=== PATIENT | female | born 1950 | race Caucasian/White ===

== ENCOUNTER 2016-06-29 14:02 | Inpatient (IN) | payer OTHER ==
[~2016-06-29] VITALS: Ht 157.5 cm; Wt 104.6 kg
[~2016-06-29 14:02] MED LIST: AMLO-218 PO; ATOR80TA75 PO; CLON-379 PO; CLOP75TA27 PO; DOCU-144 PO; FEXO60TA8 PO; FOLI-49 PO; GABA100C14 PO; GLUC1KIT3 IM; HEP30MU30 IJ; HYDR-3671 PO; INSU100C3 SC; ISOS60TA PO; LANT3I SC; METO25TA4 PO; ONDA4AMP IV; PANT40TA3 PO; PHEN125O2 PO; SERT25TA PO
[2016-06-29] MEDS ORDERED: SOD CHLORIDE 0.9% 500 ML IV STA (15:17)
[2016-06-29 15:45] LABS: ADD SCAN DIFF NO
[2016-06-29 15:47] LABS: BASOPHILS % 0.3 % (0.0-2.0); EOSINOPHILS # 0.3 10^3/ul (0.0-0.5); EOSINOPHILS % 3.2 % (0.0-7.0); HEMATOCRIT 33.9 % (37.0-47.0); HEMOGLOBIN 10.7 g/dl (12.0-16.0); LYMPHOCYTES # 1.5 10^3/ul (0.8-2.9); LYMPHOCYTES % 16.5 % (15.0-51.0); MEAN CORPUSCULAR HEMOGLOBIN 31.6 pg (29.0-33.0); MEAN CORPUSCULAR HGB CONC 31.6 g/dl (32.0-37.0); MEAN PLATELET VOLUME 10.4 fl (7.4-10.4); MONOCYTE # 0.7 10^3/ul (0.3-0.9); MONOCYTES % 7.7 % (0.0-11.0); NEUTROPHIL # 6.4 10^3/ul (1.6-7.5); NEUTROPHILS % 71.8 % (39.0-77.0); PLATELET COUNT 337 10^3/UL (140-415); RED BLOOD COUNT 3.39 10^6/ul (4.20-5.40); RED CELL DISTRIBUTION WIDTH 15.6 % (11.5-14.5); WHITE BLOOD COUNT 8.9 10^3/ul (4.8-10.8)
[2016-06-29] MEDS ORDERED: LABETALOL HCL 20MG INJ IV ONE (16:00)
[2016-06-29 16:03] LABS: INR 1.02; PARTIAL THROMBOPLASTIN TIME 29.3 Sec (25.0-35.0); PROTIME 13.4 Sec (12.2-14.2)
[2016-06-29 16:08] LABS: ALBUMIN 3.9 g/dl (3.3-4.9); ALBUMIN/GLOBULIN RATIO 1.11; CALCIUM 8.4 mg/dl (8.4-10.2); CREATININE 4.72 mg/dl (0.44-1.00); POTASSIUM 5.5 mmol/L (3.5-5.1); TOTAL PROTEIN 7.4 g/dl (6.1-8.1)
[2016-06-29 16:18] LABS: TROPONIN-I 0.026 ng/ml (0.00-0.12)
[2016-06-29 16:21] LABS: ADD UMIC YES; URINE BILIRUBIN (Dip) NEGATIVE (NEGATIVE); URINE BLOOD (Dip) 1+ (NEGATIVE); URINE COLOR LT. YELLOW (YELLOW); URINE GLUCOSE (Dip) NEGATIVE (NEGATIVE); URINE KETONES (Dip) NEGATIVE (NEGATIVE); URINE LEUKOCYTE ESTERASE (Dip) NEGATIVE (NEGATIVE); URINE NITRITE (Dip) NEGATIVE (NEGATIVE); URINE TOTAL PROTEIN (Dip) 4+ (NEGATIVE); URINE UROBILINOGEN (Dip) 0.2 E.U./dL (0.1-1.0)
[2016-06-29] MEDS ORDERED: HYDR-3672 PO (16:33)
[2016-06-29] MEDS ORDERED: SERT-165 PO (16:33)
[2016-06-29] MEDS ORDERED: METO-407 PO (16:34)
[2016-06-29] MEDS ORDERED: GABA300C16 PO (16:35)
[2016-06-29] MEDS ORDERED: METO100T13 PO (16:35)
[2016-06-29] MEDS ORDERED: FURO80TA3 PO (16:36)
[2016-06-29] MEDS ORDERED: LIRA0.6P2 SQ (16:36)
[2016-06-29] MEDS ORDERED: IRBE300T13 PO (16:38)
[2016-06-29] MEDS ORDERED: REPA1TAB5 PO (16:38)
[2016-06-29 16:39] LABS: SQUAMOUS EPITHELIAL CELL,UR FEW; URINE RBCS 0-2 /HPF (0)
[2016-06-29] MEDS ORDERED: DULO30CA45 PO (16:39)
[2016-06-29] MEDS ORDERED: AMLO5TAB4 PO (16:39)
[2016-06-29] MEDS ORDERED: CLON0.5T4 PO (16:40)
--- NOTE | 2016-06-29 16:40 | RADRPT ---
PROCEDURE: XR Chest. CLINICAL INDICATION: Chest pain TECHNIQUE: A single portable view of the chest was obtained. COMPARISON: None FINDINGS: The aorta is tortuous and atherosclerotic. The cardiomediastinal silhouette is otherwise borderline in size. The lungs and pleural spaces are clear. The soft tissues and osseous structures demonstr ate benign age related senescent changes. Suggestion of a healing left posterior fifth rib fracture is seen. IMPRESSION: 1. Borderline heart size. 2. Suggestion of a healing left posterior fifth rib fracture. RPTAT: HPNM Physician Suzy Date Time Electronically viewed and signed by Physician Suzy on 06/29/2016 16:39 /
[2016-06-29 16:41] LABS: BARBITURATES NEGATIVE (NEGATIVE); BENZODIAZEPINES NEGATIVE (NEGATIVE); CANNABINOIDS NEGATIVE (NEGATIVE); COCAINE NEGATIVE (NEGATIVE); OPIATES NEGATIVE (NEGATIVE)
[2016-06-29] MEDS ORDERED: CHOL20003 PO (16:41)
[2016-06-29] MEDS ORDERED: FERR325C PO (16:42)
[2016-06-29] MEDS ORDERED: ACET-2047 PO (16:43)
[2016-06-29] MEDS ORDERED: ASPI-664 PO (16:44)
[2016-06-29] MEDS ORDERED: ALLO100T PO (16:44)
[2016-06-29] MEDS ORDERED: ALEN70TA30 PO (16:44)
[2016-06-29] MEDS ORDERED: GLUC100015 PO (16:48)
[2016-06-29] MEDS ORDERED: [UNRECOGNIZED DRUG - OTHER] PO (16:52)
--- NOTE | 2016-06-29 16:57 | RADRPT ---
PROCEDURE: CT Head without contrast. CLINICAL INDICATION: Slurred speech TECHNIQUE: The study was performed utilizing a GE 64-slice multidetector CT scanner. Direct spiral axial CT images of the brain were obtained from the vertex to the skull base without contrast. The CTDI vol is 44.77 mGy and the DLP is 720.23 mGy-cm. The images were reviewed on a PACS workstation. COMPARISON: No prior studies are available for comparison. FINDINGS: Mild diffuse cerebral atrophy is seen with a compensatory ventricular enlargement. The curran-white m atter differentiation is maintained. No intra or extra-axial fluid collection or mass effect or julisa ft in the midline structures is seen. The visualized paranasal sinuses, mastoid air cells, orbits, and calvarium are unremarkable. IMPRESSION: 1. No acute intracranial pathology. 2. Mild diffuse cerebral volume loss. RPTAT: HPNM Physician Suzy Date Time Electronically viewed and signed by Physician Suzy on 06/29/2016 16:57 /
[2016-06-29] MEDS ORDERED: ASPIRIN 81 MG TAB PO ONE (17:30)
[2016-06-29] MEDS ORDERED: NA POLYST SULFON 15 GM/60 ML BTL PO ONE (20:00)
[2016-06-29] MEDS ORDERED: ONDANSETRON 4 MG INJ IV PRN (21:00)
[2016-06-29] MEDS ORDERED: ACETAMINOPHEN 325 MG TAB PO PRN (21:00)
[2016-06-29 22:50] VITALS: PULSE 86
--- NOTE | 2016-06-29 22:53 | ERA ---
ER Documentation Chief Complaint Date/Time DATE: 06/29/16 TIME: 22:45 Chief Complaint REFERRED BY PMD FOR POSSIBLE DIALYSIS AND EVAL OF SLURRED SPEECH HPI 65-year-old female presented to the emergency room for observed slurred speech today and primary care's office several hours ago. States that this is happened from time to time. Currently she does not have the slurred speech. She suffered a TIA in the past for which she has had residual right-sided deficits. She is not currently anticoagulated. Primary care doctor also think she may soon need dialysis and she has impaired renal function. She currently has no chest pain or shortness of breath. No headache. ROS All systems reviewed and are negative except as per history of present illness. Medications Home Meds Reported Medications [Vadadustat-Study] No Conflict Check, 300 MG PO DAILY 06/29/16 Glucosamine Sulfate 2KCL (GLUCOSAMINE) 1,000 Mg Tablet, 1000 MG PO DAILY, TAB 06/29/16 Alendronate Sodium* (Fosamax*) 70 Mg Tablet, 70 MG PO Q7D, #4 TAB 06/29/16 Allopurinol* (Allopurinol*) 100 Mg Tablet, 100 MG PO DAILY, TAB 06/29/16 Aspirin* (Aspirin* EC) 81 Mg Tablet.dr, 81 MG PO DAILY, TAB 06/29/16 Acetaminophen* (Acetaminophen*) 650 Mg Tablet, 650 MG PO DAILY Y for PAIN AND OR ELEVATED TEMP, #30 TAB 06/29/16 Ferrous Sulfate (Iron) 325 Mg Capsule.er, 650 MG PO TID, CAP 06/29/16 Cholecalciferol (Vitamin D3) (VITAMIN D-3) 2,000 Unit Capsule, 2000 UNIT PO DAILY, CAP 06/29/16 Clonazepam* (Clonazepam*) 0.5 Mg Tablet, 0.5 MG PO QPM, TAB 06/29/16 Amlodipine Besylate* (Norvasc*) 5 Mg Tablet, 5 MG PO DAILY, TAB 06/29/16 Duloxetine Hcl* (Cymbalta*) 30 Mg Capsule.dr, 30 MG PO DAILY, CAP 06/29/16 Irbesartan* (Avapro*) 300 Mg Tablet, 300 MG PO DAILY, TAB 06/29/16 Repaglinide* (Repaglinide*) 1 Mg Tablet, 1 MG PO AC MEALS, TAB TAKE 1 OR 2MG 15 MIN. BEFORE MEAL 06/29/16 Liraglutide (Victoza 3-Rocco) 0.6 Mg/0.1 Ml Pen.injctr, 0.6 MG SQ QAM, SYR 06/29/16 Furosemide* (Furosemide*) 80 Mg Tablet, 80 MG PO QAM, #30 TAB 06/29/16 Gabapentin* (Gabapentin*) 300 Mg Capsule, 300 MG PO QPM, #60 CAP 06/29/16 Metoprolol Succinate* (Toprol XL*) 100 Mg Tab.sr.24h, 100 MG PO DAILY, #30 TAB 06/29/16 Hydralazine Hcl* (Hydralazine Hcl*) 50 Mg Tab, 50 MG PO TID, #90 TAB 06/29/16 Sertraline Hcl* (Sertraline Hcl*) 100 Mg Tablet, 100 MG PO QPM, #30 TAB 06/29/16 Pantoprazole* (Protonix*) 40 Mg Tablet.dr, 40 MG PO QAM, TAB 08/12/14 Insulin Glargine* (Lantus*) 100 Unit/Ml Soln, 20 UNIT SC QAM, EA 08/12/14 Atorvastatin* (Atorvastatin*) 80 Mg Tablet, 80 MG PO HS, TAB 08/12/14 Discontinued Reported Medications Metoprolol Tartrate* (Lopressor*) 100 Mg Tablet, 100 MG PO DAILY, #60 TAB 06/29/16 Glucagon,Human Recombinant (Glucagon Emergency Kit) 1 Mg/Kit Kit, 1 MG IM PRN, KIT 08/12/14 Phenytoin* (Phenytoin*) 125 Mg/5 Ml Oral.susp, 18 ML PO HS for 30 Days, BOTTLE 08/12/14 Ondansetron Hcl* (Ondansetron Hcl* Inj) 4 Mg/2 Ml Ampul, 4 MG IV Q6 Y for NAUSEA AND/OR VOMITING, AMP 08/12/14 Metoprolol Tartrate* (Lopressor*) 25 Mg Tablet, 75 MG PO BID, TAB 08/12/14 Isosorbide Mononitrate* (Isosorbide Mononitrate*) 60 Mg Tab.er.24h, 60 MG PO QAM , TAB 08/12/14 Insulin Aspart (Novolog) 100 U/Ml Cartridge, 5 UNITS SC AC MEALS, EA HOLD FOR BLOOD SUGAR LESS THAN 120 08/12/14 Insulin Aspart (Novolog) 100 U/Ml Cartridge, 0 SC SLIDING SCALE AC, EA BEFORE MEALS 08/12/14 Hydralazine Hcl* (Hydralazine Hcl*) 25 Mg Tab, 25 MG PO QID, TAB 08/12/14 Heparin Sod (Porcine) (Heparin) 1,000 Unit/Ml Soln, 5000 UNIT IJ Q12 08/12/14 Docusate Sodium* (Colace*) 100 Mg Capsule, 100 MG PO BID Y for CONSTIPATION, CAP 08/12/14 Amlodipine Besylate* (Norvasc*) 10 Mg Tablet, 10 MG PO DAILY, TAB 08/12/14 Folic Acid* (Folic Acid*) 1 Mg Tablet, 1 MG PO DAILY, TAB 08/12/14 Clopidogrel Bisulfate (Clopidogrel) 75 Mg Tablet, 75 MG PO DAILY, TAB 08/12/14 Gabapentin* (Gabapentin*) 100 Mg Capsule, 200 MG PO TID, CAP 08/12/14 Clonidine Hcl* (Clonidine Hcl*) 0.1 Mg Tab, 0.1 MG PO QHS Y for HTN, TAB HOLD FOR SBP LESS THAN 125 08/12/14 Sertraline Hcl* (Zoloft*) 25 Mg Tablet, 75 MG PO HS, TAB 08/12/14 Fexofenadine Hcl* (Fexofenadine Hcl*) 60 Mg Tablet, 60 MG PO BID 10/28/10 Allergies Allergies: Coded Allergies: Penicillins (Verified Allergy, Unknown, ITCHING, 06/29/16) Sulfa (Sulfonamide Antibiotics) (Verified Allergy, Unknown, RASHES, ) latex (Unverified Allergy, Unknown, 06/29/16) morphine (Verified Allergy, Unknown, ITCHING, 06/29/16) Uncoded Allergies: PLASTIC TAPE (Allergy, Unknown, 04/22/14) PMhx/Soc Anesthesia Reaction: No Hx Neurological Disorder: Yes (Stroke, Possible CVA, ) Hx Respiratory Disorders: No Hx Cardiac Disorders: Yes (hypertension, Hyperlipidemia, CHF, ) Hx Psychiatric Problems: Yes (depression) Hx Miscellaneous Medical Probl: No Hx Alcohol Use: No Hx Substance Use: No Hx Tobacco Use: No Smoking Status: Never smoker Physical Exam Vitals Vital Signs Date Time Temp Pulse Resp B/P Pulse Ox O2 Delivery O2 Flow Rate FiO2 06/29/16 22:24 87 18 176/89 98 Nasal Cannula 2.0 06/29/16 20:18 87 18 187/89 98 Nasal Cannula 3.0 06/29/16 18:00 89 18 178/84 99 Nasal Cannula 2.0 06/29/16 16:10 78 18 144/74 99 Room Air 06/29/16 15:40 76 18 194/106 99 Room Air 06/29/16 14:13 97.1 82 19 196/85 99 Physical Exam Const: [] Head: Atraumatic Eyes: Normal Conjunctiva ENT: Normal External Ears, Nose and Mouth. Neck: Full range of motion..~ No meningismus. Resp: Clear to auscultation bilaterally Cardio: Regular rate and rhythm, no murmurs Abd: Soft, non tender, non distended. Normal bowel sounds Skin: No petechiae or rashes Back: No midline or flank tenderness Ext: No cyanosis, or edema Neur: Awake and alert Psych: Normal Mood and Affect Result Diagram: 06/29/16 1535 06/29/16 1535 Results 24 hrs Laboratory Tests Test 06/29/16 15:35 White Blood Count 8.910^3/ul Red Blood Count 3.3910^6/ul Hemoglobin 10.7g/dl Hematocrit 33.9% Mean Corpuscular Volume 100.0fl Mean Corpuscular Hemoglobin 31.6pg Mean Corpuscular Hemoglobin Concent 31.6g/dl Red Cell Distribution Width 15.6% Platelet Count 57084^3/UL Mean Platelet Volume 10.4fl Neutrophils % 71.8% Lymphocytes % 16.5% Monocytes % 7.7% Eosinophils % 3.2% Basophils % 0.3% Nucleated Red Blood Cells % 0.0/100WBC Neutrophils # 6.410^3/ul Lymphocytes # 1.510^3/ul Monocytes # 0.710^3/ul Eosinophils # 0.310^3/ul Basophils # 0.010^3/ul Nucleated Red Blood Cells # 0.010^3/ul Prothrombin Time 13.4Sec Prothrombin Time Ratio 1.0 INR International Normalized Ratio 1.02 Activated Partial Thromboplast Time 29.3Sec Urine Color LT. YELLOW Urine Clarity CLEAR Urine pH 6.0 Urine Specific [place] 1.020 Urine Ketones NEGATIVE Urine Nitrite NEGATIVE Urine Bilirubin NEGATIVE Urine Urobilinogen 0.2 E.U./dL Urine Leukocyte Esterase NEGATIVE Urine Microscopic RBC 0-2/HPF Urine Microscopic WBC 0-2/HPF Urine Squamous Epithelial Cells FEW Urine Hemoglobin 1+ Urine Glucose NEGATIVE% Urine Total Protein 4+ Sodium Level 138mmol/L Potassium Level 5.5mmol/L Chloride Level 105mmol/L Carbon Dioxide Level 23mmol/L Anion Gap 16 Blood Urea Nitrogen 71mg/dl Creatinine 4.72mg/dl Glucose Level 94mg/dl Calcium Level 8.4mg/dl Total Bilirubin 0.0mg/dl Direct Bilirubin 0.00mg/dl Indirect Bilirubin 0.0mg/dl Aspartate Amino Transf (AST/SGOT) 20IU/L Alanine Aminotransferase (ALT/SGPT) 24IU/L Alkaline Phosphatase 134IU/L Troponin I 0.026ng/ml Total Protein 7.4g/dl Albumin 3.9g/dl Globulin 3.50g/dl Albumin/Globulin Ratio 1.11 Urine Opiates Screen NEGATIVE Urine Barbiturates NEGATIVE Urine Amphetamines Screen NEGATIVE Urine Benzodiazepines Screen NEGATIVE Urine Cocaine Screen NEGATIVE Urine Cannabinoids NEGATIVE Current Medications Medications (Trade) Dose Ordered Sig/Carolin Route PRN Reason Start Time Stop Time Status Last Admin Dose Admin Sodium Chloride (NS) 500 ml @ 500 mls/hr Q1H STAT IV 06/29/16 15:17 06/29/16 16:16 DC 06/29/16 16:01 Labetalol HCl (Labetalol) 20 mg ONCE ONCE IV 06/29/16 16:00 06/29/16 16:01 DC 06/29/16 16:00 Aspirin (Aspirin) 324 mg ONCE ONCE PO 06/29/16 17:30 06/29/16 17:31 DC 06/29/16 17:19 Sodium Polystyrene Sulfonate (Kayexalate) 30 gm ONCE ONCE PO 06/29/16 20:00 06/29/16 20:01 DC 06/29/16 20:18 Ondansetron HCl (Zofran Inj) 4 mg ER BRIDGE PRN IV NAUSEA AND/OR VOMITING 06/29/16 21:00 06/29/16 22:37 DC Acetaminophen (Tylenol Tab) 650 mg ER BRIDGE PRN PO MILD PAIN/FEVER 06/29/16 21:00 06/29/16 22:37 DC Aspirin (Halfprin) 81 mg DAILY PO 06/30/16 09:00 Acetaminophen (Tylenol Tab) 500 mg Q4H PRN PO PAIN AND OR ELEVATED TEMP 06/29/16 22:30 Allopurinol (Zyloprim) 100 mg DAILY PO 06/30/16 09:00 Amlodipine Besylate (Norvasc) 5 mg DAILY PO 06/30/16 09:00 Atorvastatin Calcium (Lipitor) 80 mg HS PO 06/30/16 21:00 Cholecalciferol (Vitamin D) 2,000 unit DAILY PO 06/30/16 09:00 06/30/16 09:00 DC Clonazepam (Klonopin) 0.5 mg QPM PO 06/30/16 21:00 Duloxetine HCl (Cymbalta) 30 mg DAILY PO 06/30/16 09:00 Furosemide (Lasix) 80 mg QAM PO 06/30/16 09:00 06/30/16 09:00 DC Gabapentin (Neurontin) 300 mg QPM PO 06/30/16 21:00 Hydralazine HCl (Apresoline) 50 mg TID PO 06/30/16 09:00 Insulin Glargine (Lantus) 20 unit QAM SC 06/30/16 09:00 Metoprolol Succinate (Toprol Xl) 100 mg DAILY PO 06/30/16 09:00 Pantoprazole (Protonix Tab) 40 mg QAM PO 06/30/16 09:00 Repaglinide (Prandin) 1 mg AC MEALS PO 06/30/16 07:00 Sertraline HCl (Zoloft) 100 mg QPM PO 06/30/16 21:00 Miscellaneous Information 1 ea NOTE XX 06/29/16 23:00 Glucose (Glutose) 15 gm Q15M PRN PO DECREASED GLUCOSE 06/29/16 23:00 Glucose (Glutose) 22.5 gm Q15M PRN PO DECREASED GLUCOSE 06/29/16 23:00 Dextrose (D50w Syringe) 25 ml Q15M PRN IV DECREASED GLUCOSE 06/29/16 23:00 Dextrose (D50w Syringe) 50 ml Q15M PRN IV DECREASED GLUCOSE 06/29/16 23:00 Glucagon (Glucagen) 1 mg Q15M PRN IM DECREASED GLUCOSE 06/29/16 23:00 Glucose 15 gm 15 gm Q15M PRN BUCCAL DECREASED GLUCOSE 06/29/16 23:00 Sodium Chloride (1/2 NS) 1,000 ml @ 75 mls/hr [id number] IV 06/29/16 23:00 UNV Insulin Aspart (Novolog Insulin Pen) NOVOLOG *MODERATE* ALGORITHM WITH MEALS BEDTIME SC 06/30/16 08:00 UNV Miscellaneous Information (* Miscellaneous Pharmacy Order) HYPOGLYCEMIA PROTOCOL w... ONCE ONCE XX 06/29/16 23:00 06/29/16 23:01 UNV Miscellaneous Information (* Miscellaneous Pharmacy Order) Discontinue Glyburide, Glipizide,... ONCE ONCE XX 06/29/16 23:00 06/29/16 23:01 UNV Miscellaneous Information (* Miscellaneous Pharmacy Order) Discontinue all previ... ONCE ONCE XX 06/29/16 23:00 06/29/16 23:01 UNV Procedures/MDM Symptoms concerning for TIA in a patient at high risk from prior TIA and residual deficits. She is very hypertensive in the emergency room and required dose of labetalol to lower extremely high blood pressure. Also has evidence of marked renal deficiency she is likely chronic. She has mild hyperkalemia and was given Kayexalate in the emergency room. Her head CT returned without acute hemorrhage she was given 325 mg of aspirin. She has no signs of cardiac ischemia currently but does have evidence of prior cardiac injury with Q waves on EKG. spoke with Dr. Webb would be meeting the patient to telemetry for further monitoring and evaluation. EKG interpretation: Normal sinus rhythm rate of 73, first-degree AV block, normal axis, no signs of acute ischemia but Q waves in inferior leads suggesting possible prior cardiac injury. automatic tire tester interpretation: Normal sinus rhythm without arrhythmia Chest x-ray interpretation: I see no acute process, no pulmonary edema, no new rib fractures, no pneumothorax, no infiltrates. CT head interpretation: I see no acute process I see no hemorrhage no mass- effect no midline shift no skull fracture Critical care time 34 minutes: This includes treatment of malignant hypertension with IV vasoactive medication labetalol in a patient severe renal insufficiency and strokelike symptoms, multiple visits the patient's bedside to reassess status, chart reviewed, discussion with patient and admitting doctor. This does not include any billable procedures Departure Diagnosis: Primary Impression: TIA (transient ischemic attack) Additional Impressions: Hypertensive crisis Hyperkalemia Renal insufficiency Uremia Condition: Serious SCOTT BOWMAN DO June 29, 2016 22:53
[2016-06-29] MEDS ORDERED: GLUCOSE GEL 15 GRAM TUBE BUCCAL PRN (23:00)
[2016-06-29] MEDS ORDERED: DEXTROSE 50% 50 ML SYRINGE IV PRN ×2 (23:00)
[2016-06-29] MEDS ORDERED: GLUCOSE GEL 15 GRAM TUBE PO PRN ×2 (23:00)
[2016-06-29] MEDS ORDERED: GLUCAGON 1 MG INJ IM PRN (23:00)
[2016-06-29 23:10] VITALS: Ht 157.5 cm; Wt 104.6 kg
[2016-06-29] MEDS: SOD CHLORIDE 0.45% 1,000 ML IV SCH (23:42)
[2016-06-30] VITALS (13 sets, daily range): BP systolic 125–195; BP diastolic 66–91; PULSE 79–96; RESP 16–20
[2016-06-30] MEDS: GABAPENTIN 300 MG CAP PO SCH ×2 (01:36→21:31)
[2016-06-30] MEDS ORDERED: REPAGLINIDE 1 MG TAB PO SCH (07:00)
[2016-06-30] MEDS: ALLOPURINOL 100 MG TAB PO SCH (08:26)
[2016-06-30] MEDS: PANTOPRAZOLE (EC) 40 MG TAB PO SCH (08:26)
[2016-06-30] MEDS: AMLODIPINE 5 MG TAB PO SCH (08:26)
[2016-06-30] MEDS: DULOXETINE 30 MG CAP DR PO SCH (08:26)
[2016-06-30] MEDS: METOPROLOL (XL) 100 MG TAB PO SCH (08:27)
[2016-06-30] MEDS ORDERED: ASPIRIN (EC) 81 MG TAB PO SCH (09:00)
[2016-06-30] MEDS ORDERED: FUROSEMIDE 40 MG TAB PO SCH (09:00)
[2016-06-30] MEDS: INSULIN GLARGINE [LANtus] 3 ML PEN SC SCH (09:00)
[2016-06-30] MEDS ORDERED: CHOLECALCIFEROL 2,000 UNIT CAP PO SCH (09:00)
[2016-06-30] MEDS: INSULIN ASPART [NOVOLOG] 3 ML PEN SC SCH ×4 (10:11→21:00)
[2016-06-30 10:26] LABS: POTASSIUM 4.5 mmol/L (3.5-5.1)
[2016-06-30 10:29] LABS: CREATININE 4.9 mg/dl (0.44-1.00)
[2016-06-30 10:30] LABS: CALCIUM 7.5 mg/dl (8.4-10.2)
--- NOTE | 2016-06-30 10:43 | CONS ---
Date/Time of Note Date/Time of Note DATE: 06/30/16 TIME: 10:41 Assessment/Plan Assessment/Plan Additional Assessment/Plan 65 yo Female with 1) TIA R/o CVA 2) DM with Renal complication, Stage V CKD 3) Initiation of Hemodialysis 4) Chronic HTN 5) Hyperkalemia, Resolved 6) Anemia, Chronic Disease 7) MBD CKD Discussed with Patient and who is at bedside Agreeable to HD Will order PC insertion and initiation of HD tomorrow CM consult for Placement to [facility], 2 x week Mon DC Planning after HD center placement Renal ADA diet. Consultation Date/Type/Reason Admit Date/Time June 29, 2016 at 20:59 Date of Consultation: June 30, 2016 Type of Consultation: Nephrology Reason for Consultation CKD stage V, Hyperkalemia Referring Provider: ADARSH OSEI MD Hx of Present Illness 65 yo Female with DM with Renal complication, now with Stage V Ckd, Ref[place] Geovanna Borja [facility] [place] and evaluation and initiation of hemodialysis. Constitutional: No requiring O2 Past Medical History Medical History: congestive heart failure, diabetes, high cholesterol, hypertension, renal disease Family History Significant Family History: no pertinent family hx Social History Alcohol Use: none Smoking Status: Never smoker Drug Use: none Exam/Review of Systems Vital Signs Vitals Vital Signs Date Time Temp Pulse Resp B/P Pulse Ox O2 Delivery O2 Flow Rate FiO2 06/30/16 08:13 96 06/30/16 07:14 97.8 20 176/77 98 06/29/16 23:40 Nasal Cannula 2.0 Intake and Output 06/29/16 06/29/16 06/30/16 15:00 23:00 07:00 Intake Total 950 ml Balance 950 ml Exam Constitutional: alert, oriented, No distress Psych: No anxiety Head: atraumatic, normocephalic Neck: No jvd Respiratory: clear to auscultation Cardiovascular: edema (trace), regular rate and rhythm Gastrointestinal: non-tender, soft, No distended, No rebound or guarding Musculoskeletal: nl extremities to inspection 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, nl mental status, No confused Skin: No diaphoresis Results Result Diagram: 06/29/16 1535 06/30/16 0941 Results 24 hrs Laboratory Tests Test 06/29/16 15:35 06/30/16 08:25 06/30/16 09:41 White Blood Count 8.9 Red Blood Count 3.39 L Hemoglobin 10.7 L Hematocrit 33.9 L Mean Corpuscular Volume 100.0 Mean Corpuscular Hemoglobin 31.6 Mean Corpuscular Hemoglobin Concent 31.6 L Red Cell Distribution Width 15.6 H Platelet Count 337 Mean Platelet Volume 10.4 # Neutrophils % 71.8 Lymphocytes % 16.5 Monocytes % 7.7 Eosinophils % 3.2 Basophils % 0.3 Nucleated Red Blood Cells % 0.0 Neutrophils # 6.4 Lymphocytes # 1.5 Monocytes # 0.7 Eosinophils # 0.3 Basophils # 0.0 Nucleated Red Blood Cells # 0.0 Prothrombin Time 13.4 Prothrombin Time Ratio 1.0 INR International Normalized Ratio 1.02 Activated Partial Thromboplast Time 29.3 Urine Color LT. YELLOW Urine Clarity CLEAR Urine pH 6.0 Urine Specific [place] 1.020 Urine Ketones NEGATIVE Urine Nitrite NEGATIVE Urine Bilirubin NEGATIVE Urine Urobilinogen 0.2 E.U./dL Urine Leukocyte Esterase NEGATIVE Urine Microscopic RBC 0-2 Urine Microscopic WBC 0-2 Urine Squamous Epithelial Cells FEW Urine Hemoglobin 1+ H Urine Glucose NEGATIVE Urine Total Protein 4+ H Sodium Level 138 139 Potassium Level 5.5 H 4.5 Chloride Level 105 103 Carbon Dioxide Level 23 21 Anion Gap 16 20 H Blood Urea Nitrogen 71 H 68 H Creatinine 4.72 H 4.90 H Glucose Level 94 179 Calcium Level 8.4 7.5 L Total Bilirubin 0.0 L Direct Bilirubin 0.00 Indirect Bilirubin 0.0 Aspartate Amino Transf (AST/SGOT) 20 Alanine Aminotransferase (ALT/SGPT) 24 Alkaline Phosphatase 134 H Troponin I 0.026 Total Protein 7.4 Albumin 3.9 Globulin 3.50 H Albumin/Globulin Ratio 1.11 Urine Opiates Screen NEGATIVE Urine Barbiturates NEGATIVE Urine Amphetamines Screen NEGATIVE Urine Benzodiazepines Screen NEGATIVE Urine Cocaine Screen NEGATIVE Urine Cannabinoids NEGATIVE Bedside Glucose 154 Triglycerides Level 108 Cholesterol Level 87 L LDL Cholesterol, Calculated 36 HDL Cholesterol 29 L Cholesterol/HDL Ratio 3.0 Medications Medications Current Medications Aspirin (Halfprin) 81 mg DAILY PO Last administered on 06/30/16t 08:26; Admin Dose 81 MG; Start 06/30/16 at 09:00 Acetaminophen (Tylenol Tab) 500 mg Q4H PRN PO PAIN AND OR ELEVATED TEMP; Start 06/29/16 at 22:30 Allopurinol (Zyloprim) 100 mg DAILY PO Last administered on 06/30/16 08:26; Admin Dose 100 MG; Start 06/30/16 at 09:00 Amlodipine Besylate (Norvasc) 5 mg DAILY PO Last administered on 06/30/16 08: 26; Admin Dose 5 MG; Start 06/30/16 at 09:00 Atorvastatin Calcium (Lipitor) 80 mg HS PO ; Start 06/30/16 at 21:00 Clonazepam (Klonopin) 0.5 mg QPM PO ; Start 06/30/16 at 21:00 Duloxetine HCl (Cymbalta) 30 mg DAILY PO Last administered on 06/30/16 08:26; Admin Dose 30 MG; Start 06/30/16 at 09:00 Gabapentin (Neurontin) 300 mg QPM PO Last administered on 06/30/16 01:36; Admin Dose 300 MG; Start 06/30/16 at 00:10 Hydralazine HCl (Apresoline) 50 mg TID PO Last administered on 06/30/16 08:26 ; Admin Dose 50 MG; Start 06/30/16 at 09:00 Insulin Glargine (Lantus) 20 unit QAM SC ; Start 06/30/16 at 09:00 Metoprolol Succinate (Toprol Xl) 100 mg DAILY PO Last administered on 08:27; Admin Dose 100 MG; Start 06/30/16 at 09:00 Pantoprazole (Protonix Tab) 40 mg QAM PO Last administered on 06/30/16 08:26; Admin Dose 40 MG; Start 06/30/16 at 09:00 Sertraline HCl (Zoloft) 100 mg QPM PO ; Start 06/30/16 at 21:00 Miscellaneous Information 1 ea NOTE XX ; Start 06/29/16 at 23:00 Glucose (Glutose) 15 gm Q15M PRN PO DECREASED GLUCOSE; Start 06/29/16 at 23:00 Glucose (Glutose) 22.5 gm Q15M PRN PO DECREASED GLUCOSE; Start 06/29/16 at 23: 00 Dextrose (D50w Syringe) 25 ml Q15M PRN IV DECREASED GLUCOSE; Start 06/29/16 at 23:00 Dextrose (D50w Syringe) 50 ml Q15M PRN IV DECREASED GLUCOSE; Start 06/29/16 at 23:00 Glucagon (Glucagen) 1 mg Q15M PRN IM DECREASED GLUCOSE; Start 06/29/16 at 23:00 Glucose 15 gm 15 gm Q15M PRN BUCCAL DECREASED GLUCOSE; Start 06/29/16 at 23:00 Sodium Chloride (1/2 NS) 1,000 ml @ 75 mls/hr [id number] IV Last administered on 06/29/16 23:42; Admin Dose 75 MLS/HR; Start 06/29/16 at 23:00 Clonidine (Catapres) 0.1 mg Q6H PRN PO ELEVATED SYSTOLIC BP Last administered on 06/30/16 01:37; Admin Dose 0.1 MG; Start 06/30/16 at 00:30 Procedures Procedures PROCEDURE: XR Chest. CLINICAL INDICATION: Chest pain TECHNIQUE: A single portable view of the chest was obtained. COMPARISON: None FINDINGS: The aorta is tortuous and atherosclerotic. The cardiomediastinal silhouette is otherwise borderline in size. The lungs and pleural spaces are clear. The soft tissues and osseous structures demonstrate benign age related senescent changes. Suggestion of a healing left posterior fifth rib fracture is seen. IMPRESSION: 1. Borderline heart size. 2. Suggestion of a healing left posterior fifth rib fracture. RPTAT: HPNM Physician Suzy Date Time Electronically viewed and signed by Physician Suzy on 06/29/2016 16 :39 PROCEDURE: CT Head without contrast. CLINICAL INDICATION: Slurred speech TECHNIQUE: The study was performed utilizing a GE 64-slice multidetector CT scanner. Direct spiral axial CT images of the brain were obtained from the vertex to the skull base without contrast. The CTDI vol is 44.77 mGy and the DLP is 720.23 mGy-cm. The images were reviewed on a PACS workstation. COMPARISON: No prior studies are available for comparison. FINDINGS: Mild diffuse cerebral atrophy is seen with a compensatory ventricular enlargement. The curran-white matter differentiation is maintained. No intra or extra-axial fluid collection or mass effect or shift in the midline structures is seen. The visualized paranasal sinuses, mastoid air cells, orbits, and calvarium are unremarkable. IMPRESSION: 1. No acute intracranial pathology. 2. Mild diffuse cerebral volume loss. RPTAT: HPNM Physician Suzy Date Time Electronically viewed and signed by Efe Caruso, Physician on 06/29/2016 16 :57 CELINE DOAN MD June 30, 2016 10:43
[2016-06-30] MEDS: SOD CHLORIDE 0.45% 1,000 ML IV SCH (12:20)
[2016-06-30 13:17] LABS: ADD SCAN DIFF NO
--- NOTE | 2016-06-30 13:26 | HP ---
Date/Time of Note Date/Time of Note DATE: 06/30/16 TIME: 13:23 Assessment/Plan VTE Prophylaxis VTE Prophylaxis Intervention: other Lines/Catheters IV Catheter Type (from Nrsg): Peripheral IV Assessment/Plan Assessment/Plan TIA (transient ischemic attack) - neurology consult- dr Rowan notified. - neuro vitals Tachybrady - Cardiology consult - Dr BLUM NOTIFIED Hypertensive crisis - per cardiology Hyperkalemia - per nephrology Renal insufficiency - per nephrology- Dr Vanegas Uremia - per nephrology CHF Diabetes - GLYCEMIC CONTROL - 1800 bety ADA diet - DIETARY consult DW Dr Arias./staff HPI/ROS Admit Date/Time Admit Date/Time June 29, 2016 at 20:59 Hx of Present Illness Chief Complaint REFERRED BY PMD FOR POSSIBLE DIALYSIS AND EVAL OF SLURRED SPEECH HPI 65-year-old female presented to the emergency room for observed slurred speech today and primary care's office several hours ago. States that this is happened from time to time. Currently she does not have the slurred speech. She suffered a TIA in the past for which she has had residual right-sided deficits. She is not currently anticoagulated. Primary care doctor also think she may soon need dialysis and she has impaired renal function. She currently has no chest pain or shortness of breath. No headache. ROS All systems reviewed and are negative except as per history of present illness. Allergies Allergies: Coded Allergies: Penicillins (Verified Allergy, Unknown, ITCHING, 06/29/16) Sulfa (Sulfonamide Antibiotics) (Verified Allergy, Unknown, RASHES, ) latex (Unverified Allergy, Unknown, 06/29/16) morphine (Verified Allergy, Unknown, ITCHING, 06/29/16) Uncoded Allergies: PLASTIC TAPE (Allergy, Unknown, 04/22/14) PMH/Family/Social Past Medical History PMhx/Soc Anesthesia Reaction: No Hx Neurological Disorder: Yes (Stroke, Possible CVA, ) Hx Respiratory Disorders: No Hx Cardiac Disorders: Yes (hypertension, Hyperlipidemia, CHF, ) Hx Psychiatric Problems: Yes (depression) Hx Miscellaneous Medical Probl: No Hx Alcohol Use: No Hx Substance Use: No Hx Tobacco Use: No Smoking Status: Never smoker Medical History: congestive heart failure, diabetes, high cholesterol, hypertension, renal disease Past Surgical History - -Bilatral cataract sx - rt knee sx Past Surgical Hx: other Family History Significant Family History: cancer, hypertension, other Social History Alcohol Use: none Smoking Status: Never smoker Drug Use: none Exam/Review of Systems Vital Signs Vitals Vital Signs Date Time Temp Pulse Resp B/P Pulse Ox O2 Delivery O2 Flow Rate FiO2 06/30/16 12:10 94 06/30/16 11:32 99.1 18 195/91 100 06/29/16 23:40 Nasal Cannula 2.0 Intake and Output 06/29/16 06/29/16 06/30/16 15:00 23:00 07:00 Intake Total 950 ml Balance 950 ml Exam Constitutional: alert, oriented, well developed Psych: nl mood/affect Eyes: nl sclera ENMT: nl external ears & nose Neck: non-tender Respiratory: clear to auscultation Cardiovascular: nl pulses Gastrointestinal: non-tender, soft Musculoskeletal: nl extremities to inspection Extremities: edema Neurological: other (alert/awake, follows simple commands, speech is slow, confused at times. Rt sided weakness noted.) Skin: nl turgor Lymph: nontender Labs Result Diagram: 06/29/16 1535 06/30/16 0941 Medications Medications Current Medications Aspirin (Halfprin) 81 mg DAILY PO Last administered on 06/30/16 08:26; Admin Dose 81 MG; Start 06/30/16 at 09:00 Acetaminophen (Tylenol Tab) 500 mg Q4H PRN PO PAIN AND OR ELEVATED TEMP; Start 06/29/16 at 22:30 Allopurinol (Zyloprim) 100 mg DAILY PO Last administered on 06/30/16 08:26; Admin Dose 100 MG; Start 06/30/16 at 09:00 Amlodipine Besylate (Norvasc) 5 mg DAILY PO Last administered on 06/30/16 08: 26; Admin Dose 5 MG; Start 06/30/16 at 09:00 Atorvastatin Calcium (Lipitor) 80 mg HS PO ; Start 06/30/16 at 21:00 Clonazepam (Klonopin) 0.5 mg QPM PO ; Start 06/30/16 at 21:00 Duloxetine HCl (Cymbalta) 30 mg DAILY PO Last administered on 06/30/16 08:26; Admin Dose 30 MG; Start 06/30/16 at 09:00 Gabapentin (Neurontin) 300 mg QPM PO Last administered on 06/30/16 01:36; Admin Dose 300 MG; Start 06/30/16 at 00:10 Hydralazine HCl (Apresoline) 50 mg TID PO Last administered on 06/30/16 08:26 ; Admin Dose 50 MG; Start 06/30/16 at 09:00 Insulin Glargine (Lantus) 20 unit QAM SC Last administered on 06/30/16 09:00; Admin Dose 20 UNIT; Start 06/30/16 at 09:00 Metoprolol Succinate (Toprol Xl) 100 mg DAILY PO Last administered on 08:27; Admin Dose 100 MG; Start 06/30/16 at 09:00 Pantoprazole (Protonix Tab) 40 mg QAM PO Last administered on 06/30/16 08:26; Admin Dose 40 MG; Start 06/30/16 at 09:00 Sertraline HCl (Zoloft) 100 mg QPM PO ; Start 06/30/16 at 21:00 Miscellaneous Information 1 ea NOTE XX ; Start 06/29/16 at 23:00 Glucose (Glutose) 15 gm Q15M PRN PO DECREASED GLUCOSE; Start 06/29/16 at 23:00 Glucose (Glutose) 22.5 gm Q15M PRN PO DECREASED GLUCOSE; Start 06/29/16 at 23: 00 Dextrose (D50w Syringe) 25 ml Q15M PRN IV DECREASED GLUCOSE; Start 06/29/16 at 23:00 Dextrose (D50w Syringe) 50 ml Q15M PRN IV DECREASED GLUCOSE; Start 06/29/16 at 23:00 Glucagon (Glucagen) 1 mg Q15M PRN IM DECREASED GLUCOSE; Start 06/29/16 at 23:00 Glucose 15 gm 15 gm Q15M PRN BUCCAL DECREASED GLUCOSE; Start 06/29/16 at 23:00 Sodium Chloride (1/2 NS) 1,000 ml @ 75 mls/hr [id number] IV Last administered on 06/29/16 23:42; Admin Dose 75 MLS/HR; Start 06/29/16 at 23:00 Clonidine (Catapres) 0.1 mg Q6H PRN PO ELEVATED SYSTOLIC BP Last administered on 06/30/16 12:04; Admin Dose 0.1 MG; Start 06/30/16 at 00:30 ARLEY ANGEL June 30, 2016 13:26
[2016-06-30 13:28] LABS: BASOPHILS % 0.2 % (0.0-2.0); EOSINOPHILS # 0.1 10^3/ul (0.0-0.5); EOSINOPHILS % 1.6 % (0.0-7.0); HEMATOCRIT 31.3 % (37.0-47.0); HEMOGLOBIN 9.4 g/dl (12.0-16.0); LYMPHOCYTES # 1.1 10^3/ul (0.8-2.9); LYMPHOCYTES % 12.4 % (15.0-51.0); MEAN CORPUSCULAR HEMOGLOBIN 31.2 pg (29.0-33.0); MEAN PLATELET VOLUME 10.6 fl (7.4-10.4); MONOCYTE # 0.6 10^3/ul (0.3-0.9); MONOCYTES % 6.6 % (0.0-11.0); NEUTROPHIL # 6.9 10^3/ul (1.6-7.5); NEUTROPHILS % 78.4 % (39.0-77.0); PLATELET COUNT 276 10^3/UL (140-415); RED BLOOD COUNT 3.01 10^6/ul (4.20-5.40); RED CELL DISTRIBUTION WIDTH 15.5 % (11.5-14.5); WHITE BLOOD COUNT 8.7 10^3/ul (4.8-10.8)
--- NOTE | 2016-06-30 15:30 | RADRPT ---
PROCEDURE: MRI Brain without contrast. CLINICAL INDICATION: Headache. Neurological deficit. TIA. TECHNIQUE: An MRI of the brain was performed utilizing the following sequences: Sagittal and axial T1 weighted, axial T2 weighted, axial diffusion weighted with ADC mapping, coronal GRE, and axial F LAIR. COMPARISON: Brain CT 06/29/2016. FINDINGS: No diffusion weighted abnormalities are seen to suggest the presence of acute ischemia or recent inf arct. No hypointense signal abnormalities are seen on the GRE images to suggest the presence of blo od degradation products. There is no evidence of intracranial hemorrhage, mass effect, or midline s hift. No extra-axial fluid collections are seen. The ventricles and sulci are mildly enlarged indica tive of volume loss. There are mild scattered foci of T2 FLAIR hyperintensity in the white matter, which are nonspecific in etiology but likely reflect chronic small vessel ischemic changes. Small lacunar infarcts are n oted in bilateral sosa radiata. No abnormal intracranial vascular flow void is noted. The visualized paranasal sinuses demonstrate m ild scattered mucosal thickening more pronounced in ethmoid air cells and maxillary sinuses. There i s thinning of bilateral lens indicative of prior lens replacement. IMPRESSION: 1. No acute intracranial hemorrhage, infarction or mass. 2. Mild chronic small vessel ischemic changes. 3. Small lacunar infarcts in bilateral sosa radiata. 4. Mild generalized cerebral volume loss. 5. Mild scattered paranasal sinus disease. RPTAT: HH .Meño Ramirez MD, MD Date Time Electronically viewed and signed by .Meño Ramirez MD, MD on 06/30/2016 15:29 .N/
--- NOTE | 2016-06-30 16:43 | RADRPT ---
PROCEDURE: US Carotids. CLINICAL INDICATION: bruit , TIA TECHNIQUE: Multiple sonographic of the carotid bifurcation region and vertebral arteries were obta ined utilizing curran scale, duplex and color-flow imaging. The images were reviewed on a PACS worksta tion. COMPARISON: No prior studies are available for comparison. FINDINGS: Evaluation of the right carotid bifurcation region reveals mild calcific atherosclerotic disease. Evaluation of the left carotid bifurcation region reveals no significant calcific atherosclerotic di sease. There is antegrade flow within the vertebral arteries bilaterally. RIGHT CAROTID MEASUREMENTS: Common Carotid Saobjc81.7 (cm/sec) Internal Carotid Artery - xmzkdanw27.9 (cm/sec) Internal Carotid Artery - mid68 (cm/sec) Internal Carotid Artery - phjobz519.2 (cm/sec) Internal Carotid/Common Carotid1.25 LEFT CAROTID MEASUREMENTS: Common Carotid Avzgyl52.6 (cm/sec) Internal Carotid Artery - cheyjyom26.9 (cm/sec) Internal Carotid Artery - mid59.2 (cm/sec) Internal Carotid Artery - .9 (cm/sec) Internal Carotid/Common Carotid1.15 RPTAT: AA IMPRESSION: No evidence for hemodynamically significant stenosis in the bilateral internal carotid arteries - va lidated velocity measurements with angiographic measurements, velocity criteria are extrapolated fro m diameter data as defined by the Society of Radiologists in Ultrasound Consensus Conference Radiolo gy 2003; 229;340-346. This study does indirectly reference the measurement of the distal ICA diamet er as the denominator for stenosis measurement. Normal antegrade flow in the vertebral arteries bilaterally. .Daniel Pena MD, MD Date Time Electronically viewed and signed by .Daniel Pena MD, on 06/30/2016 16:43 .S/
--- NOTE | 2016-06-30 16:44 | RADRPT ---
PROCEDURE: US Lower extremity Venous. CLINICAL INDICATION: Bilateral lower extremity edema TECHNIQUE: Multiple sonographic images of the bilateral lower extremity deep venous system was obt ained utilizing grayscale, color-flow, compressive sonography and doppler imaging with augmentation. The images were reviewed on a PACS workstation. COMPARISON: None. FINDINGS: There is normal compressibility and flow within the bilateral common femoral, femoral , posterior ti bial and popliteal veins. RPTAT: AA IMPRESSION: No sonographic evidence for deep venous thrombosis. .Daniel Pena MD, MD Date Time Electronically viewed and signed by .Daniel Pena MD, on 06/30/2016 16:43 .S/
--- NOTE | 2016-06-30 17:52 | RADRPT ---
PROCEDURE: US upper extremity Venous. CLINICAL INDICATION: Bilateral upper extremity swelling TECHNIQUE: Multiple sonographic images of the bilateral upper extremity veins was obtained utilizi ng grayscale, color-flow, compressive sonography and doppler imaging with augmentation. The images were reviewed on a PACS workstation. COMPARISON: None. FINDINGS: There is normal compressibility and flow within the left internal jugular vein, subclavian vein, axi llary vein, brachial, basilic, cephalic , radial and ulnar veins. There is normal compressibility and flow within the left internal jugular vein, subclavian vein, axi llary vein, brachial, upper basilic, lower cephalic , radial and ulnar veins. The cephalic vein is not visualized in the upper arm in the basilic vein is not visualized in the fo rearm. RPTAT: AA IMPRESSION: No sonographic evidence for venous thrombosis in bilateral upper extremities, as above. Physician Kingsley Date Time Electronically viewed and signed by Physician Kingsley on 06/30/2016 17:52 /
--- NOTE | 2016-06-30 18:58 | CONS ---
DATE OF ADMISSION: 06/29/2016 DATE OF CONSULTATION: 06/30/2016 TYPE OF CONSULTATION: Cardiology REASON FOR CONSULTATION: Possible tachybrady. REQUESTING PHYSICIAN: Adarsh Webb MD HISTORY OF PRESENT ILLNESS: Ms. 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 Upon arrival in the emergency department, temperature 97.1, blood pressure markedly elevat ed at 196/85, pulse 82, respiratory rate 19, saturating 99%. The patient's labs showed a white coun t of 8.9, hemoglobin 10.7, platelet count 337. Sodium 138, potassium 5.5, creatinine 4.7, BUN 71, A ST 20, ALT 24. Troponin negative. INR 1.0. Toxicology screen negative. UA negative. The patient underwent a chest x-ray revealing borderline heart size, clear lungs. A head CT revealing no acute intracranial pathology, mild diffuse cerebral volume loss. A venous ultrasound revealing no sonogr aphic evidence of venous thrombosis in bilateral upper extremities, as well as no sonographic eviden ce for DVT in the lower extremities. The patient had a carotid Doppler with no evidence for hemodyn amically significant stenoses, and a followup MRI revealed no acute intracranial hemorrhage, infecti on or mass. Mild chronic small vessel ischemic changes, small lacunar infarcts in the bilateral cor bakari radiata. ECG as above in HPI, revealing sinus rhythm, rate of 73, first-degree AV block, lateral T-wave inver sions, borderline anterior progression. The patient was subsequently admitted to the floor and [facility] e admit to the floor, denies chest pain, shortness of breath. The patient has been monitored on tel emetry with episodes of heart rates as low as 47 and as high as 115 to 120. The patient denies palp itations additionally. PAST MEDICAL HISTORY: As above in HPI. MEDICATIONS CURRENTLY IN HOSPITAL: 1. Lipitor 80 mg at bedtime. 2. Klonopin 0.5 mg at bedtime. 3. Zoloft 100 mg daily. 4. Aspirin 81 mg daily. 5. Allopurinol 100 mg daily. 6. Norvasc 5 mg daily. 7. Cymbalta 30 mg daily. 8. Hydralazine 50 mg p.o. t.i.d. 9. Toprol-XL 100 mg daily. 10. Lantus 20 units subcutaneously q.a.m. 11. Protonix 40 mg daily. 12. Colace p.r.n. 13. Neurontin p.r.n. 14. Tylenol p.r.n. ALLERGIES: 1. PENICILLIN. 2. SULFA. 3. MORPHINE. SOCIAL HISTORY: No tobacco, ETOH or illicit drug use. FAMILY HISTORY: No history of sudden cardiac or early CAD. REVIEW OF SYSTEMS: As above in HPI. CONSTITUTIONAL: No fevers or chills. PULMONARY: No current shortness of breath. CARDIOVASCULAR: No current chest pain. GASTROINTESTINAL: No vomiting. GENITOURINARY: No hematuria. MUSCULOSKELETAL: Degenerative joint disease. PSYCHIATRIC: No documented psych history. NEUROLOGIC: No documented history of CVA. ENDOCRINE: No documented history of thyroid disease. Positive diabetes mellitus. PHYSICAL EXAMINATION: VITAL SIGNS: Temperature 97.9, blood pressure 149/67, pulse 89, respirations 16, saturation 97%. GENERAL: The patient is alert, awake, in no acute distress. NECK: JVP approximately 9 cm of water. CHEST: Fair movement throughout with decreased breath sounds at bases bilaterally, right greater th an left. HEART: Regular rate and rhythm. Normal S1, S2, I/ systolic murmur, nondisplaced PMI. ABDOMEN: Positive bowel sounds, soft. EXTREMITIES: No pitting edema, 1+ pulses bilaterally at the posterior tibial. LABORATORY DATA: Most recently from today, sodium 139, potassium 4.5, creatinine 4.9, BUN 68. LDL 36, HDL 29. White blood cell count of 8.3, hemoglobin 9.4, platelet count 276. IMAGING STUDIES: As above in HPI. No further imaging studies for my review at this time. ECG: As above in HPI. No further electrocardiograms for my review at this time. IMPRESSION: 1. Cardiac arrhythmia concerning for possible tachybrady syndrome with episodes of heart rates to t he 40s and as high as 120s short period of time. 2. Hypertension. 3. Dyslipidemia. 4. Congestive heart failure/volume overload, question systolic versus diastolic, acute on chronic. 5. Diabetes mellitus. 6. Chronic kidney disease to be initiated on hemodialysis. 7. Coronary artery disease, on medications. 8. Anemia. RECOMMENDATIONS: 1. At this time, would maintain the patient on telemetry monitoring to follow rhythm and rate contr ol closely, and rule out any possible rhythm cause of the patient's symptoms as well. 2. TSH to be sure that subclinical hypo or hyperthyroidism is not contributing to the patient's car diac arrhythmias. 3. Check a 2D echo to further assess patient's ejection fraction, wall motion and any major valve a bnormalities. 4. Continue the patient's current antihypertensives with hydralazine and metoprolol as well as Norv asc, following blood pressure closely with possible need for further up-titration. 5. Continue the patient's aspirin at this time for prophylaxis against cardiovascular events. 6. Continue the patient's current statin therapy and adjust it according to a fasting lipid panel t o be checked. 7. The patient to receive dialysis access and likely to be initiated on hemodialysis for improvemen t in volume status. 8. Additionally, we will complete a rule out for myocardial infarction to ensure this patient's EKG abnormalities are chronic in nature and not due to any recent acute coronary syndrome such as an ac elim ira myocardial infarction. Dictated By: BRETT PALMER/ALFREDO Conf#: [id number] DID#: [id number] CC: ADARSH WEBB MD;*End*
--- NOTE | 2016-06-30 21:27 | RADRPT ---
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 Physician: ADARSH OSEI Quality: Adequate Procedures: Transthoracic echocardiogram with complete 2D, M-Mode, and doppler examination. Indications: Transient Ischemic Attack. 2D/M Mode Doppler Measurement Value Normal Ranges Measurement Value Normal Ranges LVIDd 2D 4.2 3.5 - 5.6 cm AV Peak Chele 1.5 m/sec LVIDs 2D 2.3 2.1 - 4.1 cm AV Peak PG 9.3 mmHg LVPWd 2D 1.3 0.6 - 1.1 cm LVOT Peak Chele 1.2 m/sec IVSd 2D 1.2 0.6 - 1.1 cm LVOT Peak PG 5.5 mmHg AoR Diam 2D 3.0 2.0 - 3.7 cm EDV 2D 78.9 cm3 ESV 2D 11.5 cm3 LA Dimen 2D 3.8 2.3 - 4.0 cm Findings Left Ventricle: Normal left ventricular systolic function. Hyperdynamic left ventricular systolic function. Normal left ventricular cavity size. Normal left ventricular wall thickness. Ejection fraction is visually estimated at >65 %. Tissue Doppler/Mitral Doppler indices are consistent with impaired relaxation (Stage I diastolic dysfunction). Right Ventricle: Normal right ventricular size. Normal right ventricular systolic function. Left Atrium: The left atrium is normal in size. Right Atrium: The right atrium is normal in size. Mitral Valve: Mild mitral leaflet calcification. Moderate mitral annular calcification. Trace mitral regurgitation. Aortic Valve: No significant aortic stenosis or insufficiency. Aortic cusps appear mildly calcified. Tricuspid Valve: Normal appearance and function of the tricuspid valve with trace physiologic regurgitation. Normal right ventricular systolic pressure. Pulmonic Valve: Normal pulmonic valve appearance. Pericardium: Normal pericardium with no significant pericardial effusion. Aorta: Normal aortic root. IVC: Normal size and normal respiratory collapse consistent with normal right atrial pressure. Conclusions 1.Normal left ventricular systolic function. Hyperdynamic left ventricular systolic function. Normal left ventricular cavity size. Normal left ventricular wall thickness. Ejection fraction is visually estimated at >65 %. Tissue Doppler/Mitral Doppler indices are consistent with impaired relaxation (Stage I diastolic dysfunction). 2.Mild mitral leaflet calcification. Moderate mitral annular calcification. Trace mitral regurgitation. 3.Normal appearance and function of the tricuspid valve with trace physiologic regurgitation. Normal right ventricular systolic pressure. Electronically Signed By: Ricardo Lantigua 30-Jun-2016 21:26:39 -0700 Patient Name: ADRYAN KRAUSE Study Date: 30-Jun-2016 [id number]
[2016-06-30] MEDS: clonAZEPAM 0.5 MG TAB PO SCH (21:31)
[2016-06-30] MEDS: SERTRALINE 100 MG TAB PO SCH (21:31)
[2016-06-30] MEDS: ATORVASTATIN 80 MG TAB PO SCH (21:31)
[2016-07-01] VITALS (29 sets, daily range): BP systolic 138–217; BP diastolic 71–94; PULSE 33–93; RESP 14–20
[2016-07-01] MEDS: SOD CHLORIDE 0.45% 1,000 ML IV SCH (01:40)
[2016-07-01 02:10] LABS: CK-MB 1.41 ng/ml (0.0-2.4); TROPONIN-I 0.038 ng/ml (0.00-0.12)
[2016-07-01 06:11] LABS: ADD SCAN DIFF NO
[2016-07-01 06:31] LABS: BASOPHILS % 0.3 % (0.0-2.0); EOSINOPHILS # 0.3 10^3/ul (0.0-0.5); EOSINOPHILS % 3.2 % (0.0-7.0); HEMATOCRIT 28.4 % (37.0-47.0); HEMOGLOBIN 8.8 g/dl (12.0-16.0); LYMPHOCYTES # 1.4 10^3/ul (0.8-2.9); LYMPHOCYTES % 17.5 % (15.0-51.0); MEAN CORPUSCULAR HEMOGLOBIN 31.7 pg (29.0-33.0); MEAN CORPUSCULAR VOLUME 102.2 fl (82.0-101.0); MEAN PLATELET VOLUME 10.4 fl (7.4-10.4); MONOCYTE # 0.7 10^3/ul (0.3-0.9); MONOCYTES % 9.2 % (0.0-11.0); NEUTROPHIL # 5.4 10^3/ul (1.6-7.5); NEUTROPHILS % 69.3 % (39.0-77.0); PLATELET COUNT 252 10^3/UL (140-415); RED BLOOD COUNT 2.78 10^6/ul (4.20-5.40); RED CELL DISTRIBUTION WIDTH 15.1 % (11.5-14.5); WHITE BLOOD COUNT 7.7 10^3/ul (4.8-10.8)
[2016-07-01 06:40] LABS: CK-MB 1.86 ng/ml (0.0-2.4)
[2016-07-01 06:43] LABS: TROPONIN-I 0.033 ng/ml (0.00-0.12)
[2016-07-01 06:55] LABS: ALBUMIN/GLOBULIN RATIO 1.15; CALCIUM 7.7 mg/dl (8.4-10.2); CREATININE 4.56 mg/dl (0.44-1.00); POTASSIUM 4.1 mmol/L (3.5-5.1); TOTAL PROTEIN 5.6 g/dl (6.1-8.1)
[2016-07-01] MEDS: INSULIN ASPART [NOVOLOG] 3 ML PEN SC SCH ×4 (07:50→20:39)
[2016-07-01] MEDS: DULOXETINE 30 MG CAP DR PO SCH (08:57)
[2016-07-01] MEDS: ALLOPURINOL 100 MG TAB PO SCH (08:57)
[2016-07-01] MEDS: AMLODIPINE 5 MG TAB PO SCH (08:57)
[2016-07-01] MEDS: PANTOPRAZOLE (EC) 40 MG TAB PO SCH (08:57)
[2016-07-01] MEDS: METOPROLOL (XL) 100 MG TAB PO SCH (08:58)
[2016-07-01] MEDS: INSULIN GLARGINE [LANtus] 3 ML PEN SC SCH (09:10)
[2016-07-01 09:22] LABS: HAAIG REFLEX REFLEX FILED
[2016-07-01 10:19] LABS: HEPATITIS B CORE ANTIBODY NEGATIVE (NEGATIVE)
--- NOTE | 2016-07-01 11:44 | CONS ---
Date/Time of Note Date/Time of Note DATE: 07/01/16 TIME: 11:32 Assessment/Plan Assessment/Plan Chief Complaint/Hosp Course Slurring of speech Problems: Additional Assessment/Plan 65-year-old female with slurred speech today and primary care's office several hours ago. She has had these symptoms before and has had stroke about 2 years ago. Her symptoms resolved in about 5 minutes and did not reoccur. CT brain is unremarkable. MRI of brain showed old lacunar infarcts in bilateral sosa radiata, atrophy, chronic small vessel disease, nothing acute. She has no symptoms now. She likely has TIA. PLAN: 1. Change Aspirin to Plavix 2. OK to DC home from Neurological standpoint 3 Follow up as outpatient Consultation Date/Type/Reason Admit Date/Time June 29, 2016 at 20:59 Reason for Consultation Slurring of speech Referring Provider: ADARSH OSEI MD Hx of Present Illness 65-year-old female with slurred speech today and primary care's office several hours ago. She has had these symptoms before and has had stroke about 2 years ago. Her symptoms resolved in about 5 minutes and did not reoccur. CT brain is unremarkable. MRI of brain showed old lacunar infarcts in bilateral sosa radiata, atrophy, chronic small vessel disease, nothing acute. She has no symptoms now. Constitutional: improved, no complaints, No requiring O2 Eyes: no complaints ENT: no complaints Respiratory: no complaints Cardiovascular: no complaints Gastrointestinal: no complaints Genitourinary: no complaints Musculoskeletal: no complaints Skin: no complaints Neurologic: no complaints Endocrine: no complaints Lymphatic: no complaints Psychological: nl mood/affect, no complaints, No anxiety Immunologic: no complaints Past Medical History Medical History: congestive heart failure, diabetes, high cholesterol, hypertension, renal disease Past Surgical History Past Surgical Hx: other Social History Alcohol Use: none Smoking Status: Never smoker Drug Use: none Exam/Review of Systems Vital Signs Vitals Vital Signs Date Time Temp Pulse Resp B/P Pulse Ox O2 Delivery O2 Flow Rate FiO2 07/01/16 10:56 98.0 79 18 188/86 96 06/29/16 23:40 Nasal Cannula 2.0 Intake and Output 06/30/16 06/30/16 07/01/16 14:59 22:59 06:59 Intake Total 1755 ml Balance 1755 ml Exam Constitutional: alert, obese, oriented Psych: nl mood/affect, no complaints Head: atraumatic, normocephalic Eyes: EOMI, nl conjunctiva, nl lids, nl sclera ENMT: mucosa pink and moist, nl external ears & nose, nl lips & teeth, nl nasal mucosa & septum Neck: non-tender, supple Respiratory: clear to auscultation, normal air movement Cardiovascular: nl pulses, regular rate and rhythm Gastrointestinal: nl liver, spleen, non-tender, soft Musculoskeletal: nl extremities to inspection, nl gait and stance Extremities: normal pulses Neurological: RIFFLER TENDER II-XII intact, nl mental status, nl speech, nl strength Skin: nl turgor, rash or lesions Lymph: nl lymph nodes Results Result Diagram: 07/01/16 0500 07/01/16 0525 Results 24 hrs Laboratory Tests Test 06/30/16 12:03 06/30/16 17:16 06/30/16 21:32 07/01/16 00:47 Bedside Glucose 206 141 124 Creatine Kinase 45 Creatine Kinase Index 3.1 Creatinine Kinase MB (Mass) 1.41 Troponin I 0.038 Hepatitis B Surface Antigen NEGATIVE Hepatitis B Core Total Antibody NEGATIVE Hepatitis C Antibody NEGATIVE Test 07/01/16 05:00 07/01/16 05:25 07/01/16 08:56 White Blood Count 7.7 Red Blood Count 2.78 L Hemoglobin 8.8 L Hematocrit 28.4 L Mean Corpuscular Volume 102.2 H Mean Corpuscular Hemoglobin 31.7 Mean Corpuscular Hemoglobin Concent 31.0 L Red Cell Distribution Width 15.1 H Platelet Count 252 Mean Platelet Volume 10.4 Neutrophils % 69.3 Lymphocytes % 17.5 Monocytes % 9.2 Eosinophils % 3.2 Basophils % 0.3 Nucleated Red Blood Cells % 0.0 Neutrophils # 5.4 Lymphocytes # 1.4 Monocytes # 0.7 Eosinophils # 0.3 Basophils # 0.0 Nucleated Red Blood Cells # 0.0 Sodium Level 135 Potassium Level 4.1 Chloride Level 105 Carbon Dioxide Level 22 Anion Gap 12 # Blood Urea Nitrogen 66 H Creatinine 4.56 H Glucose Level 168 Calcium Level 7.7 L Total Bilirubin 0.0 L Direct Bilirubin 0.00 Indirect Bilirubin 0.0 Aspartate Amino Transf (AST/SGOT) 14 L Alanine Aminotransferase (ALT/SGPT) 24 Alkaline Phosphatase 110 Creatine Kinase 44 Creatine Kinase Index 4.2 Creatinine Kinase MB (Mass) 1.86 Troponin I 0.033 Total Protein 5.6 #L Albumin 3.0 L Globulin 2.60 Albumin/Globulin Ratio 1.15 Bedside Glucose 148 Medications Medications Current Medications Aspirin (Halfprin) 81 mg DAILY PO Last administered on 06/30/16 08:26; Admin Dose 81 MG; Start 06/30/16 at 09:00; Status Future Hold Acetaminophen (Tylenol Tab) 500 mg Q4H PRN PO PAIN AND OR ELEVATED TEMP; Start 06/29/16 at 22:30 Allopurinol (Zyloprim) 100 mg DAILY PO Last administered on 07/01/16 08:57; Admin Dose 100 MG; Start 06/30/16 at 09:00 Amlodipine Besylate (Norvasc) 5 mg DAILY PO Last administered on 07/01/16 08: 57; Admin Dose 5 MG; Start 06/30/16 at 09:00 Atorvastatin Calcium (Lipitor) 80 mg HS PO Last administered on 06/30/16 21:31 ; Admin Dose 80 MG; Start 06/30/16 at 21:00 Clonazepam (Klonopin) 0.5 mg QPM PO Last administered on 06/30/16 21:31; Admin Dose 0.5 MG; Start 06/30/16 at 21:00 Duloxetine HCl (Cymbalta) 30 mg DAILY PO Last administered on 07/01/16 08:57; Admin Dose 30 MG; Start 06/30/16 at 09:00 Gabapentin (Neurontin) 300 mg QPM PO Last administered on 06/30/16 21:31; Admin Dose 300 MG; Start 06/30/16 at 00:10 Hydralazine HCl (Apresoline) 50 mg TID PO Last administered on 07/01/16 08:57 ; Admin Dose 50 MG; Start 06/30/16 at 09:00 Insulin Glargine (Lantus) 20 unit QAM SC Last administered on 07/01/16 09:10; Admin Dose 20 UNIT; Start 06/30/16 at 09:00 Metoprolol Succinate (Toprol Xl) 100 mg DAILY PO Last administered on 08:58; Admin Dose 100 MG; Start 06/30/16 at 09:00 Pantoprazole (Protonix Tab) 40 mg QAM PO Last administered on 07/01/16 08:57; Admin Dose 40 MG; Start 06/30/16 at 09:00 Sertraline HCl (Zoloft) 100 mg QPM PO Last administered on 06/30/16 21:31; Admin Dose 100 MG; Start 06/30/16 at 21:00 Miscellaneous Information 1 ea NOTE XX ; Start 06/29/16 at 23:00 Glucose (Glutose) 15 gm Q15M PRN PO DECREASED GLUCOSE; Start 06/29/16 at 23:00 Glucose (Glutose) 22.5 gm Q15M PRN PO DECREASED GLUCOSE; Start 06/29/16 at 23: 00 Dextrose (D50w Syringe) 25 ml Q15M PRN IV DECREASED GLUCOSE; Start 06/29/16 at 23:00 Dextrose (D50w Syringe) 50 ml Q15M PRN IV DECREASED GLUCOSE; Start 06/29/16 at 23:00 Glucagon (Glucagen) 1 mg Q15M PRN IM DECREASED GLUCOSE; Start 06/29/16 at 23:00 Glucose 15 gm 15 gm Q15M PRN BUCCAL DECREASED GLUCOSE; Start 06/29/16 at 23:00 Sodium Chloride (1/2 NS) 1,000 ml @ 75 mls/hr [id number] IV Last administered on 07/01/16 01:40; Admin Dose 75 MLS/HR; Start 06/29/16 at 23:00 Clonidine (Catapres) 0.1 mg Q6H PRN PO ELEVATED SYSTOLIC BP Last administered on 06/30/16 12:04; Admin Dose 0.1 MG; Start 06/30/16 at 00:30 Procedures Procedures 06/29/16 CT brain IMPRESSION: 1. No acute intracranial pathology. 2. Mild diffuse cerebral volume loss. RPTAT: HPNM Physician Suzy Date Time Electronically viewed and signed by Efe Caruso Physician on 06/29/2016 16 :57 06/30/16 MRI of brain IMPRESSION: 1. No acute intracranial hemorrhage, infarction or mass. 2. Mild chronic small vessel ischemic changes. 3. Small lacunar infarcts in bilateral sosa radiata. 4. Mild generalized cerebral volume loss. 5. Mild scattered paranasal sinus disease. RPTAT: HH .Meño Ramirez MD, MD Date Time Electronically viewed and signed by .Meño Ramirez MD, MD on 06/30/2016 15: 29 06/30/16 Echocardiogram IMPRESSION: No evidence for hemodynamically significant stenosis in the bilateral internal carotid arteries - validated velocity measurements with angiographic measurements, velocity criteria are extrapolated from diameter data as defined by the Society of Radiologists in Ultrasound Consensus Conference Radiology 2003 ; 229;340-346. This study does indirectly reference the measurement of the distal ICA diameter as the denominator for stenosis measurement. Normal antegrade flow in the vertebral arteries bilaterally. .Daniel Pena MD, MD Date Time Electronically viewed and signed by .Daniel Pena MD, MD on 06/30/2016 16: 43 06/30/16 Echocardiogram Conclusions 1. Normal left ventricular systolic function. Hyperdynamic left ventricular systolic function. Normal left ventricular cavity size. Normal left ventricular wall thickness. Ejection fraction is visually estimated at >65 %. Tissue Doppler/Mitral Doppler indices are consistent with impaired relaxation (Stage I diastolic dysfunction). 2. Mild mitral leaflet calcification. Moderate mitral annular calcification. Trace mitral regurgitation. 3. Normal appearance and function of the tricuspid valve with trace physiologic regurgitation. Normal right ventricular systolic pressure. Electronically Signed By: Ricardo Lantigua 30-Jun-2016 21:26:39 -0700 Patient Name: ADRYAN KRAUSE Study Date: 30-Jun-2016 CINDY CRUZ MD July 01, 2016 11:42
[2016-07-01 12:55] LABS: CK-MB 1.82 ng/ml (0.0-2.4); TROPONIN-I 0.026 ng/ml (0.00-0.12)
[2016-07-01] MEDS ORDERED: HEPARIN 1000 UNITS/ML 10 ML INJ ONE (14:35)
[2016-07-01] MEDS ORDERED: LIDOCAINE 1% (MDV) 20 ML INJ ONE (14:35)
[2016-07-01] MEDS ORDERED: SOD CHLORIDE 0.9% 500 ML ONE (14:35)
--- NOTE | 2016-07-01 14:42 | CONS ---
Date/Time of Note Date/Time of Note DATE: 07/01/16 TIME: 14:23 Assessment/Plan Assessment/Plan Chief Complaint/Hosp Course IMPRESSION: 1. Cardiac arrhythmia concerning for possible tachybrady syndrome with episodes of heart rates to the 40s and as high as 120s short period of time.- some pauses today up to 3.6 seconds/NL TSH 2. Hypertension. 3. Dyslipidemia. 4. Congestive heart failure/volume overload, question systolic versus diastolic , acute on chronic. 5. Diabetes mellitus. 6. Chronic kidney disease to be initiated on hemodialysis. 7. Coronary artery disease, on medications. 8. Anemia. Recc: -Tele -serial ECG's -Continue norvasc/hydralazine with slight increase to improve BP control -Continue statin -Hold BB -asa held for permacath -permacath placement today and HD -Hold IVF and follow volume status clsoely Problems: Consultation Date/Type/Reason Admit Date/Time June 29, 2016 at 20:59 Initial Consult Date 06/30/16 Type of Consultation: Cardiology Reason for Consultation cardiac arrythmia Referring Provider: ADARSH OSEI MD Exam/Review of Systems Vital Signs Vitals Vital Signs Date Time Temp Pulse Resp B/P Pulse Ox O2 Delivery O2 Flow Rate FiO2 07/01/16 12:30 170/94 07/01/16 12:00 67 07/01/16 10:56 98.0 18 96 06/29/16 23:40 Nasal Cannula 2.0 Intake and Output 06/30/16 06/30/16 07/01/16 15:00 23:00 07:00 Intake Total 1755 ml Balance 1755 ml Exam Review of Systems: CONSTITUTIONAL: No fevers, chills. PULMONARY: No sob CARDIOVASCULAR: No chest pain/palpitations GASTROINTESTINAL: No nausea/vomiting. GENITOURINARY: No hematuria/dysuria. MUSCULOSKELETAL: No myagias/arthalgias. PSYCHIATRIC: The patient denies depression. NEUROLOGIC: No weakness Constitutional: alert Psych: no complaints Head: normocephalic ENMT: mucosa pink and moist Neck: jvd, supple Respiratory: diminished breath sounds Cardiovascular: regular rate and rhythm Gastrointestinal: soft Musculoskeletal: muscle tone Extremities: edema (none) Neurological: other (NO focal ) Results Result Diagram: 07/01/16 0500 07/01/16 0561 Results 24 hrs Laboratory Tests Test 06/30/16 17:16 06/30/16 21:32 07/01/16 00:47 07/01/16 05:00 Bedside Glucose 141 124 Creatine Kinase 45 Creatine Kinase Index 3.1 Creatinine Kinase MB (Mass) 1.41 Troponin I 0.038 Hepatitis B Surface Antigen NEGATIVE Hepatitis B Core Total Antibody NEGATIVE Hepatitis C Antibody NEGATIVE White Blood Count 7.7 Red Blood Count 2.78 L Hemoglobin 8.8 L Hematocrit 28.4 L Mean Corpuscular Volume 102.2 H Mean Corpuscular Hemoglobin 31.7 Mean Corpuscular Hemoglobin Concent 31.0 L Red Cell Distribution Width 15.1 H Platelet Count 252 Mean Platelet Volume 10.4 Neutrophils % 69.3 Lymphocytes % 17.5 Monocytes % 9.2 Eosinophils % 3.2 Basophils % 0.3 Nucleated Red Blood Cells % 0.0 Neutrophils # 5.4 Lymphocytes # 1.4 Monocytes # 0.7 Eosinophils # 0.3 Basophils # 0.0 Nucleated Red Blood Cells # 0.0 Test 07/01/16 05:25 07/01/16 08:56 07/01/16 11:54 07/01/16 12:00 Sodium Level 135 Potassium Level 4.1 Chloride Level 105 Carbon Dioxide Level 22 Anion Gap 12 # Blood Urea Nitrogen 66 H Creatinine 4.56 H Glucose Level 168 Calcium Level 7.7 L Total Bilirubin 0.0 L Direct Bilirubin 0.00 Indirect Bilirubin 0.0 Aspartate Amino Transf (AST/SGOT) 14 L Alanine Aminotransferase (ALT/SGPT) 24 Alkaline Phosphatase 110 Creatine Kinase 44 74 Creatine Kinase Index 4.2 2.5 Creatinine Kinase MB (Mass) 1.86 1.82 Troponin I 0.033 0.026 Total Protein 5.6 #L Albumin 3.0 L Globulin 2.60 Albumin/Globulin Ratio 1.15 Bedside Glucose 148 120 Medications Medications Current Medications Aspirin (Halfprin) 81 mg DAILY PO Last administered on 06/30/16 08:26; Admin Dose 81 MG; Start 06/30/16 at 09:00; Status Future Hold Acetaminophen (Tylenol Tab) 500 mg Q4H PRN PO PAIN AND OR ELEVATED TEMP; Start 06/29/16 at 22:30 Allopurinol (Zyloprim) 100 mg DAILY PO Last administered on 07/01/16 08:57; Admin Dose 100 MG; Start 06/30/16 at 09:00 Amlodipine Besylate (Norvasc) 5 mg DAILY PO Last administered on 07/01/16 08: 57; Admin Dose 5 MG; Start 06/30/16 at 09:00 Atorvastatin Calcium (Lipitor) 80 mg HS PO Last administered on 06/30/16 21:31 ; Admin Dose 80 MG; Start 06/30/16 at 21:00 Clonazepam (Klonopin) 0.5 mg QPM PO Last administered on 06/30/16 21:31; Admin Dose 0.5 MG; Start 06/30/16 at 21:00 Duloxetine HCl (Cymbalta) 30 mg DAILY PO Last administered on 07/01/16 08:57; Admin Dose 30 MG; Start 06/30/16 at 09:00 Gabapentin (Neurontin) 300 mg QPM PO Last administered on 06/30/16 21:31; Admin Dose 300 MG; Start 06/30/16 at 00:10 Hydralazine HCl (Apresoline) 50 mg TID PO Last administered on 07/01/16 12:40 ; Admin Dose 50 MG; Start 06/30/16 at 09:00 Insulin Glargine (Lantus) 20 unit QAM SC Last administered on 07/01/16 09:10; Admin Dose 20 UNIT; Start 06/30/16 at 09:00 Metoprolol Succinate (Toprol Xl) 100 mg DAILY PO Last administered on 08:58; Admin Dose 100 MG; Start 06/30/16 at 09:00; Status Future Hold Pantoprazole (Protonix Tab) 40 mg QAM PO Last administered on 07/01/16 08:57; Admin Dose 40 MG; Start 06/30/16 at 09:00 Sertraline HCl (Zoloft) 100 mg QPM PO Last administered on 06/30/16 21:31; Admin Dose 100 MG; Start 06/30/16 at 21:00 Miscellaneous Information 1 ea NOTE XX ; Start 06/29/16 at 23:00 Glucose (Glutose) 15 gm Q15M PRN PO DECREASED GLUCOSE; Start 06/29/16 at 23:00 Glucose (Glutose) 22.5 gm Q15M PRN PO DECREASED GLUCOSE; Start 06/29/16 at 23: 00 Dextrose (D50w Syringe) 25 ml Q15M PRN IV DECREASED GLUCOSE; Start 06/29/16 at 23:00 Dextrose (D50w Syringe) 50 ml Q15M PRN IV DECREASED GLUCOSE; Start 06/29/16 at 23:00 Glucagon (Glucagen) 1 mg Q15M PRN IM DECREASED GLUCOSE; Start 06/29/16 at 23:00 Glucose (Glutose) 15 gm Q15M PRN BUCCAL DECREASED GLUCOSE; Start 06/29/16 at 23 :00 Clonidine (Catapres) 0.1 mg Q6H PRN PO ELEVATED SYSTOLIC BP Last administered on 07/01/16t 11:51; Admin Dose 0.1 MG; Start 06/30/16 at 00:30 BRETT BLUM July 01, 2016 14:34
[2016-07-01] MEDS ORDERED: CEFAZOLIN 1 GM/50 ML (PMX) 0 ML IVPB ONE (15:13)
[2016-07-01] MEDS ORDERED: MIDAZOLAM 1 MG/ML 2 ML INJ ONE (15:14)
[2016-07-01] MEDS ORDERED: FENTAnyl 50 MCG/ML VIAL ONE (15:14)
[2016-07-01] MEDS ORDERED: CLINDAMYCIN 600 MG/D5W (PMX) 50 ML IVPB ONE (15:30)
--- NOTE | 2016-07-01 16:41 | RADRPT ---
PROCEDURE: PLACEMENT OF RIGHT INTERNAL JUGULAR VENOUS TUNNELED DIALYSIS CATHETER. CLINICAL INDICATION: Renal failure. TECHNIQUE: Prior to the procedure, informed consent was obtained. Risks including bleeding, infection, and pneu mothorax were explained to the patient and/or the patient's family. The patient and/or the patient's family understood and was willing to proceed. A procedural pause was performed. The patient's name, date of , and procedure to be performed were verified. The central line was inserted with all elements of maximal sterile barrier technique. All of the following were used: head covering, facial mask, sterile gown, sterile gloves, a large sterile sheet, hand hygiene, and 2% chlorhexidine for cutaneous antisepsis. The right neck and anterior/superior chest wall was prepped and draped in usu al sterile fashion. Limited sonography of the right neck was then performed. Noted is a patent right internal jugular ve in. Ultrasound images were recorded and stored in the patient's medical record. Following the local injection of Xylocaine, the right internal jugular vein was punctured under sono graphic guidance with a 20-gauge needle through which a 0.018 inch floppy tip guidewire was advanced into the superior vena cava. The tract was dilated to 5 Maltese and the wire was then replaced with a 0.035 in Amplatz guidewire. A tunnel was then created from the anterior lateral aspect of the sup erior right chest wall to the puncture site in the neck and the catheter was pulled through the trac t. Serial dilatation was then performed and a 16 Maltese peel away sheath was introduced. The 14.5 Maltese 23cm tip to cuff Angiodynamics BioFlo DuraMax dialysis catheter was advanced through the 16 F rench peel-away sheath. The tip of the catheter was confirmed in position within the right atrium. T he peel-away sheath was removed. The 2 ports were each flushed with 2.3 ml of 1:1000 heparin. The c atheter was secured to the skin with 2-0 silk. The wound in the neck was closed with 4-0 Vicryl suture using subcuticular running technique. The site was dressed. The patient tolerated the proce dure well. COMPARISON: None. FINDINGS: Final radiographic images demonstrate the tip of the catheter in the upper right atrium. A total of 0.2 minutes of fluoroscopy time was used. 7 images of the chest were obtained during the procedure . The ultrasound images demonstrate the needle entering the jugular vein. Ultrasound images were r ecorded and stored in the patient's medical record. IMPRESSION: 1. Percutaneous insertion of right internal jugular dialysis tunneled dialysis catheter under fluoro scopic and sonographic guidance. RPTAT: QQ .Willie Keith MD, MD Date Time Electronically viewed and signed by .Willie Keith MD, MD on 07/01/2016 16:40 .R/
--- NOTE | 2016-07-01 16:42 | RADRPT ---
PROCEDURE: Ultrasound guidance for placement of needle in right internal jugular vein. CLINICAL INDICATION: Venous access. TECHNIQUE: Prior to the procedure, informed consent was obtained. Risks including bleeding, infection, and pneu mothorax were explained to the patient. The patient understood and was willing to proceed. A procedu ral pause was performed. The patient's name, date of , and procedure to be performed were verif ied. The central line was inserted with all elements of maximal sterile barrier technique. All of th e following were used: head covering, facial mask, sterile gown, sterile gloves, a large sterile she et, hand hygiene, and 2% chlorhexidine for cutaneous antisepsis. The right neck and anterior/super ior chest wall was prepped and draped in usual sterile fashion. Limited sonography of the right neck was then performed. Noted is a patent right internal jugular ve in. Ultrasound images were recorded and stored in the patient's medical record. Following the local injection of Xylocaine, the right internal jugular vein was punctured under sono graphic guidance with a 20-gauge needle through which a 0.018 inch floppy tip guidewire was advanced into the superior vena cava. The patient tolerated the procedure well. The remainder of the proce dure was performed and dictated under separate cover. COMPARISON: None. FINDINGS: The ultrasound images demonstrate a patent right internal jugular vein. The subsequent images demon strate the needle entering the right internal jugular vein. IMPRESSION: 1. Ultrasound guidance for a needle placement in right internal jugular vein. RPTAT: QQ .Willie Keith MD, Date Time Electronically viewed and signed by .Willie Keith MD, on 07/01/2016 16:42 .R/
[2016-07-01] MEDS: ACETAMINOPHEN 500 MG TAB PO PRN (17:54)
--- NOTE | 2016-07-01 18:12 | PN ---
Date/Time of Note Date/Time of Note DATE: 07/01/16 TIME: 18:06 Assessment/Plan VTE Prophylaxis VTE Prophylaxis Intervention: SCD's Lines/Catheters IV Catheter Type (from [facility]): Peripheral IV Urinary Cath still in place: No Assessment/Plan Assessment/Plan -TIA, continue Plavix. Dr. Pinon neurology consult is appreciated. 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 Dr. Lantigua is following and cardiology consultation. - Possible syncope secondary to take a bright bradycardia syndrome and pauses. - Chronic kidney disease stage V, Dr. Bain is following patient in nephrology consultation. Patient will be started on hemodialysis upon hemodialysis catheter insertion. - Diabetes mellitus. - Hypertension. - Dyslipidemia. - Congestive heart failure/volume overload, question systolic versus diastolic, acute on chronic. - Coronary artery disease, on medications. - Anemia. - Obesity with BMI of 42. Further recommendations based on clinical course. Plan of care discussed with Dr. Webb. Subjective 24 Hr Interval Summary Free Text/Dictation Patient is lethargic but easily arousable, alert and oriented times to name and situation. Patient falls asleep while talking, continue bedrest. Patient also had pauses on telemetry continue close monitoring on telemetry. Exam/Review of Systems Vital Signs Vitals Vital Signs Date Time Temp Pulse Resp B/P Pulse Ox O2 Delivery O2 Flow Rate FiO2 07/01/16 16:56 63 07/01/16 16:53 98.6 18 138/72 94 07/01/16 16:05 Room Air 07/01/16 15:55 3.0 Intake and Output 06/30/16 06/30/16 07/01/16 15:00 23:00 07:00 Intake Total 1755 ml Balance 1755 ml Exam Constitutional: alert, obese, well developed Psych: no complaints Head: normocephalic Eyes: nl conjunctiva ENMT: nl external ears & nose Neck: non-tender, supple Respiratory: clear to auscultation, normal air movement Cardiovascular: nl pulses Gastrointestinal: non-tender, soft Musculoskeletal: nl extremities to inspection Extremities: normal pulses Neurological: CLIENT ACCOUNT MANAGER II-XII 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 Results Result Diagram: 07/01/16 0500 07/01/16 0525 Results 24 hrs Laboratory Tests Test 06/30/16 21:32 07/01/16 00:47 07/01/16 05:00 07/01/16 05:25 Bedside Glucose 124 Creatine Kinase 45 44 Creatine Kinase Index 3.1 4.2 Creatinine Kinase MB (Mass) 1.41 1.86 Troponin I 0.038 0.033 Hepatitis B Surface Antigen NEGATIVE Hepatitis B Core Total Antibody NEGATIVE Hepatitis C Antibody NEGATIVE White Blood Count 7.7 Red Blood Count 2.78 L Hemoglobin 8.8 L Hematocrit 28.4 L Mean Corpuscular Volume 102.2 H Mean Corpuscular Hemoglobin 31.7 Mean Corpuscular Hemoglobin Concent 31.0 L Red Cell Distribution Width 15.1 H Platelet Count 252 Mean Platelet Volume 10.4 Neutrophils % 69.3 Lymphocytes % 17.5 Monocytes % 9.2 Eosinophils % 3.2 Basophils % 0.3 Nucleated Red Blood Cells % 0.0 Neutrophils # 5.4 Lymphocytes # 1.4 Monocytes # 0.7 Eosinophils # 0.3 Basophils # 0.0 Nucleated Red Blood Cells # 0.0 Sodium Level 135 Potassium Level 4.1 Chloride Level 105 Carbon Dioxide Level 22 Anion Gap 12 # Blood Urea Nitrogen 66 H Creatinine 4.56 H Glucose Level 168 Calcium Level 7.7 L Total Bilirubin 0.0 L Direct Bilirubin 0.00 Indirect Bilirubin 0.0 Aspartate Amino Transf (AST/SGOT) 14 L Alanine Aminotransferase (ALT/SGPT) 24 Alkaline Phosphatase 110 Total Protein 5.6 #L Albumin 3.0 L Globulin 2.60 Albumin/Globulin Ratio 1.15 Test 07/01/16 08:56 07/01/16 11:54 07/01/16 12:00 07/01/16 17:53 Bedside Glucose 148 120 82 Creatine Kinase 74 Creatine Kinase Index 2.5 Creatinine Kinase MB (Mass) 1.82 Troponin I 0.026 Medications Medications Current Medications Aspirin (Halfprin) 81 mg DAILY PO Last administered on 06/30/16 08:26; Admin Dose 81 MG; Start 06/30/16 at 09:00; Status Future Hold Acetaminophen (Tylenol Tab) 500 mg Q4H PRN PO PAIN AND OR ELEVATED TEMP Last administered on 07/01/16 17:54; Admin Dose 500 MG; Start 06/29/16 at 22:30 Allopurinol (Zyloprim) 100 mg DAILY PO Last administered on 07/01/16 08:57; Admin Dose 100 MG; Start 06/30/16 at 09:00 Amlodipine Besylate (Norvasc) 5 mg DAILY PO Last administered on 07/01/16 08: 57; Admin Dose 5 MG; Start 06/30/16 at 09:00 Atorvastatin Calcium (Lipitor) 80 mg HS PO Last administered on 06/30/16 21:31 ; Admin Dose 80 MG; Start 06/30/16 at 21:00 Clonazepam (Klonopin) 0.5 mg QPM PO Last administered on 06/30/16 21:31; Admin Dose 0.5 MG; Start 06/30/16 at 21:00 Duloxetine HCl (Cymbalta) 30 mg DAILY PO Last administered on 07/01/16 08:57; Admin Dose 30 MG; Start 06/30/16 at 09:00 Gabapentin (Neurontin) 300 mg QPM PO Last administered on 06/30/16 21:31; Admin Dose 300 MG; Start 06/30/16 at 00:10 Insulin Glargine (Lantus) 20 unit QAM SC Last administered on 07/01/16 09:10; Admin Dose 20 UNIT; Start 06/30/16 at 09:00 Metoprolol Succinate (Toprol Xl) 100 mg DAILY PO Last administered on 08:58; Admin Dose 100 MG; Start 06/30/16 at 09:00; Status Future Hold Pantoprazole (Protonix Tab) 40 mg QAM PO Last administered on 07/01/16 08:57; Admin Dose 40 MG; Start 06/30/16 at 09:00 Sertraline HCl (Zoloft) 100 mg QPM PO Last administered on 06/30/16 21:31; Admin Dose 100 MG; Start 06/30/16 at 21:00 Miscellaneous Information 1 ea NOTE XX ; Start 06/29/16 at 23:00 Glucose (Glutose) 15 gm Q15M PRN PO DECREASED GLUCOSE; Start 06/29/16 at 23:00 Glucose (Glutose) 22.5 gm Q15M PRN PO DECREASED GLUCOSE; Start 06/29/16 at 23: 00 Dextrose (D50w Syringe) 25 ml Q15M PRN IV DECREASED GLUCOSE; Start 06/29/16 at 23:00 Dextrose (D50w Syringe) 50 ml Q15M PRN IV DECREASED GLUCOSE; Start 06/29/16 at 23:00 Glucagon (Glucagen) 1 mg Q15M PRN IM DECREASED GLUCOSE; Start 06/29/16 at 23:00 Glucose (Glutose) 15 gm Q15M PRN BUCCAL DECREASED GLUCOSE; Start 06/29/16 at 23 :00 Clonidine (Catapres) 0.1 mg Q6H PRN PO ELEVATED SYSTOLIC BP Last administered on 07/01/16t 11:51; Admin Dose 0.1 MG; Start 06/30/16 at 00:30 Hydralazine HCl (Apresoline) 75 mg TID PO ; Start 07/01/16 at 15:00 UMESH QUIJANO July 01, 2016 18:12
--- NOTE | 2016-07-01 18:42 | CONS ---
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 CM consult for Placement to NDC, 2 x week Mon Wed DC Planning after HD center placement Renal ADA diet. Consultation Date/Type/Reason Admit Date/Time June 29, 2016 at 20:59 Initial Consult Date 06/30/16 Type of Consultation: Renal Referring Provider: ADARSH OSEI MD 24 HR Interval Summary Free Text/Dictation On HD S/p PC Constitutional: No requiring O2 Exam/Review of Systems Vital Signs Vitals Vital Signs Date Time Temp Pulse Resp B/P Pulse Ox O2 Delivery O2 Flow Rate FiO2 07/01/16 16:56 63 07/01/16 16:53 98.6 18 138/72 94 07/01/16 16:05 Room Air 07/01/16 15:55 3.0 Intake and Output 06/30/16 06/30/16 07/01/16 15:00 23:00 07:00 Intake Total 1755 ml Balance 1755 ml Exam Constitutional: alert, oriented, No distress ENMT: mucosa pink and moist Neck: No jvd Respiratory: No diminished breath sounds, No labored breathing Cardiovascular: edema, regular rate and rhythm Gastrointestinal: non-tender, soft Extremities: edema Neurological: [employer] II-XII intact, nl mental status, nl strength, No lethargic Results Result Diagram: 07/01/16 0500 07/01/16 0525 Results 24 hrs Laboratory Tests Test 06/30/16 21:32 07/01/16 00:47 07/01/16 05:00 07/01/16 05:25 Bedside Glucose 124 Creatine Kinase 45 44 Creatine Kinase Index 3.1 4.2 Creatinine Kinase MB (Mass) 1.41 1.86 Troponin I 0.038 0.033 Hepatitis B Surface Antigen NEGATIVE Hepatitis B Core Total Antibody NEGATIVE Hepatitis C Antibody NEGATIVE White Blood Count 7.7 Red Blood Count 2.78 L Hemoglobin 8.8 L Hematocrit 28.4 L Mean Corpuscular Volume 102.2 H Mean Corpuscular Hemoglobin 31.7 Mean Corpuscular Hemoglobin Concent 31.0 L Red Cell Distribution Width 15.1 H Platelet Count 252 Mean Platelet Volume 10.4 Neutrophils % 69.3 Lymphocytes % 17.5 Monocytes % 9.2 Eosinophils % 3.2 Basophils % 0.3 Nucleated Red Blood Cells % 0.0 Neutrophils # 5.4 Lymphocytes # 1.4 Monocytes # 0.7 Eosinophils # 0.3 Basophils # 0.0 Nucleated Red Blood Cells # 0.0 Sodium Level 135 Potassium Level 4.1 Chloride Level 105 Carbon Dioxide Level 22 Anion Gap 12 # Blood Urea Nitrogen 66 H Creatinine 4.56 H Glucose Level 168 Calcium Level 7.7 L Total Bilirubin 0.0 L Direct Bilirubin 0.00 Indirect Bilirubin 0.0 Aspartate Amino Transf (AST/SGOT) 14 L Alanine Aminotransferase (ALT/SGPT) 24 Alkaline Phosphatase 110 Total Protein 5.6 #L Albumin 3.0 L Globulin 2.60 Albumin/Globulin Ratio 1.15 Test 07/01/16 08:56 07/01/16 11:54 07/01/16 12:00 07/01/16 17:53 Bedside Glucose 148 120 82 Creatine Kinase 74 Creatine Kinase Index 2.5 Creatinine Kinase MB (Mass) 1.82 Troponin I 0.026 Medications Medications Current Medications Aspirin (Halfprin) 81 mg DAILY PO Last administered on 06/30/16 08:26; Admin Dose 81 MG; Start 06/30/16 at 09:00; Status Future Hold Acetaminophen (Tylenol Tab) 500 mg Q4H PRN PO PAIN AND OR ELEVATED TEMP Last administered on 07/01/16 17:54; Admin Dose 500 MG; Start 06/29/16 at 22:30 Allopurinol (Zyloprim) 100 mg DAILY PO Last administered on 07/01/16 08:57; Admin Dose 100 MG; Start 06/30/16 at 09:00 Amlodipine Besylate (Norvasc) 5 mg DAILY PO Last administered on 07/01/16 08: 57; Admin Dose 5 MG; Start 06/30/16 at 09:00 Atorvastatin Calcium (Lipitor) 80 mg HS PO Last administered on 06/30/16 21:31 ; Admin Dose 80 MG; Start 06/30/16 at 21:00 Clonazepam (Klonopin) 0.5 mg QPM PO Last administered on 06/30/16 21:31; Admin Dose 0.5 MG; Start 06/30/16 at 21:00 Duloxetine HCl (Cymbalta) 30 mg DAILY PO Last administered on 07/01/16 08:57; Admin Dose 30 MG; Start 06/30/16 at 09:00 Gabapentin (Neurontin) 300 mg QPM PO Last administered on 06/30/16 21:31; Admin Dose 300 MG; Start 06/30/16 at 00:10 Insulin Glargine (Lantus) 20 unit QAM SC Last administered on 07/01/16 09:10; Admin Dose 20 UNIT; Start 06/30/16 at 09:00 Metoprolol Succinate (Toprol Xl) 100 mg DAILY PO Last administered on 08:58; Admin Dose 100 MG; Start 06/30/16 at 09:00; Status Future Hold Pantoprazole (Protonix Tab) 40 mg QAM PO Last administered on 07/01/16 08:57; Admin Dose 40 MG; Start 06/30/16 at 09:00 Sertraline HCl (Zoloft) 100 mg QPM PO Last administered on 06/30/16 21:31; Admin Dose 100 MG; Start 06/30/16 at 21:00 Miscellaneous Information 1 ea NOTE XX ; Start 06/29/16 at 23:00 Glucose (Glutose) 15 gm Q15M PRN PO DECREASED GLUCOSE; Start 06/29/16 at 23:00 Glucose (Glutose) 22.5 gm Q15M PRN PO DECREASED GLUCOSE; Start 06/29/16 at 23: 00 Dextrose (D50w Syringe) 25 ml Q15M PRN IV DECREASED GLUCOSE; Start 06/29/16 at 23:00 Dextrose (D50w Syringe) 50 ml Q15M PRN IV DECREASED GLUCOSE; Start 06/29/16 at 23:00 Glucagon (Glucagen) 1 mg Q15M PRN IM DECREASED GLUCOSE; Start 06/29/16 at 23:00 Glucose (Glutose) 15 gm Q15M PRN BUCCAL DECREASED GLUCOSE; Start 06/29/16 at 23 :00 Clonidine (Catapres) 0.1 mg Q6H PRN PO ELEVATED SYSTOLIC BP Last administered on 07/01/16 11:51; Admin Dose 0.1 MG; Start 06/30/16 at 00:30 Hydralazine HCl (Apresoline) 75 mg TID PO ; Start 07/01/16 at 15:00 CELINE DOAN MD July 01, 2016 18:42
[2016-07-01] MEDS: EPOETIN 4000 UNITS/1 ML INJ (ESRD) IV SCH (19:20)
--- NOTE | 2016-07-01 19:31 | RADRPT ---
Vent Rate: 55 bpm RR Interval: 0 msec [place] Interval: 226 msec QRS Duration: 94 msec QT Interval: 422 msec QTC Interval: 403 msec P-R-T [place]: 48 - 51 - 37 degrees Sinus bradycardia with sinus arrhythmia with 1st degree AV block Anterior infarct , age undetermined Abnormal ECG Electronically Signed By: Ricardo Lantigua [id number]
[2016-07-01] MEDS: SERTRALINE 100 MG TAB PO SCH (20:38)
[2016-07-01] MEDS: ATORVASTATIN 80 MG TAB PO SCH (20:38)
[2016-07-01] MEDS: GABAPENTIN 300 MG CAP PO SCH (20:38)
[2016-07-01] MEDS: clonAZEPAM 0.5 MG TAB PO SCH (20:39)
[2016-07-02] VITALS (15 sets, daily range): BP systolic 140–209; BP diastolic 63–95; PULSE 60–106; RESP 18–20
[2016-07-02] MEDS: ACETAMINOPHEN 500 MG TAB PO PRN (05:31)
[2016-07-02 06:51] LABS: ADD SCAN DIFF NO
[2016-07-02 06:52] LABS: BASOPHILS % 0.3 % (0.0-2.0); EOSINOPHILS # 0.2 10^3/ul (0.0-0.5); EOSINOPHILS % 2.9 % (0.0-7.0); HEMATOCRIT 29.5 % (37.0-47.0); HEMOGLOBIN 8.9 g/dl (12.0-16.0); LYMPHOCYTES # 1.1 10^3/ul (0.8-2.9); LYMPHOCYTES % 15.2 % (15.0-51.0); MEAN CORPUSCULAR HEMOGLOBIN 30.9 pg (29.0-33.0); MEAN CORPUSCULAR HGB CONC 30.2 g/dl (32.0-37.0); MEAN CORPUSCULAR VOLUME 102.4 fl (82.0-101.0); MEAN PLATELET VOLUME 10.6 fl (7.4-10.4); MONOCYTE # 0.6 10^3/ul (0.3-0.9); MONOCYTES % 8.1 % (0.0-11.0); NEUTROPHIL # 5.2 10^3/ul (1.6-7.5); NEUTROPHILS % 73.2 % (39.0-77.0); PLATELET COUNT 251 10^3/UL (140-415); RED BLOOD COUNT 2.88 10^6/ul (4.20-5.40); RED CELL DISTRIBUTION WIDTH 15.4 % (11.5-14.5); WHITE BLOOD COUNT 7.2 10^3/ul (4.8-10.8)
[2016-07-02 07:07] LABS: CREATININE 3.3 mg/dl (0.44-1.00)
[2016-07-02 07:11] LABS: CALCIUM 8.3 mg/dl (8.4-10.2); POTASSIUM 3.7 mmol/L (3.5-5.1)
[2016-07-02] MEDS: INSULIN ASPART [NOVOLOG] 3 ML PEN SC SCH ×4 (07:55→21:00)
[2016-07-02] MEDS: DULOXETINE 30 MG CAP DR PO SCH (08:14)
[2016-07-02] MEDS: PANTOPRAZOLE (EC) 40 MG TAB PO SCH (08:15)
[2016-07-02] MEDS: AMLODIPINE 5 MG TAB PO SCH (08:15)
[2016-07-02] MEDS: ALLOPURINOL 100 MG TAB PO SCH (08:15)
[2016-07-02] MEDS: INSULIN GLARGINE [LANtus] 3 ML PEN SC SCH (08:20)
[2016-07-02] MEDS: hydrALAzine 20 MG INJ IV PRN ×2 (11:54→23:40)
--- NOTE | 2016-07-02 12:31 | CONS ---
Date/Time of Note Date/Time of Note DATE: 07/02/16 TIME: 12:29 Assessment/Plan Assessment/Plan Chief Complaint/Hosp Course Slurring of speech Problems: Additional Assessment/Plan 65-year-old female with slurred speech today and primary care's office several hours ago. She has had these symptoms before and has had stroke about 2 years ago. Her symptoms resolved in about 5 minutes and did not reoccur. CT brain is unremarkable. MRI of brain showed old lacunar infarcts in bilateral sosa radiata, atrophy, chronic small vessel disease, nothing acute. She has no symptoms now. She likely has TIA. PLAN: 1. Change Aspirin to Plavix 2. OK to DC home from Neurological standpoint 3 Follow up as outpatient Consultation Date/Type/Reason Admit Date/Time June 29, 2016 at 20:59 Initial Consult Date 06/30/16 Type of Consultation: Renal Referring Provider: ADARSH OSEI MD 24 HR Interval Summary Free Text/Dictation She has been doing well and there are no recurrence of her symptoms Constitutional: no complaints Exam/Review of Systems Vital Signs Vitals Vital Signs Date Time Temp Pulse Resp B/P Pulse Ox O2 Delivery O2 Flow Rate FiO2 07/02/16 12:14 61 07/02/16 11:31 98.0 18 193/83 94 07/01/16 19:15 Nasal Cannula 2.0 Intake and Output 07/01/16 07/01/16 07/02/16 15:00 23:00 07:00 Intake Total 800 ml 1100 ml 450 ml Output Total 2000 ml Balance 800 ml -900 ml 450 ml Exam Constitutional: alert, oriented, well developed Psych: nl mood/affect, no complaints Head: atraumatic, normocephalic Eyes: EOMI, nl conjunctiva, nl lids, nl sclera ENMT: mucosa pink and moist, nl external ears & nose, nl lips & teeth, nl nasal mucosa & septum Neck: non-tender, supple Respiratory: clear to auscultation, normal air movement Cardiovascular: nl pulses, regular rate and rhythm Gastrointestinal: nl liver, spleen, non-tender, soft Musculoskeletal: nl extremities to inspection Extremities: normal pulses 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, nl mental status, nl speech, nl strength Skin: nl turgor, rash or lesions Lymph: nl lymph nodes Results Result Diagram: 07/02/16 0547 07/02/16 0607 Results 24 hrs Laboratory Tests Test 07/01/16 17:53 07/01/16 20:37 07/02/16 05:47 07/02/16 06:07 Bedside Glucose 82 162 White Blood Count 7.2 Red Blood Count 2.88 L Hemoglobin 8.9 L Hematocrit 29.5 L Mean Corpuscular Volume 102.4 H Mean Corpuscular Hemoglobin 30.9 Mean Corpuscular Hemoglobin Concent 30.2 L Red Cell Distribution Width 15.4 H Platelet Count 251 Mean Platelet Volume 10.6 H Neutrophils % 73.2 Lymphocytes % 15.2 Monocytes % 8.1 Eosinophils % 2.9 Basophils % 0.3 Nucleated Red Blood Cells % 0.0 Neutrophils # 5.2 Lymphocytes # 1.1 Monocytes # 0.6 Eosinophils # 0.2 Basophils # 0.0 Nucleated Red Blood Cells # 0.0 Sodium Level 140 Potassium Level 3.7 Chloride Level 105 Carbon Dioxide Level 27 Anion Gap 12 Blood Urea Nitrogen 37 #H Creatinine 3.30 #H Glucose Level 120 # Calcium Level 8.3 L Test 07/02/16 07:56 07/02/16 11:58 Bedside Glucose 112 110 Medications Medications Current Medications Aspirin (Halfprin) 81 mg DAILY PO Last administered on 06/30/16 08:26; Admin Dose 81 MG; Start 06/30/16 at 09:00; Status Future Hold Acetaminophen (Tylenol Tab) 500 mg Q4H PRN PO PAIN AND OR ELEVATED TEMP Last administered on 07/02/16 05:31; Admin Dose 500 MG; Start 06/29/16 at 22:30 Allopurinol (Zyloprim) 100 mg DAILY PO Last administered on 07/02/16 08:15; Admin Dose 100 MG; Start 06/30/16 at 09:00 Amlodipine Besylate (Norvasc) 5 mg DAILY PO Last administered on 07/02/16 08: 15; Admin Dose 5 MG; Start 06/30/16 at 09:00 Atorvastatin Calcium (Lipitor) 80 mg HS PO Last administered on 07/01/16 20:38 ; Admin Dose 80 MG; Start 06/30/16 at 21:00 Clonazepam (Klonopin) 0.5 mg QPM PO Last administered on 07/01/16 20:39; Admin Dose 0.5 MG; Start 06/30/16 at 21:00 Duloxetine HCl (Cymbalta) 30 mg DAILY PO Last administered on 07/02/16 08:14; Admin Dose 30 MG; Start 06/30/16 at 09:00 Gabapentin (Neurontin) 300 mg QPM PO Last administered on 07/01/16 20:38; Admin Dose 300 MG; Start 06/30/16 at 00:10 Insulin Glargine (Lantus) 20 unit QAM SC Last administered on 07/02/16 08:20; Admin Dose 20 UNIT; Start 06/30/16 at 09:00 Metoprolol Succinate (Toprol Xl) 100 mg DAILY PO Last administered on 08:58; Admin Dose 100 MG; Start 06/30/16 at 09:00; Status Future Hold Pantoprazole (Protonix Tab) 40 mg QAM PO Last administered on 07/02/16 08:15; Admin Dose 40 MG; Start 06/30/16 at 09:00 Sertraline HCl (Zoloft) 100 mg QPM PO Last administered on 07/01/16 20:38; Admin Dose 100 MG; Start 06/30/16 at 21:00 Miscellaneous Information 1 ea NOTE XX ; Start 06/29/16 at 23:00 Glucose (Glutose) 15 gm Q15M PRN PO DECREASED GLUCOSE; Start 06/29/16 at 23:00 Glucose (Glutose) 22.5 gm Q15M PRN PO DECREASED GLUCOSE; Start 06/29/16 at 23: 00 Dextrose (D50w Syringe) 25 ml Q15M PRN IV DECREASED GLUCOSE; Start 06/29/16 at 23:00 Dextrose (D50w Syringe) 50 ml Q15M PRN IV DECREASED GLUCOSE; Start 06/29/16 at 23:00 Glucagon (Glucagen) 1 mg Q15M PRN IM DECREASED GLUCOSE; Start 06/29/16 at 23:00 Glucose (Glutose) 15 gm Q15M PRN BUCCAL DECREASED GLUCOSE; Start 06/29/16 at 23 :00 Hydralazine HCl (Apresoline) 75 mg TID PO Last administered on 07/02/16 08:15 ; Admin Dose 75 MG; Start 07/01/16 at 15:00 Epoetin Bautista (Epogen (Esrd)) 4,000 units MoWeFr@17 IV Last administered on 07/01 19:20; Admin Dose 4,000 UNITS; Start 07/01/16 at 18:58 Hydralazine HCl (Apresoline) 10 mg Q4H PRN IV SBP GREATER THAN 160 Last administered on 07/02/16 11:54; Admin Dose 10 MG; Start 07/02/16 at 12:00 CINDY CRUZ MD July 02, 2016 12:31
[2016-07-02] MEDS ORDERED: CLOPIDOGREL 75 MG TAB PO ONE (13:00)
--- NOTE | 2016-07-02 13:46 | PN ---
Date/Time of Note Date/Time of Note DATE: 07/02/16 TIME: 13:41 Assessment/Plan VTE Prophylaxis VTE Prophylaxis Intervention: other Lines/Catheters IV [facility]ter Type (from [facility] [place] Urinary Cath still in place: No Assessment/Plan Assessment/Plan -TIA, continue Plavix. - per Dr. 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 Dr. Lantigua is following and cardiology consultation. - Possible syncope secondary to take a bright bradycardia syndrome and pauses. - Chronic kidney disease stage V, Dr. Bain is following patient in nephrology consultation. Patient will be started on hemodialysis upon hemodialysis catheter insertion. - Diabetes mellitus. - Hypertension. - per cardiology - BP elevated -193/83 - will monitor on tele unit - Dyslipidemia. - Congestive heart failure/volume overload, question systolic versus diastolic, acute on chronic. - Coronary artery disease, on medications. - Anemia. - Obesity with BMI of 42. - per dietary Further recommendations based on clinical course. Plan of care discussed with Dr. Webb. Subjective 24 Hr Interval Summary Free Text/Dictation sleeping, easily awakens, bp elevated- 193/83- will keep her on Tele, denies any chest pain, shortness of breath, afebrile, dw staff Exam/Review of Systems Vital Signs Vitals Vital Signs Date Time Temp Pulse Resp B/P Pulse Ox O2 Delivery O2 Flow Rate FiO2 07/02/16 12:14 61 07/02/16 11:31 98.0 18 193/83 94 07/01/16 19:15 Nasal Cannula 2.0 Intake and Output 07/01/16 07/01/16 07/02/16 15:00 23:00 07:00 Intake Total 800 ml 1100 ml 450 ml Output Total 2000 ml Balance 800 ml -900 ml 450 ml Exam Constitutional: alert, obese ENMT: nl external ears & nose Respiratory: diminished breath sounds Gastrointestinal: soft Musculoskeletal: nl extremities to inspection Extremities: normal pulses Neurological: other Results Result Diagram: 07/02/16 0547 07/02/16 0607 Results 24 hrs Laboratory Tests Test 07/01/16 17:53 07/01/16 20:37 07/02/16 05:47 07/02/16 06:07 Bedside Glucose 82 162 White Blood Count 7.2 Red Blood Count 2.88 L Hemoglobin 8.9 L Hematocrit 29.5 L Mean Corpuscular Volume 102.4 H Mean Corpuscular Hemoglobin 30.9 Mean Corpuscular Hemoglobin Concent 30.2 L Red Cell Distribution Width 15.4 H Platelet Count 251 Mean Platelet Volume 10.6 H Neutrophils % 73.2 Lymphocytes % 15.2 Monocytes % 8.1 Eosinophils % 2.9 Basophils % 0.3 Nucleated Red Blood Cells % 0.0 Neutrophils # 5.2 Lymphocytes # 1.1 Monocytes # 0.6 Eosinophils # 0.2 Basophils # 0.0 Nucleated Red Blood Cells # 0.0 Sodium Level 140 Potassium Level 3.7 Chloride Level 105 Carbon Dioxide Level 27 Anion Gap 12 Blood Urea Nitrogen 37 #H Creatinine 3.30 #H Glucose Level 120 # Calcium Level 8.3 L Test 07/02/16 07:56 07/02/16 11:58 Bedside Glucose 112 110 Medications Medications Current Medications Aspirin (Halfprin) 81 mg DAILY PO Last administered on 06/30/16 08:26; Admin Dose 81 MG; Start 06/30/16 at 09:00; Status Future Hold Acetaminophen (Tylenol Tab) 500 mg Q4H PRN PO PAIN AND OR ELEVATED TEMP Last administered on 07/02/16 05:31; Admin Dose 500 MG; Start 06/29/16 at 22:30 Allopurinol (Zyloprim) 100 mg DAILY PO Last administered on 07/02/16 08:15; Admin Dose 100 MG; Start 06/30/16 at 09:00 Amlodipine Besylate (Norvasc) 5 mg DAILY PO Last administered on 07/02/16 08: 15; Admin Dose 5 MG; Start 06/30/16 at 09:00 Atorvastatin Calcium (Lipitor) 80 mg HS PO Last administered on 07/01/16 20:38 ; Admin Dose 80 MG; Start 06/30/16 at 21:00 Clonazepam (Klonopin) 0.5 mg QPM PO Last administered on 07/01/16 20:39; Admin Dose 0.5 MG; Start 06/30/16 at 21:00 Duloxetine HCl (Cymbalta) 30 mg DAILY PO Last administered on 07/02/16 08:14; Admin Dose 30 MG; Start 06/30/16 at 09:00 Gabapentin (Neurontin) 300 mg QPM PO Last administered on 07/01/16 20:38; Admin Dose 300 MG; Start 06/30/16 at 00:10 Insulin Glargine (Lantus) 20 unit QAM SC Last administered on 07/02/16 08:20; Admin Dose 20 UNIT; Start 06/30/16 at 09:00 Metoprolol Succinate (Toprol Xl) 100 mg DAILY PO Last administered on 08:58; Admin Dose 100 MG; Start 06/30/16 at 09:00; Status Future Hold Pantoprazole (Protonix Tab) 40 mg QAM PO Last administered on 07/02/16 08:15; Admin Dose 40 MG; Start 06/30/16 at 09:00 Sertraline HCl (Zoloft) 100 mg QPM PO Last administered on 07/01/16 20:38; Admin Dose 100 MG; Start 06/30/16 at 21:00 Miscellaneous Information 1 ea NOTE XX ; Start 06/29/16 at 23:00 Glucose (Glutose) 15 gm Q15M PRN PO DECREASED GLUCOSE; Start 06/29/16 at 23:00 Glucose (Glutose) 22.5 gm Q15M PRN PO DECREASED GLUCOSE; Start 06/29/16 at 23: 00 Dextrose (D50w Syringe) 25 ml Q15M PRN IV DECREASED GLUCOSE; Start 06/29/16 at 23:00 Dextrose (D50w Syringe) 50 ml Q15M PRN IV DECREASED GLUCOSE; Start 06/29/16 at 23:00 Glucagon (Glucagen) 1 mg Q15M PRN IM DECREASED GLUCOSE; Start 06/29/16 at 23:00 Glucose (Glutose) 15 gm Q15M PRN BUCCAL DECREASED GLUCOSE; Start 06/29/16 at 23 :00 Hydralazine HCl (Apresoline) 75 mg TID PO Last administered on 07/02/16 08:15 ; Admin Dose 75 MG; Start 07/01/16 at 15:00 Epoetin Bautista (Epogen (Esrd)) 4,000 units MoWeFr@17 IV Last administered on 07/01 19:20; Admin Dose 4,000 UNITS; Start 07/01/16 at 18:58 Hydralazine HCl (Apresoline) 10 mg Q4H PRN IV SBP GREATER THAN 160 Last administered on 5/20/17at 11:54; Admin Dose 10 MG; Start 07/02/16 at 12:00 Clopidogrel Bisulfate (plaVIX) 75 mg DAILY PO ; Start 07/03/16 at 09:00 ARLEY ANGEL July 02, 2016 13:46
--- NOTE | 2016-07-02 14:19 | CONS ---
Date/Time of Note Date/Time of Note DATE: 07/02/16 TIME: 14:19 Assessment/Plan Assessment/Plan Additional Assessment/Plan 65 yo Female with 1) TIA R/o CVA 2) DM with Renal complication, Stage V CKD 3) Initiation of Hemodialysis 4) Chronic HTN 5) Hyperkalemia, Resolved 6) Anemia, Chronic Disease 7) MBD CKD HD center placement Next HD monday Consultation Date/Type/Reason Admit Date/Time June 29, 2016 at 20:59 Initial Consult Date 06/30/16 Type of Consultation: Renal Referring Provider: ADARSH OSEI MD 24 HR Interval Summary Free Text/Dictation No new complaints Exam/Review of Systems Vital Signs Vitals Vital Signs Date Time Temp Pulse Resp B/P Pulse Ox O2 Delivery O2 Flow Rate FiO2 07/02/16 12:14 61 07/02/16 11:31 98.0 18 193/83 94 07/01/16 19:15 Nasal Cannula 2.0 Intake and Output 07/01/16 07/01/16 07/02/16 15:00 23:00 07:00 Intake Total 800 ml 1100 ml 450 ml Output Total 2000 ml Balance 800 ml -900 ml 450 ml Exam Constitutional: alert, No distress Head: atraumatic, normocephalic Eyes: EOMI Neck: No jvd Respiratory: clear to auscultation, No labored breathing Cardiovascular: edema, regular rate and rhythm Gastrointestinal: non-tender, soft Neurological: [employer] II-XII intact, nl mental status, No lethargic Skin: No diaphoresis Results Result Diagram: 07/02/16 0547 07/02/16 0607 Results 24 hrs Laboratory Tests Test 07/01/16 17:53 07/01/16 20:37 07/02/16 05:47 07/02/16 06:07 Bedside Glucose 82 162 White Blood Count 7.2 Red Blood Count 2.88 L Hemoglobin 8.9 L Hematocrit 29.5 L Mean Corpuscular Volume 102.4 H Mean Corpuscular Hemoglobin 30.9 Mean Corpuscular Hemoglobin Concent 30.2 L Red Cell Distribution Width 15.4 H Platelet Count 251 Mean Platelet Volume 10.6 H Neutrophils % 73.2 Lymphocytes % 15.2 Monocytes % 8.1 Eosinophils % 2.9 Basophils % 0.3 Nucleated Red Blood Cells % 0.0 Neutrophils # 5.2 Lymphocytes # 1.1 Monocytes # 0.6 Eosinophils # 0.2 Basophils # 0.0 Nucleated Red Blood Cells # 0.0 Sodium Level 140 Potassium Level 3.7 Chloride Level 105 Carbon Dioxide Level 27 Anion Gap 12 Blood Urea Nitrogen 37 #H Creatinine 3.30 #H Glucose Level 120 # Calcium Level 8.3 L Test 07/02/16 07:56 07/02/16 11:58 Bedside Glucose 112 110 Medications Medications Current Medications Aspirin (Halfprin) 81 mg DAILY PO Last administered on 06/30/16 08:26; Admin Dose 81 MG; Start 06/30/16 at 09:00; Status Future Hold Acetaminophen (Tylenol Tab) 500 mg Q4H PRN PO PAIN AND OR ELEVATED TEMP Last administered on 07/02/16 05:31; Admin Dose 500 MG; Start 06/29/16 at 22:30 Allopurinol (Zyloprim) 100 mg DAILY PO Last administered on 07/02/16 08:15; Admin Dose 100 MG; Start 06/30/16 at 09:00 Amlodipine Besylate (Norvasc) 5 mg DAILY PO Last administered on 07/02/16 08: 15; Admin Dose 5 MG; Start 06/30/16 at 09:00 Atorvastatin Calcium (Lipitor) 80 mg HS PO Last administered on 07/01/16 20:38 ; Admin Dose 80 MG; Start 06/30/16 at 21:00 Clonazepam (Klonopin) 0.5 mg QPM PO Last administered on 07/01/16 20:39; Admin Dose 0.5 MG; Start 06/30/16 at 21:00 Duloxetine HCl (Cymbalta) 30 mg DAILY PO Last administered on 07/02/16 08:14; Admin Dose 30 MG; Start 06/30/16 at 09:00 Gabapentin (Neurontin) 300 mg QPM PO Last administered on 07/01/16 20:38; Admin Dose 300 MG; Start 06/30/16 at 00:10 Insulin Glargine (Lantus) 20 unit QAM SC Last administered on 07/02/16 08:20; Admin Dose 20 UNIT; Start 06/30/16 at 09:00 Metoprolol Succinate (Toprol Xl) 100 mg DAILY PO Last administered on 08:58; Admin Dose 100 MG; Start 06/30/16 at 09:00; Status Future Hold Pantoprazole (Protonix Tab) 40 mg QAM PO Last administered on 07/02/16 08:15; Admin Dose 40 MG; Start 06/30/16 at 09:00 Sertraline HCl (Zoloft) 100 mg QPM PO Last administered on 07/01/16 20:38; Admin Dose 100 MG; Start 06/30/16 at 21:00 Miscellaneous Information 1 ea NOTE XX ; Start 06/29/16 at 23:00 Glucose (Glutose) 15 gm Q15M PRN PO DECREASED GLUCOSE; Start 06/29/16 at 23:00 Glucose (Glutose) 22.5 gm Q15M PRN PO DECREASED GLUCOSE; Start 06/29/16 at 23: 00 Dextrose (D50w Syringe) 25 ml Q15M PRN IV DECREASED GLUCOSE; Start 06/29/16 at 23:00 Dextrose (D50w Syringe) 50 ml Q15M PRN IV DECREASED GLUCOSE; Start 06/29/16 at 23:00 Glucagon (Glucagen) 1 mg Q15M PRN IM DECREASED GLUCOSE; Start 06/29/16 at 23:00 Glucose (Glutose) 15 gm Q15M PRN BUCCAL DECREASED GLUCOSE; Start 06/29/16 at 23 :00 Hydralazine HCl (Apresoline) 75 mg TID PO Last administered on 07/02/16 08:15 ; Admin Dose 75 MG; Start 07/01/16 at 15:00 Epoetin Bautista (Epogen (Esrd)) 4,000 units MoWeFr@17 IV Last administered on 07/01 19:20; Admin Dose 4,000 UNITS; Start 07/01/16 at 18:58 Hydralazine HCl (Apresoline) 10 mg Q4H PRN IV SBP GREATER THAN 160 Last administered on 07/02/16 11:54; Admin Dose 10 MG; Start 07/02/16 at 12:00 Clopidogrel Bisulfate (plaVIX) 75 mg DAILY PO ; Start 07/03/16 at 09:00 CELINE DOAN MD July 02, 2016 14:19
[2016-07-02] MEDS: FUROSEMIDE 40 MG INJ IV SCH (15:14)
--- NOTE | 2016-07-02 16:43 | CONS ---
Date/Time of Note Date/Time of Note DATE: 07/02/16 TIME: 16:38 Assessment/Plan Assessment/Plan Additional Assessment/Plan Sinus Pauses Coronary artery disease Hypertension Dyslipidemia Diabetes CHF Chronic kidney disease Anemia. Marked Sinus Pauses Hypertensive Stopped Clonidine Avoid AV Glenny Medications Continue Lasix Continue Norvasc Continue Plavix Started on Hydralazine Continue Lipitor Continue Insulin Monitor on Telemetry Consultation Date/Type/Reason Admit Date/Time June 29, 2016 at 20:59 Constitutional: no complaints Eyes: no complaints ENT: no complaints Respiratory: no complaints Cardiovascular: no complaints Gastrointestinal: no complaints Genitourinary: no complaints Musculoskeletal: no complaints Skin: no complaints Neurologic: no complaints Endocrine: no complaints Lymphatic: no complaints Psychological: nl mood/affect, no complaints Immunologic: no complaints Past Medical History Medical History: congestive heart failure, diabetes, high cholesterol, hypertension, renal disease Past Surgical History Past Surgical Hx: other Social History Alcohol Use: none Smoking Status: Never smoker Drug Use: none Exam/Review of Systems Vital Signs Vitals Vital Signs Date Time Temp Pulse Resp B/P Pulse Ox O2 Delivery O2 Flow Rate FiO2 07/02/16 16:15 92 07/02/16 15:22 98.3 20 177/83 94 07/01/16 19:15 Nasal Cannula 2.0 Intake and Output 07/01/16 07/01/16 07/02/16 15:00 23:00 07:00 Intake Total 800 ml 1100 ml 450 ml Output Total 2000 ml Balance 800 ml -900 ml 450 ml Exam Psych: no complaints Head: atraumatic, normocephalic Neck: non-tender, supple Respiratory: clear to auscultation Cardiovascular: regular rate and rhythm Gastrointestinal: nl liver, spleen, non-tender, soft Extremities: normal pulses Results Result Diagram: 07/02/16 0547 07/02/16 0607 Results 24 hrs Laboratory Tests Test 07/01/16 17:53 07/01/16 20:37 07/02/16 05:47 07/02/16 06:07 Bedside Glucose 82 162 White Blood Count 7.2 Red Blood Count 2.88 L Hemoglobin 8.9 L Hematocrit 29.5 L Mean Corpuscular Volume 102.4 H Mean Corpuscular Hemoglobin 30.9 Mean Corpuscular Hemoglobin Concent 30.2 L Red Cell Distribution Width 15.4 H Platelet Count 251 Mean Platelet Volume 10.6 H Neutrophils % 73.2 Lymphocytes % 15.2 Monocytes % 8.1 Eosinophils % 2.9 Basophils % 0.3 Nucleated Red Blood Cells % 0.0 Neutrophils # 5.2 Lymphocytes # 1.1 Monocytes # 0.6 Eosinophils # 0.2 Basophils # 0.0 Nucleated Red Blood Cells # 0.0 Sodium Level 140 Potassium Level 3.7 Chloride Level 105 Carbon Dioxide Level 27 Anion Gap 12 Blood Urea Nitrogen 37 #H Creatinine 3.30 #H Glucose Level 120 # Calcium Level 8.3 L Test 07/02/16 07:56 07/02/16 11:58 Bedside Glucose 112 110 Medications Medications Current Medications Aspirin (Halfprin) 81 mg DAILY PO Last administered on 06/30/16 08:26; Admin Dose 81 MG; Start 06/30/16 at 09:00; Status Future Hold Acetaminophen (Tylenol Tab) 500 mg Q4H PRN PO PAIN AND OR ELEVATED TEMP Last administered on 07/02/16 05:31; Admin Dose 500 MG; Start 06/29/16 at 22:30 Allopurinol (Zyloprim) 100 mg DAILY PO Last administered on 07/02/16 08:15; Admin Dose 100 MG; Start 06/30/16 at 09:00 Amlodipine Besylate (Norvasc) 5 mg DAILY PO Last administered on 07/02/16 08: 15; Admin Dose 5 MG; Start 06/30/16 at 09:00 Atorvastatin Calcium (Lipitor) 80 mg HS PO Last administered on 07/01/16 20:38 ; Admin Dose 80 MG; Start 06/30/16 at 21:00 Clonazepam (Klonopin) 0.5 mg QPM PO Last administered on 07/01/16 20:39; Admin Dose 0.5 MG; Start 06/30/16 at 21:00 Duloxetine HCl (Cymbalta) 30 mg DAILY PO Last administered on 07/02/16 08:14; Admin Dose 30 MG; Start 06/30/16 at 09:00 Gabapentin (Neurontin) 300 mg QPM PO Last administered on 07/01/16 20:38; Admin Dose 300 MG; Start 06/30/16 at 00:10 Insulin Glargine (Lantus) 20 unit QAM SC Last administered on 07/02/16 08:20; Admin Dose 20 UNIT; Start 06/30/16 at 09:00 Metoprolol Succinate (Toprol Xl) 100 mg DAILY PO Last administered on 08:58; Admin Dose 100 MG; Start 06/30/16 at 09:00; Status Future Hold Pantoprazole (Protonix Tab) 40 mg QAM PO Last administered on 07/02/16 08:15; Admin Dose 40 MG; Start 06/30/16 at 09:00 Sertraline HCl (Zoloft) 100 mg QPM PO Last administered on 07/01/16 20:38; Admin Dose 100 MG; Start 06/30/16 at 21:00 Miscellaneous Information 1 ea NOTE XX ; Start 06/29/16 at 23:00 Glucose (Glutose) 15 gm Q15M PRN PO DECREASED GLUCOSE; Start 06/29/16 at 23:00 Glucose (Glutose) 22.5 gm Q15M PRN PO DECREASED GLUCOSE; Start 06/29/16 at 23: 00 Dextrose (D50w Syringe) 25 ml Q15M PRN IV DECREASED GLUCOSE; Start 06/29/16 at 23:00 Dextrose (D50w Syringe) 50 ml Q15M PRN IV DECREASED GLUCOSE; Start 06/29/16 at 23:00 Glucagon (Glucagen) 1 mg Q15M PRN IM DECREASED GLUCOSE; Start 06/29/16 at 23:00 Glucose (Glutose) 15 gm Q15M PRN BUCCAL DECREASED GLUCOSE; Start 06/29/16 at 23 :00 Hydralazine HCl (Apresoline) 75 mg TID PO Last administered on 07/02/16 14:29 ; Admin Dose 75 MG; Start 07/01/16 at 15:00 Epoetin Bautista (Epogen (Esrd)) 4,000 units MoWeFr@17 IV Last administered on 07/01 19:20; Admin Dose 4,000 UNITS; Start 07/01/16 at 18:58 Hydralazine HCl (Apresoline) 10 mg Q4H PRN IV SBP GREATER THAN 160 Last administered on 07/02/16 11:54; Admin Dose 10 MG; Start 07/02/16 at 12:00 Clopidogrel Bisulfate (plaVIX) 75 mg DAILY PO ; Start 07/03/16 at 09:00 Furosemide (Lasix) 60 mg DAILY@06 IV Last administered on 5/20/17at 15:14; Admin Dose 60 MG; Start 07/02/16 at 15:00 DELANEY WILSON M.D. July 02, 2016 16:43
[2016-07-02] MEDS: GABAPENTIN 300 MG CAP PO SCH (21:08)
[2016-07-02] MEDS: ATORVASTATIN 80 MG TAB PO SCH (21:09)
[2016-07-02] MEDS: SERTRALINE 100 MG TAB PO SCH (21:09)
[2016-07-02] MEDS: clonAZEPAM 0.5 MG TAB PO SCH (21:10)
[2016-07-02] MEDS: NIFEdipine (XL) 30 MG TAB PO SCH (21:42)
[2016-07-03] VITALS (13 sets, daily range): BP systolic 141–184; BP diastolic 65–80; PULSE 70–110; RESP 16–20
[2016-07-03] MEDS: hydrALAzine 20 MG INJ IV PRN (04:17)
[2016-07-03] MEDS: FUROSEMIDE 40 MG INJ IV SCH (05:00)
[2016-07-03] MEDS: ACETAMINOPHEN 500 MG TAB PO PRN ×2 (05:46→19:58)
[2016-07-03 06:14] LABS: ADD SCAN DIFF NO
[2016-07-03 06:20] LABS: BASOPHILS % 0.3 % (0.0-2.0); EOSINOPHILS # 0.2 10^3/ul (0.0-0.5); EOSINOPHILS % 2.6 % (0.0-7.0); HEMATOCRIT 31.1 % (37.0-47.0); HEMOGLOBIN 9.2 g/dl (12.0-16.0); LYMPHOCYTES # 1.3 10^3/ul (0.8-2.9); LYMPHOCYTES % 16.7 % (15.0-51.0); MEAN CORPUSCULAR HEMOGLOBIN 30.5 pg (29.0-33.0); MEAN CORPUSCULAR HGB CONC 29.6 g/dl (32.0-37.0); MEAN PLATELET VOLUME 10.7 fl (7.4-10.4); MONOCYTE # 0.8 10^3/ul (0.3-0.9); MONOCYTES % 10.1 % (0.0-11.0); NEUTROPHIL # 5.3 10^3/ul (1.6-7.5); NEUTROPHILS % 69.8 % (39.0-77.0); PLATELET COUNT 258 10^3/UL (140-415); RED BLOOD COUNT 3.02 10^6/ul (4.20-5.40); RED CELL DISTRIBUTION WIDTH 15.4 % (11.5-14.5); WHITE BLOOD COUNT 7.6 10^3/ul (4.8-10.8)
[2016-07-03 06:40] LABS: CALCIUM 8.7 mg/dl (8.4-10.2); CREATININE 3.85 mg/dl (0.44-1.00); POTASSIUM 3.9 mmol/L (3.5-5.1)
[2016-07-03] MEDS: INSULIN ASPART [NOVOLOG] 3 ML PEN SC SCH ×4 (07:51→20:26)
[2016-07-03] MEDS: NIFEdipine (XL) 30 MG TAB PO SCH ×2 (08:34→19:59)
[2016-07-03] MEDS: ALLOPURINOL 100 MG TAB PO SCH (08:35)
[2016-07-03] MEDS: CLOPIDOGREL 75 MG TAB PO SCH (08:35)
[2016-07-03] MEDS: DULOXETINE 30 MG CAP DR PO SCH (08:35)
[2016-07-03] MEDS: PANTOPRAZOLE (EC) 40 MG TAB PO SCH (08:35)
[2016-07-03] MEDS: INSULIN GLARGINE [LANtus] 3 ML PEN SC SCH (08:42)
--- NOTE | 2016-07-03 12:08 | CONS ---
Date/Time of Note Date/Time of Note DATE: 07/03/16 TIME: 12:02 Assessment/Plan Assessment/Plan Additional Assessment/Plan Chest x-ray was reviewed from admission which is essentially clear. Assessment recommendations; 1. Patient admitted for worsening renal function or requiring hemodialysis. Was uremic on admission. 2. TIA likely from underlying uremia versus actual TIA itself. 3. History of hypertension, 4. Likely underlying sleep apnea. Continue current treatment. Obtain a blood gas. Once ABGs done I will review it. Patient likely would need to have a sleep study done on an outpatient basis. Consultation Date/Type/Reason Admit Date/Time June 29, 2016 at 20:59 Date of Consultation: July 03, 2016 Type of Consultation: Pulmonary Reason for Consultation Pulmonary consultations requested for evaluation of shortness of breath. History of admitting any; patient is a pleasant 65-year-old white lady who came into the hospital on the of this month sent over from her physician because of patient not feeling well, the patient was diagnosed with a TIA event and was subsequently admitted for possible loss diagnosed to have renal failure now requiring hemodialysis. According the patient she has been well aware of worsening renal function and over the last couple of days prior to admission the patient did not have any urine output. By the time I saw the patient patient is feeling much better now and denies any shortness of breath. But does complain of episodes of severe sleepiness getting back several years. Patient denies any chest pain, abdominal pain, nausea vomiting. Does complain of dyspnea on exertion. Next Past medical history; 1. History of renal failure. 2. No prior history of hemodialysis. 3. CHF. 4. Hypertension. 5. Prior history of TIA. 6. History of . 7. History of right knee surgery. 8. History of bilateral cataract surgery. Medications reviewed. Allergies; penicillin and sulfa drugs. As well as latex. Social history; patient never smoked most of alcohol or drug abuse. Family history; patient is . Various family members of diabetes hypertension. 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 Review of systems; denies any headache, visual changes. Any hearing loss. Any seizures. Denies any sinus symptoms postnasal drip dysphagia or odynophagia. Any chest pain or angina. Does complain of shortness of breath upon exertion. Denies any abdominal pain, nausea vomiting. Complains of no urine output. Denies any orthopnea. Has gained some weight. Complains of excessive daytime sleepiness and loud snoring. Denies any bleeding disorder. General exam; elderly woman, awake alert currently in no distress. The patient did have episodes of being somnolent during the interview. Constitutional: no complaints Eyes: no complaints ENT: no complaints Respiratory: no complaints Cardiovascular: no complaints Gastrointestinal: no complaints Genitourinary: no complaints Musculoskeletal: no complaints Skin: no complaints Neurologic: no complaints Endocrine: no complaints Lymphatic: no complaints Psychological: no complaints Immunologic: no complaints Past Medical History Medical History: congestive heart failure, diabetes, high cholesterol, hypertension, renal disease Past Surgical History Past Surgical Hx: other Social History Alcohol Use: none Smoking Status: Never smoker Drug Use: none Exam/Review of Systems Vital Signs Vitals Vital Signs Date Time Temp Pulse Resp B/P Pulse Ox O2 Delivery O2 Flow Rate FiO2 07/03/16 11:19 97.8 86 18 178/79 97 07/03/16 07:54 Nasal Cannula 2.0 Intake and Output 07/02/16 07/02/16 07/03/16 15:00 23:00 07:00 Intake Total 950 ml 550 ml Output Total 800 ml Balance 950 ml -250 ml Exam HEENT exam; supple neck, JVD difficult to see because of short neck. Dentition is fair. Patient bilateral intraocular lens implants. No thyromegaly. No neck bruits. Chest examined; clear to auscultation. S1-S2 audible, no murmurs. Regular rhythm. Abdomen examination; soft, no organomegaly. Bowel sounds audible. Protuberant. Extremity examination; no peripheral edema. Pulses 1+ bilaterally. No clubbing. 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 Results Result Diagram: 07/03/16 0530 07/03/16 0530 Results 24 hrs Laboratory Tests Test 07/02/16 17:19 07/02/16 21:12 07/03/16 05:30 07/03/16 07:48 Bedside Glucose 106 168 191 White Blood Count 7.6 Red Blood Count 3.02 L Hemoglobin 9.2 L Hematocrit 31.1 L Mean Corpuscular Volume 103.0 H Mean Corpuscular Hemoglobin 30.5 Mean Corpuscular Hemoglobin Concent 29.6 L Red Cell Distribution Width 15.4 H Platelet Count 258 Mean Platelet Volume 10.7 H Neutrophils % 69.8 Lymphocytes % 16.7 Monocytes % 10.1 Eosinophils % 2.6 Basophils % 0.3 Nucleated Red Blood Cells % 0.0 Neutrophils # 5.3 Lymphocytes # 1.3 Monocytes # 0.8 Eosinophils # 0.2 Basophils # 0.0 Nucleated Red Blood Cells # 0.0 Sodium Level 139 Potassium Level 3.9 Chloride Level 105 Carbon Dioxide Level 25 Anion Gap 13 Blood Urea Nitrogen 44 H Creatinine 3.85 H Glucose Level 172 Calcium Level 8.7 Test 07/03/16 11:52 Bedside Glucose 186 Medications Medications Current Medications Aspirin (Halfprin) 81 mg DAILY PO Last administered on 06/30/16 08:26; Admin Dose 81 MG; Start 06/30/16 at 09:00; Status Future Hold Acetaminophen (Tylenol Tab) 500 mg Q4H PRN PO PAIN AND OR ELEVATED TEMP Last administered on 07/03/16 05:46; Admin Dose 500 MG; Start 06/29/16 at 22:30 Allopurinol (Zyloprim) 100 mg DAILY PO Last administered on 07/03/16 08:35; Admin Dose 100 MG; Start 06/30/16 at 09:00 Atorvastatin Calcium (Lipitor) 80 mg HS PO Last administered on 07/02/16 21:09 ; Admin Dose 80 MG; Start 06/30/16 at 21:00 Clonazepam (Klonopin) 0.5 mg QPM PO Last administered on 07/02/16 21:10; Admin Dose 0.5 MG; Start 06/30/16 at 21:00 Duloxetine HCl (Cymbalta) 30 mg DAILY PO Last administered on 07/03/16 08:35; Admin Dose 30 MG; Start 06/30/16 at 09:00 Gabapentin (Neurontin) 300 mg QPM PO Last administered on 07/02/16 21:08; Admin Dose 300 MG; Start 06/30/16 at 00:10 Insulin Glargine (Lantus) 20 unit QAM SC Last administered on 07/03/16 08:42; Admin Dose 20 UNIT; Start 06/30/16 at 09:00 Metoprolol Succinate (Toprol Xl) 100 mg DAILY PO Last administered on 08:58; Admin Dose 100 MG; Start 06/30/16 at 09:00; Status Future Hold Pantoprazole (Protonix Tab) 40 mg QAM PO Last administered on 07/03/16 08:35; Admin Dose 40 MG; Start 06/30/16 at 09:00 Sertraline HCl (Zoloft) 100 mg QPM PO Last administered on 07/02/16 21:09; Admin Dose 100 MG; Start 06/30/16 at 21:00 Miscellaneous Information 1 ea NOTE XX ; Start 06/29/16 at 23:00 Glucose (Glutose) 15 gm Q15M PRN PO DECREASED GLUCOSE; Start 06/29/16 at 23:00 Glucose (Glutose) 22.5 gm Q15M PRN PO DECREASED GLUCOSE; Start 06/29/16 at 23: 00 Dextrose (D50w Syringe) 25 ml Q15M PRN IV DECREASED GLUCOSE; Start 06/29/16 at 23:00 Dextrose (D50w Syringe) 50 ml Q15M PRN IV DECREASED GLUCOSE; Start 06/29/16 at 23:00 Glucagon (Glucagen) 1 mg Q15M PRN IM DECREASED GLUCOSE; Start 06/29/16 at 23:00 Glucose (Glutose) 15 gm Q15M PRN BUCCAL DECREASED GLUCOSE; Start 06/29/16 at 23 :00 Hydralazine HCl (Apresoline) 75 mg TID PO Last administered on 07/03/16 12:01 ; Admin Dose 75 MG; Start 07/01/16 at 15:00 Epoetin Bautista (Epogen (Esrd)) 4,000 units MoWeFr@17 IV Last administered on 07/01 19:20; Admin Dose 4,000 UNITS; Start 07/01/16 at 18:58 Hydralazine HCl (Apresoline) 10 mg Q4H PRN IV SBP GREATER THAN 160 Last administered on 07/03/16 04:17; Admin Dose 10 MG; Start 07/02/16 at 12:00 Clopidogrel Bisulfate (plaVIX) 75 mg DAILY PO Last administered on 07/03/16 08 :35; Admin Dose 75 MG; Start 07/03/16 at 09:00 Furosemide (Lasix) 60 mg DAILY@06 IV Last administered on 07/03/16 05:00; Admin Dose 60 MG; Start 07/02/16 at 15:00 Nifedipine (Procardia Xl) 30 mg BID PO Last administered on 5/21/17at 08:34; Admin Dose 30 MG; Start 07/02/16 at 21:30 MAREK JOSEPH July 03, 2016 12:08
--- NOTE | 2016-07-03 12:12 | CONS ---
Date/Time of Note Date/Time of Note DATE: 07/03/16 TIME: 12:08 Assessment/Plan Assessment/Plan Additional Assessment/Plan Sinus Pauses Coronary artery disease Hypertension Dyslipidemia Diabetes CHF Chronic kidney disease Anemia. Marked Sinus Pauses resoled with stopping clonidine Hypertensive Avoid AV Glenny Medications Continue Lasix Continue Norvasc Continue Plavix Increased Hydralazine Continue Lipitor Continue Insulin Monitor on Telemetry Consultation Date/Type/Reason Admit Date/Time June 29, 2016 at 20:59 Initial Consult Date 06/30/16 Type of Consultation: Renal Referring Provider: ADARSH OSEI MD Exam/Review of Systems Vital Signs Vitals Vital Signs Date Time Temp Pulse Resp B/P Pulse Ox O2 Delivery O2 Flow Rate FiO2 07/03/16 11:19 97.8 86 18 178/79 97 07/03/16 07:54 Nasal Cannula 2.0 Intake and Output 07/02/16 07/02/16 07/03/16 15:00 23:00 07:00 Intake Total 950 ml 550 ml Output Total 800 ml Balance 950 ml -250 ml Exam Psych: no complaints Head: atraumatic, normocephalic Neck: non-tender, supple Respiratory: clear to auscultation Cardiovascular: regular rate and rhythm Gastrointestinal: nl liver, spleen, non-tender, soft Extremities: normal pulses Constitutional: alert Head: atraumatic, normocephalic Neck: non-tender, supple Respiratory: clear to auscultation Cardiovascular: regular rate and rhythm Gastrointestinal: nl liver, spleen, soft Extremities: normal pulses Results Result Diagram: 07/03/16 0530 07/03/16 0530 Results 24 hrs Laboratory Tests Test 07/02/16 17:19 07/02/16 21:12 07/03/16 05:30 07/03/16 07:48 Bedside Glucose 106 168 191 White Blood Count 7.6 Red Blood Count 3.02 L Hemoglobin 9.2 L Hematocrit 31.1 L Mean Corpuscular Volume 103.0 H Mean Corpuscular Hemoglobin 30.5 Mean Corpuscular Hemoglobin Concent 29.6 L Red Cell Distribution Width 15.4 H Platelet Count 258 Mean Platelet Volume 10.7 H Neutrophils % 69.8 Lymphocytes % 16.7 Monocytes % 10.1 Eosinophils % 2.6 Basophils % 0.3 Nucleated Red Blood Cells % 0.0 Neutrophils # 5.3 Lymphocytes # 1.3 Monocytes # 0.8 Eosinophils # 0.2 Basophils # 0.0 Nucleated Red Blood Cells # 0.0 Sodium Level 139 Potassium Level 3.9 Chloride Level 105 Carbon Dioxide Level 25 Anion Gap 13 Blood Urea Nitrogen 44 H Creatinine 3.85 H Glucose Level 172 Calcium Level 8.7 Test 07/03/16 11:52 Bedside Glucose 186 Medications Medications Current Medications Aspirin (Halfprin) 81 mg DAILY PO Last administered on 06/30/16 08:26; Admin Dose 81 MG; Start 06/30/16 at 09:00; Status Future Hold Acetaminophen (Tylenol Tab) 500 mg Q4H PRN PO PAIN AND OR ELEVATED TEMP Last administered on 07/03/16 05:46; Admin Dose 500 MG; Start 06/29/16 at 22:30 Allopurinol (Zyloprim) 100 mg DAILY PO Last administered on 07/03/16 08:35; Admin Dose 100 MG; Start 06/30/16 at 09:00 Atorvastatin Calcium (Lipitor) 80 mg HS PO Last administered on 07/02/16 21:09 ; Admin Dose 80 MG; Start 06/30/16 at 21:00 Clonazepam (Klonopin) 0.5 mg QPM PO Last administered on 07/02/16 21:10; Admin Dose 0.5 MG; Start 06/30/16 at 21:00 Duloxetine HCl (Cymbalta) 30 mg DAILY PO Last administered on 07/03/16 08:35; Admin Dose 30 MG; Start 06/30/16 at 09:00 Gabapentin (Neurontin) 300 mg QPM PO Last administered on 07/02/16 21:08; Admin Dose 300 MG; Start 06/30/16 at 00:10 Insulin Glargine (Lantus) 20 unit QAM SC Last administered on 07/03/16 08:42; Admin Dose 20 UNIT; Start 06/30/16 at 09:00 Metoprolol Succinate (Toprol Xl) 100 mg DAILY PO Last administered on 08:58; Admin Dose 100 MG; Start 06/30/16 at 09:00; Status Future Hold Pantoprazole (Protonix Tab) 40 mg QAM PO Last administered on 07/03/16 08:35; Admin Dose 40 MG; Start 06/30/16 at 09:00 Sertraline HCl (Zoloft) 100 mg QPM PO Last administered on 07/02/16 21:09; Admin Dose 100 MG; Start 06/30/16 at 21:00 Miscellaneous Information 1 ea NOTE XX ; Start 06/29/16 at 23:00 Glucose (Glutose) 15 gm Q15M PRN PO DECREASED GLUCOSE; Start 06/29/16 at 23:00 Glucose (Glutose) 22.5 gm Q15M PRN PO DECREASED GLUCOSE; Start 06/29/16 at 23: 00 Dextrose (D50w Syringe) 25 ml Q15M PRN IV DECREASED GLUCOSE; Start 06/29/16 at 23:00 Dextrose (D50w Syringe) 50 ml Q15M PRN IV DECREASED GLUCOSE; Start 06/29/16 at 23:00 Glucagon (Glucagen) 1 mg Q15M PRN IM DECREASED GLUCOSE; Start 06/29/16 at 23:00 Glucose (Glutose) 15 gm Q15M PRN BUCCAL DECREASED GLUCOSE; Start 06/29/16 at 23 :00 Hydralazine HCl (Apresoline) 75 mg TID PO Last administered on 07/03/16 12:01 ; Admin Dose 75 MG; Start 07/01/16 at 15:00 Epoetin Bautista (Epogen (Esrd)) 4,000 units MoWeFr@17 IV Last administered on 07/01 19:20; Admin Dose 4,000 UNITS; Start 07/01/16 at 18:58 Hydralazine HCl (Apresoline) 10 mg Q4H PRN IV SBP GREATER THAN 160 Last administered on 07/03/16 04:17; Admin Dose 10 MG; Start 07/02/16 at 12:00 Clopidogrel Bisulfate (plaVIX) 75 mg DAILY PO Last administered on 07/03/16 08 :35; Admin Dose 75 MG; Start 07/03/16 at 09:00 Furosemide (Lasix) 60 mg DAILY@06 IV Last administered on 07/03/16 05:00; Admin Dose 60 MG; Start 07/02/16 at 15:00 Nifedipine (Procardia Xl) 30 mg BID PO Last administered on 07/03/16 08:34; Admin Dose 30 MG; Start 07/02/16 at 21:30 DELANEY WILSON M.D. July 03, 2016 12:12
--- NOTE | 2016-07-03 13:19 | CONS ---
Date/Time of Note Date/Time of Note DATE: 07/03/16 TIME: 13:17 Assessment/Plan Assessment/Plan Chief Complaint/Hosp Course Slurring of speech Problems: Additional Assessment/Plan 65-year-old female with slurred speech today and primary care's office several hours ago. She has had these symptoms before and has had stroke about 2 years ago. Her symptoms resolved in about 5 minutes and did not reoccur. CT brain is unremarkable. MRI of brain showed old lacunar infarcts in bilateral sosa radiata, atrophy, chronic small vessel disease, nothing acute. She has no symptoms now. She likely has TIA. PLAN: 1. Continue Plavix 2. OK to DC home from Neurological standpoint 3 sign off now Consultation Date/Type/Reason Admit Date/Time June 29, 2016 at 20:59 Initial Consult Date 06/30/16 Type of Consultation: Pulmonary Referring Provider: ADARSH OSEI MD 24 HR Interval Summary Free Text/Dictation Doing well no new complaints. Was seen to have sinus pauses and had a cardiology evaluation. Exam/Review of Systems Vital Signs Vitals Vital Signs Date Time Temp Pulse Resp B/P Pulse Ox O2 Delivery O2 Flow Rate FiO2 07/03/16 12:41 94 07/03/16 11:19 97.8 18 178/79 97 07/03/16 07:54 Nasal Cannula 2.0 Intake and Output 07/02/16 07/02/16 07/03/16 15:00 23:00 07:00 Intake Total 950 ml 550 ml Output Total 800 ml Balance 950 ml -250 ml Exam Constitutional: alert, obese, oriented, well developed Psych: nl mood/affect, no complaints Head: atraumatic, normocephalic Eyes: EOMI, nl conjunctiva, nl lids, nl sclera ENMT: mucosa pink and moist, nl external ears & nose, nl lips & teeth Neck: non-tender, supple Respiratory: clear to auscultation, normal air movement Cardiovascular: nl pulses, regular rate and rhythm Gastrointestinal: nl liver, spleen, non-tender, soft Extremities: normal pulses Neurological: MEDICAL RECORD CONSULTANT II-XII intact, nl mental status, nl speech, nl strength Skin: nl turgor, rash or lesions Lymph: nl lymph nodes Results Result Diagram: 07/03/16 0530 07/03/16 0530 Results 24 hrs Laboratory Tests Test 07/02/16 17:19 07/02/16 21:12 07/03/16 05:30 07/03/16 07:48 Bedside Glucose 106 168 191 White Blood Count 7.6 Red Blood Count 3.02 L Hemoglobin 9.2 L Hematocrit 31.1 L Mean Corpuscular Volume 103.0 H Mean Corpuscular Hemoglobin 30.5 Mean Corpuscular Hemoglobin Concent 29.6 L Red Cell Distribution Width 15.4 H Platelet Count 258 Mean Platelet Volume 10.7 H Neutrophils % 69.8 Lymphocytes % 16.7 Monocytes % 10.1 Eosinophils % 2.6 Basophils % 0.3 Nucleated Red Blood Cells % 0.0 Neutrophils # 5.3 Lymphocytes # 1.3 Monocytes # 0.8 Eosinophils # 0.2 Basophils # 0.0 Nucleated Red Blood Cells # 0.0 Sodium Level 139 Potassium Level 3.9 Chloride Level 105 Carbon Dioxide Level 25 Anion Gap 13 Blood Urea Nitrogen 44 H Creatinine 3.85 H Glucose Level 172 Calcium Level 8.7 Test 07/03/16 11:52 Bedside Glucose 186 Medications Medications Current Medications Aspirin (Halfprin) 81 mg DAILY PO Last administered on 06/30/16 08:26; Admin Dose 81 MG; Start 06/30/16 at 09:00; Status Future Hold Acetaminophen (Tylenol Tab) 500 mg Q4H PRN PO PAIN AND OR ELEVATED TEMP Last administered on 07/03/16 05:46; Admin Dose 500 MG; Start 06/29/16 at 22:30 Allopurinol (Zyloprim) 100 mg DAILY PO Last administered on 07/03/16 08:35; Admin Dose 100 MG; Start 06/30/16 at 09:00 Atorvastatin Calcium (Lipitor) 80 mg HS PO Last administered on 07/02/16 21:09 ; Admin Dose 80 MG; Start 06/30/16 at 21:00 Clonazepam (Klonopin) 0.5 mg QPM PO Last administered on 07/02/16 21:10; Admin Dose 0.5 MG; Start 06/30/16 at 21:00 Duloxetine HCl (Cymbalta) 30 mg DAILY PO Last administered on 07/03/16 08:35; Admin Dose 30 MG; Start 06/30/16 at 09:00 Gabapentin (Neurontin) 300 mg QPM PO Last administered on 07/02/16 21:08; Admin Dose 300 MG; Start 06/30/16 at 00:10 Insulin Glargine (Lantus) 20 unit QAM SC Last administered on 07/03/16 08:42; Admin Dose 20 UNIT; Start 06/30/16 at 09:00 Metoprolol Succinate (Toprol Xl) 100 mg DAILY PO Last administered on 08:58; Admin Dose 100 MG; Start 06/30/16 at 09:00; Status Future Hold Pantoprazole (Protonix Tab) 40 mg QAM PO Last administered on 07/03/16 08:35; Admin Dose 40 MG; Start 06/30/16 at 09:00 Sertraline HCl (Zoloft) 100 mg QPM PO Last administered on 07/02/16 21:09; Admin Dose 100 MG; Start 06/30/16 at 21:00 Miscellaneous Information 1 ea NOTE XX ; Start 06/29/16 at 23:00 Glucose (Glutose) 15 gm Q15M PRN PO DECREASED GLUCOSE; Start 06/29/16 at 23:00 Glucose (Glutose) 22.5 gm Q15M PRN PO DECREASED GLUCOSE; Start 06/29/16 at 23: 00 Dextrose (D50w Syringe) 25 ml Q15M PRN IV DECREASED GLUCOSE; Start 06/29/16 at 23:00 Dextrose (D50w Syringe) 50 ml Q15M PRN IV DECREASED GLUCOSE; Start 06/29/16 at 23:00 Glucagon (Glucagen) 1 mg Q15M PRN IM DECREASED GLUCOSE; Start 06/29/16 at 23:00 Glucose (Glutose) 15 gm Q15M PRN BUCCAL DECREASED GLUCOSE; Start 06/29/16 at 23 :00 Epoetin Bautista (Epogen (Esrd)) 4,000 units MoWeFr@17 IV Last administered on 07/01 19:20; Admin Dose 4,000 UNITS; Start 07/01/16 at 18:58 Hydralazine HCl (Apresoline) 10 mg Q4H PRN IV SBP GREATER THAN 160 Last administered on 07/03/16 04:17; Admin Dose 10 MG; Start 07/02/16 at 12:00 Clopidogrel Bisulfate (plaVIX) 75 mg DAILY PO Last administered on 07/03/16 08 :35; Admin Dose 75 MG; Start 07/03/16 at 09:00 Furosemide (Lasix) 60 mg DAILY@06 IV Last administered on 07/03/16 05:00; Admin Dose 60 MG; Start 07/02/16 at 15:00 Nifedipine (Procardia Xl) 30 mg BID PO Last administered on 07/03/16 08:34; Admin Dose 30 MG; Start 07/02/16 at 21:30 Hydralazine HCl (Apresoline) 100 mg Q8 PO ; Start 07/03/16 at 22:00 CINDY CRUZ MD July 03, 2016 13:19
[2016-07-03 14:58] LABS: AADO2 Arterial 32.5 mmHg (7.0-24.0); Allen Test ACCEPTAB; Arterial Base Excess -2.3 mmol/L (-3.0-3); Arterial COHb 0.5 % (0.0-3.0); Arterial Fraction of Oxyhgb 92.1 % (93.0-99.0); Arterial HCO3 23.6 mmol/L (22.0-26.0); Arterial MetHb 0.1 % (0.0-1.5); Arterial Total Hemglobin 11.2 g/dl (12.0-18.0); MODE ROOM AIR
--- NOTE | 2016-07-03 15:57 | PN ---
Date/Time of Note Date/Time of Note DATE: 07/03/16 TIME: 15:56 Assessment/Plan Lines/Catheters IV Catheter Type (from [facility]): [facility] Urinary Cath still in place: No Assessment/Plan Assessment/Plan -TIA, continue Plavix. - per Dr. 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 Dr. Lantigua is following and cardiology consultation. - Possible syncope secondary to take a bright bradycardia syndrome and pauses. - Chronic kidney disease stage V, Dr. Bain is following patient in nephrology consultation. Patient will be started on hemodialysis upon hemodialysis catheter insertion. - Diabetes mellitus. - Hypertension. - per cardiology - BP elevated -193/83 - will monitor on tele unit - Dyslipidemia. - Congestive heart failure/volume overload, question systolic versus diastolic, acute on chronic. - Coronary artery disease, on medications. - Anemia. - Obesity with BMI of 42. - per dietary Further recommendations based on clinical course. Plan of care discussed with Dr. Webb. Subjective 24 Hr Interval Summary Free Text/Dictation Up in chair, denies any chest pain, shortness of breath, afebrile, dw staff Respiratory: no complaints Cardiovascular: no complaints Gastrointestinal: no complaints Genitourinary: no complaints Exam/Review of Systems Vital Signs Vitals Vital Signs Date Time Temp Pulse Resp B/P Pulse Ox O2 Delivery O2 Flow Rate FiO2 07/03/16 14:58 98.4 97 18 141/65 94 07/03/16 07:54 Nasal Cannula 2.0 Intake and Output 07/02/16 07/02/16 07/03/16 15:00 23:00 07:00 Intake Total 950 ml 550 ml Output Total 800 ml Balance 950 ml -250 ml Exam Respiratory: clear to auscultation Cardiovascular: nl pulses Gastrointestinal: non-tender, soft Results Result Diagram: 07/03/16 0530 07/03/16 0530 Results 24 hrs Laboratory Tests Test 07/02/16 17:19 07/02/16 21:12 07/03/16 05:30 07/03/16 07:48 Bedside Glucose 106 168 191 White Blood Count 7.6 Red Blood Count 3.02 L Hemoglobin 9.2 L Hematocrit 31.1 L Mean Corpuscular Volume 103.0 H Mean Corpuscular Hemoglobin 30.5 Mean Corpuscular Hemoglobin Concent 29.6 L Red Cell Distribution Width 15.4 H Platelet Count 258 Mean Platelet Volume 10.7 H Neutrophils % 69.8 Lymphocytes % 16.7 Monocytes % 10.1 Eosinophils % 2.6 Basophils % 0.3 Nucleated Red Blood Cells % 0.0 Neutrophils # 5.3 Lymphocytes # 1.3 Monocytes # 0.8 Eosinophils # 0.2 Basophils # 0.0 Nucleated Red Blood Cells # 0.0 Sodium Level 139 Potassium Level 3.9 Chloride Level 105 Carbon Dioxide Level 25 Anion Gap 13 Blood Urea Nitrogen 44 H Creatinine 3.85 H Glucose Level 172 Calcium Level 8.7 Test 07/03/16 11:52 07/03/16 12:09 Bedside Glucose 186 Blood Gas Specimen Source Blood arterial Arterial Blood Date Drawn 07/03/2016 2:46:20 PM Arterial Blood pH (Temp corrected) 7.337 L Arterial Blood pCO2 (Temp correct) 45.0 Arterial Blood pO2 (Temp corrected) 63.3 L Arterial Blood HCO3 23.6 Arterial Blood Base Excess -2.3 Arterial Blood Oxygen Saturation 92.7 L Shaun Test ACCEPTAB Arterial Blood Gas Puncture Site Right Radial Arterial Blood Carboxyhemoglobin 0.5 Arterial Blood Methemoglobin 0.1 Blood Gas A-a O2 Differential 32.5 H Oxyhemoglobin Percent 92.1 L Total Hemoglobin 11.2 L Blood Gas Temperature 37.0 Blood Gas Actual Respiration Rate 21 Blood Gas Modality ROOM AIR FiO2 21.0 Blood Gas Notified Whom KB Blood Gas Notified Time 07/03/2016 2:57:38 PM Medications Medications Current Medications Aspirin (Halfprin) 81 mg DAILY PO Last administered on 06/30/16 08:26; Admin Dose 81 MG; Start 06/30/16 at 09:00; Status Future Hold Acetaminophen (Tylenol Tab) 500 mg Q4H PRN PO PAIN AND OR ELEVATED TEMP Last administered on 07/03/16 05:46; Admin Dose 500 MG; Start 06/29/16 at 22:30 Allopurinol (Zyloprim) 100 mg DAILY PO Last administered on 07/03/16 08:35; Admin Dose 100 MG; Start 06/30/16 at 09:00 Atorvastatin Calcium (Lipitor) 80 mg HS PO Last administered on 07/02/16 21:09 ; Admin Dose 80 MG; Start 06/30/16 at 21:00 Clonazepam (Klonopin) 0.5 mg QPM PO Last administered on 07/02/16 21:10; Admin Dose 0.5 MG; Start 06/30/16 at 21:00 Duloxetine HCl (Cymbalta) 30 mg DAILY PO Last administered on 07/03/16 08:35; Admin Dose 30 MG; Start 06/30/16 at 09:00 Gabapentin (Neurontin) 300 mg QPM PO Last administered on 07/02/16 21:08; Admin Dose 300 MG; Start 06/30/16 at 00:10 Insulin Glargine (Lantus) 20 unit QAM SC Last administered on 07/03/16 08:42; Admin Dose 20 UNIT; Start 06/30/16 at 09:00 Metoprolol Succinate (Toprol Xl) 100 mg DAILY PO Last administered on 08:58; Admin Dose 100 MG; Start 06/30/16 at 09:00; Status Future Hold Pantoprazole (Protonix Tab) 40 mg QAM PO Last administered on 07/03/16 08:35; Admin Dose 40 MG; Start 06/30/16 at 09:00 Sertraline HCl (Zoloft) 100 mg QPM PO Last administered on 07/02/16 21:09; Admin Dose 100 MG; Start 06/30/16 at 21:00 Miscellaneous Information 1 ea NOTE XX ; Start 06/29/16 at 23:00 Glucose (Glutose) 15 gm Q15M PRN PO DECREASED GLUCOSE; Start 06/29/16 at 23:00 Glucose (Glutose) 22.5 gm Q15M PRN PO DECREASED GLUCOSE; Start 06/29/16 at 23: 00 Dextrose (D50w Syringe) 25 ml Q15M PRN IV DECREASED GLUCOSE; Start 06/29/16 at 23:00 Dextrose (D50w Syringe) 50 ml Q15M PRN IV DECREASED GLUCOSE; Start 06/29/16 at 23:00 Glucagon (Glucagen) 1 mg Q15M PRN IM DECREASED GLUCOSE; Start 06/29/16 at 23:00 Glucose (Glutose) 15 gm Q15M PRN BUCCAL DECREASED GLUCOSE; Start 06/29/16 at 23 :00 Epoetin Bautista (Epogen (Esrd)) 4,000 units MoWeFr@17 IV Last administered on 07/01 19:20; Admin Dose 4,000 UNITS; Start 07/01/16 at 18:58 Hydralazine HCl (Apresoline) 10 mg Q4H PRN IV SBP GREATER THAN 160 Last administered on 07/03/16 04:17; Admin Dose 10 MG; Start 07/02/16 at 12:00 Clopidogrel Bisulfate (plaVIX) 75 mg DAILY PO Last administered on 07/03/16 08 :35; Admin Dose 75 MG; Start 07/03/16 at 09:00 Furosemide (Lasix) 60 mg DAILY@06 IV Last administered on 07/03/16 05:00; Admin Dose 60 MG; Start 07/02/16 at 15:00 Nifedipine (Procardia Xl) 30 mg BID PO Last administered on 07/03/16 08:34; Admin Dose 30 MG; Start 07/02/16 at 21:30 Hydralazine HCl (Apresoline) 100 mg Q8 PO ; Start 07/03/16 at 22:00 ARLEY ANGEL July 03, 2016 15:57
[2016-07-03] MEDS ORDERED: clonAZEPAM 0.5 MG TAB PO PRN (16:00)
--- NOTE | 2016-07-03 19:55 | CONS ---
Date/Time of Note Date/Time of Note DATE: 07/03/16 TIME: 19:54 Assessment/Plan Assessment/Plan Additional Assessment/Plan 65 yo Female with 1) TIA R/o CVA 2) DM with Renal complication, Stage V CKD 3) Initiation of Hemodialysis 4) Chronic HTN 5) Hyperkalemia, Resolved 6) Anemia, Chronic Disease 7) MBD CKD HD ordered for am Mon schedule DC Planning home Need HD center placement Consultation Date/Type/Reason Admit Date/Time June 29, 2016 at 20:59 Initial Consult Date 06/30/16 Type of Consultation: Renal Referring Provider: ADARSH OSEI MD Exam/Review of Systems Vital Signs Vitals Vital Signs Date Time Temp Pulse Resp B/P Pulse Ox O2 Delivery O2 Flow Rate FiO2 07/03/16 16:23 101 07/03/16 14:58 98.4 18 141/65 94 07/03/16 07:54 Nasal Cannula 2.0 Intake and Output 07/02/16 07/02/16 07/03/16 15:00 23:00 07:00 Intake Total 950 ml 550 ml Output Total 800 ml Balance 950 ml -250 ml Exam Constitutional: No distress ENMT: mucosa pink and moist Neck: No jvd Respiratory: clear to auscultation Cardiovascular: edema, regular rate and rhythm Gastrointestinal: non-tender, soft 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3 Nucleated Red Blood Cells % 0.0 Neutrophils # 5.3 Lymphocytes # 1.3 Monocytes # 0.8 Eosinophils # 0.2 Basophils # 0.0 Nucleated Red Blood Cells # 0.0 Sodium Level 139 Potassium Level 3.9 Chloride Level 105 Carbon Dioxide Level 25 Anion Gap 13 Blood Urea Nitrogen 44 H Creatinine 3.85 H Glucose Level 172 Calcium Level 8.7 Test 07/03/16 12:09 07/03/16 17:10 Blood Gas Specimen Source Blood arterial Arterial Blood Date Drawn 07/03/2016 2:46:20 PM Arterial Blood pH (Temp corrected) 7.337 L Arterial Blood pCO2 (Temp correct) 45.0 Arterial Blood pO2 (Temp corrected) 63.3 L Arterial Blood HCO3 23.6 Arterial Blood Base Excess -2.3 Arterial Blood Oxygen Saturation 92.7 L Shaun Test ACCEPTAB Arterial Blood Gas Puncture Site Right Radial Arterial Blood Carboxyhemoglobin 0.5 Arterial Blood Methemoglobin 0.1 Blood Gas A-a O2 Differential 32.5 H Oxyhemoglobin Percent 92.1 L Total Hemoglobin 11.2 L Blood Gas Temperature 37.0 Blood Gas Actual Respiration Rate 21 Blood Gas Modality ROOM AIR FiO2 21.0 Blood Gas Notified Whom KB Blood Gas Notified Time 07/03/2016 2:57:38 PM Bedside Glucose 202 Medications Medications Current Medications Aspirin (Halfprin) 81 mg DAILY PO Last administered on 06/30/16 08:26; Admin Dose 81 MG; Start 06/30/16 at 09:00; Status Future Hold Acetaminophen (Tylenol Tab) 500 mg Q4H PRN PO PAIN AND OR ELEVATED TEMP Last administered on 07/03/16 05:46; Admin Dose 500 MG; Start 06/29/16 at 22:30 Allopurinol (Zyloprim) 100 mg DAILY PO Last administered on 07/03/16 08:35; Admin Dose 100 MG; Start 06/30/16 at 09:00 Atorvastatin Calcium (Lipitor) 80 mg HS PO Last administered on 07/02/16 21:09 ; Admin Dose 80 MG; Start 06/30/16 at 21:00 Duloxetine HCl (Cymbalta) 30 mg DAILY PO Last administered on 07/03/16 08:35; Admin Dose 30 MG; Start 06/30/16 at 09:00 Gabapentin (Neurontin) 300 mg QPM PO Last administered on 07/02/16 21:08; Admin Dose 300 MG; Start 06/30/16 at 00:10 Insulin Glargine (Lantus) 20 unit QAM SC Last administered on 07/03/16 08:42; Admin Dose 20 UNIT; Start 06/30/16 at 09:00 Metoprolol Succinate (Toprol Xl) 100 mg DAILY PO Last administered on 08:58; Admin Dose 100 MG; Start 06/30/16 at 09:00; Status Future Hold Pantoprazole (Protonix Tab) 40 mg QAM PO Last administered on 07/03/16 08:35; Admin Dose 40 MG; Start 06/30/16 at 09:00 Sertraline HCl (Zoloft) 100 mg QPM PO Last administered on 07/02/16 21:09; Admin Dose 100 MG; Start 06/30/16 at 21:00 Miscellaneous Information 1 ea NOTE XX ; Start 06/29/16 at 23:00 Glucose (Glutose) 15 gm Q15M PRN PO DECREASED GLUCOSE; Start 06/29/16 at 23:00 Glucose (Glutose) 22.5 gm Q15M PRN PO DECREASED GLUCOSE; Start 06/29/16 at 23: 00 Dextrose (D50w Syringe) 25 ml Q15M PRN IV DECREASED GLUCOSE; Start 06/29/16 at 23:00 Dextrose (D50w Syringe) 50 ml Q15M PRN IV DECREASED GLUCOSE; Start 06/29/16 at 23:00 Glucagon (Glucagen) 1 mg Q15M PRN IM DECREASED GLUCOSE; Start 06/29/16 at 23:00 Glucose (Glutose) 15 gm Q15M PRN BUCCAL DECREASED GLUCOSE; Start 06/29/16 at 23 :00 Epoetin Bautista (Epogen (Esrd)) 4,000 units MoWeFr@17 IV Last administered on 07/01 19:20; Admin Dose 4,000 UNITS; Start 07/01/16 at 18:58 Hydralazine HCl (Apresoline) 10 mg Q4H PRN IV SBP GREATER THAN 160 Last administered on 07/03/16 04:17; Admin Dose 10 MG; Start 07/02/16 at 12:00 Clopidogrel Bisulfate (plaVIX) 75 mg DAILY PO Last administered on 07/03/16 08 :35; Admin Dose 75 MG; Start 07/03/16 at 09:00 Furosemide (Lasix) 60 mg DAILY@06 IV Last administered on 07/03/16 05:00; Admin Dose 60 MG; Start 07/02/16 at 15:00 Nifedipine (Procardia Xl) 30 mg BID PO Last administered on 07/03/16t 08:34; Admin Dose 30 MG; Start 07/02/16 at 21:30 Hydralazine HCl (Apresoline) 100 mg Q8 PO ; Start 07/03/16 at 22:00 Clonazepam (Klonopin) 0.5 mg QPM PRN PO INSOMNIA; Start 07/03/16 at 16:00 CELINE DOAN MD July 03, 2016 19:55
[2016-07-03] MEDS: SERTRALINE 100 MG TAB PO SCH (19:58)
[2016-07-03] MEDS: GABAPENTIN 300 MG CAP PO SCH (19:58)
[2016-07-03] MEDS: ATORVASTATIN 80 MG TAB PO SCH (19:59)
[2016-07-03] MEDS ORDERED: FUROSEMIDE 20 MG TAB PO ONE (20:30)
[2016-07-03] MEDS ORDERED: NEOMYC/POLYMYX/BACIT 30 GM OINT TOP ONE (20:30)
[2016-07-04] VITALS (23 sets, daily range): BP systolic 134–202; BP diastolic 55–92; PULSE 78–111; RESP 16–20
[2016-07-04] MEDS: hydrALAzine 20 MG INJ IV PRN ×2 (04:04→12:22)
[2016-07-04] MEDS: FUROSEMIDE 40 MG INJ IV SCH (05:29)
[2016-07-04 06:15] LABS: ADD SCAN DIFF NO
[2016-07-04 06:22] LABS: BASOPHILS % 0.2 % (0.0-2.0); EOSINOPHILS # 0.2 10^3/ul (0.0-0.5); EOSINOPHILS % 2.7 % (0.0-7.0); HEMATOCRIT 30.6 % (37.0-47.0); HEMOGLOBIN 9.3 g/dl (12.0-16.0); LYMPHOCYTES # 1.5 10^3/ul (0.8-2.9); LYMPHOCYTES % 17.9 % (15.0-51.0); MEAN CORPUSCULAR HEMOGLOBIN 31.1 pg (29.0-33.0); MEAN CORPUSCULAR HGB CONC 30.4 g/dl (32.0-37.0); MEAN CORPUSCULAR VOLUME 102.3 fl (82.0-101.0); MEAN PLATELET VOLUME 10.3 fl (7.4-10.4); MONOCYTE # 0.9 10^3/ul (0.3-0.9); MONOCYTES % 10.3 % (0.0-11.0); NEUTROPHIL # 5.6 10^3/ul (1.6-7.5); NEUTROPHILS % 68.3 % (39.0-77.0); PLATELET COUNT 265 10^3/UL (140-415); RED BLOOD COUNT 2.99 10^6/ul (4.20-5.40); RED CELL DISTRIBUTION WIDTH 15.1 % (11.5-14.5); WHITE BLOOD COUNT 8.3 10^3/ul (4.8-10.8)
[2016-07-04 07:18] LABS: POTASSIUM 3.7 mmol/L (3.5-5.1)
[2016-07-04 07:21] LABS: CREATININE 4.1 mg/dl (0.44-1.00)
[2016-07-04 07:22] LABS: CALCIUM 8.1 mg/dl (8.4-10.2)
[2016-07-04] MEDS: INSULIN ASPART [NOVOLOG] 3 ML PEN SC SCH ×4 (08:03→20:46)
[2016-07-04] MEDS: ALLOPURINOL 100 MG TAB PO SCH (08:25)
[2016-07-04] MEDS: DULOXETINE 30 MG CAP DR PO SCH (08:25)
[2016-07-04] MEDS: PANTOPRAZOLE (EC) 40 MG TAB PO SCH (08:25)
[2016-07-04] MEDS: CLOPIDOGREL 75 MG TAB PO SCH (08:25)
[2016-07-04] MEDS: NIFEdipine (XL) 30 MG TAB PO SCH (08:26)
[2016-07-04] MEDS: INSULIN GLARGINE [LANtus] 3 ML PEN SC SCH (08:42)
[2016-07-04] MEDS ORDERED: HEPARIN 1000 UNITS/ML 10 ML INJ CATHETER SCH (11:00)
--- NOTE | 2016-07-04 11:10 | CONS ---
Date/Time of Note Date/Time of Note DATE: 07/04/16 TIME: 11:04 Consult Date/Type/Reason Admit Date/Time June 29, 2016 at 20:59 Initial Consult Date 07/03/16 Type of Consultation: Pulmonary Ordering Provider: ADARSH OSEI MD Subjective Patient awake alert and oriented this morning comfortable at rest no acute distress Objective Vital Signs Date Time Temp Pulse Resp B/P Pulse Ox O2 Delivery O2 Flow Rate FiO2 07/04/16 08:16 111 07/04/16 07:30 Nasal Cannula 2.0 07/04/16 07:11 97.8 18 158/81 96 Intake and Output 07/03/16 07/03/16 07/04/16 15:00 23:00 07:00 Intake Total 720 ml 480 ml Output Total 800 ml Balance 720 ml -320 ml Exam GENERAL: Well-nourished well-developed lady comfortable at rest no acute distress VITAL SIGNS: per chart NECK: Supple. No JVD or lymphadenopathy. CARDIAC EXAM: S1, S2. No added sounds or murmurs. CHEST: clear bilaterally, No added sounds, rales or wheezes ABDOMEN: Soft, nontender. No guarding or rebound. EXTREMITIES: No cyanosis, clubbing or edema. NEUROLOGIC: Generalized weakness. No focal deficits. Results/Medications Result Diagram: 07/04/16 0550 07/04/16 0550 Results 24 hrs Laboratory Tests Test 07/03/16 11:52 07/03/16 12:09 07/03/16 17:10 07/03/16 20:06 Bedside Glucose 186 202 161 Blood Gas Specimen Source Blood arterial Arterial Blood Date Drawn 07/03/2016 2:46:20 PM Arterial Blood pH (Temp corrected) 7.337 L Arterial Blood pCO2 (Temp correct) 45.0 Arterial Blood pO2 (Temp corrected) 63.3 L Arterial Blood HCO3 23.6 Arterial Blood Base Excess -2.3 Arterial Blood Oxygen Saturation 92.7 L Shaun Test ACCEPTAB Arterial Blood Gas Puncture Site Right Radial Arterial Blood Carboxyhemoglobin 0.5 Arterial Blood Methemoglobin 0.1 Blood Gas A-a O2 Differential 32.5 H Oxyhemoglobin Percent 92.1 L Total Hemoglobin 11.2 L Blood Gas Temperature 37.0 Blood Gas Actual Respiration Rate 21 Blood Gas Modality ROOM AIR FiO2 21.0 Blood Gas Notified Whom KB Blood Gas Notified Time 07/03/2016 2:57:38 PM Test 07/04/16 05:50 07/04/16 07:58 White Blood Count 8.3 Red Blood Count 2.99 L Hemoglobin 9.3 L Hematocrit 30.6 L Mean Corpuscular Volume 102.3 H Mean Corpuscular Hemoglobin 31.1 Mean Corpuscular Hemoglobin Concent 30.4 L Red Cell Distribution Width 15.1 H Platelet Count 265 Mean Platelet Volume 10.3 Neutrophils % 68.3 Lymphocytes % 17.9 Monocytes % 10.3 Eosinophils % 2.7 Basophils % 0.2 Nucleated Red Blood Cells % 0.0 Neutrophils # 5.6 Lymphocytes # 1.5 Monocytes # 0.9 Eosinophils # 0.2 Basophils # 0.0 Nucleated Red Blood Cells # 0.0 Sodium Level 137 Potassium Level 3.7 Chloride Level 99 Carbon Dioxide Level 25 Anion Gap 17 H Blood Urea Nitrogen 52 H Creatinine 4.10 H Glucose Level 168 Calcium Level 8.1 L Bedside Glucose 181 Medications Current Medications Aspirin (Halfprin) 81 mg DAILY PO Last administered on 06/30/16 08:26; Admin Dose 81 MG; Start 06/30/16 at 09:00; Status Future Hold Acetaminophen (Tylenol Tab) 500 mg Q4H PRN PO PAIN AND OR ELEVATED TEMP Last administered on 07/03/16 19:58; Admin Dose 500 MG; Start 06/29/16 at 22:30 Allopurinol (Zyloprim) 100 mg DAILY PO Last administered on 07/04/16 08:25; Admin Dose 100 MG; Start 06/30/16 at 09:00 Atorvastatin Calcium (Lipitor) 80 mg HS PO Last administered on 07/03/16 19:59 ; Admin Dose 80 MG; Start 06/30/16 at 21:00 Duloxetine HCl (Cymbalta) 30 mg DAILY PO Last administered on 07/04/16 08:25; Admin Dose 30 MG; Start 06/30/16 at 09:00 Gabapentin (Neurontin) 300 mg QPM PO Last administered on 07/03/16 19:58; Admin Dose 300 MG; Start 06/30/16 at 00:10 Insulin Glargine (Lantus) 20 unit QAM SC Last administered on 07/04/16 08:42; Admin Dose 20 UNIT; Start 06/30/16 at 09:00 Metoprolol Succinate (Toprol Xl) 100 mg DAILY PO Last administered on 08:58; Admin Dose 100 MG; Start 06/30/16 at 09:00; Status Future Hold Pantoprazole (Protonix Tab) 40 mg QAM PO Last administered on 07/04/16 08:25; Admin Dose 40 MG; Start 06/30/16 at 09:00 Sertraline HCl (Zoloft) 100 mg QPM PO Last administered on 07/03/16 19:58; Admin Dose 100 MG; Start 06/30/16 at 21:00 Miscellaneous Information 1 ea NOTE XX ; Start 06/29/16 at 23:00 Glucose (Glutose) 15 gm Q15M PRN PO DECREASED GLUCOSE; Start 06/29/16 at 23:00 Glucose (Glutose) 22.5 gm Q15M PRN PO DECREASED GLUCOSE; Start 06/29/16 at 23: 00 Dextrose (D50w Syringe) 25 ml Q15M PRN IV DECREASED GLUCOSE; Start 06/29/16 at 23:00 Dextrose (D50w Syringe) 50 ml Q15M PRN IV DECREASED GLUCOSE; Start 06/29/16 at 23:00 Glucagon (Glucagen) 1 mg Q15M PRN IM DECREASED GLUCOSE; Start 06/29/16 at 23:00 Glucose (Glutose) 15 gm Q15M PRN BUCCAL DECREASED GLUCOSE; Start 06/29/16 at 23 :00 Epoetin Bautista (Epogen (Esrd)) 4,000 units MoWeFr@17 IV Last administered on 07/01 19:20; Admin Dose 4,000 UNITS; Start 07/01/16 at 18:58 Hydralazine HCl (Apresoline) 10 mg Q4H PRN IV SBP GREATER THAN 160 Last administered on 07/04/16 04:04; Admin Dose 10 MG; Start 07/02/16 at 12:00 Clopidogrel Bisulfate (plaVIX) 75 mg DAILY PO Last administered on 07/04/16 08 :25; Admin Dose 75 MG; Start 07/03/16 at 09:00 Furosemide (Lasix) 60 mg DAILY@06 IV Last administered on 07/04/16 05:29; Admin Dose 60 MG; Start 07/02/16 at 15:00 Nifedipine (Procardia Xl) 30 mg BID PO Last administered on 07/04/16 08:26; Admin Dose 30 MG; Start 07/02/16 at 21:30 Hydralazine HCl (Apresoline) 100 mg Q8 PO Last administered on 07/04/16 05:29 ; Admin Dose 100 MG; Start 07/03/16 at 22:00 Clonazepam (Klonopin) 0.5 mg QPM PRN PO INSOMNIA; Start 07/03/16 at 16:00 Assessment/Plan Chief Complaint/Hosp Course Assessment 1. Probable underlying obstructive sleep apnea 2. End-stage renal failure on hemodialysis, resolved uremia 3. History of essential hypertension 4. Morbid obesity 5. Anemia likely secondary to chronic renal disease Plan 1. Continue hemodialysis per nephrology 2. Encourage ambulation out of bed 3. Continue antihypertensives 4. Recommend check iron panel 5. Outpatient sleep study Disposition Discharge planning okay from pulmonary standpoint 1. Patient admitted for worsening renal function or requiring hemodialysis. Was uremic on admission. 2. TIA likely from underlying uremia versus actual TIA itself. 3. History of hypertension, 4. Likely underlying sleep apnea. Problems: COL[facility] MCDONALD [facility] July 04, 2016 11:10
--- NOTE | 2016-07-04 14:12 | CONS ---
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 Awaiting placement to outpt hd center Constitutional: requiring O2 Exam/Review of Systems Vital Signs Vitals Vital Signs Date Time Temp Pulse Resp B/P Pulse Ox O2 Delivery O2 Flow Rate FiO2 07/04/16 12:15 103 07/04/16 12:00 20 07/04/16 11:05 97.5 180/90 97 07/04/16 07:30 Nasal Cannula 2.0 Intake and Output 07/03/16 07/03/16 07/04/16 15:00 23:00 07:00 Intake Total 720 ml 480 ml Output Total 800 ml Balance 720 ml -320 ml Exam Constitutional: alert, No distress Head: atraumatic Eyes: EOMI Neck: No jvd Respiratory: crackles/rales, No diminished breath sounds, No labored breathing Cardiovascular: edema, regular rate and rhythm Gastrointestinal: non-tender, soft Neurological: [employer] II-XII intact, nl mental status, nl speech, No confused, No lethargic Skin: No diaphoresis Results Result Diagram: 07/04/16 0550 07/04/16 0550 Results 24 hrs Laboratory Tests Test 07/03/16 17:10 07/03/16 20:06 07/04/16 05:50 07/04/16 07:58 Bedside Glucose 202 161 181 White Blood Count 8.3 Red Blood Count 2.99 L Hemoglobin 9.3 L Hematocrit 30.6 L Mean Corpuscular Volume 102.3 H Mean Corpuscular Hemoglobin 31.1 Mean Corpuscular Hemoglobin Concent 30.4 L Red Cell Distribution Width 15.1 H Platelet Count 265 Mean Platelet Volume 10.3 Neutrophils % 68.3 Lymphocytes % 17.9 Monocytes % 10.3 Eosinophils % 2.7 Basophils % 0.2 Nucleated Red Blood Cells % 0.0 Neutrophils # 5.6 Lymphocytes # 1.5 Monocytes # 0.9 Eosinophils # 0.2 Basophils # 0.0 Nucleated Red Blood Cells # 0.0 Sodium Level 137 Potassium Level 3.7 Chloride Level 99 Carbon Dioxide Level 25 Anion Gap 17 H Blood Urea Nitrogen 52 H Creatinine 4.10 H Glucose Level 168 Calcium Level 8.1 L Test 07/04/16 11:40 Bedside Glucose 160 Medications Medications Current Medications Aspirin (Halfprin) 81 mg DAILY PO Last administered on 06/30/16 08:26; Admin Dose 81 MG; Start 06/30/16 at 09:00; Status Future Hold Acetaminophen (Tylenol Tab) 500 mg Q4H PRN PO PAIN AND OR ELEVATED TEMP Last administered on 07/03/16 19:58; Admin Dose 500 MG; Start 06/29/16 at 22:30 Allopurinol (Zyloprim) 100 mg DAILY PO Last administered on 07/04/16 08:25; Admin Dose 100 MG; Start 06/30/16 at 09:00 Atorvastatin Calcium (Lipitor) 80 mg HS PO Last administered on 07/03/16 19:59 ; Admin Dose 80 MG; Start 06/30/16 at 21:00 Duloxetine HCl (Cymbalta) 30 mg DAILY PO Last administered on 07/04/16 08:25; Admin Dose 30 MG; Start 06/30/16 at 09:00 Gabapentin (Neurontin) 300 mg QPM PO Last administered on 07/03/16 19:58; Admin Dose 300 MG; Start 06/30/16 at 00:10 Insulin Glargine (Lantus) 20 unit QAM SC Last administered on 07/04/16 08:42; Admin Dose 20 UNIT; Start 06/30/16 at 09:00 Metoprolol Succinate (Toprol Xl) 100 mg DAILY PO Last administered on 08:58; Admin Dose 100 MG; Start 06/30/16 at 09:00; Status Future Hold Pantoprazole (Protonix Tab) 40 mg QAM PO Last administered on 07/04/16 08:25; Admin Dose 40 MG; Start 06/30/16 at 09:00 Sertraline HCl (Zoloft) 100 mg QPM PO Last administered on 07/03/16 19:58; Admin Dose 100 MG; Start 06/30/16 at 21:00 Miscellaneous Information 1 ea NOTE XX ; Start 06/29/16 at 23:00 Glucose (Glutose) 15 gm Q15M PRN PO DECREASED GLUCOSE; Start 06/29/16 at 23:00 Glucose (Glutose) 22.5 gm Q15M PRN PO DECREASED GLUCOSE; Start 06/29/16 at 23: 00 Dextrose (D50w Syringe) 25 ml Q15M PRN IV DECREASED GLUCOSE; Start 06/29/16 at 23:00 Dextrose (D50w Syringe) 50 ml Q15M PRN IV DECREASED GLUCOSE; Start 06/29/16 at 23:00 Glucagon (Glucagen) 1 mg Q15M PRN IM DECREASED GLUCOSE; Start 06/29/16 at 23:00 Glucose (Glutose) 15 gm Q15M PRN BUCCAL DECREASED GLUCOSE; Start 06/29/16 at 23 :00 Epoetin Bautista (Epogen (Esrd)) 4,000 units MoWeFr@17 IV Last administered on 07/01 19:20; Admin Dose 4,000 UNITS; Start 07/01/16 at 18:58 Hydralazine HCl (Apresoline) 10 mg Q4H PRN IV SBP GREATER THAN 160 Last administered on 07/04/16 12:22; Admin Dose 10 MG; Start 07/02/16 at 12:00 Clopidogrel Bisulfate (plaVIX) 75 mg DAILY PO Last administered on 07/04/16 08 :25; Admin Dose 75 MG; Start 07/03/16 at 09:00 Furosemide (Lasix) 60 mg DAILY@06 IV Last administered on 07/04/16 05:29; Admin Dose 60 MG; Start 07/02/16 at 15:00 Nifedipine (Procardia Xl) 30 mg BID PO Last administered on 07/04/16 08:26; Admin Dose 30 MG; Start 07/02/16 at 21:30 Hydralazine HCl (Apresoline) 100 mg Q8 PO Last administered on 07/04/16 13:35 ; Admin Dose 100 MG; Start 07/03/16 at 22:00 Clonazepam (Klonopin) 0.5 mg QPM PRN PO INSOMNIA; Start 07/03/16 at 16:00 CELINE DOAN MD July 04, 2016 14:12
[2016-07-04] MEDS ORDERED: EPOETIN 4000 UNITS/1 ML INJ (ESRD) IV SCH (17:00)
[2016-07-04] MEDS: EPOETIN 4000 UNITS/1 ML INJ (ESRD) IV SCH (17:17)
--- NOTE | 2016-07-04 18:20 | CONS ---
Date/Time of Note Date/Time of Note DATE: 07/04/16 TIME: 18:14 Assessment/Plan Assessment/Plan Chief Complaint/Hosp Course IMPRESSION: 1. Cardiac arrhythmia concerning for possible tachybrady syndrome with episodes of heart rates to the 40s and as high as 120s short period of time.- some pauses today up to 3.6 seconds/NL TSH. Over weekend reported pauses to 5.8 seconds 07/02. Improved after stopping BB and ? clonidine 2. Hypertension-uncontrolled 3. Dyslipidemia. 4. Congestive heart failure/volume overload, question systolic versus diastolic , acute on chronic. 5. Diabetes mellitus. 6. Chronic kidney disease to be initiated on hemodialysis. 7. Coronary artery disease, on medications. 8. Anemia. Recc: -Tele -serial ECG's -Continue hydralazine/procardia with slight increase to uptitration to improve BP control -Continue statin -Hold BB and follow for any recurrent pauses -HD via right chest permacath -Eval for possible need for PPM Problems: Consultation Date/Type/Reason Admit Date/Time June 29, 2016 at 20:59 Initial Consult Date 06/30/16 Type of Consultation: Cardiology Reason for Consultation arrythmia Referring Provider: ADARSH OSEI MD Exam/Review of Systems Vital Signs Vitals Vital Signs Date Time Temp Pulse Resp B/P Pulse Ox O2 Delivery O2 Flow Rate FiO2 07/04/16 16:34 99 142/74 07/04/16 15:05 98.2 18 98 07/04/16 07:30 Nasal Cannula 2.0 Intake and Output 07/03/16 07/03/16 07/04/16 15:00 23:00 07:00 Intake Total 720 ml 480 ml Output Total 800 ml Balance 720 ml -320 ml Exam Review of Systems: CONSTITUTIONAL: No fevers, chills. PULMONARY: No sob CARDIOVASCULAR: No chest pain/palpitations GASTROINTESTINAL: No nausea/vomiting. GENITOURINARY: No hematuria/dysuria. MUSCULOSKELETAL: No myagias/arthalgias. PSYCHIATRIC: The patient denies depression. NEUROLOGIC: No weakness Constitutional: alert, oriented Psych: no complaints ENMT: mucosa pink and moist Neck: jvd (9 cm water), supple Respiratory: diminished breath sounds (at bases/B) Cardiovascular: regular rate and rhythm Gastrointestinal: non-tender, soft Musculoskeletal: muscle tone (normal) Extremities: edema (trace/B) Neurological: other (No focal deficits) Results Result Diagram: 07/04/16 0550 07/04/16 0550 Results 24 hrs Laboratory Tests Test 07/03/16 20:06 07/04/16 05:50 07/04/16 07:58 07/04/16 11:40 Bedside Glucose 161 181 160 White Blood Count 8.3 Red Blood Count 2.99 L Hemoglobin 9.3 L Hematocrit 30.6 L Mean Corpuscular Volume 102.3 H Mean Corpuscular Hemoglobin 31.1 Mean Corpuscular Hemoglobin Concent 30.4 L Red Cell Distribution Width 15.1 H Platelet Count 265 Mean Platelet Volume 10.3 Neutrophils % 68.3 Lymphocytes % 17.9 Monocytes % 10.3 Eosinophils % 2.7 Basophils % 0.2 Nucleated Red Blood Cells % 0.0 Neutrophils # 5.6 Lymphocytes # 1.5 Monocytes # 0.9 Eosinophils # 0.2 Basophils # 0.0 Nucleated Red Blood Cells # 0.0 Sodium Level 137 Potassium Level 3.7 Chloride Level 99 Carbon Dioxide Level 25 Anion Gap 17 H Blood Urea Nitrogen 52 H Creatinine 4.10 H Glucose Level 168 Calcium Level 8.1 L Test 07/04/16 17:19 Bedside Glucose 166 Medications Medications Current Medications Aspirin (Halfprin) 81 mg DAILY PO Last administered on 06/30/16 08:26; Admin Dose 81 MG; Start 06/30/16 at 09:00; Status Future Hold Acetaminophen (Tylenol Tab) 500 mg Q4H PRN PO PAIN AND OR ELEVATED TEMP Last administered on 07/03/16 19:58; Admin Dose 500 MG; Start 06/29/16 at 22:30 Allopurinol (Zyloprim) 100 mg DAILY PO Last administered on 07/04/16 08:25; Admin Dose 100 MG; Start 06/30/16 at 09:00 Atorvastatin Calcium (Lipitor) 80 mg HS PO Last administered on 07/03/16 19:59 ; Admin Dose 80 MG; Start 06/30/16 at 21:00 Duloxetine HCl (Cymbalta) 30 mg DAILY PO Last administered on 07/04/16 08:25; Admin Dose 30 MG; Start 06/30/16 at 09:00 Gabapentin (Neurontin) 300 mg QPM PO Last administered on 07/03/16 19:58; Admin Dose 300 MG; Start 06/30/16 at 00:10 Insulin Glargine (Lantus) 20 unit QAM SC Last administered on 07/04/16 08:42; Admin Dose 20 UNIT; Start 06/30/16 at 09:00 Metoprolol Succinate (Toprol Xl) 100 mg DAILY PO Last administered on 08:58; Admin Dose 100 MG; Start 06/30/16 at 09:00; Status Future Hold Pantoprazole (Protonix Tab) 40 mg QAM PO Last administered on 07/04/16 08:25; Admin Dose 40 MG; Start 06/30/16 at 09:00 Sertraline HCl (Zoloft) 100 mg QPM PO Last administered on 07/03/16 19:58; Admin Dose 100 MG; Start 06/30/16 at 21:00 Miscellaneous Information 1 ea NOTE XX ; Start 06/29/16 at 23:00 Glucose (Glutose) 15 gm Q15M PRN PO DECREASED GLUCOSE; Start 06/29/16 at 23:00 Glucose (Glutose) 22.5 gm Q15M PRN PO DECREASED GLUCOSE; Start 06/29/16 at 23: 00 Dextrose (D50w Syringe) 25 ml Q15M PRN IV DECREASED GLUCOSE; Start 06/29/16 at 23:00 Dextrose (D50w Syringe) 50 ml Q15M PRN IV DECREASED GLUCOSE; Start 06/29/16 at 23:00 Glucagon (Glucagen) 1 mg Q15M PRN IM DECREASED GLUCOSE; Start 06/29/16 at 23:00 Glucose (Glutose) 15 gm Q15M PRN BUCCAL DECREASED GLUCOSE; Start 06/29/16 at 23 :00 Epoetin Bautista (Epogen (Esrd)) 4,000 units MoWeFr@17 IV Last administered on 07/04 17:17; Admin Dose 4,000 UNITS; Start 07/01/16 at 18:58 Hydralazine HCl (Apresoline) 10 mg Q4H PRN IV SBP GREATER THAN 160 Last administered on 07/04/16 12:22; Admin Dose 10 MG; Start 07/02/16 at 12:00 Clopidogrel Bisulfate (plaVIX) 75 mg DAILY PO Last administered on 07/04/16 08 :25; Admin Dose 75 MG; Start 07/03/16 at 09:00 Furosemide (Lasix) 60 mg DAILY@06 IV Last administered on 07/04/16 05:29; Admin Dose 60 MG; Start 07/02/16 at 15:00 Nifedipine (Procardia Xl) 30 mg BID PO Last administered on 07/04/16 08:26; Admin Dose 30 MG; Start 07/02/16 at 21:30 Hydralazine HCl (Apresoline) 100 mg Q8 PO Last administered on 07/04/16 13:35 ; Admin Dose 100 MG; Start 07/03/16 at 22:00 Clonazepam (Klonopin) 0.5 mg QPM PRN PO INSOMNIA; Start 07/03/16 at 16:00 BRETT BLUM July 04, 2016 18:19
--- NOTE | 2016-07-04 18:53 | PN ---
Date/Time of Note Date/Time of Note DATE: 07/04/16 TIME: 18:50 Assessment/Plan VTE Prophylaxis VTE Prophylaxis Intervention: SCD's Lines/Catheters IV [facility]from [facility] Urinary Cath still in place: No Assessment/Plan Chief Complaint/Hosp Course Patient is more awake alert, no pauses and no noted per telemetry, however patient had an elevated blood pressure. Continue blood pressure medication optimization by cardiology. Discussed with Dr. Lantigua. PT evaluation is ordered. Assessment/Plan -TIA, continue Plavix. Dr. Pinon neurology consult is appreciated. 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 Dr. Lantigua is following and cardiology consultation. - Possible syncope secondary to bradycardia syndrome with pauses. - Chronic kidney disease stage V, Dr. Vanegas is following patient in nephrology consultation. Patient will be started on hemodialysis upon hemodialysis catheter insertion. - Diabetes mellitus. - Hypertension. - Dyslipidemia. - Congestive heart failure/volume overload, question systolic versus diastolic, acute on chronic. - Coronary artery disease, on medications. - Anemia. - Obesity with BMI of 42. Further recommendations based on clinical course. Plan of care discussed with Dr. Webb. Problems: Subjective 24 Hr Interval Summary Free Text/Dictation Patient status post hemodialysis today, has not been out of bed. Exam/Review of Systems Vital Signs Vitals Vital Signs Date Time Temp Pulse Resp B/P Pulse Ox O2 Delivery O2 Flow Rate FiO2 07/04/16 16:34 99 142/74 07/04/16 15:05 98.2 18 98 07/04/16 07:30 Nasal Cannula 2.0 Intake and Output 07/03/16 07/03/16 07/04/16 14:59 22:59 06:59 Intake Total 720 ml 480 ml Output Total 800 ml Balance 720 ml -320 ml Exam Constitutional: alert, obese, well developed Psych: no complaints Head: normocephalic Eyes: nl conjunctiva ENMT: nl external ears & nose Neck: non-tender, supple Respiratory: clear to auscultation, normal air movement Cardiovascular: nl pulses Gastrointestinal: non-tender, soft Musculoskeletal: nl extremities to inspection Extremities: normal pulses Neurological: [employer] II-XII intact Results Result Diagram: 07/04/16 0550 07/04/16 0550 Results 24 hrs Laboratory Tests Test 07/03/16 20:06 07/04/16 05:50 07/04/16 07:58 07/04/16 11:40 Bedside Glucose 161 181 160 White Blood Count 8.3 Red Blood Count 2.99 L Hemoglobin 9.3 L Hematocrit 30.6 L Mean Corpuscular Volume 102.3 H Mean Corpuscular Hemoglobin 31.1 Mean Corpuscular Hemoglobin Concent 30.4 L Red Cell Distribution Width 15.1 H Platelet Count 265 Mean Platelet Volume 10.3 Neutrophils % 68.3 Lymphocytes % 17.9 Monocytes % 10.3 Eosinophils % 2.7 Basophils % 0.2 Nucleated Red Blood Cells % 0.0 Neutrophils # 5.6 Lymphocytes # 1.5 Monocytes # 0.9 Eosinophils # 0.2 Basophils # 0.0 Nucleated Red Blood Cells # 0.0 Sodium Level 137 Potassium Level 3.7 Chloride Level 99 Carbon Dioxide Level 25 Anion Gap 17 H Blood Urea Nitrogen 52 H Creatinine 4.10 H Glucose Level 168 Calcium Level 8.1 L Test 07/04/16 17:19 Bedside Glucose 166 Medications Medications Current Medications Aspirin (Halfprin) 81 mg DAILY PO Last administered on 06/30/16 08:26; Admin Dose 81 MG; Start 06/30/16 at 09:00; Status Future Hold Acetaminophen (Tylenol Tab) 500 mg Q4H PRN PO PAIN AND OR ELEVATED TEMP Last administered on 07/03/16 19:58; Admin Dose 500 MG; Start 06/29/16 at 22:30 Allopurinol (Zyloprim) 100 mg DAILY PO Last administered on 07/04/16 08:25; Admin Dose 100 MG; Start 06/30/16 at 09:00 Atorvastatin Calcium (Lipitor) 80 mg HS PO Last administered on 07/03/16 19:59 ; Admin Dose 80 MG; Start 06/30/16 at 21:00 Duloxetine HCl (Cymbalta) 30 mg DAILY PO Last administered on 07/04/16 08:25; Admin Dose 30 MG; Start 06/30/16 at 09:00 Gabapentin (Neurontin) 300 mg QPM PO Last administered on 07/03/16 19:58; Admin Dose 300 MG; Start 06/30/16 at 00:10 Insulin Glargine (Lantus) 20 unit QAM SC Last administered on 07/04/16 08:42; Admin Dose 20 UNIT; Start 06/30/16 at 09:00 Metoprolol Succinate (Toprol Xl) 100 mg DAILY PO Last administered on 08:58; Admin Dose 100 MG; Start 06/30/16 at 09:00; Status Future Hold Pantoprazole (Protonix Tab) 40 mg QAM PO Last administered on 07/04/16 08:25; Admin Dose 40 MG; Start 06/30/16 at 09:00 Sertraline HCl (Zoloft) 100 mg QPM PO Last administered on 07/03/16 19:58; Admin Dose 100 MG; Start 06/30/16 at 21:00 Miscellaneous Information 1 ea NOTE XX ; Start 06/29/16 at 23:00 Glucose (Glutose) 15 gm Q15M PRN PO DECREASED GLUCOSE; Start 06/29/16 at 23:00 Glucose (Glutose) 22.5 gm Q15M PRN PO DECREASED GLUCOSE; Start 06/29/16 at 23: 00 Dextrose (D50w Syringe) 25 ml Q15M PRN IV DECREASED GLUCOSE; Start 06/29/16 at 23:00 Dextrose (D50w Syringe) 50 ml Q15M PRN IV DECREASED GLUCOSE; Start 06/29/16 at 23:00 Glucagon (Glucagen) 1 mg Q15M PRN IM DECREASED GLUCOSE; Start 06/29/16 at 23:00 Glucose (Glutose) 15 gm Q15M PRN BUCCAL DECREASED GLUCOSE; Start 06/29/16 at 23 :00 Epoetin Bautista (Epogen (Esrd)) 4,000 units MoWeFr@17 IV Last administered on 07/04 17:17; Admin Dose 4,000 UNITS; Start 07/01/16 at 18:58 Hydralazine HCl (Apresoline) 10 mg Q4H PRN IV SBP GREATER THAN 160 Last administered on 07/04/16 12:22; Admin Dose 10 MG; Start 07/02/16 at 12:00 Clopidogrel Bisulfate (plaVIX) 75 mg DAILY PO Last administered on 07/04/16 08 :25; Admin Dose 75 MG; Start 07/03/16 at 09:00 Furosemide (Lasix) 60 mg DAILY@06 IV Last administered on 07/04/16 05:29; Admin Dose 60 MG; Start 07/02/16 at 15:00 Hydralazine HCl (Apresoline) 100 mg Q8 PO Last administered on 07/04/16t 13:35 ; Admin Dose 100 MG; Start 07/03/16 at 22:00 Clonazepam (Klonopin) 0.5 mg QPM PRN PO INSOMNIA; Start 07/03/16 at 16:00 Nifedipine (Procardia Xl) 60 mg BID PO ; Start 07/04/16 at 21:00 UMESH QUIJANO July 04, 2016 18:53
[2016-07-04] MEDS: NIFEdipine (XL) 60 MG TAB PO SCH (20:49)
[2016-07-04] MEDS: ATORVASTATIN 80 MG TAB PO SCH (20:49)
[2016-07-04] MEDS: GABAPENTIN 300 MG CAP PO SCH (20:49)
[2016-07-04] MEDS: SERTRALINE 100 MG TAB PO SCH (20:49)
[2016-07-05] VITALS (11 sets, daily range): BP systolic 132–165; BP diastolic 65–91; PULSE 95–104; RESP 16–21
[2016-07-05] MEDS: FUROSEMIDE 40 MG INJ IV SCH (06:20)
[2016-07-05 06:47] LABS: ADD SCAN DIFF NO
[2016-07-05 06:53] LABS: BASOPHILS % 0.2 % (0.0-2.0); EOSINOPHILS # 0.2 10^3/ul (0.0-0.5); EOSINOPHILS % 2.7 % (0.0-7.0); HEMATOCRIT 32.7 % (37.0-47.0); HEMOGLOBIN 9.9 g/dl (12.0-16.0); LYMPHOCYTES # 1.6 10^3/ul (0.8-2.9); MEAN CORPUSCULAR HGB CONC 30.3 g/dl (32.0-37.0); MEAN CORPUSCULAR VOLUME 102.5 fl (82.0-101.0); MEAN PLATELET VOLUME 10.4 fl (7.4-10.4); MONOCYTE # 0.7 10^3/ul (0.3-0.9); NEUTROPHIL # 5.5 10^3/ul (1.6-7.5); NEUTROPHILS % 67.6 % (39.0-77.0); PLATELET COUNT 308 10^3/UL (140-415); RED BLOOD COUNT 3.19 10^6/ul (4.20-5.40); RED CELL DISTRIBUTION WIDTH 14.9 % (11.5-14.5); WHITE BLOOD COUNT 8.1 10^3/ul (4.8-10.8)
[2016-07-05 07:14] LABS: POTASSIUM 4.1 mmol/L (3.5-5.1)
[2016-07-05 07:17] LABS: CREATININE 3.5 mg/dl (0.44-1.00)
[2016-07-05 07:18] LABS: CALCIUM 8.5 mg/dl (8.4-10.2)
[2016-07-05] MEDS: INSULIN ASPART [NOVOLOG] 3 ML PEN SC SCH ×4 (07:46→21:17)
[2016-07-05] MEDS: INSULIN GLARGINE [LANtus] 3 ML PEN SC SCH (08:01)
[2016-07-05] MEDS: ALLOPURINOL 100 MG TAB PO SCH (08:30)
[2016-07-05] MEDS: NIFEdipine (XL) 60 MG TAB PO SCH ×2 (08:30→21:07)
[2016-07-05] MEDS: PANTOPRAZOLE (EC) 40 MG TAB PO SCH (08:30)
[2016-07-05] MEDS: CLOPIDOGREL 75 MG TAB PO SCH (08:30)
[2016-07-05] MEDS: DULOXETINE 30 MG CAP DR PO SCH (08:30)
--- NOTE | 2016-07-05 10:55 | CONS ---
Date/Time of Note Date/Time of Note DATE: 07/05/16 TIME: 10:53 Assessment/Plan Assessment/Plan Additional Assessment/Plan Assessment recommendations; next 1. Patient admitted for worsening renal function now requiring hemodialysis. 2. History of hypertension diabetes and obesity. 3. Likely underlying sleep apnea. 4. Mild hypoxemia on room air without any evidence of CO2 retention. Continue current treatment. Patient will need to have a sleep study done on an outpatient basis. Consultation Date/Type/Reason Admit Date/Time June 29, 2016 at 20:59 Initial Consult Date 07/03/16 Type of Consultation: Pulmonary Referring Provider: ADARSH OSEI MD 24 HR Interval Summary Free Text/Dictation Patient condition is stable. Denies any shortness of breath, chest pain. Patient does complain of episodes of loud snoring as well as excessive daytime sleepiness. General exam; elderly lady, awake alert currently in no distress. Exam/Review of Systems Vital Signs Vitals Vital Signs Date Time Temp Pulse Resp B/P Pulse Ox O2 Delivery O2 Flow Rate FiO2 07/05/16 08:26 103 07/05/16 07:30 Nasal Cannula 2.0 07/05/16 07:23 98.0 21 165/91 97 Intake and Output 07/04/16 07/04/16 07/05/16 15:00 23:00 07:00 Intake Total 300 ml 1070 ml 120 ml Output Total 2300 ml 650 ml Balance -2000 ml 420 ml 120 ml Exam HEENT examination; supple neck, no lymphadenopathy. No thyromegaly. Pharynx is clear. No neck masses. Pupils are small bilaterally. Chest examination; diminished but clear vessel. S1-S2 audible, no murmurs. Regular rhythm. Abdomen examination; soft, protuberant. No organomegaly. Bowel sounds audible. Extremity exam; no peripheral edema. Pulses 1+ bilaterally. 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 Results Result Diagram: 07/05/16 0620 07/05/16 0620 Results 24 hrs Laboratory Tests Test 07/04/16 11:40 07/04/16 17:19 07/04/16 20:26 07/05/16 06:20 Bedside Glucose 160 166 153 White Blood Count 8.1 Red Blood Count 3.19 L Hemoglobin 9.9 L Hematocrit 32.7 L Mean Corpuscular Volume 102.5 H Mean Corpuscular Hemoglobin 31.0 Mean Corpuscular Hemoglobin Concent 30.3 L Red Cell Distribution Width 14.9 H Platelet Count 308 Mean Platelet Volume 10.4 Neutrophils % 67.6 Lymphocytes % 20.0 Monocytes % 9.0 Eosinophils % 2.7 Basophils % 0.2 Nucleated Red Blood Cells % 0.0 Neutrophils # 5.5 Lymphocytes # 1.6 Monocytes # 0.7 Eosinophils # 0.2 Basophils # 0.0 Nucleated Red Blood Cells # 0.0 Sodium Level 134 L Potassium Level 4.1 Chloride Level 96 L Carbon Dioxide Level 26 Anion Gap 16 Blood Urea Nitrogen 38 #H Creatinine 3.50 H Glucose Level 173 Calcium Level 8.5 Test 07/05/16 07:38 Bedside Glucose 179 Medications Medications Current Medications Aspirin (Halfprin) 81 mg DAILY PO Last administered on 06/30/16 08:26; Admin Dose 81 MG; Start 06/30/16 at 09:00; Status Future Hold Acetaminophen (Tylenol Tab) 500 mg Q4H PRN PO PAIN AND OR ELEVATED TEMP Last administered on 07/03/16 19:58; Admin Dose 500 MG; Start 06/29/16 at 22:30 Allopurinol (Zyloprim) 100 mg DAILY PO Last administered on 07/05/16 08:30; Admin Dose 100 MG; Start 06/30/16 at 09:00 Atorvastatin Calcium (Lipitor) 80 mg HS PO Last administered on 07/04/16 20:49 ; Admin Dose 80 MG; Start 06/30/16 at 21:00 Duloxetine HCl (Cymbalta) 30 mg DAILY PO Last administered on 07/05/16 08:30; Admin Dose 30 MG; Start 06/30/16 at 09:00 Gabapentin (Neurontin) 300 mg QPM PO Last administered on 07/04/16 20:49; Admin Dose 300 MG; Start 06/30/16 at 00:10 Insulin Glargine (Lantus) 20 unit QAM SC Last administered on 07/05/16 08:01; Admin Dose 20 UNIT; Start 06/30/16 at 09:00 Metoprolol Succinate (Toprol Xl) 100 mg DAILY PO Last administered on 08:58; Admin Dose 100 MG; Start 06/30/16 at 09:00; Status Future Hold Pantoprazole (Protonix Tab) 40 mg QAM PO Last administered on 07/05/16 08:30; Admin Dose 40 MG; Start 06/30/16 at 09:00 Sertraline HCl (Zoloft) 100 mg QPM PO Last administered on 07/04/16 20:49; Admin Dose 100 MG; Start 06/30/16 at 21:00 Miscellaneous Information 1 ea NOTE XX ; Start 06/29/16 at 23:00 Glucose (Glutose) 15 gm Q15M PRN PO DECREASED GLUCOSE; Start 06/29/16 at 23:00 Glucose (Glutose) 22.5 gm Q15M PRN PO DECREASED GLUCOSE; Start 06/29/16 at 23: 00 Dextrose (D50w Syringe) 25 ml Q15M PRN IV DECREASED GLUCOSE; Start 06/29/16 at 23:00 Dextrose (D50w Syringe) 50 ml Q15M PRN IV DECREASED GLUCOSE; Start 06/29/16 at 23:00 Glucagon (Glucagen) 1 mg Q15M PRN IM DECREASED GLUCOSE; Start 06/29/16 at 23:00 Glucose (Glutose) 15 gm Q15M PRN BUCCAL DECREASED GLUCOSE; Start 06/29/16 at 23 :00 Epoetin Bautista (Epogen (Esrd)) 4,000 units MoWeFr@17 IV Last administered on 07/04 17:17; Admin Dose 4,000 UNITS; Start 07/01/16 at 18:58 Hydralazine HCl (Apresoline) 10 mg Q4H PRN IV SBP GREATER THAN 160 Last administered on 07/04/16 12:22; Admin Dose 10 MG; Start 07/02/16 at 12:00 Clopidogrel Bisulfate (plaVIX) 75 mg DAILY PO Last administered on 07/05/16 08 :30; Admin Dose 75 MG; Start 07/03/16 at 09:00 Furosemide (Lasix) 60 mg DAILY@06 IV Last administered on 07/05/16 06:20; Admin Dose 60 MG; Start 07/02/16 at 15:00 Hydralazine HCl (Apresoline) 100 mg Q8 PO Last administered on 07/05/16 06:19 ; Admin Dose 100 MG; Start 07/03/16 at 22:00 Clonazepam (Klonopin) 0.5 mg QPM PRN PO INSOMNIA; Start 5/21/17 at 16:00 Nifedipine (Procardia Xl) 60 mg BID PO Last administered on 07/05/16t 08:30; Admin Dose 60 MG; Start 07/04/16 at 21:00 MAREK JOSEPH July 05, 2016 10:55
--- NOTE | 2016-07-05 11:53 | CONS ---
Date/Time of Note Date/Time of Note DATE: 07/05/16 TIME: 11:49 Assessment/Plan Assessment/Plan Additional Assessment/Plan 1. Cardiac arrhythmia concerning for possible tachybrady syndrome with episodes of heart rates to the 40s and as high as 120s short period of time.- some pauses today up to 3.6 seconds/NL TSH. Over weekend reported pauses to 5.8 seconds 07/02. Improved after stopping BB and ? clonidine - NO NEW EPISODES X 2 DAYS - PAUSES WITH ARF WELL BB/CLONIDINE -PT DOES NOT HAVE CLASS I INDICATION FOR HD - WILL MONITOR FOR NOW. 2. Hypertension-uncontrolled 3. Dyslipidemia. 4. Congestive heart failure/volume overload, question systolic versus diastolic , acute on chronic. BETTER NOW. 5. Diabetes mellitus. 6. Chronic kidney disease to be initiated on hemodialysis- = URINE OUTPUT, RENAL TEAM FOLLOWS 7. Coronary artery disease, on medications. 8. Anemia. Consultation Date/Type/Reason Admit Date/Time June 29, 2016 at 20:59 Initial Consult Date 07/03/16 Type of Consultation: Pulmonary Referring Provider: ADARSH OSEI MD 24 HR Interval Summary Free Text/Dictation NO NEW EPISODES X 2 DAYS - PAUSES WITH ARF WELL BB/CLONIDINE -PT DOES NOT HAVE CLASS I INDICATION FOR HD - WILL MONITOR FOR NOW ROS: No fever, no chills, no nausea, no vomiting, no diarrhea/constipation No recent weight changes No chest pain, no PND, no orthopnea No dizziness, blurred vision No thirst, no heat or cold intolerance Exam/Review of Systems Vital Signs Vitals Vital Signs Date Time Temp Pulse Resp B/P Pulse Ox O2 Delivery O2 Flow Rate FiO2 07/05/16 11:15 97.9 88 16 145/67 99 07/05/16 07:30 Nasal Cannula 2.0 Intake and Output 07/04/16 07/04/16 07/05/16 14:59 22:59 06:59 Intake Total 300 ml 1070 ml 120 ml Output Total 2300 ml 650 ml Balance -2000 ml 420 ml 120 ml Exam General: WN/WD/NAD, AOx 3 HEENT: Unicetric/atraumatic/EOMI (follow commands) NECK: JVD elevated, no thyromegaly Lymph: no lymphadenopathy HEART: regular with no S3, II/ systolic murmur at apex LUNGS: Coarse sounds ABD: soft, NT, ND, +BS : Intact Neuro: non focal SKIN: chronic changes EXT: trace edema Results Result Diagram: 07/05/16 0620 07/05/16 0620 Results 24 hrs Laboratory Tests Test 07/04/16 17:19 07/04/16 20:26 07/05/16 06:20 07/05/16 07:38 Bedside Glucose 166 153 179 White Blood Count 8.1 Red Blood Count 3.19 L Hemoglobin 9.9 L Hematocrit 32.7 L Mean Corpuscular Volume 102.5 H Mean Corpuscular Hemoglobin 31.0 Mean Corpuscular Hemoglobin Concent 30.3 L Red Cell Distribution Width 14.9 H Platelet Count 308 Mean Platelet Volume 10.4 Neutrophils % 67.6 Lymphocytes % 20.0 Monocytes % 9.0 Eosinophils % 2.7 Basophils % 0.2 Nucleated Red Blood Cells % 0.0 Neutrophils # 5.5 Lymphocytes # 1.6 Monocytes # 0.7 Eosinophils # 0.2 Basophils # 0.0 Nucleated Red Blood Cells # 0.0 Sodium Level 134 L Potassium Level 4.1 Chloride Level 96 L Carbon Dioxide Level 26 Anion Gap 16 Blood Urea Nitrogen 38 #H Creatinine 3.50 H Glucose Level 173 Calcium Level 8.5 Test 07/05/16 11:32 Bedside Glucose 151 Medications Medications Current Medications Aspirin (Halfprin) 81 mg DAILY PO Last administered on 06/30/16 08:26; Admin Dose 81 MG; Start 06/30/16 at 09:00; Status Future Hold Acetaminophen (Tylenol Tab) 500 mg Q4H PRN PO PAIN AND OR ELEVATED TEMP Last administered on 07/03/16 19:58; Admin Dose 500 MG; Start 06/29/16 at 22:30 Allopurinol (Zyloprim) 100 mg DAILY PO Last administered on 07/05/16 08:30; Admin Dose 100 MG; Start 06/30/16 at 09:00 Atorvastatin Calcium (Lipitor) 80 mg HS PO Last administered on 07/04/16 20:49 ; Admin Dose 80 MG; Start 06/30/16 at 21:00 Duloxetine HCl (Cymbalta) 30 mg DAILY PO Last administered on 07/05/16 08:30; Admin Dose 30 MG; Start 06/30/16 at 09:00 Gabapentin (Neurontin) 300 mg QPM PO Last administered on 07/04/16 20:49; Admin Dose 300 MG; Start 06/30/16 at 00:10 Insulin Glargine (Lantus) 20 unit QAM SC Last administered on 07/05/16 08:01; Admin Dose 20 UNIT; Start 06/30/16 at 09:00 Metoprolol Succinate (Toprol Xl) 100 mg DAILY PO Last administered on 08:58; Admin Dose 100 MG; Start 06/30/16 at 09:00; Status Future Hold Pantoprazole (Protonix Tab) 40 mg QAM PO Last administered on 07/05/16 08:30; Admin Dose 40 MG; Start 06/30/16 at 09:00 Sertraline HCl (Zoloft) 100 mg QPM PO Last administered on 07/04/16 20:49; Admin Dose 100 MG; Start 06/30/16 at 21:00 Miscellaneous Information 1 ea NOTE XX ; Start 06/29/16 at 23:00 Glucose (Glutose) 15 gm Q15M PRN PO DECREASED GLUCOSE; Start 06/29/16 at 23:00 Glucose (Glutose) 22.5 gm Q15M PRN PO DECREASED GLUCOSE; Start 06/29/16 at 23: 00 Dextrose (D50w Syringe) 25 ml Q15M PRN IV DECREASED GLUCOSE; Start 06/29/16 at 23:00 Dextrose (D50w Syringe) 50 ml Q15M PRN IV DECREASED GLUCOSE; Start 06/29/16 at 23:00 Glucagon (Glucagen) 1 mg Q15M PRN IM DECREASED GLUCOSE; Start 06/29/16 at 23:00 Glucose (Glutose) 15 gm Q15M PRN BUCCAL DECREASED GLUCOSE; Start 06/29/16 at 23 :00 Epoetin Bautista (Epogen (Esrd)) 4,000 units MoWeFr@17 IV Last administered on 07/04 17:17; Admin Dose 4,000 UNITS; Start 07/01/16 at 18:58 Hydralazine HCl (Apresoline) 10 mg Q4H PRN IV SBP GREATER THAN 160 Last administered on 07/04/16 12:22; Admin Dose 10 MG; Start 07/02/16 at 12:00 Clopidogrel Bisulfate (plaVIX) 75 mg DAILY PO Last administered on 07/05/16 08 :30; Admin Dose 75 MG; Start 07/03/16 at 09:00 Furosemide (Lasix) 60 mg DAILY@06 IV Last administered on 07/05/16 06:20; Admin Dose 60 MG; Start 07/02/16 at 15:00 Hydralazine HCl (Apresoline) 100 mg Q8 PO Last administered on 07/05/16 06:19 ; Admin Dose 100 MG; Start 07/03/16 at 22:00 Clonazepam (Klonopin) 0.5 mg QPM PRN PO INSOMNIA; Start 07/03/16 at 16:00 Nifedipine (Procardia Xl) 60 mg BID PO Last administered on 07/05/16 08:30; Admin Dose 60 MG; Start 07/04/16 at 21:00 MÓNICA COLEMAN MD July 05, 2016 11:53
--- NOTE | 2016-07-05 14:06 | PN ---
Date/Time of Note Date/Time of Note DATE: 07/05/16 TIME: 14:03 Assessment/Plan VTE Prophylaxis VTE Prophylaxis Intervention: SCD's Lines/Catheters IV [facility] Urinary Cath still in place: No Assessment/Plan Chief Complaint/Hosp Course No pauses noted per telemetry monitoring, episodes of hypertension, pt was very lethargic on admission, did not get put of bed until today, awaits PT eval and recs, d/c planning. Assessment/Plan -TIA, continue Plavix. Dr. Pinon neurology consult is appreciated. 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 Dr. Lantigua is following and cardiology consultation. - Possible syncope secondary to bradycardia syndrome with pauses. - Chronic kidney disease stage V, Dr. Vanegas is following patient in nephrology consultation. Patient will be started on hemodialysis upon hemodialysis catheter insertion. - Diabetes mellitus. - Hypertension. - Dyslipidemia. - Congestive heart failure/volume overload, question systolic versus diastolic, acute on chronic. - Coronary artery disease, on medications. - Anemia. - Obesity with BMI of 42. Further recommendations based on clinical course. Plan of care discussed with Dr. Webb. Problems: Exam/Review of Systems Vital Signs Vitals Vital Signs Date Time Temp Pulse Resp B/P Pulse Ox O2 Delivery O2 Flow Rate FiO2 07/05/16 12:30 95 07/05/16 11:15 97.9 16 145/67 99 07/05/16 07:30 Nasal Cannula 2.0 Intake and Output 07/04/16 07/04/16 07/05/16 15:00 23:00 07:00 Intake Total 300 ml 1070 ml 120 ml Output Total 2300 ml 650 ml Balance -2000 ml 420 ml 120 ml Exam Constitutional: alert, obese, well developed Psych: no complaints Head: normocephalic Eyes: nl conjunctiva ENMT: nl external ears & nose Neck: non-tender, supple Respiratory: clear to auscultation, normal air movement Cardiovascular: nl pulses Gastrointestinal: non-tender, soft Musculoskeletal: nl extremities to inspection Extremities: normal pulses Neurological: CLOCK SMITH II-XII intact Results Result Diagram: 07/05/16 0620 07/05/16 0620 Results 24 hrs Laboratory Tests Test 07/04/16 17:19 07/04/16 20:26 07/05/16 06:20 07/05/16 07:38 Bedside Glucose 166 153 179 White Blood Count 8.1 Red Blood Count 3.19 L Hemoglobin 9.9 L Hematocrit 32.7 L Mean Corpuscular Volume 102.5 H Mean Corpuscular Hemoglobin 31.0 Mean Corpuscular Hemoglobin Concent 30.3 L Red Cell Distribution Width 14.9 H Platelet Count 308 Mean Platelet Volume 10.4 Neutrophils % 67.6 Lymphocytes % 20.0 Monocytes % 9.0 Eosinophils % 2.7 Basophils % 0.2 Nucleated Red Blood Cells % 0.0 Neutrophils # 5.5 Lymphocytes # 1.6 Monocytes # 0.7 Eosinophils # 0.2 Basophils # 0.0 Nucleated Red Blood Cells # 0.0 Sodium Level 134 L Potassium Level 4.1 Chloride Level 96 L Carbon Dioxide Level 26 Anion Gap 16 Blood Urea Nitrogen 38 #H Creatinine 3.50 H Glucose Level 173 Calcium Level 8.5 Test 07/05/16 11:32 Bedside Glucose 151 Medications Medications Current Medications Aspirin (Halfprin) 81 mg DAILY PO Last administered on 06/30/16 08:26; Admin Dose 81 MG; Start 06/30/16 at 09:00; Status Future Hold Acetaminophen (Tylenol Tab) 500 mg Q4H PRN PO PAIN AND OR ELEVATED TEMP Last administered on 07/03/16 19:58; Admin Dose 500 MG; Start 06/29/16 at 22:30 Allopurinol (Zyloprim) 100 mg DAILY PO Last administered on 07/05/16 08:30; Admin Dose 100 MG; Start 06/30/16 at 09:00 Atorvastatin Calcium (Lipitor) 80 mg HS PO Last administered on 07/04/16 20:49 ; Admin Dose 80 MG; Start 06/30/16 at 21:00 Duloxetine HCl (Cymbalta) 30 mg DAILY PO Last administered on 07/05/16 08:30; Admin Dose 30 MG; Start 06/30/16 at 09:00 Gabapentin (Neurontin) 300 mg QPM PO Last administered on 07/04/16 20:49; Admin Dose 300 MG; Start 06/30/16 at 00:10 Insulin Glargine (Lantus) 20 unit QAM SC Last administered on 07/05/16 08:01; Admin Dose 20 UNIT; Start 06/30/16 at 09:00 Metoprolol Succinate (Toprol Xl) 100 mg DAILY PO Last administered on 08:58; Admin Dose 100 MG; Start 06/30/16 at 09:00; Status Future Hold Pantoprazole (Protonix Tab) 40 mg QAM PO Last administered on 07/05/16 08:30; Admin Dose 40 MG; Start 06/30/16 at 09:00 Sertraline HCl (Zoloft) 100 mg QPM PO Last administered on 07/04/16 20:49; Admin Dose 100 MG; Start 06/30/16 at 21:00 Miscellaneous Information 1 ea NOTE XX ; Start 06/29/16 at 23:00 Glucose (Glutose) 15 gm Q15M PRN PO DECREASED GLUCOSE; Start 06/29/16 at 23:00 Glucose (Glutose) 22.5 gm Q15M PRN PO DECREASED GLUCOSE; Start 06/29/16 at 23: 00 Dextrose (D50w Syringe) 25 ml Q15M PRN IV DECREASED GLUCOSE; Start 06/29/16 at 23:00 Dextrose (D50w Syringe) 50 ml Q15M PRN IV DECREASED GLUCOSE; Start 06/29/16 at 23:00 Glucagon (Glucagen) 1 mg Q15M PRN IM DECREASED GLUCOSE; Start 06/29/16 at 23:00 Glucose (Glutose) 15 gm Q15M PRN BUCCAL DECREASED GLUCOSE; Start 06/29/16 at 23 :00 Epoetin Bautista (Epogen (Esrd)) 4,000 units MoWeFr@17 IV Last administered on 07/04 17:17; Admin Dose 4,000 UNITS; Start 07/01/16 at 18:58 Hydralazine HCl (Apresoline) 10 mg Q4H PRN IV SBP GREATER THAN 160 Last administered on 07/04/16 12:22; Admin Dose 10 MG; Start 07/02/16 at 12:00 Clopidogrel Bisulfate (plaVIX) 75 mg DAILY PO Last administered on 07/05/16 08 :30; Admin Dose 75 MG; Start 07/03/16 at 09:00 Furosemide (Lasix) 60 mg DAILY@06 IV Last administered on 07/05/16 06:20; Admin Dose 60 MG; Start 07/02/16 at 15:00 Hydralazine HCl (Apresoline) 100 mg Q8 PO Last administered on 07/05/16 06:19 ; Admin Dose 100 MG; Start 07/03/16 at 22:00 Clonazepam (Klonopin) 0.5 mg QPM PRN PO INSOMNIA; Start 07/03/16 at 16:00 Nifedipine (Procardia Xl) 60 mg BID PO Last administered on 07/05/16 08:30; Admin Dose 60 MG; Start 07/04/16 at 21:00 UMESH QUIJANO July 05, 2016 14:06
[2016-07-05] MEDS: SERTRALINE 100 MG TAB PO SCH (21:07)
[2016-07-05] MEDS: ATORVASTATIN 80 MG TAB PO SCH (21:07)
[2016-07-05] MEDS: GABAPENTIN 300 MG CAP PO SCH (21:08)
[2016-07-06] VITALS (13 sets, daily range): BP systolic 117–164; BP diastolic 61–78; PULSE 90–122; RESP 18–22
[2016-07-06] MEDS: FUROSEMIDE 40 MG INJ IV SCH (06:00)
[2016-07-06] MEDS: DULOXETINE 30 MG CAP DR PO SCH (08:00)
[2016-07-06] MEDS: ALLOPURINOL 100 MG TAB PO SCH (08:00)
[2016-07-06] MEDS: NIFEdipine (XL) 60 MG TAB PO SCH (08:00)
[2016-07-06] MEDS: ACETAMINOPHEN 500 MG TAB PO PRN (08:00)
[2016-07-06] MEDS: CLOPIDOGREL 75 MG TAB PO SCH (08:00)
[2016-07-06] MEDS: PANTOPRAZOLE (EC) 40 MG TAB PO SCH (08:00)
[2016-07-06] MEDS: INSULIN ASPART [NOVOLOG] 3 ML PEN SC SCH ×2 (08:03→12:26)
[2016-07-06] MEDS: INSULIN GLARGINE [LANtus] 3 ML PEN SC SCH (08:04)
[2016-07-06 09:01] LABS: ADD SCAN DIFF NO
[2016-07-06 09:04] LABS: BASOPHILS % 0.2 % (0.0-2.0); EOSINOPHILS # 0.2 10^3/ul (0.0-0.5); EOSINOPHILS % 2.5 % (0.0-7.0); HEMATOCRIT 30.6 % (37.0-47.0); HEMOGLOBIN 9.4 g/dl (12.0-16.0); LYMPHOCYTES # 1.1 10^3/ul (0.8-2.9); LYMPHOCYTES % 12.6 % (15.0-51.0); MEAN CORPUSCULAR HGB CONC 30.7 g/dl (32.0-37.0); MEAN PLATELET VOLUME 10.8 fl (7.4-10.4); MONOCYTE # 0.8 10^3/ul (0.3-0.9); MONOCYTES % 8.7 % (0.0-11.0); NEUTROPHIL # 6.8 10^3/ul (1.6-7.5); NEUTROPHILS % 75.6 % (39.0-77.0); PLATELET COUNT 265 10^3/UL (140-415); RED BLOOD COUNT 3.03 10^6/ul (4.20-5.40); RED CELL DISTRIBUTION WIDTH 14.7 % (11.5-14.5); WHITE BLOOD COUNT 9.1 10^3/ul (4.8-10.8)
[2016-07-06 09:27] LABS: POTASSIUM 4.1 mmol/L (3.5-5.1)
[2016-07-06 09:29] LABS: CREATININE 3.99 mg/dl (0.44-1.00)
[2016-07-06 09:30] LABS: CALCIUM 8.4 mg/dl (8.4-10.2)
[2016-07-06] MEDS ORDERED: DIPHENHYDRAMINE 50 MG INJ IV ONE (12:00)
[2016-07-06] MEDS ORDERED: CLOP75TA28 PO (12:29)
[2016-07-06] MEDS ORDERED: HYDR-3672 PO (12:29)
[2016-07-06] MEDS ORDERED: NIFE60TA7 PO (12:29)
--- NOTE | 2016-07-06 14:40 | CONS ---
Date/Time of Note Date/Time of Note DATE: 07/06/16 TIME: 14:37 Assessment/Plan Assessment/Plan Chief Complaint/Hosp Course IMPRESSION: 1. Cardiac arrhythmia concerning for possible tachybrady syndrome with episodes of heart rates to the 40s and as high as 120s short period of time.- some pauses today up to 3.6 seconds/NL TSH. Over weekend reported pauses to 5.8 seconds 07/02. Improved after stopping BB and ? clonidine with no recurrence since and actual tachycardia 2. Hypertension-uncontrolled 3. Dyslipidemia. 4. Congestive heart failure/volume overload, question systolic versus diastolic , acute on chronic. 5. Diabetes mellitus. 6. Chronic kidney disease to be initiated on hemodialysis. 7. Coronary artery disease, on medications. 8. Anemia. Recc: -Tele -serial ECG's -Continue hydralazine/procardia with now improved BP control -HD via right chest permacath -Will consider resumption of low dose BB given tachycardia now and follow for any recurrent pauses. Problems: Consultation Date/Type/Reason Admit Date/Time June 29, 2016 at 20:59 Initial Consult Date 06/30/16 Type of Consultation: Cardiology Reason for Consultation arrythmia Referring Provider: ADARSH OSEI MD Exam/Review of Systems Vital Signs Vitals Vital Signs Date Time Temp Pulse Resp B/P Pulse Ox O2 Delivery O2 Flow Rate FiO2 07/06/16 12:17 112 07/06/16 10:56 98.1 18 117/62 93 07/05/16 20:34 Nasal Cannula 2.0 Intake and Output 07/05/16 07/05/16 07/06/16 15:00 23:00 07:00 Intake Total 870 ml 400 ml Output Total 900 ml Balance -30 ml 400 ml Exam Review of Systems: CONSTITUTIONAL: No fevers, chills. PULMONARY: No sob CARDIOVASCULAR: No chest pain/palpitations GASTROINTESTINAL: No nausea/vomiting. GENITOURINARY: No hematuria/dysuria. MUSCULOSKELETAL: No myagias/arthalgias. PSYCHIATRIC: The patient denies depression. NEUROLOGIC: lethargic Constitutional: alert Psych: no complaints Head: normocephalic ENMT: mucosa pink and moist Neck: jvd (8-9 cm water), supple Respiratory: diminished breath sounds (at bases/B) Cardiovascular: other (tachycardic, regular rhythm) Gastrointestinal: non-tender, soft Musculoskeletal: muscle tone (normal) Extremities: edema (trace/B) Neurological: other (No focal deficits) Results Result Diagram: 07/06/16 0735 07/06/16 0730 Results 24 hrs Laboratory Tests Test 07/05/16 17:29 07/05/16 20:34 07/06/16 07:30 07/06/16 07:35 Bedside Glucose 135 185 Sodium Level 135 Potassium Level 4.1 Chloride Level 97 Carbon Dioxide Level 26 Anion Gap 16 Blood Urea Nitrogen 54 H Creatinine 3.99 H Glucose Level 179 Calcium Level 8.4 White Blood Count 9.1 Red Blood Count 3.03 L Hemoglobin 9.4 L Hematocrit 30.6 L Mean Corpuscular Volume 101.0 Mean Corpuscular Hemoglobin 31.0 Mean Corpuscular Hemoglobin Concent 30.7 L Red Cell Distribution Width 14.7 H Platelet Count 265 Mean Platelet Volume 10.8 H Neutrophils % 75.6 Lymphocytes % 12.6 L Monocytes % 8.7 Eosinophils % 2.5 Basophils % 0.2 Nucleated Red Blood Cells % 0.0 Neutrophils # 6.8 Lymphocytes # 1.1 Monocytes # 0.8 Eosinophils # 0.2 Basophils # 0.0 Nucleated Red Blood Cells # 0.0 Test 07/06/16 07:58 07/06/16 11:39 Bedside Glucose 170 274 H Medications Medications Current Medications Aspirin (Halfprin) 81 mg DAILY PO Last administered on 06/30/16 08:26; Admin Dose 81 MG; Start 06/30/16 at 09:00; Status Future Hold Acetaminophen (Tylenol Tab) 500 mg Q4H PRN PO PAIN AND OR ELEVATED TEMP Last administered on 07/06/16 08:00; Admin Dose 500 MG; Start 06/29/16 at 22:30 Allopurinol (Zyloprim) 100 mg DAILY PO Last administered on 07/06/16 08:00; Admin Dose 100 MG; Start 06/30/16 at 09:00 Atorvastatin Calcium (Lipitor) 80 mg HS PO Last administered on 07/05/16 21:07 ; Admin Dose 80 MG; Start 06/30/16 at 21:00 Duloxetine HCl (Cymbalta) 30 mg DAILY PO Last administered on 07/06/16 08:00; Admin Dose 30 MG; Start 06/30/16 at 09:00 Gabapentin (Neurontin) 300 mg QPM PO Last administered on 07/05/16 21:08; Admin Dose 300 MG; Start 06/30/16 at 00:10 Insulin Glargine (Lantus) 20 unit QAM SC Last administered on 07/06/16 08:04; Admin Dose 20 UNIT; Start 06/30/16 at 09:00 Metoprolol Succinate (Toprol Xl) 100 mg DAILY PO Last administered on 08:58; Admin Dose 100 MG; Start 06/30/16 at 09:00; Status Future Hold Pantoprazole (Protonix Tab) 40 mg QAM PO Last administered on 07/06/16 08:00; Admin Dose 40 MG; Start 06/30/16 at 09:00 Sertraline HCl (Zoloft) 100 mg QPM PO Last administered on 07/05/16 21:07; Admin Dose 100 MG; Start 06/30/16 at 21:00 Miscellaneous Information 1 ea NOTE XX ; Start 06/29/16 at 23:00 Glucose (Glutose) 15 gm Q15M PRN PO DECREASED GLUCOSE; Start 06/29/16 at 23:00 Glucose (Glutose) 22.5 gm Q15M PRN PO DECREASED GLUCOSE; Start 06/29/16 at 23: 00 Dextrose (D50w Syringe) 25 ml Q15M PRN IV DECREASED GLUCOSE; Start 06/29/16 at 23:00 Dextrose (D50w Syringe) 50 ml Q15M PRN IV DECREASED GLUCOSE; Start 06/29/16 at 23:00 Glucagon (Glucagen) 1 mg Q15M PRN IM DECREASED GLUCOSE; Start 06/29/16 at 23:00 Glucose (Glutose) 15 gm Q15M PRN BUCCAL DECREASED GLUCOSE; Start 06/29/16 at 23 :00 Epoetin Bautista (Epogen (Esrd)) 4,000 units MoWeFr@17 IV Last administered on 07/04 17:17; Admin Dose 4,000 UNITS; Start 07/01/16 at 18:58 Hydralazine HCl (Apresoline) 10 mg Q4H PRN IV SBP GREATER THAN 160 Last administered on 07/04/16 12:22; Admin Dose 10 MG; Start 07/02/16 at 12:00 Clopidogrel Bisulfate (plaVIX) 75 mg DAILY PO Last administered on 07/06/16 08 :00; Admin Dose 75 MG; Start 07/03/16 at 09:00 Furosemide (Lasix) 60 mg DAILY@06 IV Last administered on 07/06/16 06:00; Admin Dose 60 MG; Start 07/02/16 at 15:00 Hydralazine HCl (Apresoline) 100 mg Q8 PO Last administered on 07/06/16 14:01 ; Admin Dose 100 MG; Start 07/03/16 at 22:00 Clonazepam (Klonopin) 0.5 mg QPM PRN PO INSOMNIA; Start 07/03/16 at 16:00 Nifedipine (Procardia Xl) 60 mg BID PO Last administered on 07/06/16 08:00; Admin Dose 60 MG; Start 07/04/16 at 21:00 BRETT BLUM July 06, 2016 14:40
--- NOTE | 2016-07-06 15:02 | CONS ---
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 Mon schedule DC Planning home Need HD center placement Consultation Date/Type/Reason Admit Date/Time June 29, 2016 at 20:59 Initial Consult Date 06/30/16 Type of Consultation: Renal Referring Provider: ADARSH OSEI MD Exam/Review of Systems Vital Signs Vitals Vital Signs Date Time Temp Pulse Resp B/P Pulse Ox O2 Delivery O2 Flow Rate FiO2 07/06/16 12:17 112 07/06/16 10:56 98.1 18 117/62 93 07/05/16 20:34 Nasal Cannula 2.0 Intake and Output 07/05/16 07/05/16 07/06/16 15:00 23:00 07:00 Intake Total 870 ml 400 ml Output Total 900 ml Balance -30 ml 400 ml Exam ENMT: mucosa pink and moist Respiratory: crackles/rales Cardiovascular: edema Gastrointestinal: non-tender Extremities: edema Neurological: CLOTH MERCERIZER OPERATOR II-XII intact, nl mental status Results Result Diagram: 07/06/16 0735 07/06/16 0730 Results 24 hrs Laboratory Tests Test 07/05/16 17:29 07/05/16 20:34 07/06/16 07:30 07/06/16 07:35 Bedside Glucose 135 185 Sodium Level 135 Potassium Level 4.1 Chloride Level 97 Carbon Dioxide Level 26 Anion Gap 16 Blood Urea Nitrogen 54 H Creatinine 3.99 H Glucose Level 179 Calcium Level 8.4 White Blood Count 9.1 Red Blood Count 3.03 L Hemoglobin 9.4 L Hematocrit 30.6 L Mean Corpuscular Volume 101.0 Mean Corpuscular Hemoglobin 31.0 Mean Corpuscular Hemoglobin Concent 30.7 L Red Cell Distribution Width 14.7 H Platelet Count 265 Mean Platelet Volume 10.8 H Neutrophils % 75.6 Lymphocytes % 12.6 L Monocytes % 8.7 Eosinophils % 2.5 Basophils % 0.2 Nucleated Red Blood Cells % 0.0 Neutrophils # 6.8 Lymphocytes # 1.1 Monocytes # 0.8 Eosinophils # 0.2 Basophils # 0.0 Nucleated Red Blood Cells # 0.0 Test 07/06/16 07:58 07/06/16 11:39 Bedside Glucose 170 274 H Medications Medications Current Medications Aspirin (Halfprin) 81 mg DAILY PO Last administered on 06/30/16 08:26; Admin Dose 81 MG; Start 06/30/16 at 09:00; Status Future Hold Acetaminophen (Tylenol Tab) 500 mg Q4H PRN PO PAIN AND OR ELEVATED TEMP Last administered on 07/06/16 08:00; Admin Dose 500 MG; Start 06/29/16 at 22:30 Allopurinol (Zyloprim) 100 mg DAILY PO Last administered on 07/06/16 08:00; Admin Dose 100 MG; Start 06/30/16 at 09:00 Atorvastatin Calcium (Lipitor) 80 mg HS PO Last administered on 07/05/16 21:07 ; Admin Dose 80 MG; Start 06/30/16 at 21:00 Duloxetine HCl (Cymbalta) 30 mg DAILY PO Last administered on 07/06/16 08:00; Admin Dose 30 MG; Start 06/30/16 at 09:00 Gabapentin (Neurontin) 300 mg QPM PO Last administered on 07/05/16 21:08; Admin Dose 300 MG; Start 06/30/16 at 00:10 Insulin Glargine (Lantus) 20 unit QAM SC Last administered on 07/06/16 08:04; Admin Dose 20 UNIT; Start 06/30/16 at 09:00 Metoprolol Succinate (Toprol Xl) 100 mg DAILY PO Last administered on 08:58; Admin Dose 100 MG; Start 06/30/16 at 09:00; Status Future Hold Pantoprazole (Protonix Tab) 40 mg QAM PO Last administered on 07/06/16 08:00; Admin Dose 40 MG; Start 06/30/16 at 09:00 Sertraline HCl (Zoloft) 100 mg QPM PO Last administered on 07/05/16 21:07; Admin Dose 100 MG; Start 06/30/16 at 21:00 Miscellaneous Information 1 ea NOTE XX ; Start 06/29/16 at 23:00 Glucose (Glutose) 15 gm Q15M PRN PO DECREASED GLUCOSE; Start 06/29/16 at 23:00 Glucose (Glutose) 22.5 gm Q15M PRN PO DECREASED GLUCOSE; Start 06/29/16 at 23: 00 Dextrose (D50w Syringe) 25 ml Q15M PRN IV DECREASED GLUCOSE; Start 06/29/16 at 23:00 Dextrose (D50w Syringe) 50 ml Q15M PRN IV DECREASED GLUCOSE; Start 06/29/16 at 23:00 Glucagon (Glucagen) 1 mg Q15M PRN IM DECREASED GLUCOSE; Start 06/29/16 at 23:00 Glucose (Glutose) 15 gm Q15M PRN BUCCAL DECREASED GLUCOSE; Start 06/29/16 at 23 :00 Epoetin Bautista (Epogen (Esrd)) 4,000 units MoWeFr@17 IV Last administered on 07/04 17:17; Admin Dose 4,000 UNITS; Start 07/01/16 at 18:58 Hydralazine HCl (Apresoline) 10 mg Q4H PRN IV SBP GREATER THAN 160 Last administered on 07/04/16 12:22; Admin Dose 10 MG; Start 07/02/16 at 12:00 Clopidogrel Bisulfate (plaVIX) 75 mg DAILY PO Last administered on 07/06/16 08 :00; Admin Dose 75 MG; Start 07/03/16 at 09:00 Furosemide (Lasix) 60 mg DAILY@06 IV Last administered on 07/06/16 06:00; Admin Dose 60 MG; Start 07/02/16 at 15:00 Hydralazine HCl (Apresoline) 100 mg Q8 PO Last administered on 07/06/16 14:01 ; Admin Dose 100 MG; Start 07/03/16 at 22:00 Clonazepam (Klonopin) 0.5 mg QPM PRN PO INSOMNIA; Start 07/03/16 at 16:00 Nifedipine (Procardia Xl) 60 mg BID PO Last administered on 07/06/16 08:00; Admin Dose 60 MG; Start 07/04/16 at 21:00 Metoprolol Tartrate (Lopressor) 25 mg BID PO ; Start 07/06/16 at 21:00 CELINE DOAN MD July 06, 2016 15:02
[2016-07-06] MEDS ORDERED: METOPROLOL 25 MG TAB PO SCH (21:00)
--- NOTE | 2016-07-11 18:11 | DS ---
DATE OF ADMISSION: 06/29/2016 DATE OF DISCHARGE: 07/06/2016 FINAL DIAGNOSES: 1. Transient ischemic attack. 2. 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 3. Possible syncope was secondary to bradycardia with pauses. 4. Chronic kidney disease stage V. 5. Diabetes mellitus. 6. Hypertension. 7. Dyslipidemia. 8. Congestive heart failure, systolic versus diastolic, acute on chronic. 9. Coronary artery disease. 10. Anemia. 11. Obesity with BMI of 42. BRIEF HISTORY: The patient is a 65-year-old female who presented to the emergency room with slurred speech and was sent from primary care physician's office. The patient stated that happened to her from time to time. During that presentation to the emergency room, patient did not have slurred spe ech and the patient suffered TIA in the past for which patient also had impaired renal function and patient was admitted for further evaluation and management. HOSPITAL COURSE: The patient was monitored closely on telemetry floor, noted to have pauses and pat ient was evaluated by Dr. Lantigua in cardiology consultation. The patient's beta blockers were held and blood pressure medication was optimized. Eventually bradycardia resolved. The patient was als o evaluated by Dr. Vanegas in nephrology consultation and patient was started on hemodialysis. [place] ent was also evaluated by Dr. Pinon in neurology consultation. The patient underwent CT of the bra in which is unremarkable. MRI of the brain shoulder showed old lacunar infarct in the bilateral cor bakari radiata, atrophy, chronic small vessel disease and no acute changes. The patient most likely stacy s TIA and was continued on Plavix. The patient was also followed by Dr. Chiu in pulmonology consu ltation, was diagnosed with underlying sleep apnea. The patient had lethargy, which eventually reso lved. The patient also had hypoxemia with CO2 retention with recommendation to undergo a sleep stud y as an outpatient. The patient was getting supplemental oxygen and breathing treatment. Patient a lso underwent insertion of a tunneled hemodialysis catheter. The patient's condition gradually reso lved. She was able to get out of bed and exercise and walk in the hallway with physical therapy and the patient was discharged home. Patient was offered to be transferred to senior care facility for further physical therapy and speech therapy; however, patient refused this wanting to go home, and the patient was discharged home with home health services, physical therapy and speech therapy. The patient's blood sugar was closely monitored and well controlled. DISCHARGE MEDICATIONS: Patient is given prescription for Plavix, Hydralazine and nifedipine. The pa tree is to continue on her medication of Tylenol p.r.n., Fosamax, allopurinol, Atorvastatin, vitami n D, Clonazepam p.r.n. Cymbalta, ferrous sulfate, gabapentin, Lasix, Lantus, Victoza, Protonix, ____, Sertraline. DISCHARGE INSTRUCTIONS: The patient is instructed to follow up in [facility] with next hem odialysis and follow up with primary care physician. Interdisciplinary plan of care was established for this patient. Plan of care was discussed with Dr. Osei. Dictated By: UMESH QUIJANO [employer] for ADARSH OSEI MD SR/NTS Conf#: [id number] DID#: [id number]
== END 2016-07-06 15:00 | disposition home or self-care (01) | DRG 308 ==
LOC: E/R 14:02 → TEL 20:59
PROVIDERS: ADMIT Internal Medicine; ATTEND Internal Medicine
PROC: 05HM33Z Insertion of Infusion Device into Right Internal Jugular Vein, Percutaneous Approach (ICD-10-PCS; principal; 2016-07-01)
PROC: B5131ZA Fluoroscopy of Right Jugular Veins using Low Osmolar Contrast, Guidance (ICD-10-PCS; 2016-07-01)
PROC: 5A1D60Z (ICD-10-PCS; 2016-07-01)
DX: I49.5 Sick sinus syndrome (principal); I50.43 Acute on chronic combined systolic (congestive) and diastolic (congestive) heart failure; N18.5 Chronic kidney disease, stage 5; E11.22 Type 2 diabetes mellitus with diabetic chronic kidney disease; G45.9 Transient cerebral ischemic attack, unspecified; Z68.41 Body mass index [BMI] 40.0-44.9, adult; I13.2 Hypertensive heart and chronic kidney disease with heart failure and with stage 5 chronic kidney disease, or end stage renal disease; I16.9 Hypertensive crisis, unspecified; I25.10 Atherosclerotic heart disease of native coronary artery without angina pectoris; E66.9 Obesity, unspecified; E87.5 Hyperkalemia; E78.5 Hyperlipidemia, unspecified; D63.1 Anemia in chronic kidney disease; G47.33 Obstructive sleep apnea (adult) (pediatric); R09.02 Hypoxemia; Z79.02 Long term (current) use of antithrombotics/antiplatelets
CPT/HCPCS: 36415; 36558; 36600; 70450; 70551; 71010; 76942; 80048; 80053; 80061; 80307; 81001; 81003; 82550; 82553; 82803; 82962; 83036; 84443; 84484; 85025; 85610; 85730; 86704; 86709; 86803; 87340; 90935; 93005; 93306; 93880; 93970; 96374; 97116; 97162; 97530; J0360; J0690; J1200; J1644; J1815; J1940; J2250; J3010; J7040; Q4081

== ENCOUNTER 2016-07-20 19:31 | Inpatient (IN) | payer OTHER ==
[~2016-07-20] VITALS: Ht 157.5 cm; Wt 98.2 kg
[~2016-07-20 19:31] MED LIST changes: +ACET-2047 PO; +ALEN70TA30 PO; +ALLO100T PO; -AMLO-218 PO; +CHOL20003 PO; -CLON-379 PO; +CLON0.5T4 PO; -CLOP75TA27 PO; +CLOP75TA28 PO; -DOCU-144 PO; +DULO30CA45 PO; +FERR325C PO; -FEXO60TA8 PO; -FOLI-49 PO; +FURO80TA3 PO; -GABA100C14 PO; +GABA300C16 PO; +GLUC100015 PO; -GLUC1KIT3 IM; -HEP30MU30 IJ; -HYDR-3671 PO; +HYDR-3672 PO; -INSU100C3 SC; -ISOS60TA PO; +LIRA0.6P2 SQ; -METO25TA4 PO; +NIFE60TA7 PO; -ONDA4AMP IV; -PHEN125O2 PO; +REPA1TAB5 PO; +SERT-165 PO; -SERT25TA PO; +[UNRECOGNIZED DRUG - OTHER] PO
[2016-07-20] MEDS ORDERED: DEXTROSE 50% 50 ML SYRINGE ONE (19:52)
[2016-07-20] MEDS ORDERED: DEXTROSE 50% 50 ML SYRINGE IV STA (19:55)
--- NOTE | 2016-07-20 19:56 | ERA ---
ER Documentation Chief Complaint Date/Time DATE: 07/20/16 TIME: 19:56 Chief Complaint slurred speech w/ weakness on left arm 1 hour ago, dialysis pt HPI 65-year-old female history of diabetes, hypertension, dyslipidemia, congestive heart failure, coronary artery disease, end-stage renal disease on dialysis, anemia, possible tachybradycardia syndrome and TIA brought to the ED by her for evaluation of possible stroke. Patient went to nap at 17:30 and awoke at 18:30 with slurred speech. On arrival patient is alert but with slurred speech. Denies any other focal weakness or numbness. No headache or visual changes. Denies neck or back pain. No chest pain or palpitations. Denies shortness of breath or cough. No abdominal pain, nausea, vomiting, diarrhea or constipation. No URI symptoms or cough. Denies fevers or chills. ROS All systems reviewed and are negative except as per history of present illness. Medications Home Meds Active Scripts Nifedipine (Afeditab CR) 60 Mg Tablet.sa, 60 MG PO BID for 30 Days Prov:UMESH QUIJANO 07/06/16 Hydralazine Hcl* (Apresoline*) 50 Mg Tab, 100 MG PO Q8 for 30 Days, TAB Prov:UMESH QUIJANO 07/06/16 Clopidogrel Bisulfate (Clopidogrel) 75 Mg Tablet, 75 MG PO DAILY for 30 Days, TAB Prov:UMESH QUIJANO 07/06/16 Reported Medications Vitamin B Complex* (Vitamin B Complex*) 1 Each Tablet, 1 TAB PO DAILY, TAB 07/20/16 Dulaglutide (Trulicity) Unknown Strength Pen.injctr, 0.5 MG SQ Q7D 07/20/16 Alendronate Sodium* (Fosamax*) 70 Mg Tablet, 70 MG PO Q7D, #4 TAB 06/29/16 Allopurinol* (Allopurinol*) 100 Mg Tablet, 100 MG PO DAILY, TAB 06/29/16 Acetaminophen* (Acetaminophen*) 650 Mg Tablet, 650 MG PO DAILY Y for PAIN AND OR ELEVATED TEMP, #30 TAB 06/29/16 Ferrous Sulfate (Iron) 325 Mg Capsule.er, 650 MG PO TID, CAP 06/29/16 Cholecalciferol (Vitamin D3) (VITAMIN D-3) 2,000 Unit Capsule, 2000 UNIT PO DAILY, CAP 06/29/16 Duloxetine Hcl* (Cymbalta*) 30 Mg Capsule.dr, 30 MG PO DAILY, CAP 06/29/16 Repaglinide* (Repaglinide*) 1 Mg Tablet, 1 MG PO AC MEALS, TAB TAKE 1 OR 2MG 15 MIN. BEFORE MEAL 06/29/16 Furosemide* (Furosemide*) 80 Mg Tablet, 80 MG PO QAM, #30 TAB 06/29/16 Gabapentin* (Gabapentin*) 300 Mg Capsule, 300 MG PO QPM, #60 CAP 06/29/16 Sertraline Hcl* (Sertraline Hcl*) 100 Mg Tablet, 100 MG PO QPM, #30 TAB 06/29/16 Pantoprazole* (Protonix*) 40 Mg Tablet.dr, 40 MG PO QAM, TAB 08/12/14 Insulin Glargine* (Lantus*) 100 Unit/Ml Soln, 15 UNIT SC QAM, EA 08/12/14 Atorvastatin* (Atorvastatin*) 80 Mg Tablet, 80 MG PO HS, TAB 08/12/14 Discontinued Reported Medications [Vadadustat-Study] No Conflict Check, 300 MG PO DAILY 06/29/16 Glucosamine Sulfate 2KCL (GLUCOSAMINE) 1,000 Mg Tablet, 1000 MG PO DAILY, TAB 06/29/16 Clonazepam* (Clonazepam*) 0.5 Mg Tablet, 0.5 MG PO QPM, TAB 06/29/16 Liraglutide (Victoza 3-Rocco) 0.6 Mg/0.1 Ml Pen.injctr, 0.6 MG SQ QAM, SYR 06/29/16 Allergies Allergies: Coded Allergies: Penicillins (Verified Allergy, Unknown, ITCHING, 07/20/16) Sulfa (Sulfonamide Antibiotics) (Verified Allergy, Unknown, RASHES, 07/20/16 ) latex (Unverified Allergy, Unknown, 07/20/16) morphine (Verified Allergy, Unknown, ITCHING, 07/20/16) Uncoded Allergies: PLASTIC TAPE (Allergy, Unknown, 04/22/14) PMhx/Soc Reviewed in chart. As per HPI. History of Surgery: Yes (right knee; cataract both eyes,(x1), tonsillectomy,biopsy L breast) Hx Neurological Disorder: Yes (right side weakness, hx: CVA) Hx Respiratory Disorders: No Hx Cardiac Disorders: Yes (HTN) Hx Psychiatric Problems: Yes (seeing a therapist for my health issues) Hx Miscellaneous Medical Probl: Yes (h/o R sided deficits/R TIA, depression, CHF, HTN, DM, renal disease CKD) Hx Alcohol Use: No Hx Substance Use: No Hx Tobacco Use: No FmHx Reviewed in chart. No sudden cardiac . Physical Exam Vitals Vital Signs Date Time Temp Pulse Resp B/P Pulse Ox O2 Delivery O2 Flow Rate FiO2 07/20/16 19:36 97.8 95 20 202/87 98 Physical Exam Const: Alert, slurred speech in moderate distress. Head: Atraumatic Eyes: JANKI, EOMI. Normal Conjunctiva ENT: Normal External Ears, Nose and Mouth. Neck: Full range of motion. Nontender. No JVD. No meningismus. Resp: Breath sounds are equal and clear to auscultation bilaterally Cardio: Regular rate and rhythm, no murmurs Abd: Soft, obese, non tender, non distended. Normal bowel sounds Skin: No petechiae or rashes Back: No midline or flank tenderness Ext: No cyanosis, or edema Neur: Awake and alert. Slurred speech but no facial droop and cranial nerves are otherwise intact. Motor and sensory equal bilaterally. No pronator drift. Psych: Patient appears anxious but not depressed. Result Diagram: 07/20/16195407/20/161954 Results 24 hrs Laboratory Tests Test 07/20/16 19:52 07/20/16 19:55 07/20/16 19:58 07/20/16 20:55 Bedside Glucose 42mg/dL 236mg/dL 89mg/dL White Blood Count 10.910^3/ul Red Blood Count 3.5810^6/ul Hemoglobin 11.5g/dl Hematocrit 35.4% Mean Corpuscular Volume 98.9fl Mean Corpuscular Hemoglobin 32.1pg Mean Corpuscular Hemoglobin Concent 32.5g/dl Red Cell Distribution Width 14.6% Platelet Count 46599^3/UL Mean Platelet Volume 9.6fl Neutrophils % 68.3% Lymphocytes % 19.4% Monocytes % 9.1% Eosinophils % 2.2% Basophils % 0.5% Nucleated Red Blood Cells % 0.0/100WBC Neutrophils # 7.510^3/ul Lymphocytes # 2.110^3/ul Monocytes # 1.010^3/ul Eosinophils # 0.210^3/ul Basophils # 0.110^3/ul Nucleated Red Blood Cells # 0.010^3/ul Prothrombin Time 13.2Sec Prothrombin Time Ratio 1.0 INR International Normalized Ratio 1.00 Activated Partial Thromboplast Time 26.6Sec Sodium Level 137mmol/L Potassium Level 4.6mmol/L Chloride Level 99mmol/L Carbon Dioxide Level 25mmol/L Anion Gap 18 Blood Urea Nitrogen 39mg/dl Creatinine 3.83mg/dl Glucose Level 41mg/dl Hemoglobin A1c 5.4% Calcium Level 9.8mg/dl Total Bilirubin 0.0mg/dl Direct Bilirubin 0.00mg/dl Indirect Bilirubin 0.0mg/dl Aspartate Amino Transf (AST/SGOT) 20IU/L Alanine Aminotransferase (ALT/SGPT) 19IU/L Alkaline Phosphatase 148IU/L Troponin I 0.014ng/ml Total Protein 7.8g/dl Albumin 4.8g/dl Globulin 3.00g/dl Albumin/Globulin Ratio 1.60 Test 07/20/16 21:55 Bedside Glucose 342mg/dL Current Medications Medications (Trade) Dose Ordered Sig/Carolin Route PRN Reason Start Time Stop Time Status Last Admin Dose Admin Dextrose (D50w Syringe) 50 ml ONCE STAT IV 07/20/16 19:55 07/20/16 19:56 DC 07/20/16 20:58 Dextrose (D50w Syringe) 50 ml ONCE ONCE IV 07/20/16 21:30 07/20/16 21:31 DC 07/20/16 21:34 EKG: TIME: 20:09. Sinus rhythm. Ventricular rate 85. Normal AK and QRS. Poor R-wave progression in the anterior leads. No acute ST segment elevation or depression. No ectopy. EP Interpretation: Abnormal EKG. IMAGING: PROCEDURE: Chest x-ray CLINICAL INDICATION: Stroke TECHNIQUE: Chest single view COMPARISON: 06/29/2016 FINDINGS: There is interval placement right IJ dialysis catheter. Stable mild cardiomegaly seen. The pulmonary vessels are normal in caliber. The lungs are clear. The costophrenic angles are sharp. The visualized bony thorax is unremarkable. There are old left-sided rib fractures IMPRESSION: No acute cardiopulmonary disease. Interval placement of right IJ dialysis catheter Stable mild cardiomegaly RPTAT: PROCEDURE: CT Brain without contrast. CLINICAL INDICATION: Code stroke, hypoglycemia TECHNIQUE: A CT of the brain was performed utilizing axial imaging from the skull base through the vertex without intravenous contrast. Multiplanar reformatted images were made.The CTDIvol is 45.66 mGy and the DLP is 903.86 mGycm. One or more the following dose reduction techniques were utilized: Automated exposure control, adjustment of the mA/ or kV according to patient's size, or use of iterative reconstruction technique. COMPARISON: CT brain of 06/29/2016 and MRI of the brain of 06/30/2016 FINDINGS: There is no intracranial hemorrhage, mass effect, or midline shift. No extra- axial fluid collection is seen. Mild atrophy is identified with compensatory ventricular and sulcal enlargement. Mild decreased attenuation is seen in the periventricular and deep white matter, compatible with microvascular ischemic disease. The curran white matter differentiation is well preserved with no acute infarct detected. The osseous structures and visualized paranasal sinuses are unremarkable. Arterial calcification. IMPRESSION: No acute bleed. No acute major territory infarct seen. Critical result discussed with Dr. Carter at 08:05 p.m. on 07/20/2016. RPTAT: HJES .Lg Douglas MD, MD Date Time Electronically viewed and signed by .Lg Douglas MD, MD on 07/20/2016 20:09 .S/ Procedures/MDM DOCUMENTS REVIEWED: ED nurse, prior ED, prior records. Patient was admitted through 07/06/2016 for TIA and possible tachybradycardia syndrome. ED COURSE: Accu-Chek on arrival was 42 and symptoms resolved immediately with D50 1 amp IV and repeat Accu-Chek was 268. One hour later blood sugar again dropped to 89 and another D50 1 amp was given. MEDICAL DECISION MAKIN-year-old female history of diabetes, hypertension, dyslipidemia, end-stage renal disease on dialysis, congestive heart failure, coronary artery disease, anemia, possible tachybradycardia syndrome and TIA brought to the ED by her for evaluation of possible stroke. Patient presents with slurred speech secondary to hypoglycemia. She had no other focal deficits and symptoms resolved completely with intravenous glucose. However her blood sugar again dropped and required additional intravenous glucose. Oral nutrition was also provided. No focal deficits or CT evidence of stroke or bleed. No acute electrolyte abnormalities. No fever or evidence of acute infectious process. Patient be admitted to [facility] for glycemic monitoring further evaluation and management. CRITICAL CARE TIME: Due to the high probability of sudden clinically significant neurologic, respiratory and hemodynamic deterioration, this patient with acute onset of neurologic symptoms required multiple, frequent reevaluations of vital signs and response to therapy. Additional critical care time was spent in interpretation of relevant clinical data including labs, x-ray , EKG and CAT scan, obtaining supplemental history from family, extensive review of previous medical records and consultation with the admitting physician Dr. Webb. TOTAL CRITICAL CARE TIME: 35 minutes not including other separately reportable procedures. Counseled patient and family regarding diagnosis, diagnostic results and plan for admission. CALLS/CONSULTS: Time 21:40, Dr. Webb, Recommends admission to [facility]. PATIENT CARE TRANSITIONED: Time: 22:00, Dr. Webb. Departure Diagnosis: Primary Impression: Slurred speech Additional Impressions: Hypoglycemia Diabetes mellitus type 2 in obese End stage renal disease on dialysis Hypertension Qualified Code: I10 - Essential hypertension History of TIA (transient ischemic attack) Condition: Serious BENITA CARTER MD Jul 20, 2016 19:56
[2016-07-20 20:01] LABS: ADD SCAN DIFF NO
[2016-07-20 20:07] LABS: BASOPHIL # 0.1 10^3/ul (0.0-0.1); BASOPHILS % 0.5 % (0.0-2.0); EOSINOPHILS # 0.2 10^3/ul (0.0-0.5); EOSINOPHILS % 2.2 % (0.0-7.0); HEMATOCRIT 35.4 % (37.0-47.0); HEMOGLOBIN 11.5 g/dl (12.0-16.0); LYMPHOCYTES # 2.1 10^3/ul (0.8-2.9); LYMPHOCYTES % 19.4 % (15.0-51.0); MEAN CORPUSCULAR HEMOGLOBIN 32.1 pg (29.0-33.0); MEAN CORPUSCULAR HGB CONC 32.5 g/dl (32.0-37.0); MEAN CORPUSCULAR VOLUME 98.9 fl (82.0-101.0); MEAN PLATELET VOLUME 9.6 fl (7.4-10.4); MONOCYTES % 9.1 % (0.0-11.0); NEUTROPHIL # 7.5 10^3/ul (1.6-7.5); NEUTROPHILS % 68.3 % (39.0-77.0); PLATELET COUNT 431 10^3/UL (140-415); RED BLOOD COUNT 3.58 10^6/ul (4.20-5.40); RED CELL DISTRIBUTION WIDTH 14.6 % (11.5-14.5); WHITE BLOOD COUNT 10.9 10^3/ul (4.8-10.8)
--- NOTE | 2016-07-20 20:09 | RADRPT ---
PROCEDURE: CT Brain without contrast. CLINICAL INDICATION: Code stroke, hypoglycemia TECHNIQUE: A CT of the brain was performed utilizing axial imaging from the skull base through the vertex without intravenous contrast. Multiplanar reformatted images were made.The CTDIvol is 45.66 mGy and the DLP is 903.86 mGycm. One or more the following dose reduction techniques were utilized: Automated exposure control, adjus tment of the mA/ or kV according to patient's size, or use of iterative reconstruction technique. COMPARISON: CT brain of 06/29/2016 and MRI of the brain of 06/30/2016 FINDINGS: There is no intracranial hemorrhage, mass effect, or midline shift. No extra-axial fluid collection is seen. Mild atrophy is identified with compensatory ventricular and sulcal enlargement. Mild de creased attenuation is seen in the periventricular and deep white matter, compatible with microvascu lar ischemic disease. The curran white matter differentiation is well preserved with no acute infarct detected. The osseous structures and visualized paranasal sinuses are unremarkable. Arterial calcif ication. IMPRESSION: No acute bleed. No acute major territory infarct seen. Critical result discussed with Dr. Cottrell at 08:05 p.m. on 07/20/2016. RPTAT: HJES .Lg Douglas MD, MD Date Time Electronically viewed and signed by .Lg Douglas MD, on 07/20/2016 20:09 .S/
[2016-07-20] MEDS ORDERED: DULA0.75 SQ (20:12)
[2016-07-20] MEDS ORDERED: VIT1TABL46 PO (20:13)
[2016-07-20 20:22] LABS: PROTIME 13.2 Sec (12.2-14.2)
[2016-07-20 20:23] LABS: PARTIAL THROMBOPLASTIN TIME 26.6 Sec (25.0-35.0)
[2016-07-20 20:26] LABS: ALBUMIN 4.8 g/dl (3.3-4.9); ALBUMIN/GLOBULIN RATIO 1.6; CALCIUM 9.8 mg/dl (8.4-10.2); CREATININE 3.83 mg/dl (0.44-1.00); POTASSIUM 4.6 mmol/L (3.5-5.1); TOTAL PROTEIN 7.8 g/dl (6.1-8.1)
[2016-07-20 20:37] LABS: TROPONIN-I 0.014 ng/ml (0.00-0.12)
--- NOTE | 2016-07-20 20:58 | RADRPT ---
PROCEDURE: Chest x-ray CLINICAL INDICATION: Stroke TECHNIQUE: Chest single view COMPARISON: 06/29/2016 FINDINGS: There is interval placement right IJ dialysis catheter. Stable mild cardiomegaly seen. The pulmona ry vessels are normal in caliber. The lungs are clear. The costophrenic angles are sharp. The vis ualized bony thorax is unremarkable. There are old left-sided rib fractures IMPRESSION: No acute cardiopulmonary disease. Interval placement of right IJ dialysis catheter Stable mild cardiomegaly RPTAT: HH .Ever Kitchen MD, MD Date Time Electronically viewed and signed by .Ever Kitchen MD, on 07/20/2016 20:58 .W/
[2016-07-20] MEDS ORDERED: DEXTROSE 50% 50 ML SYRINGE IV ONE (21:30)
[2016-07-20 22:00] VITALS: TEMP 98.2
[2016-07-20] MEDS ORDERED: ACETAMINOPHEN 325 MG TAB PO PRN (23:00)
[2016-07-20] MEDS ORDERED: ONDANSETRON 4 MG INJ IV PRN (23:00)
[2016-07-21] VITALS (14 sets, daily range): BP systolic 116–194; BP diastolic 58–87; PULSE 77–101; RESP 18–20; Ht 157.5 cm; Wt 98.2 kg
[2016-07-21 00:45] LABS: ADD UMIC YES; URINE BILIRUBIN (Dip) NEGATIVE (NEGATIVE); URINE BLOOD (Dip) NEGATIVE (NEGATIVE); URINE COLOR LT. YELLOW (YELLOW); URINE GLUCOSE (Dip) NEGATIVE (NEGATIVE); URINE KETONES (Dip) NEGATIVE (NEGATIVE); URINE LEUKOCYTE ESTERASE (Dip) NEGATIVE (NEGATIVE); URINE NITRITE (Dip) NEGATIVE (NEGATIVE); URINE TOTAL PROTEIN (Dip) 4+ (NEGATIVE); URINE UROBILINOGEN (Dip) 0.2 E.U./dL (0.1-1.0)
[2016-07-21 01:19] LABS: BACTERIA,URINE MODERATE; SQUAMOUS EPITHELIAL CELL,UR MANY
[2016-07-21 01:20] LABS: URINE RBCS 0-2 /HPF (0)
[2016-07-21] MEDS ORDERED: ONDANSETRON 4 MG INJ IV PRN (01:30)
[2016-07-21] MEDS ORDERED: ACETAMINOPHEN 325 MG TAB PO PRN ×2 (01:30→17:00)
[2016-07-21] MEDS ORDERED: hydrALAzine 20 MG INJ IV PRN (01:30)
[2016-07-21] MEDS: ACCU-CHEK XX SCH (01:47)
[2016-07-21] MEDS ORDERED: ACCU-CHEK XX SCH (02:00)
[2016-07-21] MEDS ORDERED: NIFEdipine (XL) 60 MG TAB PO ONE (04:30)
[2016-07-21 05:33] LABS: ADD SCAN DIFF NO
[2016-07-21 05:58] LABS: BASOPHILS % 0.5 % (0.0-2.0); EOSINOPHILS # 0.3 10^3/ul (0.0-0.5); EOSINOPHILS % 3.7 % (0.0-7.0); HEMOGLOBIN 10.9 g/dl (12.0-16.0); LYMPHOCYTES # 1.6 10^3/ul (0.8-2.9); LYMPHOCYTES % 19.8 % (15.0-51.0); MEAN CORPUSCULAR HEMOGLOBIN 31.6 pg (29.0-33.0); MEAN CORPUSCULAR HGB CONC 31.1 g/dl (32.0-37.0); MEAN CORPUSCULAR VOLUME 101.4 fl (82.0-101.0); MEAN PLATELET VOLUME 9.9 fl (7.4-10.4); MONOCYTE # 0.7 10^3/ul (0.3-0.9); MONOCYTES % 8.8 % (0.0-11.0); NEUTROPHIL # 5.5 10^3/ul (1.6-7.5); NEUTROPHILS % 66.8 % (39.0-77.0); PLATELET COUNT 352 10^3/UL (140-415); RED BLOOD COUNT 3.45 10^6/ul (4.20-5.40); RED CELL DISTRIBUTION WIDTH 14.7 % (11.5-14.5); WHITE BLOOD COUNT 8.3 10^3/ul (4.8-10.8)
[2016-07-21 06:18] LABS: CALCIUM 9.3 mg/dl (8.4-10.2); CREATININE 4.32 mg/dl (0.44-1.00); POTASSIUM 4.6 mmol/L (3.5-5.1)
[2016-07-21] MEDS: INSULIN ASPART [NOVOLOG] 3 ML PEN SC SCH ×4 (08:15→21:38)
[2016-07-21 15:48] LABS: CHOL/HDL RATIO 3.7 RATIO
--- NOTE | 2016-07-21 15:58 | HP ---
Date/Time of Note Date/Time of Note DATE: 07/21/16 TIME: 15:14 Assessment/Plan VTE Prophylaxis VTE Prophylaxis Intervention: other Lines/Catheters IV Catheter Type (from Nrsg): Permacath Assessment/Plan Assessment/Plan Slurred speech- improving than yesterday per patient.CT brain- no new changes - neurologist consult- Dr Ceja notified Hypoglycemia- resolved Diabetes mellitus type 2 in obese End stage renal disease on dialysis - Dr Borja notified - HD Hypertension- BP - 133/62 today Essential hypertension History of TIA (transient ischemic attack) with Right sided weakness -no focal deficit noted at present Dw Dr Arias HPI/ROS Admit Date/Time Admit Date/Time Jul 20, 2016 at 22:37 Hx of Present Illness CC: slurred speech w/ weakness on left arm yesterday HPI A 65-year-old female history of diabetes, hypertension, dyslipidemia, congestive heart failure, coronary artery disease, end-stage renal disease on dialysis, anemia, possible tachybradycardia syndrome and TIA is admitted for evaluation of possible stroke as of slurred speech. On arrival patient is alert but with slurred speech. Denies any chest pain, shortness of breath or palpitations, fevers or chills, focal weakness or numbness, headache or visual changes, neck or back pain, abdominal pain, nausea, vomiting, diarrhea or constipation. Denies any trauma/contact with sick.Patient is admitted under dr Webb. at bed side- all Qs ANSWERED. ROS All systems reviewed and are negative except as per history of present illness. Medications Home Meds Active Scripts Nifedipine (Afeditab CR) 60 Mg Tablet.sa, 60 MG PO BID for 30 Days Prov:UMESH QUIJANO 07/06/16 Hydralazine Hcl* (Apresoline*) 50 Mg Tab, 100 MG PO Q8 for 30 Days, TAB Prov:UMESH QUIJANO 07/06/16 Clopidogrel Bisulfate (Clopidogrel) 75 Mg Tablet, 75 MG PO DAILY for 30 Days, TAB Prov:UMESH QUIJANO 07/06/16 Reported Medications Vitamin B Complex* (Vitamin B Complex*) 1 Each Tablet, 1 TAB PO DAILY, TAB 07/20/16 Dulaglutide (Trulicity) Unknown Strength Pen.injctr, 0.5 MG SQ Q7D 07/20/16 Alendronate Sodium* (Fosamax*) 70 Mg Tablet, 70 MG PO Q7D, #4 TAB 06/29/16 Allopurinol* (Allopurinol*) 100 Mg Tablet, 100 MG PO DAILY, TAB 06/29/16 Acetaminophen* (Acetaminophen*) 650 Mg Tablet, 650 MG PO DAILY Y for PAIN AND OR ELEVATED TEMP, #30 TAB 06/29/16 Ferrous Sulfate (Iron) 325 Mg Capsule.er, 650 MG PO TID, CAP 06/29/16 Cholecalciferol (Vitamin D3) (VITAMIN D-3) 2,000 Unit Capsule, 2000 UNIT PO DAILY, CAP 06/29/16 Duloxetine Hcl* (Cymbalta*) 30 Mg Capsule.dr, 30 MG PO DAILY, CAP 06/29/16 Repaglinide* (Repaglinide*) 1 Mg Tablet, 1 MG PO AC MEALS, TAB TAKE 1 OR 2MG 15 MIN. BEFORE MEAL 06/29/16 Furosemide* (Furosemide*) 80 Mg Tablet, 80 MG PO QAM, #30 TAB 06/29/16 Gabapentin* (Gabapentin*) 300 Mg Capsule, 300 MG PO QPM, #60 CAP 06/29/16 Sertraline Hcl* (Sertraline Hcl*) 100 Mg Tablet, 100 MG PO QPM, #30 TAB 06/29/16 Pantoprazole* (Protonix*) 40 Mg Tablet.dr, 40 MG PO QAM, TAB 08/12/14 Insulin Glargine* (Lantus*) 100 Unit/Ml Soln, 15 UNIT SC QAM, EA 08/12/14 Atorvastatin* (Atorvastatin*) 80 Mg Tablet, 80 MG PO HS, TAB 08/12/14 Discontinued Reported Medications [Vadadustat-Study] No Conflict Check, 300 MG PO DAILY 06/29/16 Glucosamine Sulfate 2KCL (GLUCOSAMINE) 1,000 Mg Tablet, 1000 MG PO DAILY, TAB 06/29/16 Clonazepam* (Clonazepam*) 0.5 Mg Tablet, 0.5 MG PO QPM, TAB 06/29/16 Liraglutide (Victoza 3-Rocco) 0.6 Mg/0.1 Ml Pen.injctr, 0.6 MG SQ QAM, SYR 06/29/16 Allergies Allergies: Coded Allergies: Penicillins (Verified Allergy, Unknown, ITCHING, 07/20/16) Sulfa (Sulfonamide Antibiotics) (Verified Allergy, Unknown, RASHES, 07/20/16 ) latex (Unverified Allergy, Unknown, 07/20/16) morphine (Verified Allergy, Unknown, ITCHING, 07/20/16) Uncoded Allergies: PLASTIC TAPE (Allergy, Unknown, 04/22/14) PMhx/Soc Reviewed in chart. As per HPI. History of Surgery: Yes (right knee; cataract both eyes,(x1), tonsillectomy,biopsy L breast) Hx Neurological Disorder: Yes (right side weakness, hx: CVA) Hx Respiratory Disorders: No Hx Cardiac Disorders: Yes (HTN) Hx Psychiatric Problems: Yes (seeing a therapist for my health issues) Hx Miscellaneous Medical Probl: Yes (h/o R sided deficits/R TIA, depression, CHF, HTN, DM, renal disease CKD) Hx Alcohol Use: No Hx Substance Use: No Hx Tobacco Use: No FmHx Reviewed in chart. No sudden cardiac . ROS Constitutional: improved Respiratory: no complaints Cardiovascular: no complaints Gastrointestinal: no complaints Genitourinary: no complaints Musculoskeletal: no complaints PMH/Family/Social Past Surgical History Past Surgical Hx: other Social History Alcohol Use: none Smoking Status: Never smoker Drug Use: none Exam/Review of Systems Vital Signs Vitals Vital Signs Date Time Temp Pulse Resp B/P Pulse Ox O2 Delivery O2 Flow Rate FiO2 07/21/16 08:50 98.7 83 20 133/62 90 07/21/16 05:33 Room Air Intake and Output 07/20/16 07/20/16 07/21/16 15:00 23:00 07:00 Intake Total 440 ml Balance 440 ml Exam Constitutional: alert, oriented, well developed Psych: nl mood/affect Eyes: EOMI, PERRL Neck: non-tender, supple Respiratory: clear to auscultation, normal air movement Cardiovascular: nl pulses, regular rate and rhythm Gastrointestinal: non-tender, soft Musculoskeletal: nl extremities to inspection Extremities: normal pulses Neurological: nl mental status, nl speech, other Skin: nl turgor Lymph: nontender Labs Result Diagram: 07/21/16 0450 07/21/16 0450 Medications Medications Current Medications Diagnostic Test (Pha) (Accu-Chek) 1 XX Last administered on 07/21/16t 01: 47; Admin Dose 1 EA; Start 07/21/16 at 02:00 Acetaminophen (Tylenol Tab) 650 mg Q4 PRN PO PAIN AND OR ELEVATED TEMP; Start 07/21/16 at 01:30 Ondansetron HCl (Zofran Inj) 4 mg Q6H PRN IV NAUSEA AND/OR VOMITING; Start 07/21 at 01:30 Hydralazine HCl (Apresoline) 10 mg Q6H PRN IV ELEVATED BLOOD PRESSURE Last administered on 07/21/16 01:49; Admin Dose 10 MG; Start 07/21/16 at 01:30 Hydralazine HCl (Apresoline) 100 mg Q8 PO Last administered on 07/21/16 04:15; Admin Dose 100 MG; Start 07/21/16 at 04:01 Sertraline HCl (Zoloft) 100 mg HS PO ; Start 07/21/16 at 21:00 Nifedipine (Procardia Xl) 60 mg BID PO ; Start 07/21/16 at 21:00 Clonidine (Catapres) 0.1 mg Q4H PRN PO sbp above 170; Start 07/21/16 at 04:30 Procedures Procedures 1. EKG: Sinus rhythm. Ventricular rate 85. Normal FL and QRS. Poor R-wave progression in the anterior leads. No acute ST segment elevation or depression. No ectopy. EP Interpretation: Abnormal EKG. 2. IMAGING: PROCEDURE: Chest x-ray CLINICAL INDICATION: Stroke TECHNIQUE: Chest single view COMPARISON: 06/29/2016 FINDINGS: There is interval placement right IJ dialysis catheter. Stable mild cardiomegaly seen. The pulmonary vessels are normal in caliber. The lungs are clear. The costophrenic angles are sharp. The visualized bony thorax is unremarkable. There are old left-sided rib fractures IMPRESSION: No acute cardiopulmonary disease. Interval placement of right IJ dialysis catheter Stable mild cardiomegaly 3. PROCEDURE: CT Brain without contrast. CLINICAL INDICATION: Code stroke, hypoglycemia TECHNIQUE: A CT of the brain was performed utilizing axial imaging from the skull base through the vertex without intravenous contrast. Multiplanar reformatted images were made.The CTDIvol is 45.66 mGy and the DLP is 903.86 mGycm. One or more the following dose reduction techniques were utilized: Automated exposure control, adjustment of the mA/ or kV according to patient's size, or use of iterative reconstruction technique. COMPARISON: CT brain of 06/29/2016 and MRI of the brain of 06/30/2016 FINDINGS: There is no intracranial hemorrhage, mass effect, or midline shift. No extra- axial fluid collection is seen. Mild atrophy is identified with compensatory ventricular and sulcal enlargement. Mild decreased attenuation is seen in the periventricular and deep white matter, compatible with microvascular ischemic disease. The curran white matter differentiation is well preserved with no acute infarct detected. The osseous structures and visualized paranasal sinuses are unremarkable. Arterial calcification. IMPRESSION: No acute bleed. No acute major territory infarct seen. Critical result discussed with Dr. Cottrell at 08:05 p.m. on 07/20/2016. ARLEY ANGEL Jul 21, 2016 15:25
[2016-07-21] MEDS ORDERED: GLUCOSE GEL 15 GRAM TUBE BUCCAL PRN (17:00)
[2016-07-21] MEDS ORDERED: GLUCAGON 1 MG INJ IM PRN (17:00)
[2016-07-21] MEDS ORDERED: GLUCOSE GEL 15 GRAM TUBE PO PRN ×2 (17:00)
[2016-07-21] MEDS ORDERED: FUROSEMIDE 40 MG TAB PO SCH (17:00)
[2016-07-21] MEDS ORDERED: DEXTROSE 50% 50 ML SYRINGE IV PRN ×2 (17:00)
[2016-07-21] MEDS: BENAZEPRIL 10 MG TAB PO SCH (17:30)
--- NOTE | 2016-07-21 18:38 | CONS ---
Date/Time of Note Date/Time of Note DATE: 07/21/16 TIME: 18:26 Assessment/Plan Assessment/Plan Problems: (1) Hypoglycemia Status: Resolved Comment: Due to use of lantus in face of highly effective GLP-1 agonist trulicity which was more effective than expected in this pt. Pt. also takes repaglinide which increased her risk for hypoglycemic event. (2) Diabetes mellitus type 2 in obese Status: Chronic Comment: Pt. now on trulicity (lasts 1 week) alone and it appears to be effective. Will add repaglinide if needed in house. Will not resume basal insulin which could stack in this pt. May increase dose of trulicity in future w /o risk of hypoglycemic events. Consultation Date/Type/Reason Admit Date/Time Jul 20, 2016 at 22:37 Date of Consultation: Jul 21, 2016 Type of Consultation: Endocrinology Reason for Consultation Hypoglycemia Referring Provider: ADARSH OSEI MD Hx of Present Illness Pt. is 65 y/o C F, w/ h/o T2DM, HTN, hyperlipidemia, gout, TIA/CVA, ESRD, OA, depression, in [facility] until 2 days ago when she came to our office to see our colleague who decided to adjust her DM therapy. Pt. was started on Trulicity 0.75 mg sq and had lantus dose reduced from 20 to 15 units qhs. Last night pt. became altered and had slurred speech. Brought to [facility] where she was found to be hypoglycemic. R/o'ed for stroke and hypoglycemia corrected and pt. returned to baseline clinically. Pt. now admitted for f/u of her glucose levels in house. Constitutional: improved, no complaints Eyes: no complaints ENT: no complaints Respiratory: no complaints Cardiovascular: no complaints Gastrointestinal: no complaints Genitourinary: no complaints Musculoskeletal: no complaints Neurologic: no complaints Psychological: nl mood/affect, no complaints Past Medical History Medical History: diabetes, high cholesterol, hypertension, renal disease, other (OA, depresssion, gout) Past Surgical History Past Surgical Hx: other (, TKA, cataracts, T&A, L breast lumpectomy, uterine fibroidectomy, nasal polypectomy, permacath placement) Family History Significant Family History: cancer (breast in sister, prostate in father), diabetes (mother) Social History 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, 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, , 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 Alcohol Use: rarely Smoking Status: Never smoker Drug Use: none Exam/Review of Systems Vital Signs Vitals VS - Last 72 Hours, by Label Date Time Temp Pulse Resp B/P Pulse Ox O2 Delivery O2 Flow Rate FiO2 07/21/16 15:16 99 165/73 07/21/16 08:50 98.7 83 20 133/62 90 07/21/16 05:33 20 142/76 97 Room Air 07/21/16 02:17 175/74 07/21/16 00:50 97.4 77 20 194/87 97 Room Air 07/21/16 00:20 86 18 152/79 98 Room Air 07/20/16 23:00 77 18 178/84 99 Room Air 07/20/16 22:00 98.2 76 18 158/86 99 Room Air 07/20/16 20:00 85 18 159/86 98 Room Air 07/20/16 19:36 97.8 95 20 202/87 98 Vital Signs Date Time Temp Pulse Resp B/P Pulse Ox O2 Delivery O2 Flow Rate FiO2 07/21/16 15:16 99 165/73 07/21/16 08:50 98.7 20 90 07/21/16 05:33 Room Air Intake and Output 07/20/16 07/20/16 07/21/16 15:00 23:00 07:00 Intake Total 440 ml Balance 440 ml Exam Constitutional: alert, obese, oriented Psych: nl mood/affect, no complaints Eyes: EOMI, PERRL, nl conjunctiva, nl lids, nl sclera ENMT: mucosa pink and moist, nl external ears & nose Neck: non-tender, supple, No bruits, No masses, No thyromegaly Respiratory: clear to auscultation, normal air movement Cardiovascular: edema (1+ BLE), nl pulses, regular rate and rhythm, No murmurs/extra sounds, No rub Gastrointestinal: bowel sounds, nl liver, spleen, non-tender, soft, No mass, No rebound or guarding Musculoskeletal: nl extremities to inspection Extremities: edema (1+ BLE), normal pulses, No clubbing, No cyanosis Neurological: WHITE SIDEWALL TIRE BUFFER II-XII intact, nl mental status, nl speech, nl strength Additional Comments Bedside Glucose - 72 Hours Test 07/20/16 19:52 07/20/16 19:58 07/20/16 20:55 07/20/16 21:55 Bedside Glucose 42mg/dL (70-220) *L 236mg/dL (70-220) H 89mg/dL (70-220) 342mg/dL (70-220) H Test 07/21/16 01:28 07/21/16 08:22 07/21/16 12:13 07/21/16 17:52 Bedside Glucose 87mg/dL (70-220) 124mg/dL (70-220) 102mg/dL (70-220) 155mg/dL (70-220) Results Result Diagram: 07/21/16 0450 07/21/16 0450 Results 24 hrs Laboratory Tests Test 07/20/16 19:52 07/20/16 19:55 07/20/16 19:58 07/20/16 20:55 Bedside Glucose 42 *L 236 H 89 White Blood Count 10.9 H Red Blood Count 3.58 L Hemoglobin 11.5 #L Hematocrit 35.4 L Mean Corpuscular Volume 98.9 Mean Corpuscular Hemoglobin 32.1 Mean Corpuscular Hemoglobin Concent 32.5 Red Cell Distribution Width 14.6 H Platelet Count 431 #H Mean Platelet Volume 9.6 Neutrophils % 68.3 Lymphocytes % 19.4 Monocytes % 9.1 Eosinophils % 2.2 Basophils % 0.5 Nucleated Red Blood Cells % 0.0 Neutrophils # 7.5 Lymphocytes # 2.1 Monocytes # 1.0 H Eosinophils # 0.2 Basophils # 0.1 Nucleated Red Blood Cells # 0.0 Prothrombin Time 13.2 Prothrombin Time Ratio 1.0 INR International Normalized Ratio 1.00 Activated Partial Thromboplast Time 26.6 Sodium Level 137 Potassium Level 4.6 Chloride Level 99 Carbon Dioxide Level 25 Anion Gap 18 H Blood Urea Nitrogen 39 H Creatinine 3.83 H Glucose Level 41 *L Hemoglobin A1c 5.4 Calcium Level 9.8 Total Bilirubin 0.0 L Direct Bilirubin 0.00 Indirect Bilirubin 0.0 Aspartate Amino Transf (AST/SGOT) 20 Alanine Aminotransferase (ALT/SGPT) 19 Alkaline Phosphatase 148 H Troponin I 0.014 Total Protein 7.8 Albumin 4.8 Globulin 3.00 Albumin/Globulin Ratio 1.60 Test 07/20/16 21:55 07/21/16 00:00 07/21/16 01:28 07/21/16 04:50 Bedside Glucose 342 H 87 Urine Color LT. YELLOW Urine Clarity CLEAR Urine pH 6.5 Urine Specific [place] 1.015 Urine Ketones NEGATIVE Urine Nitrite NEGATIVE Urine Bilirubin NEGATIVE Urine Urobilinogen 0.2 E.U./dL Urine Leukocyte Esterase NEGATIVE Urine Microscopic RBC 0-2 Urine Microscopic WBC 0-2 Urine Squamous Epithelial Cells MANY Urine Bacteria MODERATE Urine Hemoglobin NEGATIVE Urine Glucose NEGATIVE Urine Total Protein 4+ H White Blood Count 8.3 # Red Blood Count 3.45 L Hemoglobin 10.9 L Hematocrit 35.0 L Mean Corpuscular Volume 101.4 H Mean Corpuscular Hemoglobin 31.6 Mean Corpuscular Hemoglobin Concent 31.1 L Red Cell Distribution Width 14.7 H Platelet Count 352 Mean Platelet Volume 9.9 Neutrophils % 66.8 Lymphocytes % 19.8 Monocytes % 8.8 Eosinophils % 3.7 Basophils % 0.5 Nucleated Red Blood Cells % 0.0 Neutrophils # 5.5 Lymphocytes # 1.6 Monocytes # 0.7 Eosinophils # 0.3 Basophils # 0.0 Nucleated Red Blood Cells # 0.0 Sodium Level 140 Potassium Level 4.6 Chloride Level 102 Carbon Dioxide Level 26 Anion Gap 17 H Blood Urea Nitrogen 46 H Creatinine 4.32 H Glucose Level 136 # Hemoglobin A1c 5.4 Calcium Level 9.3 Triglycerides Level 206 H Cholesterol Level 120 LDL Cholesterol, Calculated 47 HDL Cholesterol 32 L Cholesterol/HDL Ratio 3.7 Test 07/21/16 08:22 07/21/16 12:13 07/21/16 17:52 Bedside Glucose 124 102 155 Medications Medications Current Medications Diagnostic Test (Pha) (Accu-Chek) 1 ea 02 XX Last administered on 07/21/16 01: 47; Admin Dose 1 EA; Start 07/21/16 at 02:00 Acetaminophen (Tylenol Tab) 650 mg Q4 PRN PO PAIN AND OR ELEVATED TEMP; Start 07/21/16 at 01:30 Ondansetron HCl (Zofran Inj) 4 mg Q6H PRN IV NAUSEA AND/OR VOMITING; Start 07/21 at 01:30 Hydralazine HCl (Apresoline) 10 mg Q6H PRN IV ELEVATED BLOOD PRESSURE Last administered on 07/21/16 01:49; Admin Dose 10 MG; Start 07/21/16 at 01:30 Hydralazine HCl (Apresoline) 100 mg Q8 PO Last administered on 07/21/16t 15:16; Admin Dose 100 MG; Start 07/21/16 at 04:01 Sertraline HCl (Zoloft) 100 mg HS PO ; Start 07/21/16 at 21:00 Nifedipine (Procardia Xl) 60 mg BID PO ; Start 07/21/16 at 21:00 Clonidine (Catapres) 0.1 mg Q4H PRN PO sbp above 170; Start 07/21/16 at 04:30 Allopurinol (Zyloprim) 100 mg DAILY PO ; Start 07/22/16 at 09:00 Atorvastatin Calcium (Lipitor) 80 mg HS PO ; Start 07/21/16 at 21:00 Cholecalciferol (Vitamin D) 2,000 unit DAILY PO ; Start 07/22/16 at 09:00 Duloxetine HCl (Cymbalta) 30 mg DAILY PO ; Start 07/22/16 at 09:00 Gabapentin (Neurontin) 300 mg QPM PO ; Start 07/21/16 at 21:00 Pantoprazole (Protonix Tab) 40 mg DAILY@06 PO ; Start 07/22/16 at 06:00 Vitamin B Complex/ Vitamin C (Berocca) 1 cap DAILY PO ; Start 07/22/16 at 09:00 Ferrous Sulfate (Ferrous Sulfate (Ec)) 325 mg DAILY PO ; Start 07/22/16 at 09:00 Miscellaneous Information 1 ea NOTE XX ; Start 07/21/16 at 17:00 Glucose (Glutose) 15 gm Q15M PRN PO DECREASED GLUCOSE; Start 07/21/16 at 17:00 Glucose (Glutose) 22.5 gm Q15M PRN PO DECREASED GLUCOSE; Start 07/21/16 at 17:00 Dextrose (D50w Syringe) 25 ml Q15M PRN IV DECREASED GLUCOSE; Start 07/21/16 at 17:00 Dextrose (D50w Syringe) 50 ml Q15M PRN IV DECREASED GLUCOSE; Start 07/21/16 at 17:00 Glucagon (Glucagen) 1 mg Q15M PRN IM DECREASED GLUCOSE; Start 07/21/16 at 17:00 Glucose (Glutose) 15 gm Q15M PRN BUCCAL DECREASED GLUCOSE; Start 07/21/16 at 17: 00 Benazepril HCl (Lotensin) 10 mg DAILY PO ; Start 07/21/16 at 17:30 JOELLE LORENZ MD Jul 21, 2016 18:37
[2016-07-21] MEDS ORDERED: SERTRALINE 100 MG TAB PO SCH (21:00)
[2016-07-21] MEDS: SERTRALINE 100 MG TAB PO SCH (21:34)
[2016-07-21] MEDS: ATORVASTATIN 80 MG TAB PO SCH (21:34)
[2016-07-21] MEDS: GABAPENTIN 300 MG CAP PO SCH (21:34)
[2016-07-21] MEDS: NIFEdipine (XL) 60 MG TAB PO SCH (21:36)
[2016-07-22] MEDS: ACCU-CHEK XX SCH (02:00)
[2016-07-22] MEDS: PANTOPRAZOLE (EC) 40 MG TAB PO SCH (05:53)
[2016-07-22 06:09] LABS: ADD SCAN DIFF NO
[2016-07-22 06:16] LABS: BASOPHILS % 0.4 % (0.0-2.0); EOSINOPHILS # 0.4 10^3/ul (0.0-0.5); EOSINOPHILS % 4.1 % (0.0-7.0); HEMATOCRIT 33.9 % (37.0-47.0); HEMOGLOBIN 10.6 g/dl (12.0-16.0); LYMPHOCYTES # 1.7 10^3/ul (0.8-2.9); MEAN CORPUSCULAR HEMOGLOBIN 31.6 pg (29.0-33.0); MEAN CORPUSCULAR HGB CONC 31.3 g/dl (32.0-37.0); MEAN CORPUSCULAR VOLUME 101.2 fl (82.0-101.0); MEAN PLATELET VOLUME 9.6 fl (7.4-10.4); MONOCYTE # 0.7 10^3/ul (0.3-0.9); MONOCYTES % 7.6 % (0.0-11.0); NEUTROPHIL # 5.8 10^3/ul (1.6-7.5); NEUTROPHILS % 67.4 % (39.0-77.0); PLATELET COUNT 340 10^3/UL (140-415); RED BLOOD COUNT 3.35 10^6/ul (4.20-5.40); RED CELL DISTRIBUTION WIDTH 14.6 % (11.5-14.5); WHITE BLOOD COUNT 8.6 10^3/ul (4.8-10.8)
[2016-07-22 06:46] LABS: CALCIUM 9.1 mg/dl (8.4-10.2); CREATININE 3.07 mg/dl (0.44-1.00); POTASSIUM 4.4 mmol/L (3.5-5.1)
--- NOTE | 2016-07-22 07:22 | DS ---
DATE OF ADMISSION: 07/20/2016 DATE OF DISCHARGE: 07/21/2016 HOSPITAL COURSE: This is a 65-year-old para 1, 1 female with a history of diabetes, hypertension and chronic kidney disease for which she has been recently placed on hemodialysis. Please refer to the detailed information available in the hospital chart. The patient had been recently discharged from the hospital after having been started on chronic dialysis. History includes ongoing diabetes mellitus for which she has been on Lantus insulin and some oral hypoglycemic agents. In addition, she has also been takin. Nifedipine. 2. Hydralazine. 3. Plavix. 4. Vitamin B complex. 5. Trulicity. 6. Allopurinol. 7. Ferrous sulfate. 8. Repaglinide. 9. Gabapentin. 10. Zoloft. 11. Atorvastatin. 12. Protonix. 13. Klonopin. 14. Victoza. The patient apparently had been feeling well since the discharge and had reported to the dialysis center on Monday. However on Monday, she started feeling bad with stuttering of the speech and was brought to the emergency room. She has undergone a brain scan, etc., and the workup has been negative. The patient is having right-sided weakness, although she has a previous history of CVA ____ causing that. The patient has been followed by the weighbridge operator, and blood sugars have been stabilized. Admission sugars 42 and 41 subsequently and electrolytes normal, BUN and creatinine elevated, and presently the last sugar is 87, BUN 46 , creatinine 3.2. Electrolytes normal and calcium 9.3. Chest x-ray is negative. The patient did have urinalysis which shows 4+ protein and many epithelial cells ____ moderate bacteria. The patient is scheduled to get outpatient dialysis tomorrow, however, as opposed to Monday because of some function she is attending. Overall, she has already been improving. No more slurring of the speech and is ambulatory. Rest of the information negative for any head, eye, ear, nose, throat problem; chest pain; shortness of breath; flank pain; joint pain; seizure; syncope or exposure to any other nephrotoxic agent. She does take Lasix in addition. PAST HISTORY: Includes knee replacement and some childhood surgery. PERSONAL HISTORY: The patient has 1 son and she is disabled. She does not smoke, drink. ALLERGIES: NO KNOWN ALLERGIES. FAMILY HISTORY: The patient's mother is alive, diabetic. Father is . PHYSICAL EXAMINATION: GENERAL: The patient is a moderately obese female who is in no acute distress. Weight is 98.2 kg. Blood pressure has been minimally elevated though overall stable. HEAD, EYES, EARS, NOSE, THROAT: Unremarkable. Pale conjunctivae. Sclerae nonicteric. Nose: Normal mucosa. Throat: Tongue is pale. No pharyngeal congestion. NECK: Supple. No jugular venous distention. CHEST: Symmetrical. BREASTS: Not examined. LUNGS: Clear. HEART: Regular rhythm, no murmur. ABDOMEN: Obese. Liver, spleen, kidneys not palpable. GENITALIA: Not examined. EXTREMITIES: 1+ edema throughout present. Skin is pale. No other new neurological deficit noted at present. IMPRESSION: 1. Obesity. 2. Diabetes mellitus. 3. History of chronic kidney disease with end-stage kidney disease at present. 4. Fluid overload. 5. Episode of hypoglycemia, resolved. PLAN: The patient has done well overall with dialysis. However, she says she is not really feeling completely well, as if she is not yet used to the dialysis regimen. Extensive discussion regarding medical Rx for DM was carried out especially, in regard to episode of hypoglycemia. Insulin accumulates in Kidneys a situation which can be worse at this time. Discussion should also be carried out regarding the AV fistula placement for which Vascular Surgery will have to be consulted. The patient will be followed closely, and I will leave the rest of the plan in the hands of the endo. Dictated By: FE SERRATO/ALFREDO Conf#: [id number] DID#: [id number] MTDD
--- NOTE | 2016-07-22 07:32 | RADRPT ---
PROCEDURE: US Lower extremity venous, bilateral CLINICAL INDICATION: esrd TECHNIQUE: Multiple sonographic images of the bilateral lower extremity deep venous system was ob tained utilizing grayscale, color-flow, compressive sonography and doppler imaging with augmentation . The images were reviewed on a PACS workstation. COMPARISON: None. FINDINGS: There is normal compressibility and flow within the bilateral common femoral, superficial femoral , posterior tibial, peroneal and popliteal veins. RPTAT: AA IMPRESSION: No sonographic evidence for deep venous thrombosis in bilateral lower extremities. Physician Kingsley Date Time Electronically viewed and signed by Physician Kingsley on 07/22/2016 07:32 RA/
[2016-07-22] MEDS: INSULIN ASPART [NOVOLOG] 3 ML PEN SC SCH ×4 (08:11→20:56)
[2016-07-22] MEDS: CLOPIDOGREL 75 MG TAB PO SCH (08:12)
[2016-07-22] MEDS: VITAMIN B COMPLEX/VIT C CAP PO SCH (08:12)
[2016-07-22] MEDS: ALLOPURINOL 100 MG TAB PO SCH (08:12)
[2016-07-22] MEDS: FERROUS SULFATE (EC) 325 MG TAB PO SCH (08:13)
[2016-07-22] MEDS: DULOXETINE 30 MG CAP DR PO SCH (08:13)
[2016-07-22] MEDS: CHOLECALCIFEROL 2,000 UNIT CAP PO SCH (08:13)
[2016-07-22] MEDS: BENAZEPRIL 10 MG TAB PO SCH (08:13)
[2016-07-22] MEDS: NIFEdipine (XL) 60 MG TAB PO SCH ×2 (08:15→20:58)
[2016-07-22 08:22] VITALS: BP 156/72; RESP 18
--- NOTE | 2016-07-22 11:39 | CONS ---
Date/Time of Note Date/Time of Note DATE: 07/22/16 TIME: 11:28 Assessment/Plan Assessment/Plan Chief Complaint/Hosp Course 65 yo female with HTN, CAD, CHF, IDDM, ESRD admitted with slurred speech in setting of hypoglycemia admitted for TIA work up. -Recommend MRI Brain and MRA Head/Neck without contrast patient is reluctant to stay for further testing, however if can be done today she is willing to have the tests continue on plavix mg daily maintain normotension maintain euglycemia, adjust insulin as needed target HBA1C <7.0 continue statin dosing, LDL at target if recent ECHO was done, no need to repeat at this time she should follow up closely w her neurologist upon discharge in the next week advised and counseled on stroke symptoms, advised to return to the hospital if any further symptoms occur Problems: Consultation Date/Type/Reason Admit Date/Time Jul 20, 2016 at 22:37 Date of Consultation: Jul 22, 2016 Type of Consultation: Neurology Reason for Consultation slurred speech Referring Provider: ARLEY ANGEL Hx of Present Illness 65 year old female with history of IDDM, HTN, HLD, CHF, CAD ESRD on dialysis, tachybrady syndrome admitted for TIA eval in June p/w slurred speech also in the setting of hypoglycemia. Symptoms began on Monday night began improving on her admission after D5. She admits to prior TIAs and presenting with headaches currently being managed on Plavix followed by an outside neurologist. CTH on admission showed no acute changes. Recent MRI showed evidence of lacunar infarctions, chronic small vessel disease, no carotid stenosis identified. She now reports she is back to baseline, reluctant to stay in the hospital for further testing as recommended. Constitutional: improved, no complaints Eyes: no complaints ENT: no complaints Respiratory: no complaints Cardiovascular: no complaints Gastrointestinal: no complaints Genitourinary: no complaints Musculoskeletal: no complaints Neurologic: no complaints Psychological: nl mood/affect, no complaints Past Medical History Medical History: diabetes, high cholesterol, hypertension, renal disease, other (OA, depresssion, gout) Past Surgical History Past Surgical Hx: other (, TKA, cataracts, T&A, L breast lumpectomy, uterine fibroidectomy, nasal polypectomy, permacath placement) Social History Alcohol Use: rarely Smoking Status: Never smoker Drug Use: none Exam/Review of Systems Vital Signs Vitals Vital Signs Date Time Temp Pulse Resp B/P Pulse Ox O2 Delivery O2 Flow Rate FiO2 07/22/16 08:22 98.6 91 18 156/72 98 07/21/16 05:33 Room Air Intake and Output 07/21/16 07/21/16 07/22/16 15:00 23:00 07:00 Intake Total 1620 ml 100 ml Output Total 4300 ml Balance -2680 ml 100 ml Exam Constitutional: alert, oriented, well developed Psych: no complaints Head: atraumatic, normocephalic Eyes: EOMI, nl conjunctiva Neurological: ANTIQUE COLLECTOR II-XII intact, DTR's symmetric, nl speech, other (mild hesitation in speech) Results Result Diagram: 07/22/16 0545 07/22/16 0545 Results 24 hrs Laboratory Tests Test 07/21/16 12:13 07/21/16 17:52 07/21/16 21:31 07/22/16 02:16 Bedside Glucose 102 155 209 119 Test 07/22/16 05:45 07/22/16 08:02 White Blood Count 8.6 Red Blood Count 3.35 L Hemoglobin 10.6 L Hematocrit 33.9 L Mean Corpuscular Volume 101.2 H Mean Corpuscular Hemoglobin 31.6 Mean Corpuscular Hemoglobin Concent 31.3 L Red Cell Distribution Width 14.6 H Platelet Count 340 Mean Platelet Volume 9.6 Neutrophils % 67.4 Lymphocytes % 20.0 Monocytes % 7.6 Eosinophils % 4.1 Basophils % 0.4 Nucleated Red Blood Cells % 0.0 Neutrophils # 5.8 Lymphocytes # 1.7 Monocytes # 0.7 Eosinophils # 0.4 Basophils # 0.0 Nucleated Red Blood Cells # 0.0 Sodium Level 135 Potassium Level 4.4 Chloride Level 98 Carbon Dioxide Level 28 Anion Gap 13 Blood Urea Nitrogen 29 #H Creatinine 3.07 #H Glucose Level 139 Calcium Level 9.1 Bedside Glucose 137 Medications Medications Current Medications Diagnostic Test (Pha) (Accu-Chek) 1 ea 02 XX Last administered on 07/21/16t 01: 47; Admin Dose 1 EA; Start 07/21/16 at 02:00 Acetaminophen (Tylenol Tab) 650 mg Q4 PRN PO PAIN AND OR ELEVATED TEMP; Start 07/21/16 at 01:30 Ondansetron HCl (Zofran Inj) 4 mg Q6H PRN IV NAUSEA AND/OR VOMITING; Start 07/21 at 01:30 Hydralazine HCl (Apresoline) 10 mg Q6H PRN IV ELEVATED BLOOD PRESSURE Last administered on 07/21/16 01:49; Admin Dose 10 MG; Start 07/21/16 at 01:30 Hydralazine HCl (Apresoline) 100 mg Q8 PO Last administered on 07/22/16 05:55; Admin Dose 100 MG; Start 07/21/16 at 04:01 Sertraline HCl (Zoloft) 100 mg HS PO Last administered on 07/21/16 21:34; Admin Dose 100 MG; Start 07/21/16 at 21:00 Nifedipine (Procardia Xl) 60 mg BID PO Last administered on 07/22/16 08:15; Admin Dose 60 MG; Start 07/21/16 at 21:00 Clonidine (Catapres) 0.1 mg Q4H PRN PO sbp above 170; Start 07/21/16 at 04:30 Allopurinol (Zyloprim) 100 mg DAILY PO Last administered on 07/22/16 08:12; Admin Dose 100 MG; Start 07/22/16 at 09:00 Atorvastatin Calcium (Lipitor) 80 mg HS PO Last administered on 07/21/16 21:34 ; Admin Dose 80 MG; Start 07/21/16 at 21:00 Cholecalciferol (Vitamin D) 2,000 unit DAILY PO Last administered on 07/22/16 08:13; Admin Dose 2,000 UNIT; Start 07/22/16 at 09:00 Duloxetine HCl (Cymbalta) 30 mg DAILY PO Last administered on 07/22/16 08:13; Admin Dose 30 MG; Start 07/22/16 at 09:00 Gabapentin (Neurontin) 300 mg QPM PO Last administered on 07/21/16 21:34; Admin Dose 300 MG; Start 07/21/16 at 21:00 Pantoprazole (Protonix Tab) 40 mg DAILY@06 PO Last administered on 07/22/16 05: 53; Admin Dose 40 MG; Start 07/22/16 at 06:00 Vitamin B Complex/ Vitamin C (Berocca) 1 cap DAILY PO Last administered on 08:12; Admin Dose 1 CAP; Start 07/22/16 at 09:00 Ferrous Sulfate (Ferrous Sulfate (Ec)) 325 mg DAILY PO Last administered on 07/22 08:13; Admin Dose 325 MG; Start 07/22/16 at 09:00 Miscellaneous Information 1 ea NOTE XX ; Start 07/21/16 at 17:00 Glucose (Glutose) 15 gm Q15M PRN PO DECREASED GLUCOSE; Start 07/21/16 at 17:00 Glucose (Glutose) 22.5 gm Q15M PRN PO DECREASED GLUCOSE; Start 07/21/16 at 17:00 Dextrose (D50w Syringe) 25 ml Q15M PRN IV DECREASED GLUCOSE; Start 07/21/16 at 17:00 Dextrose (D50w Syringe) 50 ml Q15M PRN IV DECREASED GLUCOSE; Start 07/21/16 at 17:00 Glucagon (Glucagen) 1 mg Q15M PRN IM DECREASED GLUCOSE; Start 07/21/16 at 17:00 Glucose (Glutose) 15 gm Q15M PRN BUCCAL DECREASED GLUCOSE; Start 07/21/16 at 17: 00 Benazepril HCl (Lotensin) 10 mg DAILY PO Last administered on 07/22/16 08:13; Admin Dose 10 MG; Start 07/21/16 at 17:30 Clopidogrel Bisulfate (plaVIX) 75 mg DAILY PO Last administered on 07/22/16 08: 12; Admin Dose 75 MG; Start 07/22/16 at 09:00 FIORELLA MARLEY MD Jul 22, 2016 11:39
--- NOTE | 2016-07-22 14:45 | CONS ---
Date/Time of Note Date/Time of Note DATE: 07/22/16 TIME: 14:45 Consultation Date/Type/Reason Admit Date/Time Jul 20, 2016 at 22:37 Initial Consult Date 07/22/16 Type of Consultation: Renal Referring Provider: ARLEY ANGEL 24 HR Interval Summary Constitutional: No requiring O2 Exam/Review of Systems Vital Signs Vitals Vital Signs Date Time Temp Pulse Resp B/P Pulse Ox O2 Delivery O2 Flow Rate FiO2 07/22/16 08:22 98.6 91 18 156/72 98 07/21/16 05:33 Room Air Intake and Output 07/21/16 07/21/16 07/22/16 15:00 23:00 07:00 Intake Total 1620 ml 100 ml Output Total 4300 ml Balance -2680 ml 100 ml Exam Constitutional: alert, oriented, No distress ENMT: mucosa pink and moist Neck: No jvd Respiratory: clear to auscultation Cardiovascular: edema, regular rate and rhythm Gastrointestinal: non-tender, soft Neurological: MATRIX REPAIRER II-XII intact, nl mental status, No lethargic Skin: No diaphoresis Results Result Diagram: 07/22/16 0545 07/22/16 0545 Results 24 hrs Laboratory Tests Test 07/21/16 17:52 07/21/16 21:31 07/22/16 02:16 07/22/16 05:45 Bedside Glucose 155 209 119 White Blood Count 8.6 Red Blood Count 3.35 L Hemoglobin 10.6 L Hematocrit 33.9 L Mean Corpuscular Volume 101.2 H Mean Corpuscular Hemoglobin 31.6 Mean Corpuscular Hemoglobin Concent 31.3 L Red Cell Distribution Width 14.6 H Platelet Count 340 Mean Platelet Volume 9.6 Neutrophils % 67.4 Lymphocytes % 20.0 Monocytes % 7.6 Eosinophils % 4.1 Basophils % 0.4 Nucleated Red Blood Cells % 0.0 Neutrophils # 5.8 Lymphocytes # 1.7 Monocytes # 0.7 Eosinophils # 0.4 Basophils # 0.0 Nucleated Red Blood Cells # 0.0 Sodium Level 135 Potassium Level 4.4 Chloride Level 98 Carbon Dioxide Level 28 Anion Gap 13 Blood Urea Nitrogen 29 #H Creatinine 3.07 #H Glucose Level 139 Calcium Level 9.1 Test 07/22/16 08:02 07/22/16 11:59 Bedside Glucose 137 153 Medications Medications Current Medications Diagnostic Test (Pha) (Accu-Chek) 1 ea 02 XX Last administered on 07/21/16 01: 47; Admin Dose 1 EA; Start 07/21/16 at 02:00 Acetaminophen (Tylenol Tab) 650 mg Q4 PRN PO PAIN AND OR ELEVATED TEMP; Start 07/21/16 at 01:30 Ondansetron HCl (Zofran Inj) 4 mg Q6H PRN IV NAUSEA AND/OR VOMITING; Start 07/21 at 01:30 Hydralazine HCl (Apresoline) 10 mg Q6H PRN IV ELEVATED BLOOD PRESSURE Last administered on 07/21/16 01:49; Admin Dose 10 MG; Start 07/21/16 at 01:30 Hydralazine HCl (Apresoline) 100 mg Q8 PO Last administered on 07/22/16 05:55; Admin Dose 100 MG; Start 07/21/16 at 04:01 Sertraline HCl (Zoloft) 100 mg HS PO Last administered on 07/21/16 21:34; Admin Dose 100 MG; Start 07/21/16 at 21:00 Nifedipine (Procardia Xl) 60 mg BID PO Last administered on 07/22/16 08:15; Admin Dose 60 MG; Start 07/21/16 at 21:00 Clonidine (Catapres) 0.1 mg Q4H PRN PO sbp above 170; Start 07/21/16 at 04:30 Allopurinol (Zyloprim) 100 mg DAILY PO Last administered on 07/22/16 08:12; Admin Dose 100 MG; Start 07/22/16 at 09:00 Atorvastatin Calcium (Lipitor) 80 mg HS PO Last administered on 07/21/16 21:34 ; Admin Dose 80 MG; Start 07/21/16 at 21:00 Cholecalciferol (Vitamin D) 2,000 unit DAILY PO Last administered on 07/22/16 08:13; Admin Dose 2,000 UNIT; Start 07/22/16 at 09:00 Duloxetine HCl (Cymbalta) 30 mg DAILY PO Last administered on 07/22/16 08:13; Admin Dose 30 MG; Start 07/22/16 at 09:00 Gabapentin (Neurontin) 300 mg QPM PO Last administered on 07/21/16 21:34; Admin Dose 300 MG; Start 07/21/16 at 21:00 Pantoprazole (Protonix Tab) 40 mg DAILY@06 PO Last administered on 07/22/16 05: 53; Admin Dose 40 MG; Start 07/22/16 at 06:00 Vitamin B Complex/ Vitamin C (Berocca) 1 cap DAILY PO Last administered on 08:12; Admin Dose 1 CAP; Start 07/22/16 at 09:00 Ferrous Sulfate (Ferrous Sulfate (Ec)) 325 mg DAILY PO Last administered on 07/22 08:13; Admin Dose 325 MG; Start 07/22/16 at 09:00 Miscellaneous Information 1 ea NOTE XX ; Start 07/21/16 at 17:00 Glucose (Glutose) 15 gm Q15M PRN PO DECREASED GLUCOSE; Start 07/21/16 at 17:00 Glucose (Glutose) 22.5 gm Q15M PRN PO DECREASED GLUCOSE; Start 07/21/16 at 17:00 Dextrose (D50w Syringe) 25 ml Q15M PRN IV DECREASED GLUCOSE; Start 07/21/16 at 17:00 Dextrose (D50w Syringe) 50 ml Q15M PRN IV DECREASED GLUCOSE; Start 07/21/16 at 17:00 Glucagon (Glucagen) 1 mg Q15M PRN IM DECREASED GLUCOSE; Start 07/21/16 at 17:00 Glucose (Glutose) 15 gm Q15M PRN BUCCAL DECREASED GLUCOSE; Start 07/21/16 at 17: 00 Benazepril HCl (Lotensin) 10 mg DAILY PO Last administered on 07/22/16 08:13; Admin Dose 10 MG; Start 07/21/16 at 17:30 Clopidogrel Bisulfate (plaVIX) 75 mg DAILY PO Last administered on 07/22/16 08: 12; Admin Dose 75 MG; Start 07/22/16 at 09:00 CELINE DOAN MD Jul 22, 2016 14:45
--- NOTE | 2016-07-22 17:41 | CONS ---
Date/Time of Note Date/Time of Note DATE: 07/22/16 TIME: 17:37 Assessment/Plan Assessment/Plan Problems: (1) Diabetes mellitus type 2 in obese Status: Chronic Comment: Excellent glycemic control on trulicity alone. Mildly hyperglycemic last night but no need to add repaglinide at this time. Monitor glucose levels. Ok for d/c home w/o lantus and to resume trulicity next week from endo standpoint. Consultation Date/Type/Reason Admit Date/Time Jul 20, 2016 at 22:37 Initial Consult Date 07/22/16 Type of Consultation: Endocrinology Reason for Consultation hypoglycemia Referring Provider: ARLEY ANGEL 24 HR Interval Summary Constitutional: improved (wants to go home but neurology recommending MRI/ carotid ARIEL), no complaints Detailed Summary Respiratory: no complaints Cardiovascular: no complaints Gastrointestinal: no complaints Genitourinary: no complaints Musculoskeletal: no complaints Neurologic: no complaints Exam/Review of Systems Vital Signs Vitals VS - Last 72 Hours, by Label Date Time Temp Pulse Resp B/P Pulse Ox O2 Delivery O2 Flow Rate FiO2 07/22/16 08:22 98.6 91 18 156/72 98 07/21/16 20:15 90 07/21/16 20:15 90 07/21/16 19:58 98.4 86 18 116/68 95 07/21/16 19:45 101 07/21/16 19:15 85 07/21/16 18:45 86 07/21/16 18:15 79 07/21/16 17:45 82 07/21/16 17:15 84 19 07/21/16 15:16 99 165/73 07/21/16 08:50 98.7 83 20 133/62 90 07/21/16 05:33 20 142/76 97 Room Air 07/21/16 02:17 175/74 07/21/16 00:50 97.4 77 20 194/87 97 Room Air 07/21/16 00:20 86 18 152/79 98 Room Air 07/20/16 23:00 77 18 178/84 99 Room Air 07/20/16 22:00 98.2 76 18 158/86 99 Room Air 07/20/16 20:00 85 18 159/86 98 Room Air 07/20/16 19:36 97.8 95 20 202/87 98 Vital Signs Date Time Temp Pulse Resp B/P Pulse Ox O2 Delivery O2 Flow Rate FiO2 07/22/16 08:22 98.6 91 18 156/72 98 07/21/16 05:33 Room Air Intake and Output 07/21/16 07/21/16 07/22/16 15:00 23:00 07:00 Intake Total 1620 ml 100 ml Output Total 4300 ml Balance -2680 ml 100 ml Exam Constitutional: alert, obese, oriented Psych: nl mood/affect, no complaints Respiratory: clear to auscultation, normal air movement Cardiovascular: nl pulses, regular rate and rhythm, No edema, No murmurs/extra sounds, No rub Gastrointestinal: bowel sounds, nl liver, spleen, non-tender, soft, No mass, No rebound or guarding Musculoskeletal: nl extremities to inspection Extremities: normal pulses, No clubbing, No cyanosis, No edema Neurological: CONTENT COORDINATOR II-XII intact, nl mental status, nl speech, nl strength Additional Comments Bedside Glucose - 72 Hours Test 07/20/16 19:52 07/20/16 19:58 07/20/16 20:55 07/20/16 21:55 Bedside Glucose 42mg/dL (70-220) *L 236mg/dL (70-220) H 89mg/dL (70-220) 342mg/dL (70-220) H Test 07/21/16 01:28 07/21/16 08:22 07/21/16 12:13 07/21/16 17:52 Bedside Glucose 87mg/dL (70-220) 124mg/dL (70-220) 102mg/dL (70-220) 155mg/dL (70-220) Test 07/21/16 21:31 07/22/16 02:16 07/22/16 08:02 07/22/16 11:59 Bedside Glucose 209mg/dL (70-220) 119mg/dL (70-220) 137mg/dL (70-220) 153mg/dL (70-220) Results Result Diagram: 07/22/16 0545 07/22/16 0545 Results 24 hrs Laboratory Tests Test 07/21/16 17:52 07/21/16 21:31 07/22/16 02:16 07/22/16 05:45 Bedside Glucose 155 209 119 White Blood Count 8.6 Red Blood Count 3.35 L Hemoglobin 10.6 L Hematocrit 33.9 L Mean Corpuscular Volume 101.2 H Mean Corpuscular Hemoglobin 31.6 Mean Corpuscular Hemoglobin Concent 31.3 L Red Cell Distribution Width 14.6 H Platelet Count 340 Mean Platelet Volume 9.6 Neutrophils % 67.4 Lymphocytes % 20.0 Monocytes % 7.6 Eosinophils % 4.1 Basophils % 0.4 Nucleated Red Blood Cells % 0.0 Neutrophils # 5.8 Lymphocytes # 1.7 Monocytes # 0.7 Eosinophils # 0.4 Basophils # 0.0 Nucleated Red Blood Cells # 0.0 Sodium Level 135 Potassium Level 4.4 Chloride Level 98 Carbon Dioxide Level 28 Anion Gap 13 Blood Urea Nitrogen 29 #H Creatinine 3.07 #H Glucose Level 139 Calcium Level 9.1 Test 07/22/16 08:02 07/22/16 11:59 Bedside Glucose 137 153 Medications Medications Current Medications Diagnostic Test (Pha) (Accu-Chek) 1 ea 02 XX Last administered on 07/21/16 01: 47; Admin Dose 1 EA; Start 07/21/16 at 02:00 Acetaminophen (Tylenol Tab) 650 mg Q4 PRN PO PAIN AND OR ELEVATED TEMP; Start 07/21/16 at 01:30 Ondansetron HCl (Zofran Inj) 4 mg Q6H PRN IV NAUSEA AND/OR VOMITING; Start 07/21 at 01:30 Hydralazine HCl (Apresoline) 10 mg Q6H PRN IV ELEVATED BLOOD PRESSURE Last administered on 07/21/16 01:49; Admin Dose 10 MG; Start 07/21/16 at 01:30 Hydralazine HCl (Apresoline) 100 mg Q8 PO Last administered on 07/22/16 14:57; Admin Dose 100 MG; Start 07/21/16 at 04:01 Sertraline HCl (Zoloft) 100 mg HS PO Last administered on 07/21/16 21:34; Admin Dose 100 MG; Start 07/21/16 at 21:00 Nifedipine (Procardia Xl) 60 mg BID PO Last administered on 07/22/16 08:15; Admin Dose 60 MG; Start 07/21/16 at 21:00 Clonidine (Catapres) 0.1 mg Q4H PRN PO sbp above 170; Start 07/21/16 at 04:30 Allopurinol (Zyloprim) 100 mg DAILY PO Last administered on 07/22/16 08:12; Admin Dose 100 MG; Start 07/22/16 at 09:00 Atorvastatin Calcium (Lipitor) 80 mg HS PO Last administered on 07/21/16 21:34 ; Admin Dose 80 MG; Start 07/21/16 at 21:00 Cholecalciferol (Vitamin D) 2,000 unit DAILY PO Last administered on 07/22/16 08:13; Admin Dose 2,000 UNIT; Start 07/22/16 at 09:00 Duloxetine HCl (Cymbalta) 30 mg DAILY PO Last administered on 07/22/16 08:13; Admin Dose 30 MG; Start 07/22/16 at 09:00 Gabapentin (Neurontin) 300 mg QPM PO Last administered on 07/21/16 21:34; Admin Dose 300 MG; Start 07/21/16 at 21:00 Pantoprazole (Protonix Tab) 40 mg DAILY@06 PO Last administered on 07/22/16 05: 53; Admin Dose 40 MG; Start 07/22/16 at 06:00 Vitamin B Complex/ Vitamin C (Berocca) 1 cap DAILY PO Last administered on 08:12; Admin Dose 1 CAP; Start 07/22/16 at 09:00 Ferrous Sulfate (Ferrous Sulfate (Ec)) 325 mg DAILY PO Last administered on 07/22 08:13; Admin Dose 325 MG; Start 07/22/16 at 09:00 Miscellaneous Information 1 ea NOTE XX ; Start 07/21/16 at 17:00 Glucose (Glutose) 15 gm Q15M PRN PO DECREASED GLUCOSE; Start 07/21/16 at 17:00 Glucose (Glutose) 22.5 gm Q15M PRN PO DECREASED GLUCOSE; Start 07/21/16 at 17:00 Dextrose (D50w Syringe) 25 ml Q15M PRN IV DECREASED GLUCOSE; Start 07/21/16 at 17:00 Dextrose (D50w Syringe) 50 ml Q15M PRN IV DECREASED GLUCOSE; Start 07/21/16 at 17:00 Glucagon (Glucagen) 1 mg Q15M PRN IM DECREASED GLUCOSE; Start 07/21/16 at 17:00 Glucose (Glutose) 15 gm Q15M PRN BUCCAL DECREASED GLUCOSE; Start 07/21/16 at 17: 00 Benazepril HCl (Lotensin) 10 mg DAILY PO Last administered on 07/22/16 08:13; Admin Dose 10 MG; Start 07/21/16 at 17:30 Clopidogrel Bisulfate (plaVIX) 75 mg DAILY PO Last administered on 07/22/16 08: 12; Admin Dose 75 MG; Start 07/22/16 at 09:00 JOELLE LORENZ MD Jul 22, 2016 17:41
--- NOTE | 2016-07-22 18:08 | PN ---
Date/Time of Note Date/Time of Note DATE: 07/22/16 TIME: 18:02 Assessment/Plan VTE Prophylaxis VTE Prophylaxis Intervention: SCD's Lines/Catheters IV C[facility] Type ([facility] Perm-a-cath Urinary Cath still in place: No Assessment/Plan Chief Complaint/Hosp Course Patient is sitting in chair eating, denies any weakness, clear speech. Assessment/Plan -Recurrent neurological symptoms most likely secondary to hypoglycemia. -Rule out acute stroke, CT is negative, pending MRI of the head, Dr. Katt moseley is following in neurology consultation -Diabetes mellitus type 2, Dr. Nolasco is following in endocrinology consultation -Chronic kidney disease stage V, patient is on hemodialysis, Dr. Borja is following. -Hypertension, continue Procardia and Lotensin. Further recommendations based on clinical course. Plan of care discussed with Dr. Webb. Problems: Exam/Review of Systems Vital Signs Vitals Vital Signs Date Time Temp Pulse Resp B/P Pulse Ox O2 Delivery O2 Flow Rate FiO2 07/22/16 08:22 98.6 91 18 156/72 98 07/21/16 05:33 Room Air Intake and Output 07/21/16 07/21/16 07/22/16 15:00 23:00 07:00 Intake Total 1620 ml 100 ml Output Total 4300 ml Balance -2680 ml 100 ml Exam Constitutional: alert, well developed Head: atraumatic Neck: supple Cardiovascular: nl pulses Gastrointestinal: non-tender, soft Extremities: normal pulses Results Result Diagram: 07/22/16 0545 07/22/16 0545 Results 24 hrs Laboratory Tests Test 07/21/16 21:31 07/22/16 02:16 07/22/16 05:45 07/22/16 08:02 Bedside Glucose 209 119 137 White Blood Count 8.6 Red Blood Count 3.35 L Hemoglobin 10.6 L Hematocrit 33.9 L Mean Corpuscular Volume 101.2 H Mean Corpuscular Hemoglobin 31.6 Mean Corpuscular Hemoglobin Concent 31.3 L Red Cell Distribution Width 14.6 H Platelet Count 340 Mean Platelet Volume 9.6 Neutrophils % 67.4 Lymphocytes % 20.0 Monocytes % 7.6 Eosinophils % 4.1 Basophils % 0.4 Nucleated Red Blood Cells % 0.0 Neutrophils # 5.8 Lymphocytes # 1.7 Monocytes # 0.7 Eosinophils # 0.4 Basophils # 0.0 Nucleated Red Blood Cells # 0.0 Sodium Level 135 Potassium Level 4.4 Chloride Level 98 Carbon Dioxide Level 28 Anion Gap 13 Blood Urea Nitrogen 29 #H Creatinine 3.07 #H Glucose Level 139 Calcium Level 9.1 Test 07/22/16 11:59 07/22/16 17:50 Bedside Glucose 153 116 Medications Medications Current Medications Diagnostic Test (Pha) (Accu-Chek) 1 ea 02 XX Last administered on 07/21/16 01: 47; Admin Dose 1 EA; Start 07/21/16 at 02:00 Acetaminophen (Tylenol Tab) 650 mg Q4 PRN PO PAIN AND OR ELEVATED TEMP; Start 07/21/16 at 01:30 Ondansetron HCl (Zofran Inj) 4 mg Q6H PRN IV NAUSEA AND/OR VOMITING; Start 07/21 at 01:30 Hydralazine HCl (Apresoline) 10 mg Q6H PRN IV ELEVATED BLOOD PRESSURE Last administered on 07/21/16 01:49; Admin Dose 10 MG; Start 07/21/16 at 01:30 Hydralazine HCl (Apresoline) 100 mg Q8 PO Last administered on 07/22/16 14:57; Admin Dose 100 MG; Start 07/21/16 at 04:01 Sertraline HCl (Zoloft) 100 mg HS PO Last administered on 07/21/16 21:34; Admin Dose 100 MG; Start 07/21/16 at 21:00 Nifedipine (Procardia Xl) 60 mg BID PO Last administered on 07/22/16 08:15; Admin Dose 60 MG; Start 07/21/16 at 21:00 Clonidine (Catapres) 0.1 mg Q4H PRN PO sbp above 170; Start 07/21/16 at 04:30 Allopurinol (Zyloprim) 100 mg DAILY PO Last administered on 07/22/16 08:12; Admin Dose 100 MG; Start 07/22/16 at 09:00 Atorvastatin Calcium (Lipitor) 80 mg HS PO Last administered on 07/21/16 21:34 ; Admin Dose 80 MG; Start 07/21/16 at 21:00 Cholecalciferol (Vitamin D) 2,000 unit DAILY PO Last administered on 07/22/16 08:13; Admin Dose 2,000 UNIT; Start 07/22/16 at 09:00 Duloxetine HCl (Cymbalta) 30 mg DAILY PO Last administered on 07/22/16 08:13; Admin Dose 30 MG; Start 07/22/16 at 09:00 Gabapentin (Neurontin) 300 mg QPM PO Last administered on 07/21/16 21:34; Admin Dose 300 MG; Start 07/21/16 at 21:00 Pantoprazole (Protonix Tab) 40 mg DAILY@06 PO Last administered on 07/22/16 05: 53; Admin Dose 40 MG; Start 07/22/16 at 06:00 Vitamin B Complex/ Vitamin C (Berocca) 1 cap DAILY PO Last administered on 08:12; Admin Dose 1 CAP; Start 07/22/16 at 09:00 Ferrous Sulfate (Ferrous Sulfate (Ec)) 325 mg DAILY PO Last administered on 07/22 08:13; Admin Dose 325 MG; Start 07/22/16 at 09:00 Miscellaneous Information 1 ea NOTE XX ; Start 07/21/16 at 17:00 Glucose (Glutose) 15 gm Q15M PRN PO DECREASED GLUCOSE; Start 07/21/16 at 17:00 Glucose (Glutose) 22.5 gm Q15M PRN PO DECREASED GLUCOSE; Start 07/21/16 at 17:00 Dextrose (D50w Syringe) 25 ml Q15M PRN IV DECREASED GLUCOSE; Start 07/21/16 at 17:00 Dextrose (D50w Syringe) 50 ml Q15M PRN IV DECREASED GLUCOSE; Start 07/21/16 at 17:00 Glucagon (Glucagen) 1 mg Q15M PRN IM DECREASED GLUCOSE; Start 07/21/16 at 17:00 Glucose (Glutose) 15 gm Q15M PRN BUCCAL DECREASED GLUCOSE; Start 07/21/16 at 17: 00 Benazepril HCl (Lotensin) 10 mg DAILY PO Last administered on 07/22/16 08:13; Admin Dose 10 MG; Start 07/21/16 at 17:30 Clopidogrel Bisulfate (plaVIX) 75 mg DAILY PO Last administered on 07/22/16 08: 12; Admin Dose 75 MG; Start 07/22/16 at 09:00 UMESH QUIJANO Jul 22, 2016 18:07
[2016-07-22 20:26] VITALS: BP 148/67; RESP 18
[2016-07-22] MEDS: SERTRALINE 100 MG TAB PO SCH (20:56)
[2016-07-22] MEDS: GABAPENTIN 300 MG CAP PO SCH (20:57)
[2016-07-22] MEDS: ATORVASTATIN 80 MG TAB PO SCH (20:57)
[2016-07-23] VITALS (9 sets, daily range): BP systolic 128–166; BP diastolic 60–80; PULSE 82–98; RESP 18–20
[2016-07-23] MEDS: ACCU-CHEK XX SCH (02:00)
[2016-07-23] MEDS: PANTOPRAZOLE (EC) 40 MG TAB PO SCH (05:48)
--- NOTE | 2016-07-23 08:27 | RADRPT ---
PROCEDURE: MRI Brain without contrast. CLINICAL INDICATION: Slurred speech. TECHNIQUE: An MRI of the brain was performed utilizing the following sequences: Sagittal and axial T1 weighted, axial T2 weighted, axial diffusion weighted with ADC mapping, coronal GRE, and axial F LAIR. COMPARISON: Brain CT 07/20/2016. FINDINGS: No diffusion weighted abnormalities are seen to suggest the presence of acute ischemia or recent inf arct. No hypointense signal abnormalities are seen on the GRE images to suggest the presence of blo od degradation products. There is no evidence of intracranial hemorrhage, mass effect, or midline s hift. No extra-axial fluid collections are seen. The ventricles and sulci are mildly enlarged indica tive of volume loss. Small old lacunar infarcts are noted in the left lentiform nucleus, sosa radiata and left thalamus . There are mild scattered foci of T2 FLAIR hyperintensity in the periventricular, deep, and subcortic al white matter, which are nonspecific in etiology but likely reflect chronic small vessel ischemic changes. No abnormal intracranial vascular flow void is noted. The visualized paranasal sinuses demonstrate m ild scattered mucosal thickening. There is thinning of bilateral lens indicative of prior lens repla cement. IMPRESSION: 1. No acute intracranial hemorrhage, infarction or mass. 2. Mild chronic small vessel ischemic changes. 3. Small old lacunar infarcts in the left lentiform nucleus, sosa radiata and left thalamus. 4. Mild generalized cerebral volume loss. RPTAT: HH .Meño Ramirez MD, MD Date Time Electronically viewed and signed by .Meño Ramirez MD, MD on 07/23/2016 08:26 .N/
[2016-07-23] MEDS: FERROUS SULFATE (EC) 325 MG TAB PO SCH (09:23)
[2016-07-23] MEDS: VITAMIN B COMPLEX/VIT C CAP PO SCH (09:23)
[2016-07-23] MEDS: ALLOPURINOL 100 MG TAB PO SCH (09:23)
[2016-07-23] MEDS: DULOXETINE 30 MG CAP DR PO SCH (09:23)
[2016-07-23] MEDS: CLOPIDOGREL 75 MG TAB PO SCH (09:23)
[2016-07-23] MEDS: CHOLECALCIFEROL 2,000 UNIT CAP PO SCH (09:23)
[2016-07-23] MEDS: BENAZEPRIL 10 MG TAB PO SCH (09:24)
[2016-07-23] MEDS: NIFEdipine (XL) 60 MG TAB PO SCH (09:24)
[2016-07-23] MEDS: INSULIN ASPART [NOVOLOG] 3 ML PEN SC SCH (09:32)
--- NOTE | 2016-07-23 09:41 | CONS ---
Date/Time of Note Date/Time of Note DATE: 07/23/16 TIME: 09:35 Assessment/Plan Assessment/Plan Problems: (1) Hypertension Status: Acute Comment: Adequate control. Consider increasing benazepril 10 mg to 20 mg. Stable for discharge Qualifiers: Hypertension type: essential hypertension Qualified Code: I10 - Essential hypertension (2) Diabetes mellitus type 2 in obese Status: Chronic Comment: Doing very well on single agent therapy stable for discharge with a once a week Trulicity. (3) End stage renal disease on dialysis Status: Acute Comment: As per nephrology Consultation Date/Type/Reason Admit Date/Time Jul 20, 2016 at 22:37 Initial Consult Date 07/22/16 Type of Consultation: Endocrinology Reason for Consultation Diabetes mellitus type 2; diabetic nephropathy with chronic kidney disease and acute renal injury Referring Provider: ARLEY ANGEL 24 HR Interval Summary Free Text/Dictation Charming female no distress. Constitutional: no complaints Detailed Summary Respiratory: no complaints Cardiovascular: no complaints Gastrointestinal: no complaints Neurologic: no complaints Exam/Review of Systems Vital Signs Vitals Vital Signs Date Time Temp Pulse Resp B/P Pulse Ox O2 Delivery O2 Flow Rate FiO2 07/23/16 07:38 98.0 94 20 136/71 96 07/21/16 05:33 Room Air Intake and Output 07/22/16 07/22/16 07/23/16 15:00 23:00 07:00 Intake Total 660 ml Balance 660 ml Exam Constitutional: alert, oriented Neck: non-tender, supple Respiratory: clear to auscultation, normal air movement Cardiovascular: nl pulses, regular rate and rhythm Neurological: [employer] II-XII intact, nl mental status, nl speech, nl strength Results Result Diagram: 07/22/16 0545 07/22/16 0545 Results 24 hrs Laboratory Tests Test 07/22/16 11:59 07/22/16 17:50 07/22/16 20:54 Bedside Glucose 153 116 168 Medications Medications Current Medications Diagnostic Test (Pha) (Accu-Chek) 1 ea 02 XX Last administered on 07/21/16 01: 47; Admin Dose 1 EA; Start 07/21/16 at 02:00 Acetaminophen (Tylenol Tab) 650 mg Q4 PRN PO PAIN AND OR ELEVATED TEMP Last administered on 07/23/16 01:24; Admin Dose 650 MG; Start 07/21/16 at 01:30 Ondansetron HCl (Zofran Inj) 4 mg Q6H PRN IV NAUSEA AND/OR VOMITING; Start 07/21 at 01:30 Hydralazine HCl (Apresoline) 10 mg Q6H PRN IV ELEVATED BLOOD PRESSURE Last administered on 07/21/16 01:49; Admin Dose 10 MG; Start 07/21/16 at 01:30 Hydralazine HCl (Apresoline) 100 mg Q8 PO Last administered on 07/23/16 05:56 ; Admin Dose 100 MG; Start 07/21/16 at 04:01 Sertraline HCl (Zoloft) 100 mg HS PO Last administered on 07/22/16 20:56; Admin Dose 100 MG; Start 07/21/16 at 21:00 Nifedipine (Procardia Xl) 60 mg BID PO Last administered on 07/22/16 20:58; Admin Dose 60 MG; Start 07/21/16 at 21:00 Clonidine (Catapres) 0.1 mg Q4H PRN PO sbp above 170; Start 07/21/16 at 04:30 Allopurinol (Zyloprim) 100 mg DAILY PO Last administered on 07/22/16 08:12; Admin Dose 100 MG; Start 07/22/16 at 09:00 Atorvastatin Calcium (Lipitor) 80 mg HS PO Last administered on 07/22/16 20:57 ; Admin Dose 80 MG; Start 07/21/16 at 21:00 Cholecalciferol (Vitamin D) 2,000 unit DAILY PO Last administered on 07/22/16 08:13; Admin Dose 2,000 UNIT; Start 07/22/16 at 09:00 Duloxetine HCl (Cymbalta) 30 mg DAILY PO Last administered on 07/22/16 08:13; Admin Dose 30 MG; Start 07/22/16 at 09:00 Gabapentin (Neurontin) 300 mg QPM PO Last administered on 07/22/16 20:57; Admin Dose 300 MG; Start 07/21/16 at 21:00 Pantoprazole (Protonix Tab) 40 mg DAILY@06 PO Last administered on 07/23/16 05 :48; Admin Dose 40 MG; Start 07/22/16 at 06:00 Vitamin B Complex/ Vitamin C (Berocca) 1 cap DAILY PO Last administered on 08:12; Admin Dose 1 CAP; Start 07/22/16 at 09:00 Ferrous Sulfate (Ferrous Sulfate (Ec)) 325 mg DAILY PO Last administered on 07/22 08:13; Admin Dose 325 MG; Start 07/22/16 at 09:00 Miscellaneous Information 1 ea NOTE XX ; Start 07/21/16 at 17:00 Glucose (Glutose) 15 gm Q15M PRN PO DECREASED GLUCOSE; Start 07/21/16 at 17:00 Glucose (Glutose) 22.5 gm Q15M PRN PO DECREASED GLUCOSE; Start 07/21/16 at 17:00 Dextrose (D50w Syringe) 25 ml Q15M PRN IV DECREASED GLUCOSE; Start 07/21/16 at 17:00 Dextrose (D50w Syringe) 50 ml Q15M PRN IV DECREASED GLUCOSE; Start 07/21/16 at 17:00 Glucagon (Glucagen) 1 mg Q15M PRN IM DECREASED GLUCOSE; Start 07/21/16 at 17:00 Glucose (Glutose) 15 gm Q15M PRN BUCCAL DECREASED GLUCOSE; Start 07/21/16 at 17: 00 Benazepril HCl (Lotensin) 10 mg DAILY PO Last administered on 07/22/16 08:13; Admin Dose 10 MG; Start 07/21/16 at 17:30 Clopidogrel Bisulfate (plaVIX) 75 mg DAILY PO Last administered on 07/22/16 08: 12; Admin Dose 75 MG; Start 07/22/16 at 09:00 SCOTT RENNER MD Jul 23, 2016 09:41
--- NOTE | 2016-07-23 11:27 | DS ---
Date/Time of Note Date/Time of Note DATE: 07/23/16 TIME: 11:25 Discharge Summary Admission/Discharge Info Admit Date/Time Jul 20, 2016 at 22:37 Discharge Date/Time 07/23/16 Final Diagnosis 1) hypoglycemia 2) diabetes mellitus Patient Condition: Fair Consults endocrinology nephrology Hx of Present Illness CC: slurred speech w/ weakness on left arm yesterday HPI A 65-year-old female history of diabetes, hypertension, dyslipidemia, congestive heart failure, coronary artery disease, end-stage renal disease on dialysis, anemia, possible tachybradycardia syndrome and TIA is admitted for evaluation of possible stroke as of slurred speech. On arrival patient is alert but with slurred speech. Denies any chest pain, shortness of breath or palpitations, fevers or chills, focal weakness or numbness, headache or visual changes, neck or back pain, abdominal pain, nausea, vomiting, diarrhea or constipation. Denies any trauma/contact with sick.Patient is admitted under dr Webb. at bed side- all Qs ANSWERED. ROS All systems reviewed and are negative except as per history of present illness. Medications Home Meds Active Scripts Nifedipine (Afeditab CR) 60 Mg Tablet.sa, 60 MG PO BID for 30 Days Prov:UMESH QUIJANO 07/06/16 Hydralazine Hcl* (Apresoline*) 50 Mg Tab, 100 MG PO Q8 for 30 Days, TAB Prov:UMESH QUIJANO 07/06/16 Clopidogrel Bisulfate (Clopidogrel) 75 Mg Tablet, 75 MG PO DAILY for 30 Days, TAB Prov:UMESH QUIJANO 07/06/16 Reported Medications Vitamin B Complex* (Vitamin B Complex*) 1 Each Tablet, 1 TAB PO DAILY, TAB 07/20/16 Dulaglutide (Trulicity) Unknown Strength Pen.injctr, 0.5 MG SQ Q7D 07/20/16 Alendronate Sodium* (Fosamax*) 70 Mg Tablet, 70 MG PO Q7D, #4 TAB 06/29/16 Allopurinol* (Allopurinol*) 100 Mg Tablet, 100 MG PO DAILY, TAB 06/29/16 Acetaminophen* (Acetaminophen*) 650 Mg Tablet, 650 MG PO DAILY Y for PAIN AND OR ELEVATED TEMP, #30 TAB 06/29/16 Ferrous Sulfate (Iron) 325 Mg Capsule.er, 650 MG PO TID, CAP 06/29/16 Cholecalciferol (Vitamin D3) (VITAMIN D-3) 2,000 Unit Capsule, 2000 UNIT PO DAILY, CAP 06/29/16 Duloxetine Hcl* (Cymbalta*) 30 Mg Capsule.dr, 30 MG PO DAILY, CAP 06/29/16 Repaglinide* (Repaglinide*) 1 Mg Tablet, 1 MG PO AC MEALS, TAB TAKE 1 OR 2MG 15 MIN. BEFORE MEAL 06/29/16 Furosemide* (Furosemide*) 80 Mg Tablet, 80 MG PO QAM, #30 TAB 06/29/16 Gabapentin* (Gabapentin*) 300 Mg Capsule, 300 MG PO QPM, #60 CAP 06/29/16 Sertraline Hcl* (Sertraline Hcl*) 100 Mg Tablet, 100 MG PO QPM, #30 TAB 06/29/16 Pantoprazole* (Protonix*) 40 Mg Tablet.dr, 40 MG PO QAM, TAB 08/12/14 Insulin Glargine* (Lantus*) 100 Unit/Ml Soln, 15 UNIT SC QAM, EA 08/12/14 Atorvastatin* (Atorvastatin*) 80 Mg Tablet, 80 MG PO HS, TAB 08/12/14 Discontinued Reported Medications [Vadadustat-Study] No Conflict Check, 300 MG PO DAILY 06/29/16 Glucosamine Sulfate 2KCL (GLUCOSAMINE) 1,000 Mg Tablet, 1000 MG PO DAILY, TAB 06/29/16 Clonazepam* (Clonazepam*) 0.5 Mg Tablet, 0.5 MG PO QPM, TAB 06/29/16 Liraglutide (Victoza 3-Rocco) 0.6 Mg/0.1 Ml Pen.injctr, 0.6 MG SQ QAM, SYR 06/29/16 Allergies Allergies: Coded Allergies: Penicillins (Verified Allergy, Unknown, ITCHING, 07/20/16) Sulfa (Sulfonamide Antibiotics) (Verified Allergy, Unknown, RASHES, 07/20/16 ) latex (Unverified Allergy, Unknown, 07/20/16) morphine (Verified Allergy, Unknown, ITCHING, 07/20/16) Uncoded Allergies: PLASTIC TAPE (Allergy, Unknown, 04/22/14) PMhx/Soc Reviewed in chart. As per HPI. History of Surgery: Yes (right knee; cataract both eyes,(x1), tonsillectomy,biopsy L breast) Hx Neurological Disorder: Yes (right side weakness, hx: CVA) Hx Respiratory Disorders: No Hx Cardiac Disorders: Yes (HTN) Hx Psychiatric Problems: Yes (seeing a therapist for my health issues) Hx Miscellaneous Medical Probl: Yes (h/o R sided deficits/R TIA, depression, CHF, HTN, DM, renal disease CKD) Hx Alcohol Use: No Hx Substance Use: No Hx Tobacco Use: No FmHx Reviewed in chart. No sudden cardiac . Hospital Course Patient is sitting in chair eating, denies any weakness, clear speech. Patient admitted for hypoglycemia and possible cerebrovascular accident. Head MRI was negative, her symptoms resolved and her blood sugar became better controlled. Patient was felt to be stable and so was discharged. Assessment/Plan -Recurrent neurological symptoms most likely secondary to hypoglycemia. -Rule out acute stroke, CT is negative, pending MRI of the head, Dr. Katt moseley is following in neurology consultation -Diabetes mellitus type 2, Dr. Nolasco is following in endocrinology consultation -Chronic kidney disease stage V, patient is on hemodialysis, Dr. Borja is following. -Hypertension, continue Procardia and Lotensin. Further recommendations based on clinical course. Plan of care discussed with Dr. Webb. Home Meds Active Scripts Nifedipine (Afeditab CR) 60 Mg Tablet.sa, 60 MG PO BID for 30 Days Prov:UMESH QUIJANO 07/06/16 Hydralazine Hcl* (Apresoline*) 50 Mg Tab, 100 MG PO Q8 for 30 Days, TAB Prov:UMESH QUIJANO 07/06/16 Clopidogrel Bisulfate (Clopidogrel) 75 Mg Tablet, 75 MG PO DAILY for 30 Days, TAB Prov:UMESH QUIJANO 07/06/16 Reported Medications Vitamin B Complex* (Vitamin B Complex*) 1 Each Tablet, 1 TAB PO DAILY, TAB 07/20/16 Dulaglutide (Trulicity) Unknown Strength Pen.injctr, 0.5 MG SQ Q7D 07/20/16 Alendronate Sodium* (Fosamax*) 70 Mg Tablet, 70 MG PO Q7D, #4 TAB 06/29/16 Allopurinol* (Allopurinol*) 100 Mg Tablet, 100 MG PO DAILY, TAB 06/29/16 Acetaminophen* (Acetaminophen*) 650 Mg Tablet, 650 MG PO DAILY Y for PAIN AND OR ELEVATED TEMP, #30 TAB 06/29/16 Ferrous Sulfate (Iron) 325 Mg Capsule.er, 650 MG PO TID, CAP 06/29/16 Cholecalciferol (Vitamin D3) (VITAMIN D-3) 2,000 Unit Capsule, 2000 UNIT PO DAILY, CAP 06/29/16 Duloxetine Hcl* (Cymbalta*) 30 Mg Capsule.dr, 30 MG PO DAILY, CAP 06/29/16 Repaglinide* (Repaglinide*) 1 Mg Tablet, 1 MG PO AC MEALS, TAB TAKE 1 OR 2MG 15 MIN. BEFORE MEAL 06/29/16 Furosemide* (Furosemide*) 80 Mg Tablet, 80 MG PO QAM, #30 TAB 06/29/16 Gabapentin* (Gabapentin*) 300 Mg Capsule, 300 MG PO QPM, #60 CAP 06/29/16 Sertraline Hcl* (Sertraline Hcl*) 100 Mg Tablet, 100 MG PO QPM, #30 TAB 06/29/16 Pantoprazole* (Protonix*) 40 Mg Tablet.dr, 40 MG PO QAM, TAB 08/12/14 Insulin Glargine* (Lantus*) 100 Unit/Ml Soln, 15 UNIT SC QAM, EA 08/12/14 Atorvastatin* (Atorvastatin*) 80 Mg Tablet, 80 MG PO HS, TAB 08/12/14 Discontinued Reported Medications [Vadadustat-Study] No Conflict Check, 300 MG PO DAILY 06/29/16 Glucosamine Sulfate 2KCL (GLUCOSAMINE) 1,000 Mg Tablet, 1000 MG PO DAILY, TAB 06/29/16 Clonazepam* (Clonazepam*) 0.5 Mg Tablet, 0.5 MG PO QPM, TAB 06/29/16 Liraglutide (Victoza 3-Rocco) 0.6 Mg/0.1 Ml Pen.injctr, 0.6 MG SQ QAM, SYR 06/29/16 Primary Care Provider Gloria Quintero Pending Labs Laboratory Tests Test 07/22/16 11:59 07/22/16 17:50 07/22/16 20:54 07/23/16 09:16 Bedside Glucose 153mg/dL (70-220) 116mg/dL (70-220) 168mg/dL (70-220) 153mg/dL (70-220) DUC CHAVARRIA Jul 23, 2016 11:27
--- NOTE | 2016-07-23 14:12 | RADRPT ---
PROCEDURE: MRA Brain. CLINICAL INDICATION: Slurred speech. TECHNIQUE: An MRA of the brain was performed without intravenous contrast utilizing the following sequences: 3-D [id number] images through the intracranial vasculature with post processed guzman l intensity projections in multiple planes. COMPARISON: Concurrent MRI of the brain. FINDINGS: Moderate right and mild left stenosis of the cavernous segments of internal carotid arteries are not ed. The petrous and supraclinoid internal carotid artery segments are patent without evidence of sig nificant stenosis. The proximal anterior cerebral and middle cerebral arteries are patent without si gnificant stenosis. The intradural vertebral arteries, basilar artery and posterior cerebral arteri es are patent without evidence of significant focal stenosis. No aneurysms are identified. IMPRESSION: 1. 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 2. Otherwise no significant stenosis of the remainder of major intracranial arteries. RPTAT: HH .Meño Ramirez MD, Date Time Electronically viewed and signed by .Meño Ramirez MD, MD on 07/23/2016 14:12 .N/
--- NOTE | 2016-07-23 14:20 | RADRPT ---
PROCEDURE: MRA Neck without contrast. CLINICAL INDICATION: Slurred speech. TECHNIQUE: An MRA of the major cervical arteries was performed utilizing axial 2D time of flight, 3-D [id number] through the carotid bifurcations, and dynamic contrast enhanced 3-D MR angiograph y technique. Source and MIP images were reviewed. COMPARISON: Carotid ultrasound 06/30/2016. FINDINGS: The origins of the great vessels off the aortic arch are patent without significant stenosis. The c ommon carotid and internal carotid arteries are patent without hemodynamically significant stenosis by NASCET criteria. Direct measurements of vessel diameters was made in reference to measurements of the distal internal carotid artery diameter. Bilateral vertebral arteries are patent without high- grade stenosis. IMPRESSION: 1. Patent major neck arteries. RPTAT: HH .Meño Ramirez MD, Date Time Electronically viewed and signed by .Meño Ramirez MD, MD on 07/23/2016 14:19 .N/
== END 2016-07-23 12:38 | disposition home or self-care (01) | DRG 291 ==
LOC: E/R 19:31 → MS2 22:37
PROVIDERS: ADMIT Internal Medicine; ATTEND Internal Medicine
PROC: 5A1D00Z (ICD-10-PCS; principal; 2016-07-21)
DX: I13.2 Hypertensive heart and chronic kidney disease with heart failure and with stage 5 chronic kidney disease, or end stage renal disease (principal); N18.6 End stage renal disease; N17.9 Acute kidney failure, unspecified; E11.22 Type 2 diabetes mellitus with diabetic chronic kidney disease; E11.649 Type 2 diabetes mellitus with hypoglycemia without coma; G45.9 Transient cerebral ischemic attack, unspecified; I50.9 Heart failure, unspecified; E78.5 Hyperlipidemia, unspecified; D64.9 Anemia, unspecified; R47.81 Slurred speech; Z99.2 Dependence on renal dialysis; Z79.4 Long term (current) use of insulin; Z79.02 Long term (current) use of antithrombotics/antiplatelets
CPT/HCPCS: 70450; 70544; 70549; 70551; 71010; 80048; 80053; 80061; 81001; 82962; 83036; 84484; 85025; 85610; 85730; 87081; 90935; 93005; 93970; 96374; 96376; J0360; J1815

== ENCOUNTER 2018-04-25 12:59 | Inpatient (IN) | payer MEDICARE, BC ==
[~2018-04-25] VITALS: Ht 160 cm; Wt 92.4 kg
[~2018-04-25 12:59] MED LIST changes: -ALEN70TA30 PO; +ALEN70TA5 PO; +ATOR-2 PO; -ATOR80TA75 PO; -CHOL20003 PO; +CHOL200073 PO; -CLON0.5T4 PO; +DULA0.75 SQ; -GLUC100015 PO; -LIRA0.6P2 SQ; +NIFE60TA18 PO; -NIFE60TA7 PO; +VIT1TABL46 PO; -[UNRECOGNIZED DRUG - OTHER] PO
--- NOTE | 2018-04-25 13:30 | ERD ---
ER Documentation Chief Complaint Chief Complaint bib self, cc: sob x 2 days, completed dialysis yesterday, recent dx sinus HPI The patient is a 67-year-old female, presenting to the ER because of acute dyspnea for the last 5 days. She had similar symptom where she had a cold. She is being treated with antibiotic for the last 9 days for acute sinusitis. She had hemodialysis yesterday and felt somewhat better but still dyspneic. She denies fever, chills, neck pain, chest pain, abdominal pain, vomiting, dizzy, diarrhea. She does not smoke, drink Medical history: Chronic kidney disease on hemodialysis Monday, , Mon, anemia, diabetes mellitus, depression, dyslipidemia, history of CHF, CAD, anxiety past surgical history: Left upper extremity AV fistula, one , right knee arthroplasty, lumpectomy ROS All systems reviewed and are negative except as per history of present illness. Medications Home Meds Reported Medications Sertraline Hcl* (Sertraline Hcl*) 100 Mg Tablet, 100 MG PO BID, #30 TAB 04/25/18 Allopurinol* (Allopurinol*) 100 Mg Tablet, 100 MG PO DAILY, TAB 04/25/18 Duloxetine Hcl* (Duloxetine Hcl*) 30 Mg Capsule.dr, 30 MG PO BID, #30 CAP 04/25/18 Dulaglutide (Trulicity) 0.75 Mg/0.5 Ml Pen.injctr, 0.75 MG SQ Q THURS 04/25/18 Sevelamer Carbonate* (Renvela*) 800 Mg Tablet, 1600 GM PO WITH MEALS, TAB 04/25/18 Atorvastatin* (Atorvastatin*) 80 Mg Tablet, 80 MG PO QHS, #30 TAB 04/25/18 Gabapentin* (Gabapentin*) 300 Mg Capsule, 300 MG PO TID, #90 CAP 04/25/18 Turmeric Root Extract (Turmeric) Unknown Strength Capsule, 1 CAP PO DAILY, CAP 04/25/18 Vitamin B Complex* (Vitamin B Complex*) 1 Each Tablet, 1 TAB PO DAILY, TAB 04/25/18 Ferrous Sulfate* (Ferrous Sulfate*) 325 Mg Tabec, 650 MG PO TID, TAB 04/25/18 Cholecalciferol (Vitamin D3) (Vitamin D-3) 2,000 Unit Tablet, 4000 UNIT PO BID, TAB 04/25/18 Acetaminophen* (Acetaminophen*) 500 MG Extra Strength Tablet, 500 MG PO NEEDED PRN for PAIN AND OR ELEVATED TEMP, TAB 04/25/18 Aspirin* (Aspirin* EC) 81 Mg Tablet.dr, 81 MG PO DAILY, TAB 04/25/18 Discontinued Reported Medications Vitamin B Complex* (Vitamin B Complex*) 1 Each Tablet, 1 TAB PO DAILY, TAB 07/20/16 Dulaglutide (Trulicity) Unknown Strength Pen.injctr, 0.5 MG SQ Q7D 07/20/16 Alendronate Sodium* (Fosamax*) 70 Mg Tablet, 70 MG PO Q7D, #4 TAB 06/29/16 Allopurinol* (Allopurinol*) 100 Mg Tablet, 100 MG PO DAILY, TAB 06/29/16 Acetaminophen* (Acetaminophen*) 650 Mg Tablet, 650 MG PO DAILY PRN for PAIN AND OR ELEVATED TEMP, #30 TAB 06/29/16 Ferrous Sulfate (Iron) 325 Mg Capsule.er, 650 MG PO TID, CAP 06/29/16 Cholecalciferol (Vitamin D3) (VITAMIN D-3) 2,000 Unit Capsule, 2000 UNIT PO DAILY, CAP 06/29/16 Duloxetine Hcl* (Cymbalta*) 30 Mg Capsule.dr, 30 MG PO DAILY, CAP 06/29/16 Repaglinide* (Repaglinide*) 1 Mg Tablet, 1 MG PO AC MEALS, TAB TAKE 1 OR 2MG 15 MIN. BEFORE MEAL 06/29/16 Furosemide* (Furosemide*) 80 Mg Tablet, 80 MG PO QAM, #30 TAB 06/29/16 Gabapentin* (Gabapentin*) 300 Mg Capsule, 300 MG PO QPM, #60 CAP 06/29/16 Sertraline Hcl* (Sertraline Hcl*) 100 Mg Tablet, 100 MG PO QPM, #30 TAB 06/29/16 Pantoprazole* (Protonix*) 40 Mg Tablet.dr, 40 MG PO QAM, TAB 08/12/14 Insulin Glargine* (Lantus*) 100 Unit/Ml Soln, 15 UNIT SC QAM, EA 08/12/14 Atorvastatin* (Atorvastatin*) 80 Mg Tablet, 80 MG PO HS, TAB 08/12/14 Discontinued Scripts Nifedipine (Afeditab CR) 60 Mg Tablet.sa, 60 MG PO BID for 30 Days Prov:UMESH QUIJANO 07/06/16 Hydralazine Hcl* (Apresoline*) 50 Mg Tab, 100 MG PO Q8 for 30 Days, TAB Prov:UMESH QUIJANO 07/06/16 Clopidogrel Bisulfate (Clopidogrel) 75 Mg Tablet, 75 MG PO DAILY for 30 Days, TAB Prov:UMESH QUIJANO 07/06/16 Allergies Allergies: Coded Allergies: Penicillins (Verified Allergy, Unknown, ITCHING, 04/25/18) Sulfa (Sulfonamide Antibiotics) (Verified Allergy, Unknown, RASHES, 04/25/18) latex (Unverified Allergy, Unknown, 04/25/18) morphine (Verified Allergy, Unknown, ITCHING, 04/25/18) Uncoded Allergies: PLASTIC TAPE (Allergy, Unknown, 04/22/14) PMhx/Soc History of Surgery: Yes (right knee, cataract, tonsillectomy, ) Anesthesia Reaction: No Hx Neurological Disorder: No Hx Respiratory Disorders: No Hx Cardiac Disorders: No Hx Psychiatric Problems: No Hx Alcohol Use: No Hx Substance Use: No Hx Tobacco Use: No Physical Exam Vitals Vital Signs Date Temp Pulse Resp B/P (MAP) Pulse Ox O2 O2 Flow FiO2 Time Delivery Rate 04/25/18 98.3 89 18 188/82 98 Nasal 4.0 15:50 (117) Cannula 04/25/18 Nasal 4 14:34 Cannula 04/25/18 98.1 100 19 167/74 100 Room Air 13:32 (105) 04/25/18 Nasal 13:30 Cannula 04/25/18 98.1 100 19 167/74 83 13:02 (105) Physical Exam Const: No acute distress. Head: Atraumatic. Eyes: Normal Conjunctiva. ENT: Normal External Ears, Nose and Mouth. Neck: Full range of motion. No meningismus. Resp: Tachypneic, scattered rhonchi, bibasilar crackle Cardio: Regular rate and rhythm. Abd: Soft, non distended, normal bowel sounds, non tender. Skin: No petechiae or rashes. Back: No midline or flank tenderness. Ext: No cyanosis, or edema. Neur: Awake and alert. No focal deficit Psych: Normal Mood and Affect. Result Diagram: 04/25/18 1421 04/25/18 1421 Results 24 hrs Laboratory Tests Test 04/25/18 14:03 04/25/18 14:20 04/25/18 14:21 04/25/18 14:24 Blood Gas Blood arterial Specimen Source Arterial Blood 04/25/2018 2:24: Date Drawn 36 PM Arterial Blood 7.504 pH (Temp corrected) Arterial Blood 39.7 mmhg pCO2 (Temp correct) Arterial Blood 84.8 mmHG pO2 (Temp corrected) Arterial Blood 30.5 mmol/L HCO3 Arterial Blood 6.9 mmol/L Base Excess Arterial Blood 95.9 mmHG Oxygen Saturatio n Shaun Test ACCEPTAB Arterial Blood Right Radial Gas Puncture Site Arterial 0.8 % Blood Carboxyhem oglobin Arterial Blood 0.3 % Methemoglobin Blood Gas A-a O2 82.5 mmHg Differential Oxyhemoglobin 94.8 % Percent Blood Gas 37.0 C Temperature Blood Gas Actual 20 Respiration Rate Blood Gas NASAL CANNULA Modality FiO2 30.0 % Blood Gas MERRILL RT Notified Whom Blood Gas 04/25/2018 2:41: Notified Time 23 PM POC Venous 1.0 mmol/L Lactate White Blood 7.9 10^3/ul Count Red Blood Count 2.48 10^6/ul Hemoglobin 8.4 g/dl Hematocrit 26.5 % Mean Corpuscular 106.9 fl Volume Mean Corpuscular 33.9 pg Hemoglobin Mean Corpuscular 31.7 g/dl Hemoglobin Taya nt Red Cell 13.7 % Distribution Width Platelet Count 303 10^3/UL Mean Platelet 9.3 fl Volume Immature 0.600 % Granulocytes % Neutrophils % 65.5 % Lymphocytes % 24.0 % Monocytes % 7.3 % Eosinophils % 2.0 % Basophils % 0.6 % Nucleated Red 0.0 /100WBC Blood Cells % Immature 0.050 10^3/ul Granulocytes # Neutrophils # 5.2 10^3/ul Lymphocytes # 1.9 10^3/ul Monocytes # 0.6 10^3/ul Eosinophils # 0.2 10^3/ul Basophils # 0.1 10^3/ul Nucleated Red 0.0 10^3/ul Blood Cells # Prothrombin Time 14.3 Sec Prothrombin Time 1.1 Ratio INR 1.10 International Normalized Ratio Activated 34.1 Sec Partial Thrombop last Time Urine Color YELLOW Urine Clarity SLIGHTLY CLOUDY Urine pH 8.0 Urine Specific 1.014 [place] Urine Ketones NEGATIVE mg/dL Urine Nitrite NEGATIVE mg/dL Urine Bilirubin NEGATIVE mg/dL Urine NEGATIVE mg/dL Urobilinogen Urine Leukocyte NEGATIVE Di/ul Esterase Urine 1 /HPF Microscopic RBC Urine 2 /HPF Microscopic WBC Urine Squamous MODERATE /HPF Epithelial Cells Urine Bacteria FEW /HPF Urine Mucus FEW /HPF Urine Hemoglobin NEGATIVE mg/dL Urine Glucose 1+ mg/dL Urine Total 3+ mg/dl Protein Sodium Level 137 mmol/L Potassium Level 4.5 mmol/L Chloride Level 94 mmol/L Carbon Dioxide 32 mmol/L Level Anion Gap 11 Blood Urea 25 mg/dl Nitrogen Creatinine 4.50 mg/dl Est Glomerular 10 mL/min Filtrat Rate mL/min Glucose Level 87 mg/dl Calcium Level 9.1 mg/dl Total Bilirubin 0.0 mg/dl Direct Bilirubin 0.00 mg/dl Indirect 0.0 mg/dl Bilirubin Aspartate Amino 25 IU/L Transf (AST/SGOT ) Alanine 25 IU/L Aminotransferase (ALT/SGPT) Alkaline 89 IU/L Phosphatase Troponin I 0.061 ng/ml Total Protein 6.7 g/dl Albumin 3.9 g/dl Globulin 2.80 g/dl Albumin/Globulin 1.39 Ratio Bedside Glucose 81 mg/dL Procedures/[place] [id number] Radiology Main Line: [phone] DIAGNOSTIC IMAGING REPORT Patient: ADRYAN KRAUSE : 1950 Age: 67 Sex: F MR #: [id number] DOS: 04/25/18 1403 Ordering MD: JOELLE DUNN MD Location: E/R Room/Bed: PROCEDURE: XR Chest. CLINICAL INDICATION: shortness of breath TECHNIQUE: Single portable view of the chest was obtained COMPARISON: None FINDINGS: There is mild cardiomegaly. There is mild pulmonary vascular congestion. There are bilateral perihilar and lower lobe increased interstitial changes. There is no significant pleural effusion. There are healed left-sided rib fractures.. There is no pneumothorax. RPTAT: AA IMPRESSION: Mild cardiomegaly with pulmonary vascular congestion. .Daniel Pena MD, MD Date Time Electronically viewed and signed by .Daniel Pena MD, on 04/25/2018 14:31 .S/ CC: JOELLE DUNN MD [phone] EKG: Read by emergency physician Rate/Rhythm: Normal Sinus Rhythm 89 beats/min QRS, ST, T-waves: No ST elevation, no T inversion, first-degree AV block Impression: Abnormal EKG MEDICAL MAKING DECISION: The patient is a 77-year-old female, presenting with acute fluid overload. O2 saturation was only 83% on room air, however she responded to supplemental oxygen on 3 L, O2 saturation 95% The differential diagnoses considered include but are not limited to asthma, COPD, pneumonia, pulmonary embolus, pleural effusion, congestive heart failure. Departure Diagnosis: Primary Impression: Fluid overload Additional Impression: Anemia Condition: Stable Comments I discussed the findings with the patient. I discussed the patient with her physician Dr Montalvo at 4:15 pm who was made aware of the lab, the treatment, the patient condition. The patient is admitted to Tel Disclaimer: Inadvertent spelling and grammatical errors are likely due to EHR/dictation software use and do not reflect on the overall quality of patient care. Also, please note that the electronic time recorded on this note does not necessarily reflect the actual time of the patient encounter. JOELLE DUNN MD Apr 25, 2018 13:30
[2018-04-25] MEDS ORDERED: ASPI-817 PO (15:05)
[2018-04-25] MEDS ORDERED: ACET-141 PO (15:15)
[2018-04-25] MEDS ORDERED: CHOL200056 PO (15:15)
[2018-04-25] MEDS ORDERED: FER325 PO (15:16)
[2018-04-25] MEDS ORDERED: VIT1TABL46 PO (15:16)
[2018-04-25] MEDS ORDERED: TURM500C9 PO (15:17)
[2018-04-25] MEDS ORDERED: ATOR-2 PO (15:18)
[2018-04-25] MEDS ORDERED: GABA300C16 PO (15:18)
[2018-04-25] MEDS ORDERED: SEVE800T7 PO (15:19)
[2018-04-25] MEDS ORDERED: DULA0.75 SQ (15:20)
[2018-04-25] MEDS ORDERED: DULO30CA47 PO (15:20)
[2018-04-25] MEDS ORDERED: ALLO100T PO (15:21)
[2018-04-25] MEDS ORDERED: SERT-165 PO (15:21)
[2018-04-25] MEDS ORDERED: LABETALOL HCL 20MG INJ IV ONE (18:30)
[2018-04-25 18:33] VITALS: PULSE 78
[2018-04-25 20:00] VITALS: PULSE 79
--- NOTE | 2018-04-25 20:21 | CONS ---
Assessment/Plan Assessment/Plan Assessment/Plan (Daily) 1. acute fluid overload 2. Accelerate HTN 3. ESRD on HD 4. H/o CAD 5. H/O CHF< chronic diastolic 6. H/o HTN 7. H/o DM II Plan: seen in tele floor Plan for HD first in AM with goal UF 3 to 3.5 L , K has been normal, Medication reconciliation done, IV hydralazine prn Thanks for consultation, I will continue to follow up Consultation Date/Type/Reason Admit Date/Time Apr 25, 2018 at 16:28 Date of Consultation: Apr 25, 2018 Type of Consult NEPHROLOGY Reason for Consultation acute fluid overload, ESRD on HD Requesting Provider: ADARSH OSEI MD Date/Time of Note DATE: 04/25/18 TIME: 20:21 Hx of Present Illness 67-year-old female with PMHx of HTN, LE neuropathy, depression,anxiety , presenting to the ER because of acute dyspnea for the last 5 days. She had similar symptom where she had a cold. She is being treated with antibiotic for the last 9 days for acute sinusitis. pt had a a hemodialysis done yesterday - but she stilll continues to feel SOB she gets admitted for acute fluid overload and renal has been consulted for it and need of HD. K 4.5, BUN/Cr 25/4.5 on admission Constitutional: no complaints Eyes: no complaints ENT: no complaints Respiratory: pleuritic pain, shortness of breath Cardiovascular: no complaints Gastrointestinal: no complaints Genitourinary: no complaints Musculoskeletal: no complaints Skin: no complaints Neurologic: no complaints Endocrine: no complaints Lymphatic: no complaints Psychological: no complaints, anxiety Immunologic: no complaints Past Medical History Medical History: congestive heart failure, coronary artery disease, diabetes, high cholesterol, hypertension, renal disease, other ( Chronic kidney disease on hemodialysis Monday, , Monday, anemia, diabetes mellitus, depression, dyslipidemia, history of CHF, CAD, anxiety ) Home Meds Reported Medications Sertraline Hcl* (Sertraline Hcl*) 100 Mg Tablet, 100 MG PO BID, #30 TAB 04/25/18 Allopurinol* (Allopurinol*) 100 Mg Tablet, 100 MG PO DAILY, TAB 04/25/18 Duloxetine Hcl* (Duloxetine Hcl*) 30 Mg Capsule.dr, 30 MG PO BID, #30 CAP 04/25/18 Dulaglutide (Trulicity) 0.75 Mg/0.5 Ml Pen.injctr, 0.75 MG SQ Q THURS 04/25/18 Sevelamer Carbonate* (Renvela*) 800 Mg Tablet, 1600 GM PO WITH MEALS, TAB 04/25/18 Atorvastatin* (Atorvastatin*) 80 Mg Tablet, 80 MG PO QHS, #30 TAB 04/25/18 Gabapentin* (Gabapentin*) 300 Mg Capsule, 300 MG PO TID, #90 CAP 04/25/18 Turmeric Root Extract (Turmeric) Unknown Strength Capsule, 1 CAP PO DAILY, CAP 04/25/18 Vitamin B Complex* (Vitamin B Complex*) 1 Each Tablet, 1 TAB PO DAILY, TAB 04/25/18 Ferrous Sulfate* (Ferrous Sulfate*) 325 Mg Tabec, 650 MG PO TID, TAB 04/25/18 Cholecalciferol (Vitamin D3) (Vitamin D-3) 2,000 Unit Tablet, 4000 UNIT PO BID, TAB 04/25/18 Acetaminophen* (Acetaminophen*) 500 MG Extra Strength Tablet, 500 MG PO NEEDED PRN for PAIN AND OR ELEVATED TEMP, TAB 04/25/18 Aspirin* (Aspirin* EC) 81 Mg Tablet.dr, 81 MG PO DAILY, TAB 04/25/18 Discontinued Reported Medications Vitamin B Complex* (Vitamin B Complex*) 1 Each Tablet, 1 TAB PO DAILY, TAB 07/20/16 Dulaglutide (Trulicity) Unknown Strength Pen.injctr, 0.5 MG SQ Q7D 07/20/16 Alendronate Sodium* (Fosamax*) 70 Mg Tablet, 70 MG PO Q7D, #4 TAB 06/29/16 Allopurinol* (Allopurinol*) 100 Mg Tablet, 100 MG PO DAILY, TAB 06/29/16 Acetaminophen* (Acetaminophen*) 650 Mg Tablet, 650 MG PO DAILY PRN for PAIN AND OR ELEVATED TEMP, #30 TAB 06/29/16 Ferrous Sulfate (Iron) 325 Mg Capsule.er, 650 MG PO TID, CAP 06/29/16 Cholecalciferol (Vitamin D3) (VITAMIN D-3) 2,000 Unit Capsule, 2000 UNIT PO DAILY, CAP 06/29/16 Duloxetine Hcl* (Cymbalta*) 30 Mg Capsule.dr, 30 MG PO DAILY, CAP 06/29/16 Repaglinide* (Repaglinide*) 1 Mg Tablet, 1 MG PO AC MEALS, TAB TAKE 1 OR 2MG 15 MIN. BEFORE MEAL 06/29/16 Furosemide* (Furosemide*) 80 Mg Tablet, 80 MG PO QAM, #30 TAB 06/29/16 Gabapentin* (Gabapentin*) 300 Mg Capsule, 300 MG PO QPM, #60 CAP 06/29/16 Sertraline Hcl* (Sertraline Hcl*) 100 Mg Tablet, 100 MG PO QPM, #30 TAB 06/29/16 Pantoprazole* (Protonix*) 40 Mg Tablet.dr, 40 MG PO QAM, TAB 08/12/14 Insulin Glargine* (Lantus*) 100 Unit/Ml Soln, 15 UNIT SC QAM, EA 08/12/14 Atorvastatin* (Atorvastatin*) 80 Mg Tablet, 80 MG PO HS, TAB 08/12/14 Discontinued Scripts Nifedipine (Afeditab CR) 60 Mg Tablet.sa, 60 MG PO BID for 30 Days Prov:UMESH QUIJANO 07/06/16 Hydralazine Hcl* (Apresoline*) 50 Mg Tab, 100 MG PO Q8 for 30 Days, TAB Prov:UMESH QUIJANO 07/06/16 Clopidogrel Bisulfate (Clopidogrel) 75 Mg Tablet, 75 MG PO DAILY for 30 Days, TAB Prov:UMESH QUJIANO 07/06/16 Allergies: Coded Allergies: Penicillins (Verified Allergy, Unknown, ITCHING, 04/25/18) Sulfa (Sulfonamide Antibiotics) (Verified Allergy, Unknown, RASHES, 04/25/18) latex (Unverified Allergy, Unknown, 04/25/18) morphine (Verified Allergy, Unknown, ITCHING, 04/25/18) Uncoded Allergies: PLASTIC TAPE (Allergy, Unknown, 04/22/14) Past Surgical History Past Surgical Hx: other (Left upper extremity AV fistula, one , right knee arthroplasty, lumpectomy) Family History Significant Family History: no pertinent family hx Social History Alcohol Use: none Smoking Status: Never smoker Exam/Review of Systems Exam Vitals Vital Signs Date Temp Pulse Resp B/P (MAP) Pulse Ox O2 O2 Flow FiO2 Time Delivery Rate 04/25/18 79 20:00 04/25/18 98.3 18 130/84 98 Room Air 3.0 18:10 (99) Nasal Cannula Constitutional: alert Psych: no complaints Head: normocephalic ENMT: nl external ears & nose Neck: supple, non-tender Respiratory: congested cough, crackles/rales, diminished breath sounds Cardiovascular: regular rate and rhythm, nl pulses Gastrointestinal: soft, non-tender Musculoskeletal: swelling, other (left upper extremity AVF ) Extremities: normal pulses Neurological: WATCH CRYSTAL CUTTER II-XII intact, nl mental status, nl speech, nl strength Skin: nl turgor Results Result Diagram: 04/25/18 1421 04/25/18 1421 Results 24hrs Laboratory Tests Test 04/25/18 14:03 04/25/18 14:20 04/25/18 14:21 04/25/18 14:24 Blood Gas Blood arterial Specimen Source Arterial Blood 04/25/2018 2:24: Date Drawn 36 PM Arterial Blood 7.504 H pH (Temp corrected) Arterial Blood 39.7 pCO2 (Temp correct) Arterial Blood 84.8 pO2 (Temp corrected) Arterial Blood 30.5 H HCO3 Arterial Blood 6.9 H Base Excess Arterial Blood 95.9 Oxygen Saturatio n Shaun Test ACCEPTAB Arterial Blood Right Radial Gas Puncture Site Arterial 0.8 Blood Carboxyhem oglobin Arterial Blood 0.3 Methemoglobin Blood Gas A-a O2 82.5 H Differential Oxyhemoglobin 94.8 Percent Blood Gas 37.0 Temperature Blood Gas Actual 20 Respiration Rate Blood Gas NASAL CANNULA Modality FiO2 30.0 Blood Gas MERRILL RT Notified Whom Blood Gas 04/25/2018 2:41: Notified Time 23 PM POC Venous 1.0 Lactate White Blood 7.9 Count Red Blood Count 2.48 #L Hemoglobin 8.4 #L Hematocrit 26.5 #L Mean Corpuscular 106.9 H Volume Mean Corpuscular 33.9 H Hemoglobin Mean Corpuscular 31.7 L Hemoglobin Taya nt Red Cell 13.7 Distribution Width Platelet Count 303 Mean Platelet 9.3 Volume Immature 0.600 H Granulocytes % Neutrophils % 65.5 Lymphocytes % 24.0 Monocytes % 7.3 Eosinophils % 2.0 Basophils % 0.6 Nucleated Red 0.0 Blood Cells % Immature 0.050 H Granulocytes # Neutrophils # 5.2 Lymphocytes # 1.9 Monocytes # 0.6 Eosinophils # 0.2 Basophils # 0.1 Nucleated Red 0.0 Blood Cells # Prothrombin Time 14.3 Prothrombin Time 1.1 Ratio INR 1.10 International Normalized Ratio Activated 34.1 Partial Thrombop last Time Urine Color YELLOW Urine Clarity SLIGHTLY CLOUDY A Urine pH 8.0 Urine Specific 1.014 [place] Urine Ketones NEGATIVE Urine Nitrite NEGATIVE Urine Bilirubin NEGATIVE Urine NEGATIVE Urobilinogen Urine Leukocyte NEGATIVE Esterase Urine 1 Microscopic RBC Urine 2 Microscopic WBC Urine Squamous MODERATE Epithelial Cells Urine Bacteria FEW A Urine Mucus FEW A Urine Hemoglobin NEGATIVE Urine Glucose 1+ H Urine Total 3+ H Protein Sodium Level 137 Potassium Level 4.5 Chloride Level 94 L Carbon Dioxide 32 H Level Anion Gap 11 Blood Urea 25 H Nitrogen Creatinine 4.50 H Est Glomerular 10 L Filtrat Rate mL/min Glucose Level 87 Calcium Level 9.1 Total Bilirubin 0.0 L Direct Bilirubin 0.00 Indirect 0.0 Bilirubin Aspartate Amino 25 Transf (AST/SGOT ) Alanine 25 Aminotransferase (ALT/SGPT) Alkaline 89 Phosphatase Troponin I 0.061 Total Protein 6.7 Albumin 3.9 Globulin 2.80 Albumin/Globulin 1.39 Ratio Bedside Glucose 81 Test 04/25/18 18:47 Lactic Acid 1.3 Level VASU ODELL MD Apr 25, 2018 20:21
[2018-04-25 20:29] VITALS: Ht 160 cm; Wt 92.4 kg
[2018-04-25] MEDS ORDERED: ALBUMIN HUMAN 25% 100 ML IV PRN (20:30)
[2018-04-25] MEDS ORDERED: HEPARIN 1000 UNITS/ML 10 ML INJ CATHETER SCH (20:30)
[2018-04-25] MEDS ORDERED: FERROUS SULFATE (EC) 325 MG TAB PO SCH (21:00)
[2018-04-25] MEDS ORDERED: GABAPENTIN 300 MG CAP PO SCH (21:00)
[2018-04-25] MEDS ORDERED: ATORVASTATIN 80 MG TAB PO SCH (21:00)
[2018-04-25] MEDS ORDERED: SERTRALINE 100 MG TAB PO SCH (21:00)
[2018-04-25] MEDS: HEPARIN 5,000 UNIT/1 ML VIAL SC SCH (21:00)
[2018-04-25] MEDS: SERTRALINE 100 MG TAB PO SCH (22:08)
[2018-04-25] MEDS: GABAPENTIN 300 MG CAP PO SCH (22:08)
[2018-04-25] MEDS: DULOXETINE 30 MG CAP DR PO SCH (22:08)
[2018-04-25] MEDS: FERROUS SULFATE (EC) 325 MG TAB PO SCH (22:08)
[2018-04-25] MEDS: hydrALAzine 20 MG INJ IV PRN (23:51)
[2018-04-26] VITALS (27 sets, daily range): BP systolic 130–184; BP diastolic 50–83; PULSE 79–99; RESP 16–20
--- NOTE | 2018-04-26 03:46 | HP ---
DATE OF ADMISSION: 04/25/2018 CHIEF COMPLAINT: Shortness of breath and cough. HISTORY OF PRESENT ILLNESS: The patient is a 67-year-old female well known to me from previous admis sifiliberto. The patient has a history of hypertension, end-stage renal disease on hemodialysis, history o f diabetes, depression and history of old cerebrovascular accident. The patient came to ER with incr easing shortness of breath since yesterday, the patient did have her regular dialysis yesterday, but after that she has been having increasing shortness of breath, also had cough. The patient rep orted that she also had some nasal congestion, although did not have any sore throat. No reported he moptysis, no reported productive cough. No reported abdominal pain. No reported nausea or vomiting, no reported headache, dizziness, syncope. The patient does not have any leg edema. The patient did not have any fever or chills, no reported focal weakness. No history of headache, dizziness or sync ope. The patient was complaining of shortness of breath even at rest. The patient was seen in ER an d was noted to have blood pressure of 167/74. The patient was afebrile. Chest x-ray revealed mild c ardiomegaly with pulmonary vascular congestion. The patient is being admitted for further risk manag ement. PAST MEDICAL HISTORY: As stated above. In addition, the patient also has history of osteoarthritis, depression, and gout. PAST SURGICAL HISTORY: The patient is status post , history of right total knee arthroplast y by Dr. Lemos, tonsillectomy and adenectomy, left breast lumpectomy, uterine fibroidectomy, nasal p olypectomy and also has a history of PermCath placement and now has left upper extremity AV fistula. FAMILY HISTORY: Breast cancer in sister, prostate cancer in father, mother was diabetic. SOCIAL HISTORY: Ex-smoker. No significant alcohol abuse. The patient is a retired [employer]. PHYSICAL EXAMINATION: GENERAL: Awake, alert, fairly oriented. VITAL SIGNS: Upon arrival, temperature 98.1, pulse 100, respiration 19, blood pressure 167/74, O2 sa turation 100% room air. HEENT: Atraumatic, normocephalic. Conjunctivae are normal. Oropharynx clear. NECK: Supple. No mass or thyromegaly. CHEST: Diminished air entry at bases and few bibasilar rales. CARDIOVASCULAR: S1, S2 normal. No murmur. The patient is in sinus rhythm. ABDOMEN: Soft, nontender. Bowel sounds plus. EXTREMITIES: No leg edema, clubbing, cyanosis. NEUROLOGIC: The patient is awake, alert, fairly oriented with no gross focal deficit. LABORATORY DATA: WBC 7.9, hemoglobin 8.4, platelet 303. Sodium 137, potassium 4.5, BUN 25, creatini ne 4.5, glucose 87. Lactic acid 1.3, calcium 9.1, AST 25, ALT 25, alkaline phosphatase 89. Troponin negative. Albumin 3.9. Hemoglobin A1c pending. IMPRESSION: 1. Acute fluid overload. The patient will need hemodialysis for fluid management. I spoke with Dr. Krishan Robertson and he will arrange for hemodialysis. The patient's customer quality engineer outside the hospital is Paul Vanegas; however, Dr. Krishan Robertson is covering for him. 2. Uncontrolled hypertension. The patient did receive IV labetalol and blood pressure has improved. We will for now just use IV hydralazine on p.r.n. basis. 3. History of lacunar infarct. We will add aspirin. 4. Dyslipidemia. Continue Lipitor. 5. Depression. Continue Cymbalta. 6. Diabetes. Patient will be put on sliding scale insulin and prior to admission, she was on Trulic ity. Apparently, we will discuss with pharmacy whether this insulin is available or not. Patient's blood sugar is only 87. For now, we will just put her on sliding scale insulin. I will obtain hemog lobin A1c. If patient has elevated blood sugar, then we will add Lantus. 7. Congestive heart failure. Patient's last echocardiogram done in 2017 had revealed EF of more jose n 65%. We will obtain another echocardiogram and troponin I to make sure there is no evidence of reina cardial infarction leading to acute fluid overload/congestive heart failure. Patient also takes Zolo ft for depression in addition to Cymbalta, we will continue that. We will use subcutaneous heparin f or DVT prophylaxis. I have requested a consult from Dr. Krishan Robertson. 8. Patient also has anemia of chronic kidney disease and will be started on Procrit. 9. The patient has not had any flareup of gout. Will continue allopurinol. The plan of care discussed with patient and her [id number]. Dictated By: ADARSH PEREZ/ALFREDO Conf#: [id number] DID#: [id number]
[2018-04-26] MEDS: hydrALAzine 20 MG INJ IV PRN ×2 (05:35→12:10)
[2018-04-26] MEDS: SEVELAMER CARBONATE 0.8 GM PKT PO SCH ×4 (07:55→17:55)
--- NOTE | 2018-04-26 08:57 | CONS ---
Assessment/Plan Assessment/Plan Assessment/Plan (Daily) 1. acute fluid overload 2. Accelerate HTN 3. ESRD on HD 4. H/o CAD 5. H/O CHF< chronic diastolic 6. H/o HTN 7. H/o DM II Plan: s/p HD today 3.5 L removed, BP stable, will keep her on Mon, , monday, next HD will be on Monday will follow up Consultation Date/Type/Reason Admit Date/Time Apr 25, 2018 at 16:28 Initial Consult Date 04/25/18 Type of Consult NEPHROLOGY Requesting Provider: ADARSH OSEI MD Date/Time of Note DATE: 04/26/18 TIME: 08:57 24 HR Interval Summary Free Text/Dictation s/p HD today 3.5 L removed, BP stable, afebrile, Exam/Review of Systems Exam Vitals Vital Signs Date Temp Pulse Resp B/P (MAP) Pulse Ox O2 O2 Flow FiO2 Time Delivery Rate 04/26/18 94 08:10 04/26/18 98.9 18 164/72 92 Room Air 08:06 (102) 04/26/18 2.0 07:30 Intake and Output 04/25/18 04/25/18 04/26/18 1515:00 23:00 07:00 IntakeIntake Total 250 ml BalanceBalance 250 ml Exam Constitutional: alert Psych: no complaints Head: normocephalic ENMT: nl external ears & nose Neck: supple, non-tender Respiratory: congested cough, crackles/rales, diminished breath sounds Cardiovascular: regular rate and rhythm, nl pulses Gastrointestinal: soft, non-tender Musculoskeletal: swelling, other (left upper extremity AVF ) Extremities: normal pulses Neurological: BUSINESS SYSTEMS ARCHITECT II-XII intact, nl mental status, nl speech, nl strength Skin: nl turgor Results Result Diagram: 04/26/18 0552 04/26/18 0552 Results 24hrs Laboratory Tests Test 04/25/18 14:03 04/25/18 14:20 04/25/18 14:21 04/25/18 14:24 Blood Gas Blood arterial Specimen Source Arterial Blood 04/25/2018 2:24: Date Drawn 36 PM Arterial Blood 7.504 H pH (Temp corrected) Arterial Blood 39.7 pCO2 (Temp correct) Arterial Blood 84.8 pO2 (Temp corrected) Arterial Blood 30.5 H HCO3 Arterial Blood 6.9 H Base Excess Arterial Blood 95.9 Oxygen Saturatio n Shaun Test ACCEPTAB Arterial Blood Right Radial Gas Puncture Site Arterial 0.8 Blood Carboxyhem oglobin Arterial Blood 0.3 Methemoglobin Blood Gas A-a O2 82.5 H Differential Oxyhemoglobin 94.8 Percent Blood Gas 37.0 Temperature Blood Gas Actual 20 Respiration Rate Blood Gas NASAL CANNULA Modality FiO2 30.0 Blood Gas MERRILL RT Notified Whom Blood Gas 04/25/2018 2:41: Notified Time 23 PM POC Venous 1.0 Lactate White Blood 7.9 Count Red Blood Count 2.48 #L Hemoglobin 8.4 #L Hematocrit 26.5 #L Mean Corpuscular 106.9 H Volume Mean Corpuscular 33.9 H Hemoglobin Mean Corpuscular 31.7 L Hemoglobin Taya nt Red Cell 13.7 Distribution Width Platelet Count 303 Mean Platelet 9.3 Volume Immature 0.600 H Granulocytes % Neutrophils % 65.5 Lymphocytes % 24.0 Monocytes % 7.3 Eosinophils % 2.0 Basophils % 0.6 Nucleated Red 0.0 Blood Cells % Immature 0.050 H Granulocytes # Neutrophils # 5.2 Lymphocytes # 1.9 Monocytes # 0.6 Eosinophils # 0.2 Basophils # 0.1 Nucleated Red 0.0 Blood Cells # Prothrombin Time 14.3 Prothrombin Time 1.1 Ratio INR 1.10 International Normalized Ratio Activated 34.1 Partial Thrombop last Time Urine Color YELLOW Urine Clarity SLIGHTLY CLOUDY A Urine pH 8.0 Urine Specific 1.014 [place] Urine Ketones NEGATIVE Urine Nitrite NEGATIVE Urine Bilirubin NEGATIVE Urine NEGATIVE Urobilinogen Urine Leukocyte NEGATIVE Esterase Urine 1 Microscopic RBC Urine 2 Microscopic WBC Urine Squamous MODERATE Epithelial Cells Urine Bacteria FEW A Urine Mucus FEW A Urine Hemoglobin NEGATIVE Urine Glucose 1+ H Urine Total 3+ H Protein Sodium Level 137 Potassium Level 4.5 Chloride Level 94 L Carbon Dioxide 32 H Level Anion Gap 11 Blood Urea 25 H Nitrogen Creatinine 4.50 H Est Glomerular 10 L Filtrat Rate mL/min Glucose Level 87 Calcium Level 9.1 Total Bilirubin 0.0 L Direct Bilirubin 0.00 Indirect 0.0 Bilirubin Aspartate Amino 25 Transf (AST/SGOT ) Alanine 25 Aminotransferase (ALT/SGPT) Alkaline 89 Phosphatase Troponin I 0.061 Total Protein 6.7 Albumin 3.9 Globulin 2.80 Albumin/Globulin 1.39 Ratio Bedside Glucose 81 Test 04/25/18 18:47 04/26/18 05:52 Lactic Acid 1.3 Level White Blood 8.4 Count Red Blood Count 2.55 L Hemoglobin 8.7 L Hematocrit 27.9 L Mean Corpuscular 109.4 H Volume Mean Corpuscular 34.1 H Hemoglobin Mean Corpuscular 31.2 L Hemoglobin Taya nt Red Cell 13.7 Distribution Width Platelet Count 293 Mean Platelet 9.4 Volume Immature 0.600 H Granulocytes % Neutrophils % 66.4 Lymphocytes % 21.1 Monocytes % 8.5 Eosinophils % 2.9 Basophils % 0.5 Nucleated Red 0.0 Blood Cells % Immature 0.050 H Granulocytes # Neutrophils # 5.6 Lymphocytes # 1.8 Monocytes # 0.7 Eosinophils # 0.2 Basophils # 0.0 Nucleated Red 0.0 Blood Cells # Sodium Level 135 Potassium Level 4.5 Chloride Level 93 L Carbon Dioxide 29 Level Anion Gap 13 Blood Urea 34 H Nitrogen Creatinine 5.55 H Est Glomerular 8 L Filtrat Rate mL/min Glucose Level 130 # Hemoglobin A1c 5.3 Calcium Level 9.4 Magnesium Level 2.5 Troponin I 0.067 Medications Medication Current Medications Heparin Sodium (Porcine) (Heparin (1000 Units/ml)) 4,000 unit AFTER DIALYSIS CATHETER ; Start 04/25/18 at 20:30 Albumin Human 100 ml @ 100 mls/hr WITH DIALYSIS PRN IV SBP <90 DURING DIALYSIS; Start 04/25/18 at 20:30 Epoetin Bautista (Epogen (Esrd)) 8,000 units TuThSa@17 SC ; Start 04/26/18 at 17:00 Acetaminophen (Tylenol Tab) 500 mg Q6 PRN PO MILD PAIN(1-3)OR ELEVATED TEMP; Start 04/25/18 at 20:30 Allopurinol (Zyloprim) 100 mg DAILY PO ; Start 04/26/18 at 09:00 Aspirin (Halfprin) 81 mg DAILY PO ; Start 04/26/18 at 09:00 Atorvastatin Calcium (Lipitor) 80 mg QHS PO Last administered on 04/25/18at 22:08; Admin Dose 80 MG; Start 04/25/18 at 21:00 Duloxetine HCl (Cymbalta) 30 mg BID PO Last administered on 04/25/18at 22:08; Admin Dose 30 MG; Start 04/25/18 at 21:00 Sevelamer Carbonate (Renvela) 1,600 gm WITH MEALS PO ; Start 04/26/18 at 07:55 Vitamin B Complex/ Vitamin C (Berocca) 1 cap DAILY PO ; Start 04/26/18 at 09:00 Hydralazine HCl (Apresoline) 10 mg Q4H PRN IV SBP more than 150 mm Hg Last administered on 04/26/18at 05:35; Admin Dose 10 MG; Start 04/25/18 at 20:30 Ferrous Sulfate (Ferrous Sulfate (Ec)) 325 mg BID PO Last administered on at 22:08; Admin Dose 325 MG; Start 04/25/18 at 21:00 Gabapentin (Neurontin) 300 mg HS PO Last administered on 04/25/18at 22:08; Admin Dose 300 MG; Start 04/25/18 at 21:00 Sertraline HCl (Zoloft) 200 mg HS PO Last administered on 04/25/18at 22:08; Admin Dose 200 MG; Start 04/25/18 at 21:00 Heparin Sodium (Porcine) (Heparin (5000 Units/1ml)) 5,000 unit BID SC ; Start 04/25/18 at 21:00 VASU ODELL MD Apr 26, 2018 08:57
[2018-04-26] MEDS: HEPARIN 5,000 UNIT/1 ML VIAL SC SCH ×2 (09:00→21:00)
[2018-04-26] MEDS: VITAMIN B COMPLEX/VIT C CAP PO SCH (12:02)
[2018-04-26] MEDS: ALLOPURINOL 100 MG TAB PO SCH (12:03)
[2018-04-26] MEDS: DULOXETINE 30 MG CAP DR PO SCH ×2 (12:03→22:29)
[2018-04-26] MEDS: FERROUS SULFATE (EC) 325 MG TAB PO SCH ×2 (12:04→22:28)
[2018-04-26] MEDS: ASPIRIN (EC) 81 MG TAB PO SCH (12:04)
[2018-04-26] MEDS: ACETAMINOPHEN 500 MG TAB PO PRN (13:50)
--- NOTE | 2018-04-26 13:59 | RADRPT ---
Echocardiogram Report Patient Name: ADRYAN KRAUSEPatient ID: [id number] : 1950 (67y 7m)Study Date: 04/26/2018 7:06:47 AM Gender: FAccession #: [id number] Tech: [place] Location: Ref.Physician: ADARSH OSEI Height(Cm): BSA: Weight(Kg): Quality: AdequateAccount #: Procedures: Echocardiographic Report: Transthoracic echocardiogram with complete 2D, M-Mode, and doppler examination. Indications: Fluid Overload. Measurements: 2D/M Mode Doppler Measurement Value Normal Range Measurement Value Normal Range LVIDd 2D 3.8 [ 3.8 - 5.2 ] cm AV Mean Chele 1.3 [ 70.0 - 90.0 ] cm/sec LVIDs 2D 1.8 [ 2.2 - 3.5 ] cm AV Mean PG 9.0 [ 2.0 - 4.0 ] mmHg LVPWd 2D 1.4 [ 0.6 - 0.9 ] cm AV Peak Chele 2.2 [ 100.0 - 170.0 ] cm/sec IVSd 2D 1.8 [ 0.6 - 0.9 ] cm AV Peak PG 19.0 [ 2.0 - 9.0 ] mmHg IVS/LVPW 2D 1.3 ratio AV VTI 42.1 cm AoR Diam 2D 2.6 [ 2.3 - 3.1 ] cm LVOT Mean Chele 0.8 [ 60.0 - 80.0 ] cm/sec LA/Ao 2D 2 ratio LVOT Mean PG 3.0 [ 1.0 - 3.0 ] mmHg LA Dimen 2D 4.1 [ 2.7 - 3.8 ] cm LVOT Peak Chele 1.3 [ 70.0 - 110.0 ] cm/sec LVOT Peak PG 7.0 [ 2.0 - 6.0 ] mmHg LVOT VTI 24.2 [ 20.0 - 30.0 ] cm MV E Peak Chele 1.4 [ 60.0 - 130.0 ] cm/sec MV A Peak Chele 1.6 [ 100.0 - 120.0 ] cm/sec MV E/A 0.8 [ 0.8 - 1.5 ] ratio MV Decel Time 134 [ 104 - 258 ] msec Lat E` Chele 0.1 [ 10.0 - 15.0 ] cm/sec MV E/A 0.8 [ 0.8 - 1.5 ] ratio TR Peak Chele 3.8 [ 100.0 - 280.0 ] cm/sec TR Peak PG 57.0 mmHg RVSP 65.0 [ 10.0 - 36.0 ] mmHg RA Pressure 8.0 mmHg Findings: Left Ventricle: Normal left ventricular systolic function. Normal left ventricular cavity size. Severe asymmetric septal hypertrophy. Ejection fraction is visually estimated at 55-60 %. Tissue Doppler/Mitral Doppler indices are consistent with impaired relaxation (Stage I diastolic dysfunction). Right Ventricle: Normal right ventricular size. Normal right ventricular systolic function. Left Atrium: There is mild enlargement of left atrium. Right Atrium: The right atrium is normal in size. Mitral Valve: Mitral valve leaflets appear mildly thickened. Moderate mitral annular calcification. Mild mitral valve regurgitation. Aortic Valve: Aortic valve Max velocity 2.19 m/sec. Max PG 19.00 mmHg. Mean PG 9.00 mmHg. Aortic sclerosis without significant stenosis. Trace aortic valve regurgitation. Tricuspid Valve: Normal appearance and function of the tricuspid valve with trace physiologic regurgitation. Normal right ventricular systolic pressure. Estimated peak PA systolic pressure 65 mmHg. Pulmonic Valve: Normal pulmonic valve appearance. Pericardium: Normal pericardium with no significant pericardial effusion. Aorta: Normal aortic root. IVC: Normal size and no respiratory collapse consistent with elevated right atrial pressure. Conclusions: Normal left ventricular systolic function. Normal left ventricular cavity size. Severe asymmetric septal hypertrophy. Ejection fraction is visually estimated at 55-60 %. Tissue Doppler/Mitral Doppler indices are consistent with impaired relaxation (Stage I diastolic dysfunction). There is mild enlargement of left atrium. Mitral valve leaflets appear mildly thickened. Moderate mitral annular calcification. Mild mitral valve regurgitation. Aortic valve Max velocity 2.19 m/sec. Max PG 19.00 mmHg. Mean PG 9.00 mmHg. Aortic sclerosis without significant stenosis. Trace aortic valve regurgitation. Normal appearance and function of the tricuspid valve with trace physiologic regurgitation. Normal right ventricular systolic pressure. Estimated peak PA systolic pressure 65 mmHg. Electronically Signed By: Ricardo Lantigua 2018-04-26 13:58:58 PDT
--- NOTE | 2018-04-26 15:29 | PN ---
Date/Time of Note Date/Time of Note DATE: 04/26/18 TIME: 15:19 Assessment/Plan VTE [place]phylaxis [place] [facility] [place]: 5 [place]CD applied [place] [facility] [place] SCD contraindicated: patient refusal Pharmacological prophylaxis: heparin Lines/Catheters IV C[facility] Type [facility]from [facility] Sal[place] Lock Assessment/Plan Hospital Course Patient underwent hemodialysis with removal of 35,000 cc of fluid, currently patient is resting, blood pressure is better controlled. Patient's condition and plan of care discussed with FRANKI Gamble. Assessment/Plan -Acute fluid overload. Continue to remove fluid with hemodialysis. Dr. Robertson is following in nephrology consultation. -Hemodialysis dependent end-stage renal disease -Stage I diastolic dysfunction CHF with preserved ejection fraction of 55-60% per echo. -Uncontrolled hypertension. Status post IV labetalol and hydralazine. Continue hydralazine. -Diabetes mellitus with hemoglobin A1c 5.3 -Dyslipidemia, continue Lipitor -Depression, continue Cymbalta and Zoloft. -Anemia of chronic disease, continue Epogen -History of lacunar infarct. Continue aspirin. -Obesity with BMI of 36.1. Further recommendations based on clinical course. Plan of care discussed with Dr. Webb. Result Diagram: 04/26/18 0552 04/26/18 0552 Results 24hrs Laboratory Tests Test 04/25/18 18:47 04/26/18 05:52 04/26/18 08:20 Lactic Acid Level 1.3 White Blood Count 8.4 Red Blood Count 2.55 L Hemoglobin 8.7 L Hematocrit 27.9 L Mean Corpuscular Volume 109.4 H Mean Corpuscular Hemoglobin 34.1 H Mean Corpuscular Hemoglobin Concent 31.2 L Red Cell Distribution Width 13.7 Platelet Count 293 Mean Platelet Volume 9.4 Immature Granulocytes % 0.600 H Neutrophils % 66.4 Lymphocytes % 21.1 Monocytes % 8.5 Eosinophils % 2.9 Basophils % 0.5 Nucleated Red Blood Cells % 0.0 Immature Granulocytes # 0.050 H Neutrophils # 5.6 Lymphocytes # 1.8 Monocytes # 0.7 Eosinophils # 0.2 Basophils # 0.0 Nucleated Red Blood Cells # 0.0 Sodium Level 135 Potassium Level 4.5 Chloride Level 93 L Carbon Dioxide Level 29 Anion Gap 13 Blood Urea Nitrogen 34 H Creatinine 5.55 H Est Glomerular Filtrat Rate mL/min 8 L Glucose Level 130 # Hemoglobin A1c 5.3 Calcium Level 9.4 Magnesium Level 2.5 Troponin I 0.067 Hepatitis B Surface Antigen NEGATIVE Hepatitis B Surface Antibody NEGATIVE Exam/Review of Systems Exam Vitals Vital Signs Date Temp Pulse Resp B/P (MAP) Pulse Ox O2 O2 Flow FiO2 Time Delivery Rate 04/26/18 95 12:23 04/26/18 97.8 18 165/76 98 Nasal 11:32 (105) Cannula 04/26/18 2.0 08:20 Intake and Output 04/25/18 04/25/18 04/26/18 1515:00 23:00 07:00 IntakeIntake Total 250 ml BalanceBalance 250 ml Constitutional: alert, oriented Head: normocephalic Respiratory: diminished breath sounds Cardiovascular: regular rate and rhythm Gastrointestinal: soft, non-tender Musculoskeletal: nl extremities to inspection Extremities: normal pulses, other (Left upper extremity AV fistula) Neurological: lethargic Results Results 24hrs Laboratory Tests Test 04/25/18 18:47 04/26/18 05:52 04/26/18 08:20 Lactic Acid Level 1.3 White Blood Count 8.4 Red Blood Count 2.55 L Hemoglobin 8.7 L Hematocrit 27.9 L Mean Corpuscular Volume 109.4 H Mean Corpuscular Hemoglobin 34.1 H Mean Corpuscular Hemoglobin Concent 31.2 L Red Cell Distribution Width 13.7 Platelet Count 293 Mean Platelet Volume 9.4 Immature Granulocytes % 0.600 H Neutrophils % 66.4 Lymphocytes % 21.1 Monocytes % 8.5 Eosinophils % 2.9 Basophils % 0.5 Nucleated Red Blood Cells % 0.0 Immature Granulocytes # 0.050 H Neutrophils # 5.6 Lymphocytes # 1.8 Monocytes # 0.7 Eosinophils # 0.2 Basophils # 0.0 Nucleated Red Blood Cells # 0.0 Sodium Level 135 Potassium Level 4.5 Chloride Level 93 L Carbon Dioxide Level 29 Anion Gap 13 Blood Urea Nitrogen 34 H Creatinine 5.55 H Est Glomerular Filtrat Rate mL/min 8 L Glucose Level 130 # Hemoglobin A1c 5.3 Calcium Level 9.4 Magnesium Level 2.5 Troponin I 0.067 Hepatitis B Surface Antigen NEGATIVE Hepatitis B Surface Antibody NEGATIVE Medications Medication Current Medications Heparin Sodium (Porcine) (Heparin (1000 Units/ml)) 4,000 unit AFTER DIALYSIS CATHETER ; Start 04/25/18 at 20:30 Albumin Human 100 ml @ 100 mls/hr WITH DIALYSIS PRN IV SBP <90 DURING DIALYSIS; Start 04/25/18 at 20:30 Acetaminophen (Tylenol Tab) 500 mg Q6 PRN PO MILD PAIN(1-3)OR ELEVATED TEMP Last administered on 04/26/18 13:50; Admin Dose 500 MG; Start 04/25/18 at 20:30 Allopurinol (Zyloprim) 100 mg DAILY PO Last administered on 04/26/18 12:03; Admin Dose 100 MG; Start 04/26/18 at 09:00 Aspirin (Halfprin) 81 mg DAILY PO Last administered on 04/26/18 12:04; Admin Dose 81 MG; Start 04/26/18 at 09:00 Atorvastatin Calcium (Lipitor) 80 mg QHS PO Last administered on 04/25/18 22:08; Admin Dose 80 MG; Start 04/25/18 at 21:00 Duloxetine HCl (Cymbalta) 30 mg BID PO Last administered on 04/26/18 12:03; Admin Dose 30 MG; Start 04/25/18 at 21:00 Sevelamer Carbonate (Renvela) 1,600 gm WITH MEALS PO ; Start 04/26/18 at 07:55 Vitamin B Complex/ Vitamin C (Berocca) 1 cap DAILY PO Last administered on 04/26/18 12:02; Admin Dose 1 CAP; Start 04/26/18 at 09:00 Hydralazine HCl (Apresoline) 10 mg Q4H PRN IV SBP more than 150 mm Hg Last administered on 04/26/18 12:10; Admin Dose 10 MG; Start 04/25/18 at 20:30 Ferrous Sulfate (Ferrous Sulfate (Ec)) 325 mg BID PO Last administered on 04/26/18 12:04; Admin Dose 325 MG; Start 04/25/18 at 21:00 Gabapentin (Neurontin) 300 mg HS PO Last administered on 04/25/18 22:08; Admin Dose 300 MG; Start 04/25/18 at 21:00 Sertraline HCl (Zoloft) 200 mg HS PO Last administered on 04/25/18 22:08; Admin Dose 200 MG; Start 04/25/18 at 21:00 Heparin Sodium (Porcine) (Heparin (5000 Units/1ml)) 5,000 unit BID SC ; Start 04/25/18 at 21:00 Epoetin Bautista (Epogen (Esrd)) 8,000 units TuTa@1700 IV ; Start 04/26/18 at 17:00 UMESH QUIJANO Apr 26, 2018 15:29
[2018-04-26] MEDS: EPOETIN 4000 UNITS/1 ML INJ (ESRD) IV SCH (16:46)
[2018-04-26] MEDS ORDERED: EPOETIN 4000 UNITS/1 ML INJ (ESRD) SC SCH (17:00)
[2018-04-26] MEDS: GABAPENTIN 300 MG CAP PO SCH (22:28)
[2018-04-26] MEDS: SERTRALINE 100 MG TAB PO SCH (22:28)
[2018-04-27] VITALS (25 sets, daily range): BP systolic 142–185; BP diastolic 54–92; PULSE 80–95; RESP 1–19
[2018-04-27] MEDS: ATORVASTATIN 40 MG TAB PO SCH (00:04)
[2018-04-27] MEDS: DULOXETINE 30 MG CAP DR PO SCH (08:09)
[2018-04-27] MEDS: VITAMIN B COMPLEX/VIT C CAP PO SCH (08:09)
[2018-04-27] MEDS: SEVELAMER CARBONATE 0.8 GM PKT PO SCH ×3 (08:09→17:28)
[2018-04-27] MEDS: ALLOPURINOL 100 MG TAB PO SCH (08:09)
[2018-04-27] MEDS: FERROUS SULFATE (EC) 325 MG TAB PO SCH (08:10)
[2018-04-27] MEDS: ASPIRIN (EC) 81 MG TAB PO SCH (08:10)
[2018-04-27] MEDS: HEPARIN 5,000 UNIT/1 ML VIAL SC SCH ×2 (08:11→21:00)
--- NOTE | 2018-04-27 11:17 | CONS ---
Assessment/Plan Assessment/Plan Assessment/Plan (Daily) 1. acute fluid overload 2. Accelerate HTN 3. ESRD on HD 4. H/o CAD 5. H/O CHF< chronic diastolic 6. H/o HTN 7. H/o DM II Plan: s/p HD yesterday 3 L removed, , BP stable, will keep her on Mon, , monday, next HD will be on Monday pt will be followed up by for [facility] from tomorrow since this is his pt will follow up Consultation Date/Type/Reason Admit Date/Time Apr 25, 2018 at 16:28 Initial Consult Date 04/25/18 Type of Consult NEPHROLOGY Requesting Provider: ADARSH OSEI MD Date/Time of Note DATE: 04/27/18 TIME: 11:17 24 HR Interval Summary Free Text/Dictation s/p HD yesterday 3 L removed, BP stable,a febrile Exam/Review of Systems Exam Vitals Vital Signs Date Temp Pulse Resp B/P (MAP) Pulse Ox O2 O2 Flow FiO2 Time Delivery Rate 04/27/18 95 08:14 04/27/18 98.2 19 183/85 96 07:40 (117) 04/27/18 Nasal 2.0 07:30 Cannula 04/26/18 30 20:15 Intake and Output 04/26/18 04/26/18 04/27/18 1515:00 23:00 07:00 IntakeIntake Total 480 ml 350 ml OutputOutput Total 3900 ml BalanceBalance -3900 ml 480 ml 350 ml Exam Constitutional: alert, awake r Respiratory: congested cough, crackles/rales, diminished breath sounds Cardiovascular: regular rate and rhythm, nl pulses Gastrointestinal: soft, non-tender Musculoskeletal: swelling, other (left upper extremity AVF ) Extremities: normal pulses Neurological: CHARGE COORDINATOR II-XII intact, nl mental status, nl speech, nl strength Skin: nl turgor Results Result Diagram: 04/27/18 0621 04/27/18 0635 Results 24hrs Laboratory Tests Test 04/27/18 06:21 04/27/18 06:35 White Blood Count 7.8 Red Blood Count 2.81 L Hemoglobin 9.6 L Hematocrit 30.8 L Mean Corpuscular Volume 109.6 H Mean Corpuscular Hemoglobin 34.2 H Mean Corpuscular Hemoglobin Concent 31.2 L Red Cell Distribution Width 13.7 Platelet Count 316 Mean Platelet Volume 9.6 Immature Granulocytes % 0.500 H Neutrophils % 62.8 Lymphocytes % 23.6 Monocytes % 8.2 Eosinophils % 4.0 Basophils % 0.9 Nucleated Red Blood Cells % 0.0 Immature Granulocytes # 0.040 H Neutrophils # 4.9 Lymphocytes # 1.8 Monocytes # 0.6 Eosinophils # 0.3 Basophils # 0.1 Nucleated Red Blood Cells # 0.0 Sodium Level 135 Potassium Level 4.6 Chloride Level 96 L Carbon Dioxide Level 27 Anion Gap 12 Blood Urea Nitrogen 27 H Creatinine 4.32 #H Est Glomerular Filtrat Rate mL/min 10 L Glucose Level 131 Calcium Level 9.3 Phosphorus Level 5.1 H Magnesium Level 2.4 Medications Medication Current Medications Heparin Sodium (Porcine) (Heparin (1000 Units/ml)) 4,000 unit AFTER DIALYSIS CATHETER ; Start 04/25/18 at 20:30 Albumin Human 100 ml @ 100 mls/hr WITH DIALYSIS PRN IV SBP <90 DURING DIALYSIS; Start 04/25/18 at 20:30 Acetaminophen (Tylenol Tab) 500 mg Q6 PRN PO MILD PAIN(1-3)OR ELEVATED TEMP Last administered on 04/26/18 13:50; Admin Dose 500 MG; Start 04/25/18 at 20:30 Allopurinol (Zyloprim) 100 mg DAILY PO Last administered on 04/27/18 08:09; Admin Dose 100 MG; Start 04/26/18 at 09:00 Aspirin (Halfprin) 81 mg DAILY PO Last administered on 04/27/18 08:10; Admin D ose 81 MG; Start 04/26/18 at 09:00 Duloxetine HCl (Cymbalta) 30 mg BID PO Last administered on 04/27/18 08:09; Admin Dose 30 MG; Start 04/25/18 at 21:00 Vitamin B Complex/ Vitamin C (Berocca) 1 cap DAILY PO Last administered on 04/27/18 08:09; Admin Dose 1 CAP; Start 04/26/18 at 09:00 Hydralazine HCl (Apresoline) 10 mg Q4H PRN IV SBP more than 150 mm Hg Last administered on 04/26/18at 12:10; Admin Dose 10 MG; Start 04/25/18 at 20:30 Ferrous Sulfate (Ferrous Sulfate (Ec)) 325 mg BID PO Last administered on 04/27/18 08:10; Admin Dose 325 MG; Start 04/25/18 at 21:00 Gabapentin (Neurontin) 300 mg HS PO Last administered on 04/26/18 22:28; Admin Dose 300 MG; Start 04/25/18 at 21:00 Sertraline HCl (Zoloft) 200 mg HS PO Last administered on 04/26/18 22:28; Admin Dose 200 MG; Start 04/25/18 at 21:00 Heparin Sodium (Porcine) (Heparin (5000 Units/1ml)) 5,000 unit BID SC ; Start 04/25/18 at 21:00 Epoetin Bautista (Epogen (Esrd)) 8,000 units TuThSa@1700 IV Last administered on 04/26/18 16:46; Admin Dose 8,000 UNITS; Start 04/26/18 at 17:00 Hydralazine HCl (Apresoline) 25 mg TID PO Last administered on 04/27/18 08:10; Admin Dose 25 MG; Start 04/26/18 at 21:00 Sevelamer Carbonate (Renvela) 1.6 gm WITH MEALS PO Last administered on 04/27/18 08:09; Admin Dose 1.6 GM; Start 04/26/18 at 17:55 Atorvastatin Calcium (Lipitor) 80 mg DAILY@21 PO Last administered on 04/27/18 00:04; Admin Dose 80 MG; Start 04/27/18 at 00:00 VASU ODELL MD Apr 27, 2018 11:17
[2018-04-27] MEDS: hydrALAzine 20 MG INJ IV PRN (12:03)
[2018-04-27] MEDS: LORATADINE 10 MG TAB PO SCH (14:16)
[2018-04-27] MEDS: ACETAMINOPHEN 500 MG TAB PO PRN (17:32)
--- NOTE | 2018-04-27 19:39 | PN ---
Date/Time of Note Date/Time of Note DATE: 04/27/18 TIME: 19:33 Assessment/Plan VTE [place]axis [place] [facility] [place]: 4 [place] [facility] [place] SCD contraindicated: patient refusal Pharmacological prophylaxis: heparin Lines/Catheters IV [facility] Type [facility]from [facility] Saline Lock Assessment/Plan Hospital Course Patient continues on supplemental oxygen was occasional shortness of breath, continue fluid removal with hemodialysis. Better control of blood pressure. Patient's condition and plan of care discussed with FRANKI Gamble. Assessment/Plan -Acute fluid overload. Continue to remove fluid with hemodialysis. Dr. Borja will be following in nephrology consultation. -Hemodialysis dependent end-stage renal disease -Stage I diastolic dysfunction CHF with preserved ejection fraction of 55-60% per echo. -Uncontrolled hypertension. Status post IV labetalol and hydralazine. Continue hydralazine. -Diabetes mellitus with hemoglobin A1c 5.3 -Dyslipidemia, continue Lipitor -Depression, continue Cymbalta and Zoloft. -Anemia of chronic disease, continue Epogen -History of lacunar infarct. Continue aspirin. -Obesity with BMI of 36.1. Further recommendations based on clinical course. Plan of care discussed with Dr. Webb. Result Diagram: 04/27/18 0621 04/27/18 0635 Results 24hrs Laboratory Tests Test 04/27/18 06:21 04/27/18 06:35 White Blood Count 7.8 Red Blood Count 2.81 L Hemoglobin 9.6 L Hematocrit 30.8 L Mean Corpuscular Volume 109.6 H Mean Corpuscular Hemoglobin 34.2 H Mean Corpuscular Hemoglobin Concent 31.2 L Red Cell Distribution Width 13.7 Platelet Count 316 Mean Platelet Volume 9.6 Immature Granulocytes % 0.500 H Neutrophils % 62.8 Lymphocytes % 23.6 Monocytes % 8.2 Eosinophils % 4.0 Basophils % 0.9 Nucleated Red Blood Cells % 0.0 Immature Granulocytes # 0.040 H Neutrophils # 4.9 Lymphocytes # 1.8 Monocytes # 0.6 Eosinophils # 0.3 Basophils # 0.1 Nucleated Red Blood Cells # 0.0 Sodium Level 135 Potassium Level 4.6 Chloride Level 96 L Carbon Dioxide Level 27 Anion Gap 12 Blood Urea Nitrogen 27 H Creatinine 4.32 #H Est Glomerular Filtrat Rate mL/min 10 L Glucose Level 131 Calcium Level 9.3 Phosphorus Level 5.1 H Magnesium Level 2.4 Exam/Review of Systems Exam Vitals Vital Signs Date Temp Pulse Resp B/P (MAP) Pulse Ox O2 O2 Flow FiO2 Time Delivery Rate 04/27/18 3.0 19:02 04/27/18 83 16:09 04/27/18 98.1 19 145/67 96 16:03 (93) 04/27/18 Nasal 07:30 Cannula 04/26/18 30 20:15 Intake and Output 04/26/18 04/26/18 04/27/18 1515:00 23:00 07:00 IntakeIntake Total 480 ml 350 ml OutputOutput Total 3900 ml BalanceBalance -3900 ml 480 ml 350 ml Exam Constitutional: alert, oriented Respiratory: diminished breath sounds Cardiovascular: regular rate and rhythm Gastrointestinal: soft, non-tender Musculoskeletal: nl extremities to inspection Extremities: normal pulses, other (Left upper extremity AV fistula) Neurological: lethargic Results Results 24hrs Laboratory Tests Test 04/27/18 06:21 04/27/18 06:35 White Blood Count 7.8 Red Blood Count 2.81 L Hemoglobin 9.6 L Hematocrit 30.8 L Mean Corpuscular Volume 109.6 H Mean Corpuscular Hemoglobin 34.2 H Mean Corpuscular Hemoglobin Concent 31.2 L Red Cell Distribution Width 13.7 Platelet Count 316 Mean Platelet Volume 9.6 Immature Granulocytes % 0.500 H Neutrophils % 62.8 Lymphocytes % 23.6 Monocytes % 8.2 Eosinophils % 4.0 Basophils % 0.9 Nucleated Red Blood Cells % 0.0 Immature Granulocytes # 0.040 H Neutrophils # 4.9 Lymphocytes # 1.8 Monocytes # 0.6 Eosinophils # 0.3 Basophils # 0.1 Nucleated Red Blood Cells # 0.0 Sodium Level 135 Potassium Level 4.6 Chloride Level 96 L Carbon Dioxide Level 27 Anion Gap 12 Blood Urea Nitrogen 27 H Creatinine 4.32 #H Est Glomerular Filtrat Rate mL/min 10 L Glucose Level 131 Calcium Level 9.3 Phosphorus Level 5.1 H Magnesium Level 2.4 Medications Medication Current Medications Heparin Sodium (Porcine) (Heparin (1000 Units/ml)) 4,000 unit AFTER DIALYSIS CATHETER ; Start 04/25/18 at 20:30 Albumin Human 100 ml @ 100 mls/hr WITH DIALYSIS PRN IV SBP <90 DURING DIALYSIS; Start 04/25/18 at 20:30 Acetaminophen (Tylenol Tab) 500 mg Q6 PRN PO MILD PAIN(1-3)OR ELEVATED TEMP Last administered on 04/27/18 17:32; Admin Dose 500 MG; Start 04/25/18 at 20:30 Allopurinol (Zyloprim) 100 mg DAILY PO Last administered on 04/27/18 08:09; Admin Dose 100 MG; Start 04/26/18 at 09:00 Aspirin (Halfprin) 81 mg DAILY PO Last administered on 04/27/18 08:10; Admin Dose 81 MG; Start 04/26/18 at 09:00 Duloxetine HCl (Cymbalta) 30 mg BID PO Last administered on 04/27/18 08:09; Admin Dose 30 MG; Start 04/25/18 at 21:00 Vitamin B Complex/ Vitamin C (Berocca) 1 cap DAILY PO Last administered on 04/27/18 08:09; Admin Dose 1 CAP; Start 04/26/18 at 09:00 Hydralazine HCl (Apresoline) 10 mg Q4H PRN IV SBP more than 150 mm Hg Last administered on 04/27/18 12:03; Admin Dose 10 MG; Start 04/25/18 at 20:30 Ferrous Sulfate (Ferrous Sulfate (Ec)) 325 mg BID PO Last administered on 04/27/18 08:10; Admin Dose 325 MG; Start 04/25/18 at 21:00 Gabapentin (Neurontin) 300 mg HS PO Last administered on 04/26/18 22:28; Admin Dose 300 MG; Start 04/25/18 at 21:00 Sertraline HCl (Zoloft) 200 mg HS PO Last administered on 04/26/18 22:28; Admin Dose 200 MG; Start 04/25/18 at 21:00 Heparin Sodium (Porcine) (Heparin (5000 Units/1ml)) 5,000 unit BID SC ; Start 04/25/18 at 21:00 Epoetin Bautista (Epogen (Esrd)) 8,000 units TuThSa@1700 IV Last administered on 04/26/18 16:46; Admin Dose 8,000 UNITS; Start 04/26/18 at 17:00 Sevelamer Carbonate (Renvela) 1.6 gm WITH MEALS PO Last administered on 04/27/18 17:28; Admin Dose 1.6 GM; Start 04/26/18 at 17:55 Atorvastatin Calcium (Lipitor) 80 mg DAILY@21 PO Last administered on 04/27/18at 00:04; Admin Dose 80 MG; Start 04/27/18 at 00:00 Hydralazine HCl (Apresoline) 50 mg TID PO Last administered on 04/27/18at 14:15; Admin Dose 50 MG; Start 04/27/18 at 13:30 Loratadine (Claritin) 10 mg DAILY PO Last administered on 04/27/18at 14:16; Admin Dose 10 MG; Start 04/27/18 at 14:00 UMESH QUIJANO Apr 27, 2018 19:39
[2018-04-28] VITALS (11 sets, daily range): BP systolic 109–176; BP diastolic 54–74; PULSE 83–94; RESP 18–20
[2018-04-28] MEDS: DULOXETINE 30 MG CAP DR PO SCH ×3 (00:42→21:22)
[2018-04-28] MEDS: ATORVASTATIN 40 MG TAB PO SCH ×2 (00:42→21:22)
[2018-04-28] MEDS: GABAPENTIN 300 MG CAP PO SCH ×2 (00:43→21:23)
[2018-04-28] MEDS: FERROUS SULFATE (EC) 325 MG TAB PO SCH ×3 (00:47→21:22)
[2018-04-28] MEDS: SERTRALINE 100 MG TAB PO SCH ×2 (00:49→21:23)
[2018-04-28] MEDS: ASPIRIN (EC) 81 MG TAB PO SCH (08:09)
[2018-04-28] MEDS: LORATADINE 10 MG TAB PO SCH (08:10)
[2018-04-28] MEDS: VITAMIN B COMPLEX/VIT C CAP PO SCH (08:10)
[2018-04-28] MEDS: SEVELAMER CARBONATE 0.8 GM PKT PO SCH ×3 (08:11→17:55)
[2018-04-28] MEDS: HEPARIN 5,000 UNIT/1 ML VIAL SC SCH ×2 (08:16→21:00)
[2018-04-28] MEDS: ALLOPURINOL 100 MG TAB PO SCH (09:00)
[2018-04-28] MEDS: ACETAMINOPHEN 500 MG TAB PO PRN (10:18)
[2018-04-28] MEDS ORDERED: GUAIFENESIN 20 MG/ML 5ML CUP PO PRN (14:30)
[2018-04-28] MEDS ORDERED: ALBUTEROL 0.083% (NEB) 2.5 MG/3 ML AMP HHN SCH (15:00)
--- NOTE | 2018-04-28 17:50 | PN ---
Date/Time of Note Date/Time of Note DATE: 04/28/18 TIME: 17:49 Assessment/Plan VTE Prophylaxis Risk score (from [facility])>0 risk: 4 SCD applied (from [facility]): No Lines/Catheters IV Catheter Type (from [facility]rs): Saline Lock Assessment/Plan Assessment/Plan - Acute fluid overload. Continue to remove fluid with hemodialysis. Dr. Borja will be following in nephrology consultation. -Hemodialysis dependent end-stage renal disease -Stage I diastolic dysfunction CHF with preserved ejection fraction of 55-60% per echo. -Uncontrolled hypertension. Status post IV labetalol and hydralazine. Continue hydralazine. -Diabetes mellitus with hemoglobin A1c 5.3 -Dyslipidemia, continue Lipitor -Depression, continue Cymbalta and Zoloft. -Anemia of chronic disease, continue Epogen -History of lacunar infarct. Continue aspirin. -Obesity with BMI of 36.1. Further recommendations based on clinical course. Plan of care discussed with Dr. Webb. Result Diagram: 04/28/18 0557 04/28/18 0557 Results 24hrs Laboratory Tests Test 04/28/18 05:57 White Blood Count 10.7 # Red Blood Count 3.01 L Hemoglobin 10.2 L Hematocrit 33.0 L Mean Corpuscular Volume 109.6 H Mean Corpuscular Hemoglobin 33.9 H Mean Corpuscular Hemoglobin Concent 30.9 L Red Cell Distribution Width 13.7 Platelet Count 372 Mean Platelet Volume 9.6 Immature Granulocytes % 0.400 Neutrophils % 71.1 Lymphocytes % 14.7 L Monocytes % 8.9 Eosinophils % 4.1 Basophils % 0.8 Nucleated Red Blood Cells % 0.0 Immature Granulocytes # 0.040 H Neutrophils # 7.6 H Lymphocytes # 1.6 Monocytes # 1.0 H Eosinophils # 0.4 Basophils # 0.1 Nucleated Red Blood Cells # 0.0 Sodium Level 139 Potassium Level 5.9 H Chloride Level 100 Carbon Dioxide Level 31 Anion Gap 8 Blood Urea Nitrogen 21 H Creatinine 3.59 H Est Glomerular Filtrat Rate mL/min 13 L Glucose Level 124 Calcium Level 9.5 Phosphorus Level 4.4 Magnesium Level 2.3 Exam/Review of Systems Exam Vitals Vital Signs Date Temp Pulse Resp B/P (MAP) Pulse Ox O2 O2 Flow FiO2 Time Delivery Rate 04/28/18 85 16:00 04/28/18 20 99 Nasal 2.0 15:54 Cannula 04/28/18 98.0 150/68 15:40 (95) 04/26/18 30 20:15 Intake and Output 04/27/18 04/27/18 04/28/18 1414:59 22:59 06:59 IntakeIntake Total 500 ml OutputOutput Total 3400 ml BalanceBalance -2900 ml Results Results 24hrs Laboratory Tests Test 04/28/18 05:57 White Blood Count 10.7 # Red Blood Count 3.01 L Hemoglobin 10.2 L Hematocrit 33.0 L Mean Corpuscular Volume 109.6 H Mean Corpuscular Hemoglobin 33.9 H Mean Corpuscular Hemoglobin Concent 30.9 L Red Cell Distribution Width 13.7 Platelet Count 372 Mean Platelet Volume 9.6 Immature Granulocytes % 0.400 Neutrophils % 71.1 Lymphocytes % 14.7 L Monocytes % 8.9 Eosinophils % 4.1 Basophils % 0.8 Nucleated Red Blood Cells % 0.0 Immature Granulocytes # 0.040 H Neutrophils # 7.6 H Lymphocytes # 1.6 Monocytes # 1.0 H Eosinophils # 0.4 Basophils # 0.1 Nucleated Red Blood Cells # 0.0 Sodium Level 139 Potassium Level 5.9 H Chloride Level 100 Carbon Dioxide Level 31 Anion Gap 8 Blood Urea Nitrogen 21 H Creatinine 3.59 H Est Glomerular Filtrat Rate mL/min 13 L Glucose Level 124 Calcium Level 9.5 Phosphorus Level 4.4 Magnesium Level 2.3 Medications Medication Current Medications Heparin Sodium (Porcine) (Heparin (1000 Units/ml)) 4,000 unit AFTER DIALYSIS CATHETER ; Start 04/25/18 at 20:30 Albumin Human 100 ml @ 100 mls/hr WITH DIALYSIS PRN IV SBP <90 DURING DIALYSIS; Start 04/25/18 at 20:30 Acetaminophen (Tylenol Tab) 500 mg Q6 PRN PO MILD PAIN(1-3)OR ELEVATED TEMP Last administered on 04/28/18at 10:18; Admin Dose 500 MG; Start 04/25/18 at 20:30 Allopurinol (Zyloprim) 100 mg DAILY PO Last administered on 04/27/18at 08:09; Admin Dose 100 MG; Start 04/26/18 at 09:00 Aspirin (Halfprin) 81 mg DAILY PO Last administered on 04/28/18at 08:09; Admin Dose 81 MG; Start 04/26/18 at 09:00 Duloxetine HCl (Cymbalta) 30 mg BID PO Last administered on 04/28/18 08:10; Admin Dose 30 MG; Start 04/25/18 at 21:00 Vitamin B Complex/ Vitamin C (Berocca) 1 cap DAILY PO Last administered on 04/28/18 08:10; Admin Dose 1 CAP; Start 04/26/18 at 09:00 Hydralazine HCl (Apresoline) 10 mg Q4H PRN IV SBP more than 150 mm Hg Last administered on 04/27/18 12:03; Admin Dose 10 MG; Start 04/25/18 at 20:30 Ferrous Sulfate (Ferrous Sulfate (Ec)) 325 mg BID PO Last administered on 04/28/18 08:10; Admin Dose 325 MG; Start 04/25/18 at 21:00 Gabapentin (Neurontin) 300 mg HS PO Last administered on 04/28/18 00:43; Admin Dose 300 MG; Start 04/25/18 at 21:00 Sertraline HCl (Zoloft) 200 mg HS PO Last administered on 04/28/18 00:49; Admin Dose 200 MG; Start 04/25/18 at 21:00 Heparin Sodium (Porcine) (Heparin (5000 Units/1ml)) 5,000 unit BID SC ; Start 04/25/18 at 21:00 Epoetin Bautista (Epogen (Esrd)) 8,000 units TuThSa@1700 IV Last administered on 04/26/18 16:46; Admin Dose 8,000 UNITS; Start 04/26/18 at 17:00 Sevelamer Carbonate (Renvela) 1.6 gm WITH MEALS PO Last administered on 04/28/18 14:46; Admin Dose 1.6 GM; Start 04/26/18 at 17:55 Atorvastatin Calcium (Lipitor) 80 mg DAILY@21 PO Last administered on 04/28/18 00:42; Admin Dose 80 MG; Start 04/27/18 at 00:00 Hydralazine HCl (Apresoline) 50 mg TID PO Last administered on 04/28/18 14:45; Admin Dose 50 MG; Start 04/27/18 at 13:30 Loratadine (Claritin) 10 mg DAILY PO Last administered on 04/28/18 08:10; Admin Dose 10 MG; Start 04/27/18 at 14:00 Guaifenesin (Robitussin Liquid Cup) 100 mg Q4H PRN PO COUGH Last administered on 04/28/18at 14:45; Admin Dose 100 MG; Start 04/28/18 at 14:30 Albuterol (Proventil 0.083% (Neb)) 1.25 mg Q6H RESP THERAPY HHN Last administered on 04/28/18at 15:53; Admin Dose 1.25 MG; Start 04/28/18 at 15:00 ARLEY ANGEL Apr 28, 2018 17:50
[2018-04-28] MEDS ORDERED: GUAIFENESIN/DM 5ML CUP PO PRN (19:00)
[2018-04-28] MEDS ORDERED: [UNRECOGNIZED DRUG - OTHER] PO PRN (19:00)
[2018-04-28] MEDS ORDERED: CEFTAZIDIME 1GM/50 ML (PMX) 50 ML IVPB ONE ×2 (19:00→22:00)
[2018-04-28] MEDS: METHYLPREDNISOLONE 125 MG INJ IV SCH (19:15)
[2018-04-28] MEDS: EPOETIN 4000 UNITS/1 ML INJ (ESRD) IV SCH (19:15)
[2018-04-28] MEDS ORDERED: CEFTAZIDIME 1 GM INJ IVPB ONE (19:30)
--- NOTE | 2018-04-28 19:55 | CONS ---
Assessment/Plan Assessment/Plan Problems: (1) ESRD (end stage renal disease) on dialysis Comment: In light of fluid overload, pt will continue to need vigorous Dialysis (2) Anemia Status: Acute Comment: Hct improving, may need to decrease epo (3) Congestive heart failure (CHF) Status: Chronic Comment: CXR continues to show CHF Will dialyze again in AM Qualifiers: Heart failure type: systolic (4) Depression Status: Chronic Comment: Pt is already on antidepressants. Spoke to son re her issues Will continue to observe in the hospital (5) Cough productive of purulent sputum Comment: Even though afebrile, has nl WBC, because cough is productive, Ac Bronchitis is a consideration. Therefore, will start pt on AB Rx.& observe Also give a trial of IV Steroids to exclude Bronchospasm as a contributing factor Consultation Date/Type/Reason Admit Date/Time Apr 25, 2018 at 16:28 Initial Consult Date 04/25/18 Type of Consult Renal Reason for Consultation ESRD, HD Requesting Provider: ADARSH OSEI MD Date/Time of Note DATE: 04/28/18 TIME: 19:55 24 HR Interval Summary Free Text/Dictation Pt c/o intractable cough. Remains afebrile however. Subjective hx not possible: pt non-verbal Exam/Review of Systems Exam Vitals Vital Signs Date Temp Pulse Resp B/P (MAP) Pulse Ox O2 O2 Flow FiO2 Time Delivery Rate 04/28/18 85 16:00 04/28/18 20 99 Nasal 2.0 15:54 Cannula 04/28/18 98.0 150/68 15:40 (95) 04/26/18 30 20:15 Intake and Output 04/27/18 04/27/18 04/28/18 1515:00 23:00 07:00 IntakeIntake Total 500 ml OutputOutput Total 3400 ml BalanceBalance -2900 ml Constitutional: alert, oriented, obese Psych: depression Head: atraumatic Respiratory: crackles/rales Cardiovascular: regular rate and rhythm, edema Extremities: other (AVF functioning left arm) Neurological: CHECKROOM CHIEF II-XII intact Skin: nl turgor Additional Comments Hbg has improved Results Result Diagram: 04/28/18 0557 04/28/18 0557 Results 24hrs Laboratory Tests Test 04/28/18 05:57 White Blood Count 10.7 # Red Blood Count 3.01 L Hemoglobin 10.2 L Hematocrit 33.0 L Mean Corpuscular Volume 109.6 H Mean Corpuscular Hemoglobin 33.9 H Mean Corpuscular Hemoglobin Concent 30.9 L Red Cell Distribution Width 13.7 Platelet Count 372 Mean Platelet Volume 9.6 Immature Granulocytes % 0.400 Neutrophils % 71.1 Lymphocytes % 14.7 L Monocytes % 8.9 Eosinophils % 4.1 Basophils % 0.8 Nucleated Red Blood Cells % 0.0 Immature Granulocytes # 0.040 H Neutrophils # 7.6 H Lymphocytes # 1.6 Monocytes # 1.0 H Eosinophils # 0.4 Basophils # 0.1 Nucleated Red Blood Cells # 0.0 Sodium Level 139 Potassium Level 5.9 H Chloride Level 100 Carbon Dioxide Level 31 Anion Gap 8 Blood Urea Nitrogen 21 H Creatinine 3.59 H Est Glomerular Filtrat Rate mL/min 13 L Glucose Level 124 Calcium Level 9.5 Phosphorus Level 4.4 Magnesium Level 2.3 Medications Medication Current Medications Heparin Sodium (Porcine) (Heparin (1000 Units/ml)) 4,000 unit AFTER DIALYSIS CATHETER ; Start 04/25/18 at 20:30 Albumin Human 100 ml @ 100 mls/hr WITH DIALYSIS PRN IV SBP <90 DURING DIALYSIS; Start 04/25/18 at 20:30 Acetaminophen (Tylenol Tab) 500 mg Q6 PRN PO MILD PAIN(1-3)OR ELEVATED TEMP Last administered on 04/28/18at 10:18; Admin Dose 500 MG; Start 04/25/18 at 20:30 Allopurinol (Zyloprim) 100 mg DAILY PO Last administered on 04/27/18 08:09; Admin Dose 100 MG; Start 04/26/18 at 09:00 Aspirin (Halfprin) 81 mg DAILY PO Last administered on 04/28/18 08:09; Admin D ose 81 MG; Start 04/26/18 at 09:00 Duloxetine HCl (Cymbalta) 30 mg BID PO Last administered on 04/28/18 08:10; Admin Dose 30 MG; Start 04/25/18 at 21:00 Vitamin B Complex/ Vitamin C (Berocca) 1 cap DAILY PO Last administered on 04/28/18 08:10; Admin Dose 1 CAP; Start 04/26/18 at 09:00 Hydralazine HCl (Apresoline) 10 mg Q4H PRN IV SBP more than 150 mm Hg Last administered on 04/27/18 12:03; Admin Dose 10 MG; Start 04/25/18 at 20:30 Ferrous Sulfate (Ferrous Sulfate (Ec)) 325 mg BID PO Last administered on 04/28/18 08:10; Admin Dose 325 MG; Start 04/25/18 at 21:00 Gabapentin (Neurontin) 300 mg HS PO Last administered on 04/28/18 00:43; Admin Dose 300 MG; Start 04/25/18 at 21:00 Sertraline HCl (Zoloft) 200 mg HS PO Last administered on 04/28/18 00:49; Admin Dose 200 MG; Start 04/25/18 at 21:00 Heparin Sodium (Porcine) (Heparin (5000 Units/1ml)) 5,000 unit BID SC ; Start 04/25/18 at 21:00 Epoetin Bautista (Epogen (Esrd)) 8,000 units TuThSa@1700 IV Last administered on 04/28/18 19:15; Admin Dose 8,000 UNITS; Start 04/26/18 at 17:00 Sevelamer Carbonate (Renvela) 1.6 gm WITH MEALS PO Last administered on 04/28/18 17:55; Admin Dose 1.6 GM; Start 04/26/18 at 17:55 Atorvastatin Calcium (Lipitor) 80 mg DAILY@21 PO Last administered on 04/28/18 00:42; Admin Dose 80 MG; Start 04/27/18 at 00:00 Hydralazine HCl (Apresoline) 50 mg TID PO Last administered on 04/28/18 14:45; Admin Dose 50 MG; Start 04/27/18 at 13:30 Loratadine (Claritin) 10 mg DAILY PO Last administered on 04/28/18 08:10; Admin Dose 10 MG; Start 04/27/18 at 14:00 Guaifenesin (Robitussin Liquid Cup) 100 mg Q4H PRN PO COUGH Last administered on 04/28/18 14:45; Admin Dose 100 MG; Start 04/28/18 at 14:30 Methylprednisolone Sodium Succinate (Solu-Medrol) 100 mg Q6 IV Last administered on 04/28/18 19:15; Admin Dose 100 MG; Start 04/28/18 at 19:00 Albuterol (Proventil 0.083% (Neb)) 1.25 mg Q4H RESP THERAPY HHN ; Start 04/28/18 at 21:00 Ceftazidime (Fortaz) 1 gm ONCE ONCE IVPB ; Start 04/28/18 at 19:30; Stop 04/28/18 at 19:31; Status UNV FE DANG MD Apr 28, 2018 19:55
--- NOTE | 2018-04-28 20:02 | QN ---
Documentation Job number: This note is from April 27, 2018 Comment Pt was seen at 200PM. She was c/o severe cough, no fever. She was dialyzed yesterday without problem. Exam had shown normal BP, Biltaeral rales & trace pitting edema both legs. Echo showed nl EF CXR still shows CHF, after HD. In light of this, pt would need vigorous HD to which she agrees Consider AB Coverage & Steroids for Ac Bronchitis? FE DANG MD Apr 28, 2018 20:02
[2018-04-28] MEDS: ALBUTEROL 0.083% (NEB) 2.5 MG/3 ML AMP HHN SCH (20:05)
[2018-04-28] MEDS ORDERED: CEFTAZIDIME 1 GM INJ IM ONE (21:00)
[2018-04-28] MEDS: FAMOTIDINE 20 MG TAB PO SCH (21:23)
[2018-04-29] VITALS (28 sets, daily range): BP systolic 143–216; BP diastolic 52–89; PULSE 83–109; RESP 18–20
[2018-04-29] MEDS: ALBUTEROL 0.083% (NEB) 2.5 MG/3 ML AMP HHN SCH ×6 (00:10→20:34)
[2018-04-29] MEDS: METHYLPREDNISOLONE 125 MG INJ IV SCH ×5 (00:37→21:37)
[2018-04-29] MEDS: hydrALAzine 20 MG INJ IV PRN ×2 (01:23→05:30)
[2018-04-29] MEDS: LORATADINE 10 MG TAB PO SCH (08:38)
[2018-04-29] MEDS: FAMOTIDINE 20 MG TAB PO SCH (08:38)
[2018-04-29] MEDS: DULOXETINE 30 MG CAP DR PO SCH ×2 (08:38→21:36)
[2018-04-29] MEDS: SEVELAMER CARBONATE 0.8 GM PKT PO SCH ×3 (08:38→17:32)
[2018-04-29] MEDS: FERROUS SULFATE (EC) 325 MG TAB PO SCH ×2 (08:38→21:35)
[2018-04-29] MEDS: ASPIRIN (EC) 81 MG TAB PO SCH (08:39)
[2018-04-29] MEDS: HEPARIN 5,000 UNIT/1 ML VIAL SC SCH ×2 (08:39→21:00)
[2018-04-29] MEDS: ALLOPURINOL 100 MG TAB PO SCH (08:39)
[2018-04-29] MEDS: VITAMIN B COMPLEX/VIT C CAP PO SCH (08:39)
--- NOTE | 2018-04-29 13:15 | CONS ---
Assessment/Plan Assessment/Plan Problems: (1) Congestive heart failure (CHF) Status: Chronic Comment: Unfortunately, CXR was done prior to as opposed to Post dialysis as ordered. CXR Report pending. Pt should improve after HD today. Qualifiers: Heart failure type: systolic (2) ESRD (end stage renal disease) on dialysis Comment: Awaiting HD (3) Cough productive of purulent sputum Comment: will start weaning off steroids Assessment/Plan (Daily) Pt will nee continued observation in the hospital Consultation Date/Type/Reason Admit Date/Time Apr 25, 2018 at 16:28 Initial Consult Date 04/25/18 Type of Consult Renal Reason for Consultation ESRD,HD Requesting Provider: ADARSH OSEI MD Date/Time of Note DATE: 04/29/18 TIME: 13:15 24 HR Interval Summary Free Text/Dictation Pt seems much better, less cough. No fever, SOB Exam/Review of Systems Exam Vitals Vital Signs Date Temp Pulse Resp B/P (MAP) Pulse Ox O2 O2 Flow FiO2 Time Delivery Rate 04/29/18 89 12:15 04/29/18 98.3 20 143/65 96 11:34 (91) 04/29/18 Nasal 2.0 09:58 Cannula 04/26/18 30 20:15 Intake and Output 04/28/18 04/28/18 04/29/18 1515:00 23:00 07:00 IntakeIntake Total 700 ml 550 ml BalanceBalance 700 ml 550 ml Constitutional: alert, obese Psych: nl mood/affect Head: normocephalic Eyes: nl conjunctiva Respiratory: crackles/rales Gastrointestinal: soft, distended Extremities: normal pulses, edema, other (lt arm avf+) Neurological: nl mental status Skin: nl turgor Results Result Diagram: 04/28/18 0557 04/28/18 0557 Results 24hrs Laboratory Tests Test 04/29/18 12:42 White Blood Count Pending Red Blood Count Pending Hemoglobin Pending Hematocrit Pending Mean Corpuscular Volume Pending Mean Corpuscular Hemoglobin Pending Mean Corpuscular Hemoglobin Concent Pending Red Cell Distribution Width Pending Platelet Count Pending Mean Platelet Volume Pending Medications Medication Current Medications Heparin Sodium (Porcine) (Heparin (1000 Units/ml)) 4,000 unit AFTER DIALYSIS CATHETER ; Start 04/25/18 at 20:30 Acetaminophen (Tylenol Tab) 500 mg Q6 PRN PO MILD PAIN(1-3)OR ELEVATED TEMP Last administered on 04/28/18 10:18; Admin Dose 500 MG; Start 04/25/18 at 20:30 Allopurinol (Zyloprim) 100 mg DAILY PO Last administered on 04/29/18 08:39; Admin Dose 100 MG; Start 04/26/18 at 09:00 Aspirin (Halfprin) 81 mg DAILY PO Last administered on 04/29/18 08:39; Admin Dose 81 MG; Start 04/26/18 at 09:00 Duloxetine HCl (Cymbalta) 30 mg BID PO Last administered on 04/29/18 08:38; Admin Dose 30 MG; Start 04/25/18 at 21:00 Vitamin B Complex/ Vitamin C (Berocca) 1 cap DAILY PO Last administered on 04/29/18 08:39; Admin Dose 1 CAP; Start 04/26/18 at 09:00 Hydralazine HCl (Apresoline) 10 mg Q4H PRN IV SBP more than 150 mm Hg Last adm inistered on 04/29/18 01:23; Admin Dose 10 MG; Start 04/25/18 at 20:30 Ferrous Sulfate (Ferrous Sulfate (Ec)) 325 mg BID PO Last administered on 04/29/18 08:38; Admin Dose 325 MG; Start 04/25/18 at 21:00 Gabapentin (Neurontin) 300 mg HS PO Last administered on 04/28/18 21:23; Admin Dose 300 MG; Start 04/25/18 at 21:00 Sertraline HCl (Zoloft) 200 mg HS PO Last administered on 04/28/18 21:23; Admin Dose 200 MG; Start 04/25/18 at 21:00 Heparin Sodium (Porcine) (Heparin (5000 Units/1ml)) 5,000 unit BID SC ; Start 04/25/18 at 21:00 Sevelamer Carbonate (Renvela) 1.6 gm WITH MEALS PO Last administered on 04/29/18 12:27; Admin Dose 1.6 GM; Start 04/26/18 at 17:55 Atorvastatin Calcium (Lipitor) 80 mg DAILY@21 PO Last administered on 04/28/18 21:22; Admin Dose 80 MG; Start 04/27/18 at 00:00 Loratadine (Claritin) 10 mg DAILY PO Last administered on 04/29/18at 08:38; Admin Dose 10 MG; Start 04/27/18 at 14:00 Methylprednisolone Sodium Succinate (Solu-Medrol) 100 mg Q6 IV Last administ ered on 04/29/18at 12:27; Admin Dose 100 MG; Start 04/28/18 at 19:00 Albuterol (Proventil 0.083% (Neb)) 1.25 mg Q4H RESP THERAPY HHN Last administered on 04/29/18at 09:57; Admin Dose 1.25 MG; Start 04/28/18 at 21:00 Guaifenesin/ Dextromethorphan (Robitussin Dm Liquid Cup) 10 ml Q4H PRN PO cough Last administered on 04/28/18at 21:22; Admin Dose 10 ML; Start 04/28/18 at 19:00 Miscellaneous Information/ Miscellaneous Information Q6H PRN PO anxiety; Start 04/28/18 at 19:00; Status UNV Famotidine (Pepcid) 20 mg DAILY PO Last administered on 04/29/18at 08:38; Admin Dose 20 MG; Start 04/28/18 at 21:00 Epoetin Bautista (Epogen (Esrd)) 3,000 units TuThSa@1700 IV ; Start 05/01/18 at 17:00 Hydralazine HCl (Apresoline) 75 mg TID PO Last administered on 04/29/18at 06:51; Admin Dose 75 MG; Start 04/29/18 at 06:30 Miscellaneous Information (*Order Clarification Bulletin) MEDICATION REQUIRES CLARIFICATI... Q8H XX ; Start 04/29/18 at 11:30 FE DANG MD Apr 29, 2018 13:15
--- NOTE | 2018-04-29 15:29 | PN ---
Date/Time of Note Date/Time of Note DATE: 04/29/18 TIME: 15:28 Assessment/Plan VTE Prophylaxis Risk score (from Nsg)>0 risk: 6 SCD applied (from Nsg): No Lines/Catheters IV Catheter Type (from Nrs): Saline Lock Assessment/Plan Assessment/Plan - Acute fluid overload. Continue to remove fluid with hemodialysis. Dr. Borja will be following in nephrology consultation. -Hemodialysis dependent end-stage renal disease -Stage I diastolic dysfunction CHF with preserved ejection fraction of 55-60% per echo. -Uncontrolled hypertension. Status post IV labetalol and hydralazine. Continue hydralazine. -Diabetes mellitus with hemoglobin A1c 5.3 -Dyslipidemia, continue Lipitor -Depression, continue Cymbalta and Zoloft. -Anemia of chronic disease, continue Epogen -History of lacunar infarct. Continue aspirin. -Obesity with BMI of 36.1. Further recommendations based on clinical course. Plan of care discussed with Dr. Webb. Result Diagram: 04/29/18 1242 04/29/18 1242 Results 24hrs Laboratory Tests Test 04/29/18 12:42 White Blood Count 8.6 Red Blood Count 2.92 L Hemoglobin 9.9 L Hematocrit 31.7 L Mean Corpuscular Volume 108.6 H Mean Corpuscular Hemoglobin 33.9 H Mean Corpuscular Hemoglobin Concent 31.2 L Red Cell Distribution Width 13.8 Platelet Count 476 #H Mean Platelet Volume 9.2 Immature Granulocytes % 1.200 H Neutrophils % 73.1 Lymphocytes % 17.2 Monocytes % 8.0 Eosinophils % 0.0 Basophils % 0.5 Nucleated Red Blood Cells % 0.0 Immature Granulocytes # 0.100 H Neutrophils # 6.3 Lymphocytes # 1.5 Monocytes # 0.7 Eosinophils # 0.0 Basophils # 0.0 Nucleated Red Blood Cells # 0.0 Sodium Level 132 L Potassium Level 5.0 Chloride Level 94 L Carbon Dioxide Level 23 Anion Gap 15 #H Blood Urea Nitrogen 44 #H Creatinine 5.22 H Est Glomerular Filtrat Rate mL/min 8 L Glucose Level 264 #H Calcium Level 9.2 Subjective 24 Hr Interval Summary Free Text/Dictation HD today Exam/Review of Systems Exam Vitals Vital Signs Date Temp Pulse Resp B/P (MAP) Pulse Ox O2 O2 Flow FiO2 Time Delivery Rate 04/29/18 2.0 15:13 04/29/18 88 20 Nasal 13:58 Cannula 04/29/18 98.3 143/65 96 11:34 (91) 04/26/18 30 20:15 Intake and Output 04/28/18 04/28/18 04/29/18 1515:00 23:00 07:00 IntakeIntake Total 700 ml 550 ml BalanceBalance 700 ml 550 ml Constitutional: alert, well developed Psych: nl mood/affect Head: normocephalic Eyes: EOMI, nl lids, nl sclera ENMT: nl external ears & nose Neck: non-tender Respiratory: diminished breath sounds Cardiovascular: nl pulses, other Gastrointestinal: soft Musculoskeletal: muscle weakness Extremities: normal pulses Neurological: nl speech Results Results 24hrs Laboratory Tests Test 04/29/18 12:42 White Blood Count 8.6 Red Blood Count 2.92 L Hemoglobin 9.9 L Hematocrit 31.7 L Mean Corpuscular Volume 108.6 H Mean Corpuscular Hemoglobin 33.9 H Mean Corpuscular Hemoglobin Concent 31.2 L Red Cell Distribution Width 13.8 Platelet Count 476 #H Mean Platelet Volume 9.2 Immature Granulocytes % 1.200 H Neutrophils % 73.1 Lymphocytes % 17.2 Monocytes % 8.0 Eosinophils % 0.0 Basophils % 0.5 Nucleated Red Blood Cells % 0.0 Immature Granulocytes # 0.100 H Neutrophils # 6.3 Lymphocytes # 1.5 Monocytes # 0.7 Eosinophils # 0.0 Basophils # 0.0 Nucleated Red Blood Cells # 0.0 Sodium Level 132 L Potassium Level 5.0 Chloride Level 94 L Carbon Dioxide Level 23 Anion Gap 15 #H Blood Urea Nitrogen 44 #H Creatinine 5.22 H Est Glomerular Filtrat Rate mL/min 8 L Glucose Level 264 #H Calcium Level 9.2 Medications Medication Current Medications Heparin Sodium (Porcine) (Heparin (1000 Units/ml)) 4,000 unit AFTER DIALYSIS CATHETER ; Start 04/25/18 at 20:30 Acetaminophen (Tylenol Tab) 500 mg Q6 PRN PO MILD PAIN(1-3)OR ELEVATED TEMP Last administered on 04/28/18at 10:18; Admin Dose 500 MG; Start 04/25/18 at 20:30 Allopurinol (Zyloprim) 100 mg DAILY PO Last administered on 04/29/18at 08:39; Admin Dose 100 MG; Start 04/26/18 at 09:00 Aspirin (Halfprin) 81 mg DAILY PO Last administered on 04/29/18 08:39; Admin Dose 81 MG; Start 04/26/18 at 09:00 Duloxetine HCl (Cymbalta) 30 mg BID PO Last administered on 04/29/18 08:38; Admin Dose 30 MG; Start 04/25/18 at 21:00 Vitamin B Complex/ Vitamin C (Berocca) 1 cap DAILY PO Last administered on 04/29/18 08:39; Admin Dose 1 CAP; Start 04/26/18 at 09:00 Hydralazine HCl (Apresoline) 10 mg Q4H PRN IV SBP more than 150 mm Hg Last administered on 04/29/18 01:23; Admin Dose 10 MG; Start 04/25/18 at 20:30 Ferrous Sulfate (Ferrous Sulfate (Ec)) 325 mg BID PO Last administered on 04/29/18 08:38; Admin Dose 325 MG; Start 04/25/18 at 21:00 Gabapentin (Neurontin) 300 mg HS PO Last administered on 04/28/18 21:23; Admin Dose 300 MG; Start 04/25/18 at 21:00 Sertraline HCl (Zoloft) 200 mg HS PO Last administered on 04/28/18 21:23; Admin Dose 200 MG; Start 04/25/18 at 21:00 Heparin Sodium (Porcine) (Heparin (5000 Units/1ml)) 5,000 unit BID SC ; Start 04/25/18 at 21:00 Sevelamer Carbonate (Renvela) 1.6 gm WITH MEALS PO Last administered on 04/29/18 12:27; Admin Dose 1.6 GM; Start 04/26/18 at 17:55 Atorvastatin Calcium (Lipitor) 80 mg DAILY@21 PO Last administered on 04/28/18 21:22; Admin Dose 80 MG; Start 04/27/18 at 00:00 Loratadine (Claritin) 10 mg DAILY PO Last administered on 04/29/18 08:38; Admin Dose 10 MG; Start 04/27/18 at 14:00 Albuterol (Proventil 0.083% (Neb)) 1.25 mg Q4H RESP THERAPY HHN Last administered on 04/29/18 13:56; Admin Dose 1.25 MG; Start 04/28/18 at 21:00 Guaifenesin/ Dextromethorphan (Robitussin Dm Liquid Cup) 10 ml Q4H PRN PO cough Last administered on 04/28/18at 21:22; Admin Dose 10 ML; Start 04/28/18 at 19:00 Miscellaneous Information/ Miscellaneous Information Q6H PRN PO anxiety; Start 04/28/18 at 19:00; Status UNV Famotidine (Pepcid) 20 mg DAILY PO Last administered on 04/29/18at 08:38; Admin Dose 20 MG; Start 04/28/18 at 21:00 Epoetin Bautista (Epogen (Esrd)) 3,000 units TuThSa@1700 IV ; Start 05/01/18 at 17:00 Hydralazine HCl (Apresoline) 75 mg TID PO Last administered on 04/29/18at 06:51; Admin Dose 75 MG; Start 04/29/18 at 06:30 Miscellaneous Information (*Order Clarification Bulletin) MEDICATION REQUIRES CLARIFICATI... Q8H XX ; Start 04/29/18 at 11:30 Methylprednisolone Sodium Succinate (Solu-Medrol) 100 mg Q12 IV ; Start 04/29/18 at 21:00; Status UNV ARLEY ANGEL Apr 29, 2018 15:29
[2018-04-29] MEDS: ATORVASTATIN 40 MG TAB PO SCH (21:34)
[2018-04-29] MEDS: GABAPENTIN 300 MG CAP PO SCH (21:35)
[2018-04-29] MEDS: SERTRALINE 100 MG TAB PO SCH (21:35)
[2018-04-30] VITALS (26 sets, daily range): BP systolic 137–216; BP diastolic 60–93; PULSE 84–110; RESP 18–20
[2018-04-30] MEDS: hydrALAzine 20 MG INJ IV PRN ×4 (00:26→15:18)
[2018-04-30] MEDS: ALBUTEROL 0.083% (NEB) 2.5 MG/3 ML AMP HHN SCH ×6 (01:18→21:02)
[2018-04-30] MEDS: ACETAMINOPHEN 500 MG TAB PO PRN ×3 (02:49→18:52)
[2018-04-30] MEDS: HEPARIN 5,000 UNIT/1 ML VIAL SC SCH (09:00)
[2018-04-30] MEDS: VITAMIN B COMPLEX/VIT C CAP PO SCH (09:00)
[2018-04-30] MEDS: DULOXETINE 30 MG CAP DR PO SCH ×2 (09:37→20:56)
[2018-04-30] MEDS: ALLOPURINOL 100 MG TAB PO SCH (09:37)
[2018-04-30] MEDS: METHYLPREDNISOLONE 125 MG INJ IV SCH (09:37)
[2018-04-30] MEDS: FERROUS SULFATE (EC) 325 MG TAB PO SCH ×2 (09:37→20:56)
[2018-04-30] MEDS: SEVELAMER CARBONATE 0.8 GM PKT PO SCH ×3 (09:37→18:52)
[2018-04-30] MEDS: LORATADINE 10 MG TAB PO SCH (09:37)
[2018-04-30] MEDS: FAMOTIDINE 20 MG TAB PO SCH (09:37)
[2018-04-30] MEDS: ASPIRIN (EC) 81 MG TAB PO SCH (09:51)
--- NOTE | 2018-04-30 18:00 | PN ---
Date/Time of Note Date/Time of Note DATE: 04/30/18 TIME: 17:58 Assessment/Plan VTE Prophylaxis Risk score (from Ns)>0 risk: 6 SCD applied (from [facility] [place]): No SCD contraindicated: patient refusal Pharmacological prophylaxis: heparin Lines/Catheters IV Catheter Type (from [facility]): Saline Lock Assessment/Plan Hospital Course Patient is undergoing hemodialysis, had hemodialysis yesterday, complains of occasional shortness of breath and cough. Assessment/Plan -Acute fluid overload. Continue to remove fluid with hemodialysis. Dr. Borja is following in nephrology consultation. -Hemodialysis dependent end-stage renal disease -Stage I diastolic dysfunction CHF with preserved ejection fraction of 55-60% per echo. -Uncontrolled hypertension. Status post IV labetalol and hydralazine. Continue hydralazine. -Diabetes mellitus with hemoglobin A1c 5.3 -Dyslipidemia, continue Lipitor -Depression, continue Cymbalta and Zoloft. -Anemia of chronic disease, continue Epogen -History of lacunar infarct. Continue aspirin. -Obesity with BMI of 36.1. Further recommendations based on clinical course. Plan of care discussed with Dr. Webb. Result Diagram: 04/29/18 1242 04/29/18 1242 Exam/Review of Systems Exam Vitals Vital Signs Date Temp Pulse Resp B/P (MAP) Pulse Ox O2 O2 Flow FiO2 Time Delivery Rate 04/30/18 89 17:50 04/30/18 18 97 Nasal 2.0 16:46 Cannula 04/30/18 98.0 167/83 15:55 (111) 04/26/18 30 20:15 Intake and Output 04/29/18 04/29/18 04/30/18 1515:00 23:00 07:00 IntakeIntake Total 750 ml 400 ml OutputOutput Total 3500 ml BalanceBalance -2750 ml 400 ml Exam Constitutional: alert, oriented Respiratory: diminished breath sounds Cardiovascular: regular rate and rhythm Gastrointestinal: soft, non-tender Musculoskeletal: nl extremities to inspection Extremities: normal pulses, other (Left upper extremity AV fistula) Medications Medication Current Medications Heparin Sodium (Porcine) (Heparin (1000 Units/ml)) 4,000 unit AFTER DIALYSIS CATHETER ; Start 04/25/18 at 20:30 Acetaminophen (Tylenol Tab) 500 mg Q6 PRN PO MILD PAIN(1-3)OR ELEVATED TEMP Last administered on 04/30/18 09:36; Admin Dose 500 MG; Start 04/25/18 at 20:30 Allopurinol (Zyloprim) 100 mg DAILY PO Last administered on 04/30/18 09:37; Admin Dose 100 MG; Start 04/26/18 at 09:00 Aspirin (Halfprin) 81 mg DAILY PO Last administered on 04/30/18 09:51; Admin Dose 81 MG; Start 04/26/18 at 09:00 Duloxetine HCl (Cymbalta) 30 mg BID PO Last administered on 04/30/18 09:37; Admin Dose 30 MG; Start 04/25/18 at 21:00 Vitamin B Complex/ Vitamin C (Berocca) 1 cap DAILY PO Last administered on 04/30/18 09:00; Admin Dose 1 CAP; Start 04/26/18 at 09:00 Hydralazine HCl (Apresoline) 10 mg Q4H PRN IV SBP more than 150 mm Hg Last administered on 04/30/18 15:18; Admin Dose 10 MG; Start 04/25/18 at 20:30 Ferrous Sulfate (Ferrous Sulfate (Ec)) 325 mg BID PO Last administered on 04/30/18 09:37; Admin Dose 325 MG; Start 04/25/18 at 21:00 Gabapentin (Neurontin) 300 mg HS PO Last administered on 04/29/18 21:35; Admin Dose 300 MG; Start 04/25/18 at 21:00 Sertraline HCl (Zoloft) 200 mg HS PO Last administered on 04/29/18 21:35; Admin Dose 200 MG; Start 04/25/18 at 21:00 Heparin Sodium (Porcine) (Heparin (5000 Units/1ml)) 5,000 unit BID SC ; Start 04/25/18 at 21:00 Sevelamer Carbonate (Renvela) 1.6 gm WITH MEALS PO Last administered on 04/30/18 12:28; Admin Dose 1.6 GM; Start 04/26/18 at 17:55 Atorvastatin Calcium (Lipitor) 80 mg DAILY@21 PO Last administered on 04/29/18 21:34; Admin Dose 80 MG; Start 04/27/18 at 00:00 Loratadine (Claritin) 10 mg DAILY PO Last administered on 04/30/18 09:37; Admin Dose 10 MG; Start 04/27/18 at 14:00 Albuterol (Proventil 0.083% (Neb)) 1.25 mg Q4H RESP THERAPY HHN Last administered on 04/30/18 12:54; Admin Dose 1.25 MG; Start 04/28/18 at 21:00 Guaifenesin/ Dextromethorphan (Robitussin Dm Liquid Cup) 10 ml Q4H PRN PO cough Last administered on 04/28/18 21:22; Admin Dose 10 ML; Start 04/28/18 at 19:00 Miscellaneous Information/ Miscellaneous Information Q6H PRN PO anxiety; Start 04/28/18 at 19:00; Status UNV Famotidine (Pepcid) 20 mg DAILY PO Last administered on 04/30/18 09:37; Admin Dose 20 MG; Start 04/28/18 at 21:00 Epoetin Bautista (Epogen (Esrd)) 3,000 units TuThSa@1700 IV ; Start 05/01/18 at 17:00 Hydralazine HCl (Apresoline) 75 mg TID PO Last administered on 04/29/18 21:36; Admin Dose 75 MG; Start 04/29/18 at 06:30 Miscellaneous Information (*Order Clarification Bulletin) MEDICATION REQUIRES CLARIFICATI... Q8H XX Last administered on 04/30/18 12:12; Admin Dose 1 EA; Start 04/29/18 at 11:30 Methylprednisolone Sodium Succinate (Solu-Medrol) 100 mg Q12 IV Last administered on 04/30/18 09:37; Admin Dose 100 MG; Start 04/29/18 at 21:00 UMESH QUIJANO Apr 30, 2018 18:00
[2018-04-30] MEDS: ATORVASTATIN 40 MG TAB PO SCH (20:56)
[2018-04-30] MEDS: GABAPENTIN 300 MG CAP PO SCH (20:57)
--- NOTE | 2018-04-30 21:02 | CONS ---
Assessment/Plan Assessment/Plan Problems: (1) ESRD (end stage renal disease) on dialysis Comment: Pt awaiting HD (2) Depression Status: Chronic Comment: continue present antidepressants (3) Congestive heart failure (CHF) Status: Chronic Comment: hopefully, with aggressive dialysis her CHF will improve Qualifiers: Heart failure type: systolic (4) Anemia Status: Chronic Comment: Pt is on Epogen, will continue present doase & increase if hbg drops further (5) Cough productive of purulent sputum Status: Acute Comment: will continue but change to PO steroids hopefully, with improvement in CHF, cough will improve Consultation Date/Type/Reason Admit Date/Time Apr 25, 2018 at 16:28 Initial Consult Date 04/25/18 Type of Consult Renal Reason for Consultation ESRD, HD Requesting Provider: ADARSH OSEI MD Date/Time of Note DATE: 04/30/18 TIME: 20:54 24 HR Interval Summary Free Text/Dictation Pt remains depressed & anxious still having cough & sob Exam/Review of Systems Exam Vitals Vital Signs Date Temp Pulse Resp B/P (MAP) Pulse Ox O2 O2 Flow FiO2 Time Delivery Rate 04/30/18 98.1 85 19 141/64 95 20:10 (89) 04/30/18 Nasal 2.0 16:46 Cannula 04/26/18 30 20:15 Intake and Output 04/29/18 04/29/18 04/30/18 1515:00 23:00 07:00 IntakeIntake Total 750 ml 400 ml OutputOutput Total 3500 ml BalanceBalance -2750 ml 400 ml Constitutional: alert, obese Head: normocephalic Eyes: EOMI, nl lids ENMT: nl lips & teeth, nl nasal mucosa & septum Neck: supple Respiratory: crackles/rales Gastrointestinal: distended Extremities: calf tenderness Neurological: CARE NURSE RN II-XII intact Skin: nl turgor Additional Comments A slight drop in hbg noted Results Result Diagram: 04/29/18 1242 04/29/18 1242 Medications Medication Current Medications Heparin Sodium (Porcine) (Heparin (1000 Units/ml)) 4,000 unit AFTER DIALYSIS CATHETER ; Start 04/25/18 at 20:30 Acetaminophen (Tylenol Tab) 500 mg Q6 PRN PO MILD PAIN(1-3)OR ELEVATED TEMP Last administered on 04/30/18at 18:52; Admin Dose 500 MG; Start 04/25/18 at 20:30 Allopurinol (Zyloprim) 100 mg DAILY PO Last administered on 04/30/18 09:37; Admin Dose 100 MG; Start 04/26/18 at 09:00 Aspirin (Halfprin) 81 mg DAILY PO Last administered on 04/30/18 09:51; Admin Dose 81 MG; Start 04/26/18 at 09:00 Duloxetine HCl (Cymbalta) 30 mg BID PO Last administered on 04/30/18 09:37; Admin Dose 30 MG; Start 04/25/18 at 21:00 Vitamin B Complex/ Vitamin C (Berocca) 1 cap DAILY PO Last administered on 04/30/18 09:00; Admin Dose 1 CAP; Start 04/26/18 at 09:00 Hydralazine HCl (Apresoline) 10 mg Q4H PRN IV SBP more than 150 mm Hg Last administered on 04/30/18 15:18; Admin Dose 10 MG; Start 04/25/18 at 20:30 Ferrous Sulfate (Ferrous Sulfate (Ec)) 325 mg BID PO Last administered on 04/30/18 09:37; Admin Dose 325 MG; Start 04/25/18 at 21:00 Gabapentin (Neurontin) 300 mg HS PO Last administered on 04/29/18 21:35; Admin Dose 300 MG; Start 04/25/18 at 21:00 Sertraline HCl (Zoloft) 200 mg HS PO Last administered on 04/29/18 21:35; Admin Dose 200 MG; Start 04/25/18 at 21:00 Heparin Sodium (Porcine) (Heparin (5000 Units/1ml)) 5,000 unit BID SC ; Start 04/25/18 at 21:00 Sevelamer Carbonate (Renvela) 1.6 gm WITH MEALS PO Last administered on 04/30/18 18:52; Admin Dose 1.6 GM; Start 04/26/18 at 17:55 Atorvastatin Calcium (Lipitor) 80 mg DAILY@21 PO Last administered on 04/29/18 21:34; Admin Dose 80 MG; Start 04/27/18 at 00:00 Loratadine (Claritin) 10 mg DAILY PO Last administered on 04/30/18 09:37; Admin Dose 10 MG; Start 04/27/18 at 14:00 Albuterol (Proventil 0.083% (Neb)) 1.25 mg Q4H RESP THERAPY HHN Last administered on 04/30/18 12:54; Admin Dose 1.25 MG; Start 04/28/18 at 21:00 Guaifenesin/ Dextromethorphan (Robitussin Dm Liquid Cup) 10 ml Q4H PRN PO cough Last administered on 04/28/18 21:22; Admin Dose 10 ML; Start 04/28/18 at 19:00 Miscellaneous Information/ Miscellaneous Information Q6H PRN PO anxiety; Start 04/28/18 at 19:00; Status UNV Famotidine (Pepcid) 20 mg DAILY PO Last administered on 04/30/18 09:37; Admin Dose 20 MG; Start 04/28/18 at 21:00 Epoetin Bautista (Epogen (Esrd)) 3,000 units TuThSa@1700 IV ; Start 05/01/18 at 17:00 Hydralazine HCl (Apresoline) 75 mg TID PO Last administered on 04/29/18 21:36; Admin Dose 75 MG; Start 04/29/18 at 06:30 Miscellaneous Information (*Order Clarification Bulletin) MEDICATION REQUIRES CLARIFICATI... Q8H XX Last administered on 04/30/18 12:12; Admin Dose 1 EA; Start 04/29/18 at 11:30 Methylprednisolone Sodium Succinate (Solu-Medrol) 100 mg Q12 IV Last administered on 04/30/18 09:37; Admin Dose 100 MG; Start 04/29/18 at 21:00 FE DANG MD Apr 30, 2018 21:02
[2018-04-30] MEDS: SERTRALINE 100 MG TAB PO SCH (21:28)
[2018-05-01] VITALS (22 sets, daily range): BP systolic 132–190; BP diastolic 56–87; PULSE 78–94; RESP 18–20
[2018-05-01] MEDS: ALBUTEROL 0.083% (NEB) 2.5 MG/3 ML AMP HHN SCH ×6 (02:10→20:21)
[2018-05-01] MEDS: FERROUS SULFATE (EC) 325 MG TAB PO SCH ×2 (08:30→20:47)
[2018-05-01] MEDS: SEVELAMER CARBONATE 0.8 GM PKT PO SCH ×3 (08:30→16:59)
[2018-05-01] MEDS: VITAMIN B COMPLEX/VIT C CAP PO SCH (08:31)
[2018-05-01] MEDS: FAMOTIDINE 20 MG TAB PO SCH (08:31)
[2018-05-01] MEDS: DULOXETINE 30 MG CAP DR PO SCH ×2 (08:31→20:47)
[2018-05-01] MEDS: ALLOPURINOL 100 MG TAB PO SCH (08:31)
[2018-05-01] MEDS: LORATADINE 10 MG TAB PO SCH (08:31)
[2018-05-01] MEDS: ASPIRIN (EC) 81 MG TAB PO SCH (08:32)
[2018-05-01] MEDS: predniSONE 20 MG TAB PO SCH (08:32)
[2018-05-01] MEDS ORDERED: EPOETIN 3000 UNITS/1 ML INJ (ESRD) IV SCH (17:00)
[2018-05-01] MEDS: ACETAMINOPHEN 500 MG TAB PO PRN (17:00)
--- NOTE | 2018-05-01 18:41 | PN ---
Date/Time of Note Date/Time of Note DATE: 05/01/18 TIME: 18:37 Assessment/Plan VTE Prophylaxis Risk score (from Ns)>0 risk: 6 SCD applied (from Ns): Yes Pharmacological prophylaxis: heparin Lines/Catheters IV C[facility]ter Type (from [facility] Saline Lock Assessment/Plan Hospital Course Patient still complains of shortness of breath on exertion comfortable, comfortable at rest with supplemental oxygen, chest x-ray from yesterday with no definite pulmonary vascular congestion. Patient is status post hemodialysis today. Assessment/Plan -Acute fluid overload. Continue to remove fluid with hemodialysis. Dr. Borja is following in nephrology consultation. -Hemodialysis dependent end-stage renal disease -Stage I diastolic dysfunction CHF with preserved ejection fraction of 55-60% per echo. Dr. Lantigua is asked to see patient in cardiology consultation. -Uncontrolled hypertension. Status post IV labetalol and hydralazine. Continue hydralazine. -Diabetes mellitus with hemoglobin A1c 5.3 -Dyslipidemia, continue Lipitor -Depression, continue Cymbalta and Zoloft. -Anemia of chronic disease, continue Epogen -History of lacunar infarct. Continue aspirin. -Obesity with BMI of 36.1. Further recommendations based on clinical course. Plan of care discussed with Dr. Webb. Result Diagram: 04/29/18 1242 04/29/18 1242 Exam/Review of Systems Exam Vitals Vital Signs Date Temp Pulse Resp B/P (MAP) Pulse Ox O2 O2 Flow FiO2 Time Delivery Rate 05/01/18 92 16 96 Nasal 2.0 17:18 Cannula 05/01/18 98.0 159/63 16:28 (95) Intake and Output 04/30/18 04/30/18 05/01/18 1515:00 23:00 07:00 IntakeIntake Total 1000 ml 700 ml OutputOutput Total 5600 ml BalanceBalance -4600 ml 700 ml Exam Constitutional: alert, oriented Respiratory: diminished breath sounds Cardiovascular: regular rate and rhythm Gastrointestinal: soft, non-tender Musculoskeletal: nl extremities to inspection Extremities: normal pulses, other (Left upper extremity AV fistula) Medications Medication Current Medications Heparin Sodium (Porcine) (Heparin (1000 Units/ml)) 4,000 unit AFTER DIALYSIS CATHETER ; Start 04/25/18 at 20:30 Acetaminophen (Tylenol Tab) 500 mg Q6 PRN PO MILD PAIN(1-3)OR ELEVATED TEMP Last administered on 05/01/18 17:00; Admin Dose 500 MG; Start 04/25/18 at 20:30 Allopurinol (Zyloprim) 100 mg DAILY PO Last administered on 05/01/18 08:31; Admin Dose 100 MG; Start 04/26/18 at 09:00 Aspirin (Halfprin) 81 mg DAILY PO Last administered on 05/01/18 08:32; Admin Dose 81 MG; Start 04/26/18 at 09:00 Duloxetine HCl (Cymbalta) 30 mg BID PO Last administered on 05/01/18 08:31; Admin Dose 30 MG; Start 04/25/18 at 21:00 Vitamin B Complex/ Vitamin C (Berocca) 1 cap DAILY PO Last administered on 05/01/18 08:31; Admin Dose 1 CAP; Start 04/26/18 at 09:00 Hydralazine HCl (Apresoline) 10 mg Q4H PRN IV SBP more than 150 mm Hg Last administered on 04/30/18 15:18; Admin Dose 10 MG; Start 04/25/18 at 20:30 Ferrous Sulfate (Ferrous Sulfate (Ec)) 325 mg BID PO Last administered on 05/01/18 08:30; Admin Dose 325 MG; Start 04/25/18 at 21:00 Gabapentin (Neurontin) 300 mg HS PO Last administered on 04/30/18 20:57; Admin Dose 300 MG; Start 04/25/18 at 21:00 Sertraline HCl (Zoloft) 200 mg HS PO Last administered on 04/30/18 21:28; Admin Dose 200 MG; Start 04/25/18 at 21:00 Sevelamer Carbonate (Renvela) 1.6 gm WITH MEALS PO Last administered on 05/01/18 16:59; Admin Dose 1.6 GM; Start 04/26/18 at 17:55 Atorvastatin Calcium (Lipitor) 80 mg DAILY@21 PO Last administered on 04/30/18 20:56; Admin Dose 80 MG; Start 04/27/18 at 00:00 Loratadine (Claritin) 10 mg DAILY PO Last administered on 05/01/18 08:31; Admin Dose 10 MG; Start 04/27/18 at 14:00 Albuterol (Proventil 0.083% (Neb)) 1.25 mg Q4H RESP THERAPY HHN Last administered on 05/01/18 17:16; Admin Dose 1.25 MG; Start 04/28/18 at 21:00 Guaifenesin/ Dextromethorphan (Robitussin Dm Liquid Cup) 10 ml Q4H PRN PO cough Last administered on 04/28/18 21:22; Admin Dose 10 ML; Start 04/28/18 at 19:00 Miscellaneous Information/ Miscellaneous Information Q6H PRN PO anxiety; Start 04/28/18 at 19:00; Status UNV Famotidine (Pepcid) 20 mg DAILY PO Last administered on 05/01/18 08:31; Admin Dose 20 MG; Start 04/28/18 at 21:00 Epoetin Bautista (Epogen (Esrd)) 3,000 units TuThSa@1700 IV Last administered on 05/01/18 17:02; Admin Dose 3,000 UNITS; Start 05/01/18 at 17:00 Hydralazine HCl (Apresoline) 75 mg TID PO Last administered on 05/01/18 08:31; Admin Dose 75 MG; Start 04/29/18 at 06:30 Miscellaneous Information (*Order Clarification Bulletin) MEDICATION REQUIRES CLARIFICATI... Q8H XX Last administered on 04/30/18 12:12; Admin Dose 1 EA; Start 04/29/18 at 11:30 Prednisone (Prednisone) 20 mg DAILY PO Last administered on 05/01/18 08:32; Admin Dose 20 MG; Start 05/01/18 at 09:00 UMESH QUIJANO May 01, 2018 18:41
[2018-05-01] MEDS: ATORVASTATIN 40 MG TAB PO SCH (20:47)
[2018-05-01] MEDS: GABAPENTIN 300 MG CAP PO SCH (20:48)
[2018-05-01] MEDS: SERTRALINE 100 MG TAB PO SCH (20:52)
--- NOTE | 2018-05-01 22:25 | CONS ---
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 Therefore, she needs QFT-test ordered (2) Anemia Status: Chronic Comment: continue present epo (3) ESRD (end stage renal disease) on dialysis Status: Chronic Comment: After Today, will revert to TTS schedule for HD (4) Depression Status: Chronic Comment: continue present Rx (5) Congestive heart failure (CHF) Status: Chronic Comment: f/u CXR in AM Qualifiers: Heart failure type: systolic (6) Cough productive of purulent sputum Status: Acute Comment: I was called by Public Health RN from [facility] TB clinic advising me that she was exposed to TB at the [facility]. They wish QFT to r/o TB, which is doubtful Consultation Date/Type/Reason Admit Date/Time Apr 25, 2018 at 16:28 Initial Consult Date 04/25/18 Type of Consult Renal Reason for Consultation ESRD, HD Requesting Provider: ADARSH OSEI MD Date/Time of Note DATE: 05/01/18 TIME: 22:16 Exam/Review of Systems Exam Vitals Vital Signs Date Temp Pulse Resp B/P (MAP) Pulse Ox O2 O2 Flow FiO2 Time Delivery Rate 05/01/18 2.0 20:21 05/01/18 84 18 98 Nasal 20:21 Cannula 05/01/18 98.1 161/56 19:35 (91) Intake and Output 04/30/18 04/30/18 05/01/18 1515:00 23:00 07:00 IntakeIntake Total 1000 ml 700 ml OutputOutput Total 5600 ml BalanceBalance -4600 ml 700 ml Results Result Diagram: 04/29/18 1242 04/29/18 1242 Results 24hrs Laboratory Tests Test 05/01/18 21:50 TB Skin Test Induration Pending TB Skin Test Administer Date 05/01/18 TB Skin Test Administer Time 2149 TB Skin Test Injection Site Right Lower Forearm Medications Medication Current Medications Heparin Sodium (Porcine) (Heparin (1000 Units/ml)) 4,000 unit AFTER DIALYSIS CATHETER ; Start 04/25/18 at 20:30 Acetaminophen (Tylenol Tab) 500 mg Q6 PRN PO MILD PAIN(1-3)OR ELEVATED TEMP Last administered on 3/19/19at 17:00; Admin Dose 500 MG; Start 04/25/18 at 20:30 Allopurinol (Zyloprim) 100 mg DAILY PO Last administered on 05/01/18 08:31; Admin Dose 100 MG; Start 04/26/18 at 09:00 Aspirin (Halfprin) 81 mg DAILY PO Last administered on 05/01/18 08:32; Admin Dose 81 MG; Start 04/26/18 at 09:00 Duloxetine HCl (Cymbalta) 30 mg BID PO Last administered on 05/01/18 20:47; Admin Dose 30 MG; Start 04/25/18 at 21:00 Vitamin B Complex/ Vitamin C (Berocca) 1 cap DAILY PO Last administered on 05/01/18 08:31; Admin Dose 1 CAP; Start 04/26/18 at 09:00 Hydralazine HCl (Apresoline) 10 mg Q4H PRN IV SBP more than 150 mm Hg Last administered on 04/30/18 15:18; Admin Dose 10 MG; Start 04/25/18 at 20:30 Ferrous Sulfate (Ferrous Sulfate (Ec)) 325 mg BID PO Last administered on 05/01/18 20:47; Admin Dose 325 MG; Start 04/25/18 at 21:00 Gabapentin (Neurontin) 300 mg HS PO Last administered on 05/01/18 20:48; Admin Dose 300 MG; Start 04/25/18 at 21:00 Sertraline HCl (Zoloft) 200 mg HS PO Last administered on 05/01/18 20:52; Admin Dose 200 MG; Start 04/25/18 at 21:00 Sevelamer Carbonate (Renvela) 1.6 gm WITH MEALS PO Last administered on 05/01/18 16:59; Admin Dose 1.6 GM; Start 04/26/18 at 17:55 Atorvastatin Calcium (Lipitor) 80 mg DAILY@21 PO Last administered on 05/01/18 20:47; Admin Dose 80 MG; Start 04/27/18 at 00:00 Loratadine (Claritin) 10 mg DAILY PO Last administered on 05/01/18 08:31; Admin Dose 10 MG; Start 04/27/18 at 14:00 Albuterol (Proventil 0.083% (Neb)) 1.25 mg Q4H RESP THERAPY HHN Last administered on 05/01/18 20:21; Admin Dose 1.25 MG; Start 04/28/18 at 21:00 Guaifenesin/ Dextromethorphan (Robitussin Dm Liquid Cup) 10 ml Q4H PRN PO cough Last administered on 04/28/18 21:22; Admin Dose 10 ML; Start 04/28/18 at 19:00 Famotidine (Pepcid) 20 mg DAILY PO Last administered on 05/01/18 08:31; Admin Dose 20 MG; Start 04/28/18 at 21:00 Epoetin Bautista (Epogen (Esrd)) 3,000 units TuThSa@1700 IV Last administered on 05/01/18 17:02; Admin Dose 3,000 UNITS; Start 05/01/18 at 17:00 Hydralazine HCl (Apresoline) 75 mg TID PO Last administered on 05/01/18 20:49; Admin Dose 50 MG; Start 04/29/18 at 06:30 Prednisone (Prednisone) 20 mg DAILY PO Last administered on 05/01/18 08:32; Admin Dose 20 MG; Start 05/01/18 at 09:00 FE DANG MD May 01, 2018 22:25
[2018-05-02] VITALS (11 sets, daily range): BP systolic 128–177; BP diastolic 62–73; PULSE 78–92; RESP 18
[2018-05-02] MEDS: ALBUTEROL 0.083% (NEB) 2.5 MG/3 ML AMP HHN SCH ×6 (00:17→20:11)
[2018-05-02] MEDS: hydrALAzine 20 MG INJ IV PRN (01:16)
[2018-05-02] MEDS: SEVELAMER CARBONATE 0.8 GM PKT PO SCH ×3 (08:07→17:32)
[2018-05-02] MEDS: DULOXETINE 30 MG CAP DR PO SCH ×2 (08:08→20:47)
[2018-05-02] MEDS: VITAMIN B COMPLEX/VIT C CAP PO SCH (08:08)
[2018-05-02] MEDS: ALLOPURINOL 100 MG TAB PO SCH (08:09)
[2018-05-02] MEDS: ASPIRIN (EC) 81 MG TAB PO SCH (08:09)
[2018-05-02] MEDS: FERROUS SULFATE (EC) 325 MG TAB PO SCH ×2 (08:09→20:47)
[2018-05-02] MEDS: predniSONE 20 MG TAB PO SCH (08:09)
[2018-05-02] MEDS: FAMOTIDINE 20 MG TAB PO SCH (08:09)
[2018-05-02] MEDS: LORATADINE 10 MG TAB PO SCH (08:09)
[2018-05-02] MEDS: ACETAMINOPHEN 500 MG TAB PO PRN ×2 (15:28→20:48)
--- NOTE | 2018-05-02 16:14 | PN ---
Date/Time of Note Date/Time of Note DATE: 05/02/18 TIME: 16:13 Assessment/Plan VTE Prophylaxis Risk score (from Nsg)>0 risk: 6 SCD applied (from Nsg): Yes Lines/Catheters IV Catheter Type (from Nrsg): Saline Lock Assessment/Plan Assessment/Plan -Acute fluid overload. Continue to remove fluid with hemodialysis. Dr. Borja is following in nephrology consultation. -Hemodialysis dependent end-stage renal disease -Stage I diastolic dysfunction CHF with preserved ejection fraction of 55-60% per echo. Dr. Lantigua is asked to see patient in cardiology consultation. -Uncontrolled hypertension. Status post IV labetalol and hydralazine. Continue hydralazine. -Diabetes mellitus with hemoglobin A1c 5.3 -Dyslipidemia, continue Lipitor -Depression, continue Cymbalta and Zoloft. -Anemia of chronic disease, continue Epogen -History of lacunar infarct. Continue aspirin. -Obesity with BMI of 36.1. Further recommendations based on clinical course. Plan of care discussed with Dr. Webb. Result Diagram: 05/02/18 0609 05/02/18 0609 Results 24hrs Laboratory Tests Test 05/01/18 21:50 05/02/18 06:09 05/02/18 14:55 TB Skin Test Induration Pending TB Skin Test Administer Date 05/01/18 TB Skin Test Administer Time 2150 TB Skin Test Injection Site Right Lower Forearm White Blood Count 12.1 #H Red Blood Count 3.01 L Hemoglobin 10.2 L Hematocrit 33.0 L Mean Corpuscular Volume 109.6 H Mean Corpuscular Hemoglobin 33.9 H Mean Corpuscular 30.9 L Hemoglobin Concent Red Cell Distribution Width 14.7 H Platelet Count 445 H Mean Platelet Volume 9.0 Immature Granulocytes % 1.700 H Neutrophils % 50.7 Lymphocytes % 33.9 Monocytes % 10.5 Eosinophils % 2.5 Basophils % 0.7 Nucleated Red Blood Cells % 0.0 Immature Granulocytes # 0.210 H Neutrophils # 6.1 Lymphocytes # 4.1 H Monocytes # 1.3 H Eosinophils # 0.3 Basophils # 0.1 Nucleated Red Blood Cells # 0.0 Sodium Level 136 Potassium Level 5.1 Chloride Level 97 Carbon Dioxide Level 24 Anion Gap 15 H Blood Urea Nitrogen 54 H Creatinine 4.73 H Est Glomerular Filtrat 9 L Rate mL/min Glucose Level 196 Calcium Level 9.6 Creatine Kinase 33 Creatine Kinase Index 9.3 Creatinine Kinase MB (Mass) 3.06 H Troponin I 0.054 Subjective 24 Hr Interval Summary Free Text/Dictation snf placement pending Exam/Review of Systems Exam Vitals Vital Signs Date Temp Pulse Resp B/P (MAP) Pulse Ox O2 O2 Flow FiO2 Time Delivery Rate 05/02/18 79 16:07 05/02/18 2.0 15:57 05/02/18 98.5 18 144/65 99 Nasal 15:23 (91) Cannula Intake and Output 05/01/18 05/01/18 05/02/18 1515:00 23:00 07:00 IntakeIntake Total 750 ml 1000 ml BalanceBalance 750 ml 1000 ml Results Results 24hrs Laboratory Tests Test 05/01/18 21:50 05/02/18 06:09 05/02/18 14:55 TB Skin Test Induration Pending TB Skin Test Administer Date 05/01/18 TB Skin Test Administer Time 2150 TB Skin Test Injection Site Right Lower Forearm White Blood Count 12.1 #H Red Blood Count 3.01 L Hemoglobin 10.2 L Hematocrit 33.0 L Mean Corpuscular Volume 109.6 H Mean Corpuscular Hemoglobin 33.9 H Mean Corpuscular 30.9 L Hemoglobin Concent Red Cell Distribution Width 14.7 H Platelet Count 445 H Mean Platelet Volume 9.0 Immature Granulocytes % 1.700 H Neutrophils % 50.7 Lymphocytes % 33.9 Monocytes % 10.5 Eosinophils % 2.5 Basophils % 0.7 Nucleated Red Blood Cells % 0.0 Immature Granulocytes # 0.210 H Neutrophils # 6.1 Lymphocytes # 4.1 H Monocytes # 1.3 H Eosinophils # 0.3 Basophils # 0.1 Nucleated Red Blood Cells # 0.0 Sodium Level 136 Potassium Level 5.1 Chloride Level 97 Carbon Dioxide Level 24 Anion Gap 15 H Blood Urea Nitrogen 54 H Creatinine 4.73 H Est Glomerular Filtrat 9 L Rate mL/min Glucose Level 196 Calcium Level 9.6 Creatine Kinase 33 Creatine Kinase Index 9.3 Creatinine Kinase MB (Mass) 3.06 H Troponin I 0.054 Medications Medication Current Medications Heparin Sodium (Porcine) (Heparin (1000 Units/ml)) 4,000 unit AFTER DIALYSIS CATHETER ; Start 04/25/18 at 20:30 Acetaminophen (Tylenol Tab) 500 mg Q6 PRN PO MILD PAIN(1-3)OR ELEVATED TEMP Last administered on 05/02/18 15:28; Admin Dose 500 MG; Start 04/25/18 at 20:30 Allopurinol (Zyloprim) 100 mg DAILY PO Last administered on 05/02/18 08:09; Admin Dose 100 MG; Start 04/26/18 at 09:00 Aspirin (Halfprin) 81 mg DAILY PO Last administered on 05/02/18 08:09; Admin D ose 81 MG; Start 04/26/18 at 09:00 Duloxetine HCl (Cymbalta) 30 mg BID PO Last administered on 05/02/18 08:08; Admin Dose 30 MG; Start 04/25/18 at 21:00 Vitamin B Complex/ Vitamin C (Berocca) 1 cap DAILY PO Last administered on 05/02/18 08:08; Admin Dose 1 CAP; Start 04/26/18 at 09:00 Hydralazine HCl (Apresoline) 10 mg Q4H PRN IV SBP more than 150 mm Hg Last administered on 04/30/18 15:18; Admin Dose 10 MG; Start 04/25/18 at 20:30 Ferrous Sulfate (Ferrous Sulfate (Ec)) 325 mg BID PO Last administered on 05/02/18 08:09; Admin Dose 325 MG; Start 04/25/18 at 21:00 Gabapentin (Neurontin) 300 mg HS PO Last administered on 05/01/18 20:48; Admin Dose 300 MG; Start 04/25/18 at 21:00 Sertraline HCl (Zoloft) 200 mg HS PO Last administered on 05/01/18 20:52; Admin Dose 200 MG; Start 04/25/18 at 21:00 Sevelamer Carbonate (Renvela) 1.6 gm WITH MEALS PO Last administered on 05/02/18 12:01; Admin Dose 1.6 GM; Start 04/26/18 at 17:55 Atorvastatin Calcium (Lipitor) 80 mg DAILY@21 PO Last administered on 05/01/18 20:47; Admin Dose 80 MG; Start 04/27/18 at 00:00 Loratadine (Claritin) 10 mg DAILY PO Last administered on 05/02/18 08:09; Admin Dose 10 MG; Start 04/27/18 at 14:00 Albuterol (Proventil 0.083% (Neb)) 1.25 mg Q4H RESP THERAPY HHN Last administered on 05/02/18 12:41; Admin Dose 1.25 MG; Start 04/28/18 at 21:00 Guaifenesin/ Dextromethorphan (Robitussin Dm Liquid Cup) 10 ml Q4H PRN PO cough Last administered on 04/28/18 21:22; Admin Dose 10 ML; Start 04/28/18 at 19:00 Famotidine (Pepcid) 20 mg DAILY PO Last administered on 05/02/18 08:09; Admin Dose 20 MG; Start 04/28/18 at 21:00 Epoetin Bautista (Epogen (Esrd)) 3,000 units TuTa@1700 IV Last administered on 17:02; Admin Dose 3,000 UNITS; Start 05/01/18 at 17:00 Hydralazine HCl (Apresoline) 75 mg TID PO Last administered on 05/02/18 08:09; Admin Dose 75 MG; Start 04/29/18 at 06:30 Prednisone (Prednisone) 20 mg DAILY PO Last administered on 05/02/18 08:09; Admin Dose 20 MG; Start 05/01/18 at 09:00 ARLEY ANGEL May 02, 2018 16:14
--- NOTE | 2018-05-02 16:38 | PN ---
Date/Time of Note Date/Time of Note DATE: 05/02/18 TIME: 16:03 Assessment/Plan VTE Prophylaxis Risk score (from [facility])>0 risk: 6 SCD applied (from [facility]): Yes SCD contraindicated: other Pharmacological prophylaxis: other Pharm contraindication: other Lines/Catheters IV Catheter Type (from [facility] Saline Lock Assessment/Plan Assessment/Plan -Acute fluid overload. Continue to remove fluid with hemodialysis. Dr. Borja is following in nephrology consultation. -Hemodialysis dependent end-stage renal disease -Stage I diastolic dysfunction CHF with preserved ejection fraction of 55-60% per echo. Dr. Lantigua is asked to see patient in cardiology consultation. -Uncontrolled hypertension. Status post IV labetalol and hydralazine. Continue hydralazine. -Diabetes mellitus with hemoglobin A1c 5.3 -Dyslipidemia, continue Lipitor -Depression, continue Cymbalta and Zoloft. -Anemia of chronic disease, continue Epogen -History of lacunar infarct. Continue aspirin. -Obesity with BMI of 36.1. Further recommendations based on clinical course. Plan of care discussed with Dr. Webb. Result Diagram: 05/02/18 0609 05/02/18 0609 Results 24hrs Laboratory Tests Test 05/01/18 21:50 05/02/18 06:09 05/02/18 14:55 TB Skin Test Induration Pending TB Skin Test Administer Date 05/01/18 TB Skin Test Administer Time 2150 TB Skin Test Injection Site Right Lower Forearm White Blood Count 12.1 #H Red Blood Count 3.01 L Hemoglobin 10.2 L Hematocrit 33.0 L Mean Corpuscular Volume 109.6 H Mean Corpuscular Hemoglobin 33.9 H Mean Corpuscular 30.9 L Hemoglobin Concent Red Cell Distribution Width 14.7 H Platelet Count 445 H Mean Platelet Volume 9.0 Immature Granulocytes % 1.700 H Neutrophils % 50.7 Lymphocytes % 33.9 Monocytes % 10.5 Eosinophils % 2.5 Basophils % 0.7 Nucleated Red Blood Cells % 0.0 Immature Granulocytes # 0.210 H Neutrophils # 6.1 Lymphocytes # 4.1 H Monocytes # 1.3 H Eosinophils # 0.3 Basophils # 0.1 Nucleated Red Blood Cells # 0.0 Sodium Level 136 Potassium Level 5.1 Chloride Level 97 Carbon Dioxide Level 24 Anion Gap 15 H Blood Urea Nitrogen 54 H Creatinine 4.73 H Est Glomerular Filtrat 9 L Rate mL/min Glucose Level 196 Calcium Level 9.6 Creatine Kinase 33 Creatine Kinase Index 9.3 Creatinine Kinase MB (Mass) 3.06 H Troponin I 0.054 Subjective 24 Hr Interval Summary Free Text/Dictation [facility] [place] Exam/Review of Systems Exam Vitals Vital Signs Date Temp Pulse Resp B/P (MAP) Pulse Ox O2 O2 Flow FiO2 Time Delivery Rate 05/02/18 2.0 15:57 05/02/18 98.5 78 18 144/65 99 Nasal 15:23 (91) Cannula Intake and Output 05/01/18 05/01/18 05/02/18 1515:00 23:00 07:00 IntakeIntake Total 750 ml 1000 ml BalanceBalance 750 ml 1000 ml Constitutional: alert, well developed Psych: nl mood/affect Head: normocephalic Eyes: EOMI, nl lids ENMT: nl external ears & nose Neck: non-tender Respiratory: diminished breath sounds Cardiovascular: nl pulses Gastrointestinal: soft, non-tender Musculoskeletal: nl extremities to inspection Extremities: normal pulses Neurological: nl mental status Results Results 24hrs Laboratory Tests Test 05/01/18 21:50 05/02/18 06:09 05/02/18 14:55 TB Skin Test Induration Pending TB Skin Test Administer Date 05/01/18 TB Skin Test Administer Time 2149 TB Skin Test Injection Site Right Lower Forearm White Blood Count 12.1 #H Red Blood Count 3.01 L Hemoglobin 10.2 L Hematocrit 33.0 L Mean Corpuscular Volume 109.6 H Mean Corpuscular Hemoglobin 33.9 H Mean Corpuscular 30.9 L Hemoglobin Concent Red Cell Distribution Width 14.7 H Platelet Count 445 H Mean Platelet Volume 9.0 Immature Granulocytes % 1.700 H Neutrophils % 50.7 Lymphocytes % 33.9 Monocytes % 10.5 Eosinophils % 2.5 Basophils % 0.7 Nucleated Red Blood Cells % 0.0 Immature Granulocytes # 0.210 H Neutrophils # 6.1 Lymphocytes # 4.1 H Monocytes # 1.3 H Eosinophils # 0.3 Basophils # 0.1 Nucleated Red Blood Cells # 0.0 Sodium Level 136 Potassium Level 5.1 Chloride Level 97 Carbon Dioxide Level 24 Anion Gap 15 H Blood Urea Nitrogen 54 H Creatinine 4.73 H Est Glomerular Filtrat 9 L Rate mL/min Glucose Level 196 Calcium Level 9.6 Creatine Kinase 33 Creatine Kinase Index 9.3 Creatinine Kinase MB (Mass) 3.06 H Troponin I 0.054 Medications Medication Current Medications Heparin Sodium (Porcine) (Heparin (1000 Units/ml)) 4,000 unit AFTER DIALYSIS CATHETER ; Start 04/25/18 at 20:30 Acetaminophen (Tylenol Tab) 500 mg Q6 PRN PO MILD PAIN(1-3)OR ELEVATED TEMP Last administered on 05/02/18 15:28; Admin Dose 500 MG; Start 04/25/18 at 20:30 Allopurinol (Zyloprim) 100 mg DAILY PO Last administered on 05/02/18 08:09; Admin Dose 100 MG; Start 04/26/18 at 09:00 Aspirin (Halfprin) 81 mg DAILY PO Last administered on 05/02/18 08:09; Admin Dose 81 MG; Start 04/26/18 at 09:00 Duloxetine HCl (Cymbalta) 30 mg BID PO Last administered on 05/02/18 08:08; Admin Dose 30 MG; Start 04/25/18 at 21:00 Vitamin B Complex/ Vitamin C (Berocca) 1 cap DAILY PO Last administered on 05/02/18 08:08; Admin Dose 1 CAP; Start 04/26/18 at 09:00 Hydralazine HCl (Apresoline) 10 mg Q4H PRN IV SBP more than 150 mm Hg Last administered on 04/30/18 15:18; Admin Dose 10 MG; Start 04/25/18 at 20:30 Ferrous Sulfate (Ferrous Sulfate (Ec)) 325 mg BID PO Last administered on 05/02/18 08:09; Admin Dose 325 MG; Start 04/25/18 at 21:00 Gabapentin (Neurontin) 300 mg HS PO Last administered on 05/01/18 20:48; Admin Dose 300 MG; Start 04/25/18 at 21:00 Sertraline HCl (Zoloft) 200 mg HS PO Last administered on 05/01/18 20:52; Admin Dose 200 MG; Start 04/25/18 at 21:00 Sevelamer Carbonate (Renvela) 1.6 gm WITH MEALS PO Last administered on 05/02/18 12:01; Admin Dose 1.6 GM; Start 04/26/18 at 17:55 Atorvastatin Calcium (Lipitor) 80 mg DAILY@21 PO Last administered on 05/01/18 20:47; Admin Dose 80 MG; Start 04/27/18 at 00:00 Loratadine (Claritin) 10 mg DAILY PO Last administered on 05/02/18 08:09; Admin Dose 10 MG; Start 04/27/18 at 14:00 Albuterol (Proventil 0.083% (Neb)) 1.25 mg Q4H RESP THERAPY HHN Last administered on 05/02/18 12:41; Admin Dose 1.25 MG; Start 04/28/18 at 21:00 Guaifenesin/ Dextromethorphan (Robitussin Dm Liquid Cup) 10 ml Q4H PRN PO cough Last administered on 04/28/18 21:22; Admin Dose 10 ML; Start 04/28/18 at 19:00 Famotidine (Pepcid) 20 mg DAILY PO Last administered on 05/02/18 08:09; Admin Dose 20 MG; Start 04/28/18 at 21:00 Epoetin Bautista (Epogen (Esrd)) 3,000 units TuTa@1700 IV Last administered on 05/01/18 17:02; Admin Dose 3,000 UNITS; Start 05/01/18 at 17:00 Hydralazine HCl (Apresoline) 75 mg TID PO Last administered on 05/02/18 08:09; Admin Dose 75 MG; Start 04/29/18 at 06:30 Prednisone (Prednisone) 20 mg DAILY PO Last administered on 05/02/18 08:09; Admin Dose 20 MG; Start 05/01/18 at 09:00 ARLEY ANGEL May 02, 2018 16:14
--- NOTE | 2018-05-02 18:46 | CONS ---
DATE OF ADMISSION: 04/25/2018 DATE OF CONSULTATION: 05/02/2018 TYPE OF CONSULTATION: Cardiology. REASON FOR CONSULTATION: Congestive heart failure exacerbation. REQUESTING PHYSICIAN: Nikita Webb MD HISTORY OF PRESENT ILLNESS: Ms. Rojas is a very pleasant 67-year-old female with a history of end-stage renal disease on hemodialysis, hypertension, CVA, dyslipidemia, depression, diabetes, congestive heart failure with preserved EF, anemia, who presented with complaints of shortness of breath after having her regular dialysis on the day prior. Initially upon arrival, temperature was 98.1, blood pressure 167/74, pulse 100, respiratory rate 19, satting 83%. The patient's labs revealed a white blood cell count of 8.4, hemoglobin 8.7, platelet count 293, sodium 137, potassium 4.5, creatinine 4.5, BUN 25, troponin negative, INR 1.1, UA negative. The patient's chest x-ray revealed mild cardiomegaly and pulmonary vascular congestion and she underwent a sinus x-ray as well which revealed limited visualization without definite sinus fluid levels. The patient underwent a 2D echo which reviewed by myself having preserved EF of 55% to 60% with diastolic dysfunction. Since admit, the patient has undergone aggressive hemodialysis with improvement in overall volume status and some improvement in shortness of breath. PAST MEDICAL HISTORY: As above in HPI. MEDICATIONS CURRENTLY IN HOSPITAL: 1. Epogen. 2. Prednisone 10 mg daily. 3. Hydralazine 25 mg p.o. t.i.d., the patient refused today. 4. Claritin 10 mg daily. 5. Lipitor 80 mg at bedtime. 6. Renvela. 7. Allopurinol. 8. Aspirin 81 mg daily. 9. Vitamin B complex. 10. Vitamin C. 11. Ferrous sulfate. 12. Cymbalta. 13. Gabapentin. 14. Zoloft. 15. Tylenol. 16. Hydralazine IV push p.r.n. ALLERGIES 1. PENICILLIN. 2. SULFA. 3. MORPHINE. SOCIAL HISTORY: No tobacco, EtOH or illicit drug use. FAMILY HISTORY: No history of sudden cardiac or early CAD. REVIEW OF SYSTEMS: As above in HPI. CONSTITUTIONAL: No fevers, chills. PULMONARY: Shortness of breath. CARDIOVASCULAR: Congestive heart failure. GASTROINTESTINAL: No vomiting. GENITOURINARY: End-stage renal disease. PSYCHIATRIC: Positive psych history. NEUROLOGIC: No documented history of CVA. ENDOCRINE: No documented history of diabetes mellitus. PHYSICAL EXAMINATION: VITAL SIGNS: Temperature of 97.7, blood pressure 148/66, pulse 85, respiratory rate 18, satting 98%. GENERAL: The patient is alert, awake, in no acute distress. NECK: JVP approximately is 9 to 10 cm of water. CHEST: Decreased breath sounds at bases bilaterally. HEART: Regular rate and rhythm. Normal S1, S2, I/ systolic murmur, nondisplaced PMI. ABDOMEN: Positive bowel sounds, soft. EXTREMITIES: No significant pitting edema, 1+ pulses bilateral posterior tibial. LABORATORY DATA: As above in the HPI with most recently from today, white blood cell count of 12.1, hemoglobin 10.2, platelet count of 445. Sodium of 136, potassium 5.1, creatinine 4.73, BUN of 54. INR 1.1. UA negative. IMAGING STUDIES: Chest x-ray from 04/29/2018 revealing mild central pulmonary vascular congestion, interstitial prominence in both lungs, atelectasis versus mild infiltrates in the perihilar lower lobes and small pleural effusions. ELECTROCARDIOGRAM: The patient's ECG revealed nonspecific ST-T wave abnormalities, sinus rhythm. IMPRESSION: 1. Congestive heart failure exacerbation, diastolic, acute on chronic in the setting of renal failure. 2. Hypertension, uncontrolled. The patient is refusing baseline antihypertensives. 3. Dyslipidemia. 4. End-stage renal disease, on hemodialysis. 5. Psychiatric disorder with depression. 6. History of cerebrovascular accident. 7. Anemia. RECOMMENDATIONS: 1. At this time, we would maintain the patient on telemetry monitoring to follow rhythm and rate control closely. 2. We would continue the patient's aggressive hemodialysis. 3. We would send a final troponin to complete the patient's rule out for myocardial infarction. 4. Check a fasting lipid panel for general risk stratification and initiate lipid medication as necessary. 5. Continue the patient's aspirin for prophylaxis against cardiovascular events. 6. Continue the patient's baseline steroids and bronchodilators. 7. Continue the patient's iron and follow hemoglobin closely and continue the patient's baseline Zoloft. Thank you for allowing me to take part in the care of this patient. I will continue to follow her very closely with you with further recommendations to be made as the patient progresses through her inpatient hospital clinical course. Dictated By: BRETT PALMER/ALFREDO Conf#: [id number] DID#: [id number] CC: NIKITA WEBB MD;*EndCC* MTDD
--- NOTE | 2018-05-02 20:22 | CONS ---
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 Pt continues to have bilateral rales & may represent interstitial lung disease. Qualifiers: Heart failure type: systolic Heart failure chronicity: chronic Qualified Codes: I50.22 - Chronic systolic (congestive) heart failure (4) ESRD (end stage renal disease) on dialysis Status: Chronic Comment: HD in AM (5) Depression Status: Chronic Comment: Continur present Rx, Pt seen by cardio, no specific recommendations (6) Cough productive of purulent sputum Status: Acute Comment: Cough could be due to Pul Fibrosis; I doubt there's underlying infe ction, may consider dc antibiotics Assessment/Plan (Daily) Await Dr Webb's plans. Pt may have pulmonary fibrosis & require on going steroid therapy Consultation Date/Type/Reason Admit Date/Time Apr 25, 2018 at 16:28 Initial Consult Date 04/25/18 Type of Consult Renal Reason for Consultation ESRD, HD Requesting Provider: ADARSH WEBB MD Date/Time of Note DATE: 05/02/18 TIME: 20:11 24 HR Interval Summary Free Text/Dictation Pt seems to be doing much better, says cough & SOB are better Exam/Review of Systems Exam Vitals Vital Signs Date Temp Pulse Resp B/P (MAP) Pulse Ox O2 O2 Flow FiO2 Time Delivery Rate 05/02/18 98.7 85 18 139/62 97 Nasal 19:40 (87) Cannula 05/02/18 2.0 17:18 Intake and Output 05/01/18 05/01/18 05/02/18 1515:00 23:00 07:00 IntakeIntake Total 750 ml 1000 ml BalanceBalance 750 ml 1000 ml Constitutional: alert, oriented, well developed Head: normocephalic Eyes: nl conjunctiva ENMT: nl external ears & nose Neck: supple Respiratory: crackles/rales Extremities: other (Lt arm avf present) 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 Skin: nl turgor Results Result Diagram: 05/02/18 0609 05/02/18 0609 Results 24hrs Laboratory Tests Test 05/01/18 21:50 05/02/18 06:09 05/02/18 14:55 TB Skin Test Induration Pending TB Skin Test Administer Date 05/01/18 TB Skin Test Administer Time 215 TB Skin Test Injection Site Right Lower Forearm White Blood Count 12.1 #H Red Blood Count 3.01 L Hemoglobin 10.2 L Hematocrit 33.0 L Mean Corpuscular Volume 109.6 H Mean Corpuscular Hemoglobin 33.9 H Mean Corpuscular 30.9 L Hemoglobin Concent Red Cell Distribution Width 14.7 H Platelet Count 445 H Mean Platelet Volume 9.0 Immature Granulocytes % 1.700 H Neutrophils % 50.7 Lymphocytes % 33.9 Monocytes % 10.5 Eosinophils % 2.5 Basophils % 0.7 Nucleated Red Blood Cells % 0.0 Immature Granulocytes # 0.210 H Neutrophils # 6.1 Lymphocytes # 4.1 H Monocytes # 1.3 H Eosinophils # 0.3 Basophils # 0.1 Nucleated Red Blood Cells # 0.0 Sodium Level 136 Potassium Level 5.1 Chloride Level 97 Carbon Dioxide Level 24 Anion Gap 15 H Blood Urea Nitrogen 54 H Creatinine 4.73 H Est Glomerular Filtrat 9 L Rate mL/min Glucose Level 196 Calcium Level 9.6 Creatine Kinase 33 Creatine Kinase Index 9.3 Creatinine Kinase MB (Mass) 3.06 H Troponin I 0.054 Medications Medication Current Medications Heparin Sodium (Porcine) (Heparin (1000 Units/ml)) 4,000 unit AFTER DIALYSIS CATHETER ; Start 04/25/18 at 20:30 Acetaminophen (Tylenol Tab) 500 mg Q6 PRN PO MILD PAIN(1-3)OR ELEVATED TEMP Last administered on 05/02/18at 15:28; Admin Dose 500 MG; Start 04/25/18 at 20:30 Allopurinol (Zyloprim) 100 mg DAILY PO Last administered on 05/02/18at 08:09; Admin Dose 100 MG; Start 04/26/18 at 09:00 Aspirin (Halfprin) 81 mg DAILY PO Last administered on 05/02/18at 08:09; Admin Dose 81 MG; Start 04/26/18 at 09:00 Duloxetine HCl (Cymbalta) 30 mg BID PO Last administered on 05/02/18at 08:08; Admin Dose 30 MG; Start 04/25/18 at 21:00 Vitamin B Complex/ Vitamin C (Berocca) 1 cap DAILY PO Last administered on 05/02/18 08:08; Admin Dose 1 CAP; Start 04/26/18 at 09:00 Hydralazine HCl (Apresoline) 10 mg Q4H PRN IV SBP more than 150 mm Hg Last administered on 04/30/18 15:18; Admin Dose 10 MG; Start 04/25/18 at 20:30 Ferrous Sulfate (Ferrous Sulfate (Ec)) 325 mg BID PO Last administered on 05/02/18 08:09; Admin Dose 325 MG; Start 04/25/18 at 21:00 Gabapentin (Neurontin) 300 mg HS PO Last administered on 05/01/18 20:48; Admin Dose 300 MG; Start 04/25/18 at 21:00 Sertraline HCl (Zoloft) 200 mg HS PO Last administered on 05/01/18 20:52; Admin Dose 200 MG; Start 04/25/18 at 21:00 Sevelamer Carbonate (Renvela) 1.6 gm WITH MEALS PO Last administered on 05/02/18 17:32; Admin Dose 1.6 GM; Start 04/26/18 at 17:55 Atorvastatin Calcium (Lipitor) 80 mg DAILY@21 PO Last administered on 05/01/18 20:47; Admin Dose 80 MG; Start 04/27/18 at 00:00 Loratadine (Claritin) 10 mg DAILY PO Last administered on 05/02/18 08:09; Admin Dose 10 MG; Start 04/27/18 at 14:00 Albuterol (Proventil 0.083% (Neb)) 1.25 mg Q4H RESP THERAPY HHN Last administered on 05/02/18 20:11; Admin Dose 1.25 MG; Start 04/28/18 at 21:00 Guaifenesin/ Dextromethorphan (Robitussin Dm Liquid Cup) 10 ml Q4H PRN PO cough Last administered on 04/28/18 21:22; Admin Dose 10 ML; Start 04/28/18 at 19:00 Famotidine (Pepcid) 20 mg DAILY PO Last administered on 05/02/18 08:09; Admin Dose 20 MG; Start 04/28/18 at 21:00 Epoetin Bautista (Epogen (Esrd)) 3,000 units TuThSa@1700 IV Last administered on 05/01/18 17:02; Admin Dose 3,000 UNITS; Start 05/01/18 at 17:00 Hydralazine HCl (Apresoline) 75 mg TID PO Last administered on 05/02/18 08:09; Admin Dose 75 MG; Start 04/29/18 at 06:30 Prednisone (Prednisone) 20 mg DAILY PO Last administered on 05/02/18 08:09; Ad min Dose 20 MG; Start 05/01/18 at 09:00 FE DANG MD May 02, 2018 20:22
[2018-05-02] MEDS: ATORVASTATIN 40 MG TAB PO SCH (20:47)
[2018-05-02] MEDS: GABAPENTIN 300 MG CAP PO SCH (20:47)
[2018-05-02] MEDS: SERTRALINE 100 MG TAB PO SCH (20:47)
[2018-05-03] VITALS (25 sets, daily range): BP systolic 131–182; BP diastolic 60–89; PULSE 71–89; RESP 16–24
[2018-05-03] MEDS: hydrALAzine 20 MG INJ IV PRN (00:31)
[2018-05-03] MEDS: ALBUTEROL 0.083% (NEB) 2.5 MG/3 ML AMP HHN SCH ×6 (01:54→20:48)
[2018-05-03] MEDS: ACETAMINOPHEN 500 MG TAB PO PRN ×3 (04:04→20:41)
[2018-05-03] MEDS: FERROUS SULFATE (EC) 325 MG TAB PO SCH ×2 (08:28→20:35)
[2018-05-03] MEDS: SEVELAMER CARBONATE 0.8 GM PKT PO SCH ×3 (08:28→17:43)
[2018-05-03] MEDS: ALLOPURINOL 100 MG TAB PO SCH (08:28)
[2018-05-03] MEDS: DULOXETINE 30 MG CAP DR PO SCH ×2 (08:28→20:35)
[2018-05-03] MEDS: LORATADINE 10 MG TAB PO SCH (08:29)
[2018-05-03] MEDS: FAMOTIDINE 20 MG TAB PO SCH (08:29)
[2018-05-03] MEDS: predniSONE 20 MG TAB PO SCH (08:29)
[2018-05-03] MEDS: ASPIRIN (EC) 81 MG TAB PO SCH (08:29)
[2018-05-03] MEDS: VITAMIN B COMPLEX/VIT C CAP PO SCH (09:47)
--- NOTE | 2018-05-03 12:37 | PN ---
Date/Time of Note Date/Time of Note DATE: 05/03/18 TIME: 12:36 Assessment/Plan VTE Prophylaxis Risk score (from Nsg)>0 risk: 4 SCD applied (from Nsg): No Lines/Catheters IV Catheter Type (from Nrs): Saline Lock Assessment/Plan Assessment/Plan -Acute fluid overload. Continue to remove fluid with hemodialysis. Dr. Borja is following in nephrology consultation. -Hemodialysis dependent end-stage renal disease -Stage I diastolic dysfunction CHF with preserved ejection fraction of 55-60% per echo. Dr. Lantigua is asked to see patient in cardiology consultation. -Uncontrolled hypertension. Status post IV labetalol and hydralazine. Continue hydralazine. -Diabetes mellitus with hemoglobin A1c 5.3 -Dyslipidemia, continue Lipitor -Depression, continue Cymbalta and Zoloft. -Anemia of chronic disease, continue Epogen -History of lacunar infarct. Continue aspirin. -Obesity with BMI of 36.1. Further recommendations based on clinical course. Plan of care discussed with Dr. Webb. Result Diagram: 05/02/18 0609 05/02/18 0609 Results 24hrs Laboratory Tests Test 05/02/18 14:55 05/03/18 06:12 Creatine Kinase 33 Creatine Kinase Index 9.3 Creatinine Kinase MB (Mass) 3.06 H Troponin I 0.054 Triglycerides Level 141 Cholesterol Level 109 LDL Cholesterol, Calculated 34 HDL Cholesterol 47 Cholesterol/HDL Ratio 2.3 Subjective 24 Hr Interval Summary Constitutional: improved ENT: no complaints Respiratory: no complaints Cardiovascular: no complaints Gastrointestinal: no complaints Genitourinary: no complaints Skin: no complaints Neurologic: no complaints Endocrine: no complaints Lymphatic: no complaints Psychological: nl mood/affect Exam/Review of Systems Exam Vitals Vital Signs Date Temp Pulse Resp B/P (MAP) Pulse Ox O2 O2 Flow FiO2 Time Delivery Rate 05/03/18 78 12:01 05/03/18 98.7 16 182/77 91 Room Air 11:39 (112) 05/03/18 2.0 08:00 Intake and Output 05/02/18 05/02/18 05/03/18 1515:00 23:00 07:00 IntakeIntake Total 600 ml 400 ml BalanceBalance 600 ml 400 ml Constitutional: alert, oriented, well developed Psych: nl mood/affect Head: normocephalic Eyes: EOMI, nl lids, nl sclera ENMT: nl external ears & nose Respiratory: diminished breath sounds Cardiovascular: nl pulses, other Gastrointestinal: soft, non-tender Musculoskeletal: nl extremities to inspection Extremities: normal pulses Neurological: nl mental status, nl speech Skin: nl turgor Lymph: nontender Results Results 24hrs Laboratory Tests Test 05/02/18 14:55 05/03/18 06:12 Creatine Kinase 33 Creatine Kinase Index 9.3 Creatinine Kinase MB (Mass) 3.06 H Troponin I 0.054 Triglycerides Level 141 Cholesterol Level 109 LDL Cholesterol, Calculated 34 HDL Cholesterol 47 Cholesterol/HDL Ratio 2.3 Medications Medication Current Medications Heparin Sodium (Porcine) (Heparin (1000 Units/ml)) 4,000 unit AFTER DIALYSIS CATHETER ; Start 04/25/18 at 20:30 Acetaminophen (Tylenol Tab) 500 mg Q6 PRN PO MILD PAIN(1-3)OR ELEVATED TEMP L ast administered on 05/03/18 08:34; Admin Dose 500 MG; Start 04/25/18 at 20:30 Allopurinol (Zyloprim) 100 mg DAILY PO Last administered on 05/03/18 08:28; Admin Dose 100 MG; Start 04/26/18 at 09:00 Aspirin (Halfprin) 81 mg DAILY PO Last administered on 05/03/18 08:29; Admin Dose 81 MG; Start 04/26/18 at 09:00 Duloxetine HCl (Cymbalta) 30 mg BID PO Last administered on 05/03/18 08:28; Admin Dose 30 MG; Start 04/25/18 at 21:00 Vitamin B Complex/ Vitamin C (Berocca) 1 cap DAILY PO Last administered on 05/03/18 09:47; Admin Dose 1 CAP; Start 04/26/18 at 09:00 Hydralazine HCl (Apresoline) 10 mg Q4H PRN IV SBP more than 150 mm Hg Last administered on 05/03/18 00:31; Admin Dose 10 MG; Start 04/25/18 at 20:30 Ferrous Sulfate (Ferrous Sulfate (Ec)) 325 mg BID PO Last administered on 08:28; Admin Dose 325 MG; Start 04/25/18 at 21:00 Gabapentin (Neurontin) 300 mg HS PO Last administered on 05/02/18 20:47; Admin Dose 300 MG; Start 04/25/18 at 21:00 Sertraline HCl (Zoloft) 200 mg HS PO Last administered on 05/02/18 20:47; Admin Dose 200 MG; Start 04/25/18 at 21:00 Sevelamer Carbonate (Renvela) 1.6 gm WITH MEALS PO Last administered on 05/03/18 11:56; Admin Dose 1.6 GM; Start 04/26/18 at 17:55 Atorvastatin Calcium (Lipitor) 80 mg DAILY@21 PO Last administered on 05/02/18 20:47; Admin Dose 80 MG; Start 04/27/18 at 00:00 Loratadine (Claritin) 10 mg DAILY PO Last administered on 05/03/18 08:29; Admin Dose 10 MG; Start 04/27/18 at 14:00 Albuterol (Proventil 0.083% (Neb)) 1.25 mg Q4H RESP THERAPY HHN Last administered on 05/03/18 05:28; Admin Dose 1.25 MG; Start 04/28/18 at 21:00 Guaifenesin/ Dextromethorphan (Robitussin Dm Liquid Cup) 10 ml Q4H PRN PO cough Last administered on 04/28/18 21:22; Admin Dose 10 ML; Start 04/28/18 at 19:00 Famotidine (Pepcid) 20 mg DAILY PO Last administered on 05/03/18 08:29; Admin Dose 20 MG; Start 04/28/18 at 21:00 Epoetin Bautista (Epogen (Esrd)) 3,000 units TuThSa@1700 IV Last administered on 05/01/18 17:02; Admin Dose 3,000 UNITS; Start 05/01/18 at 17:00 Hydralazine HCl (Apresoline) 75 mg TID PO Last administered on 05/02/18 08:09; Admin Dose 75 MG; Start 04/29/18 at 06:30 Prednisone (Prednisone) 10 mg DAILY PO ; Start 05/04/18 at 09:00 ARLEY ANGEL May 03, 2018 12:37
--- NOTE | 2018-05-03 13:49 | RADRPT ---
Vent Rate: 88 bpm RR Interval: 680 msec KS Interval: 276 msec QRS Duration: 111 msec QT Interval: 377 msec QTC Interval: 457 msec P-R-T [place]: 79 - 253 - 97 degrees Sinus rhythm...normal P axis, V-rate 50- 99 Prolonged KS interval...KS >220, V-rate 50- 90 Left atrial enlargement...P, P'>60mS, <-0.15mV V1 LAD, consider left anterior fascicular block...axis(240,-40), S>R II III aVF Consider anterior infarct...Q >30mS in V2-V5 Abnormal T, consider ischemia, lateral leads...T <-0.20mV, I aVL V5 V6 ST elevation, consider inferior injury...ST >0.08mV, II III aVF Electronically Signed By: Sukhdev Bowser
--- NOTE | 2018-05-03 18:16 | CONS ---
Assessment/Plan Assessment/Plan Hospital Course (Demo Recall) IMPRESSION: 1. Congestive heart failure exacerbation, diastolic, acute on chronic in the setting of renal failure.-neg trop x 3 2. Hypertension, uncontrolled. The patient is refusing baseline antihypertensives. 3. Dyslipidemia. 4. End-stage renal disease, on hemodialysis. 5. Psychiatric disorder with depression. 6. History of cerebrovascular accident. 7. Anemia. 8. dyslipidemia recc: -tele -continue asa/statin -hydralazine with slight increase -Hd for volume removal Consultation Date/Type/Reason Admit Date/Time Apr 25, 2018 at 16:28 Initial Consult Date 04/25/18 Type of Consult Cardiology Reason for Consultation CHF Requesting Provider: ADARSH OSEI MD Date/Time of Note DATE: 05/03/18 TIME: 18:12 Exam/Review of Systems Vital Signs Vitals Vital Signs Date Temp Pulse Resp B/P (MAP) Pulse Ox O2 O2 Flow FiO2 Time Delivery Rate 05/03/18 83 16:32 05/03/18 98.5 18 161/75 98 15:23 (103) 05/03/18 Room Air 12:30 05/03/18 2.0 08:00 Intake and Output 05/02/18 05/02/18 05/03/18 1515:00 23:00 07:00 IntakeIntake Total 600 ml 400 ml BalanceBalance 600 ml 400 ml Exam Exam Review of Systems: CONSTITUTIONAL: No fevers, chills. PULMONARY: No sob CARDIOVASCULAR: No chest pain/palpitations GASTROINTESTINAL: No nausea/vomiting. GENITOURINARY: No hematuria/dysuria. MUSCULOSKELETAL: No myagias/arthalgias. PSYCHIATRIC: The patient denies depression. NEUROLOGIC: No weakness Constitutional: alert Psych: no complaints Head: normocephalic ENMT: mucosa pink and moist Neck: supple, jvd Respiratory: diminished breath sounds Cardiovascular: regular rate and rhythm Gastrointestinal: soft, non-tender Musculoskeletal: muscle tone (normal) Extremities: edema (none) Labs Result Diagram: 05/02/18 0609 05/02/18 0609 Results 24hrs Laboratory Tests Test 05/03/18 06:12 Triglycerides Level 141 Cholesterol Level 109 LDL Cholesterol, Calculated 34 HDL Cholesterol 47 Cholesterol/HDL Ratio 2.3 Medications Medications Current Medications Heparin Sodium (Porcine) (Heparin (1000 Units/ml)) 4,000 unit AFTER DIALYSIS CATHETER ; Start 04/25/18 at 20:30 Acetaminophen (Tylenol Tab) 500 mg Q6 PRN PO MILD PAIN(1-3)OR ELEVATED TEMP Last administered on 05/03/18 08:34; Admin Dose 500 MG; Start 04/25/18 at 20:30 Allopurinol (Zyloprim) 100 mg DAILY PO Last administered on 05/03/18 08:28; Admin Dose 100 MG; Start 04/26/18 at 09:00 Aspirin (Halfprin) 81 mg DAILY PO Last administered on 05/03/18 08:29; Admin Dose 81 MG; Start 04/26/18 at 09:00 Duloxetine HCl (Cymbalta) 30 mg BID PO Last administered on 05/03/18 08:28; Admin Dose 30 MG; Start 04/25/18 at 21:00 Vitamin B Complex/ Vitamin C (Berocca) 1 cap DAILY PO Last administered on 05/03/18 09:47; Admin Dose 1 CAP; Start 04/26/18 at 09:00 Hydralazine HCl (Apresoline) 10 mg Q4H PRN IV SBP more than 150 mm Hg Last administered on 05/03/18 00:31; Admin Dose 10 MG; Start 04/25/18 at 20:30 Ferrous Sulfate (Ferrous Sulfate (Ec)) 325 mg BID PO Last administered on 05/03/18 08:28; Admin Dose 325 MG; Start 04/25/18 at 21:00 Gabapentin (Neurontin) 300 mg HS PO Last administered on 05/02/18 20:47; Admin Dose 300 MG; Start 04/25/18 at 21:00 Sertraline HCl (Zoloft) 200 mg HS PO Last administered on 05/02/18 20:47; Admin Dose 200 MG; Start 04/25/18 at 21:00 Sevelamer Carbonate (Renvela) 1.6 gm WITH MEALS PO Last administered on 05/03/18 17:43; Admin Dose 1.6 GM; Start 04/26/18 at 17:55 Atorvastatin Calcium (Lipitor) 80 mg DAILY@21 PO Last administered on 05/02/18 20:47; Admin Dose 80 MG; Start 04/27/18 at 00:00 Loratadine (Claritin) 10 mg DAILY PO Last administered on 05/03/18 08:29; Admin Dose 10 MG; Start 04/27/18 at 14:00 Albuterol (Proventil 0.083% (Neb)) 1.25 mg Q4H RESP THERAPY HHN Last administered on 05/03/18at 17:36; Admin Dose 1.25 MG; Start 04/28/18 at 21:00 Guaifenesin/ Dextromethorphan (Robitussin Dm Liquid Cup) 10 ml Q4H PRN PO cough Last administered on 04/28/18 21:22; Admin Dose 10 ML; Start 04/28/18 at 19:00 Famotidine (Pepcid) 20 mg DAILY PO Last administered on 05/03/18 08:29; Admin Dose 20 MG; Start 04/28/18 at 21:00 Hydralazine HCl (Apresoline) 75 mg TID PO Last administered on 05/03/18at 13:15; Admin Dose 75 MG; Start 04/29/18 at 06:30 Prednisone (Prednisone) 10 mg DAILY PO ; Start 05/04/18 at 09:00 Epoetin Bautista (Epogen (Esrd)) 3,000 units TuTa@1700 IV ; Start 05/03/18 at 17:00 BRETT BLUM May 03, 2018 18:16
[2018-05-03] MEDS: EPOETIN 3000 UNITS/1 ML INJ (ESRD) IV SCH (18:37)
[2018-05-03] MEDS: SERTRALINE 100 MG TAB PO SCH (20:35)
[2018-05-03] MEDS: ATORVASTATIN 40 MG TAB PO SCH (20:35)
[2018-05-03] MEDS: GABAPENTIN 300 MG CAP PO SCH (20:35)
--- NOTE | 2018-05-03 22:06 | CONS ---
Consultation Date/Type/Reason Admit Date/Time Apr 25, 2018 at 16:28 Initial Consult Date 04/25/18 Type of Consult Renal Requesting Provider: ADARSH OSEI MD Date/Time of Note DATE: 05/03/18 TIME: 22:06 Exam/Review of Systems Exam Vitals Vital Signs Date Temp Pulse Resp B/P (MAP) Pulse Ox O2 O2 Flow FiO2 Time Delivery Rate 05/03/18 88 18 97 Nasal 2.0 20:48 Cannula 05/03/18 98.6 141/63 19:38 (89) Intake and Output 05/02/18 05/02/18 05/03/18 1515:00 23:00 07:00 IntakeIntake Total 600 ml 400 ml BalanceBalance 600 ml 400 ml Results Result Diagram: 05/02/18 0605/02/18 0609 Results 24hrs Laboratory Tests Test 05/03/18 06:12 Triglycerides Level 141 Cholesterol Level 109 LDL Cholesterol, Calculated 34 HDL Cholesterol 47 Cholesterol/HDL Ratio 2.3 Medications Medication Current Medications Heparin Sodium (Porcine) (Heparin (1000 Units/ml)) 4,000 unit AFTER DIALYSIS CATHETER ; Start 04/25/18 at 20:30 Acetaminophen (Tylenol Tab) 500 mg Q6 PRN PO MILD PAIN(1-3)OR ELEVATED TEMP Last administered on 05/03/18at 20:41; Admin Dose 500 MG; Start 04/25/18 at 20:30 Allopurinol (Zyloprim) 100 mg DAILY PO Last administered on 05/03/18at 08:28; Admin Dose 100 MG; Start 04/26/18 at 09:00 Aspirin (Halfprin) 81 mg DAILY PO Last administered on 05/03/18at 08:29; Admin Dose 81 MG; Start 04/26/18 at 09:00 Duloxetine HCl (Cymbalta) 30 mg BID PO Last administered on 05/03/18at 20:35; Admin Dose 30 MG; Start 04/25/18 at 21:00 Vitamin B Complex/ Vitamin C (Berocca) 1 cap DAILY PO Last administered on 05/03/18at 09:47; Admin Dose 1 CAP; Start 04/26/18 at 09:00 Hydralazine HCl (Apresoline) 10 mg Q4H PRN IV SBP more than 150 mm Hg Last administered on 05/03/18at 00:31; Admin Dose 10 MG; Start 04/25/18 at 20:30 Ferrous Sulfate (Ferrous Sulfate (Ec)) 325 mg BID PO Last administered on 05/03/18 20:35; Admin Dose 325 MG; Start 04/25/18 at 21:00 Gabapentin (Neurontin) 300 mg HS PO Last administered on 05/03/18 20:35; Admin Dose 300 MG; Start 04/25/18 at 21:00 Sertraline HCl (Zoloft) 200 mg HS PO Last administered on 05/03/18 20:35; Admin Dose 200 MG; Start 04/25/18 at 21:00 Sevelamer Carbonate (Renvela) 1.6 gm WITH MEALS PO Last administered on 05/03/18 17:43; Admin Dose 1.6 GM; Start 04/26/18 at 17:55 Atorvastatin Calcium (Lipitor) 80 mg DAILY@21 PO Last administered on 05/03/18 20:35; Admin Dose 80 MG; Start 04/27/18 at 00:00 Loratadine (Claritin) 10 mg DAILY PO Last administered on 05/03/18 08:29; Admin Dose 10 MG; Start 04/27/18 at 14:00 Albuterol (Proventil 0.083% (Neb)) 1.25 mg Q4H RESP THERAPY HHN Last administered on 05/03/18 20:48; Admin Dose 1.25 MG; Start 04/28/18 at 21:00 Guaifenesin/ Dextromethorphan (Robitussin Dm Liquid Cup) 10 ml Q4H PRN PO cough Last administered on 04/28/18 21:22; Admin Dose 10 ML; Start 04/28/18 at 19:00 Famotidine (Pepcid) 20 mg DAILY PO Last administered on 05/03/18 08:29; Admin Dose 20 MG; Start 04/28/18 at 21:00 Hydralazine HCl (Apresoline) 75 mg TID PO Last administered on 05/03/18 20:36; Admin Dose 75 MG; Start 04/29/18 at 06:30 Prednisone (Prednisone) 10 mg DAILY PO ; Start 05/04/18 at 09:00 Epoetin Bautista (Epogen (Esrd)) 3,000 units TuThSa@1700 IV Last administered on 3/21/19at 18:37; Admin Dose 3,000 UNITS; Start 05/03/18 at 17:00 FE DANG MD May 03, 2018 22:06
[2018-05-04] VITALS (13 sets, daily range): BP systolic 153–174; BP diastolic 67–76; PULSE 81–96; RESP 17–22
[2018-05-04] MEDS: ALBUTEROL 0.083% (NEB) 2.5 MG/3 ML AMP HHN SCH ×6 (00:45→20:06)
[2018-05-04] MEDS: hydrALAzine 20 MG INJ IV PRN (04:16)
[2018-05-04] MEDS: SEVELAMER CARBONATE 0.8 GM PKT PO SCH ×3 (08:24→18:06)
[2018-05-04] MEDS: predniSONE 20 MG TAB PO SCH (08:27)
[2018-05-04] MEDS: FERROUS SULFATE (EC) 325 MG TAB PO SCH ×2 (08:27→21:38)
[2018-05-04] MEDS: ALLOPURINOL 100 MG TAB PO SCH (08:27)
[2018-05-04] MEDS: DULOXETINE 30 MG CAP DR PO SCH ×2 (08:27→21:37)
[2018-05-04] MEDS: ASPIRIN (EC) 81 MG TAB PO SCH (08:27)
[2018-05-04] MEDS: LORATADINE 10 MG TAB PO SCH (08:27)
[2018-05-04] MEDS: FAMOTIDINE 20 MG TAB PO SCH (08:28)
[2018-05-04] MEDS: VITAMIN B COMPLEX/VIT C CAP PO SCH (10:16)
--- NOTE | 2018-05-04 12:14 | PN ---
Date/Time of Note Date/Time of Note DATE: 05/04/18 TIME: 12:13 Assessment/Plan VTE Prophylaxis Risk score (from Nsg)>0 risk: 6 SCD applied (from Nsg): No Lines/Catheters IV Catheter Type (from Nrsg): Saline Lock Assessment/Plan Assessment/Plan -Acute fluid overload. Continue to remove fluid with hemodialysis. Dr. Borja is following in nephrology consultation. -Hemodialysis dependent end-stage renal disease -Stage I diastolic dysfunction CHF with preserved ejection fraction of 55-60% per echo. Dr. Lantigua is asked to see patient in cardiology consultation. -Uncontrolled hypertension. Status post IV labetalol and hydralazine. Continue hydralazine. -Diabetes mellitus with hemoglobin A1c 5.3 -Dyslipidemia, continue Lipitor -Depression, continue Cymbalta and Zoloft. -Anemia of chronic disease, continue Epogen -History of lacunar infarct. Continue aspirin. -Obesity with BMI of 36.1. Further recommendations based on clinical course. Plan of care discussed with Dr. Webb. Result Diagram: 05/02/18 0605/02/18 0609 Exam/Review of Systems Exam Vitals Vital Signs Date Temp Pulse Resp B/P (MAP) Pulse Ox O2 O2 Flow FiO2 Time Delivery Rate 05/04/18 96.9 81 22 153/68 96 Room Air 12:08 (96) 05/04/18 10:15 05/04/18 2.0 09:10 Intake and Output 05/03/18 05/03/18 05/04/18 1515:00 23:00 07:00 IntakeIntake Total 580 ml 400 ml OutputOutput Total 200 ml 5800 ml BalanceBalance -200 ml -5220 ml 400 ml Constitutional: alert, well developed Psych: nl mood/affect Head: atraumatic Eyes: EOMI, nl lids ENMT: nl external ears & nose Neck: non-tender Respiratory: clear to auscultation Cardiovascular: nl pulses Gastrointestinal: soft, non-tender Musculoskeletal: nl extremities to inspection Extremities: normal pulses Medications Medication Current Medications Heparin Sodium (Porcine) (Heparin (1000 Units/ml)) 4,000 unit AFTER DIALYSIS CATHETER ; Start 04/25/18 at 20:30 Acetaminophen (Tylenol Tab) 500 mg Q6 PRN PO MILD PAIN(1-3)OR ELEVATED TEMP Last administered on 05/03/18 20:41; Admin Dose 500 MG; Start 04/25/18 at 20:30 Allopurinol (Zyloprim) 100 mg DAILY PO Last administered on 05/04/18 08:27; Admin Dose 100 MG; Start 04/26/18 at 09:00 Aspirin (Halfprin) 81 mg DAILY PO Last administered on 05/04/18 08:27; Admin Dose 81 MG; Start 04/26/18 at 09:00 Duloxetine HCl (Cymbalta) 30 mg BID PO Last administered on 05/04/18 08:27; Admin Dose 30 MG; Start 04/25/18 at 21:00 Vitamin B Complex/ Vitamin C (Berocca) 1 cap DAILY PO Last administered on 05/04/18 10:16; Admin Dose 1 CAP; Start 04/26/18 at 09:00 Hydralazine HCl (Apresoline) 10 mg Q4H PRN IV SBP more than 150 mm Hg Last administered on 05/04/18 04:16; Admin Dose 10 MG; Start 04/25/18 at 20:30 Ferrous Sulfate (Ferrous Sulfate (Ec)) 325 mg BID PO Last administered on 05/04/18 08:27; Admin Dose 325 MG; Start 04/25/18 at 21:00 Gabapentin (Neurontin) 300 mg HS PO Last administered on 05/03/18 20:35; Admin Dose 300 MG; Start 04/25/18 at 21:00 Sertraline HCl (Zoloft) 200 mg HS PO Last administered on 05/03/18 20:35; A dmin Dose 200 MG; Start 04/25/18 at 21:00 Sevelamer Carbonate (Renvela) 1.6 gm WITH MEALS PO Last administered on 05/04/18 11:55; Admin Dose 1.6 GM; Start 04/26/18 at 17:55 Atorvastatin Calcium (Lipitor) 80 mg DAILY@21 PO Last administered on 05/03/18 20:35; Admin Dose 80 MG; Start 04/27/18 at 00:00 Loratadine (Claritin) 10 mg DAILY PO Last administered on 05/04/18 08:27; Admin Dose 10 MG; Start 04/27/18 at 14:00 Albuterol (Proventil 0.083% (Neb)) 1.25 mg Q4H RESP THERAPY HHN Last admin istered on 05/04/18 10:15; Admin Dose 1.25 MG; Start 04/28/18 at 21:00 Guaifenesin/ Dextromethorphan (Robitussin Dm Liquid Cup) 10 ml Q4H PRN PO cough Last administered on 04/28/18 21:22; Admin Dose 10 ML; Start 04/28/18 at 19:00 Famotidine (Pepcid) 20 mg DAILY PO Last administered on 05/04/18 08:28; Admin Dose 20 MG; Start 04/28/18 at 21:00 Hydralazine HCl (Apresoline) 75 mg TID PO Last administered on 05/04/18 08:28; Admin Dose 75 MG; Start 04/29/18 at 06:30 Prednisone (Prednisone) 10 mg DAILY PO Last administered on 05/04/18 08:27; Admin Dose 10 MG; Start 05/04/18 at 09:00 Epoetin Bautista (Epogen (Esrd)) 3,000 units TuTa@1700 IV Last administered on 05/03/18 18:37; Admin Dose 3,000 UNITS; Start 05/03/18 at 17:00 ARLEY ANGEL May 04, 2018 12:14
--- NOTE | 2018-05-04 15:53 | CONS ---
Assessment/Plan Assessment/Plan Hospital Course (Demo Recall) IMPRESSION: 1. Congestive heart failure exacerbation, diastolic, acute on chronic in the setting of renal failure.-neg trop x 3 2. Hypertension, uncontrolled. The patient is refusing baseline antihypertensives. 3. Dyslipidemia. 4. End-stage renal disease, on hemodialysis. 5. Psychiatric disorder with depression. 6. History of cerebrovascular accident. 7. Anemia. 8. dyslipidemia recc: -tele -continue asa/statin -Will decrease hydralazine so patient will comply to take and then increase as necessary to improve BP control -Hd for volume removal Consultation Date/Type/Reason Admit Date/Time Apr 25, 2018 at 16:28 Initial Consult Date 04/25/18 Type of Consult Cardiology Reason for Consultation HTN Requesting Provider: ADARSH OSEI MD Date/Time of Note DATE: 05/04/18 TIME: 15:52 Exam/Review of Systems Vital Signs Vitals Vital Signs Date Temp Pulse Resp B/P (MAP) Pulse Ox O2 O2 Flow FiO2 Time Delivery Rate 05/04/18 91 15:34 05/04/18 20 Nasal 2.0 13:25 Cannula 05/04/18 96.9 153/68 96 12:08 (96) 05/04/18 21 10:15 Intake and Output 05/03/18 05/03/18 05/04/18 1515:00 23:00 07:00 IntakeIntake Total 580 ml 400 ml OutputOutput Total 200 ml 5800 ml BalanceBalance -200 ml -5220 ml 400 ml Exam Exam Review of Systems: CONSTITUTIONAL: No fevers, chills. PULMONARY: No sob CARDIOVASCULAR: No chest pain/palpitations GASTROINTESTINAL: No nausea/vomiting. GENITOURINARY: No hematuria/dysuria. MUSCULOSKELETAL: No myagias/arthalgias. PSYCHIATRIC: The patient denies depression. NEUROLOGIC: No weakness Constitutional: alert Psych: no complaints Head: normocephalic ENMT: mucosa pink and moist Neck: supple, jvd Respiratory: diminished breath sounds Cardiovascular: regular rate and rhythm Gastrointestinal: soft, non-tender Musculoskeletal: muscle tone (normal) Extremities: edema Neurological: other (No focal deficits) Labs Result Diagram: 05/02/18 0609 05/02/18 0609 Medications Medications Current Medications Heparin Sodium (Porcine) (Heparin (1000 Units/ml)) 4,000 unit AFTER DIALYSIS CATHETER ; Start 3/13/19 at 20:30 Acetaminophen (Tylenol Tab) 500 mg Q6 PRN PO MILD PAIN(1-3)OR ELEVATED TEMP Last administered on 05/03/18 20:41; Admin Dose 500 MG; Start 04/25/18 at 20:30 Allopurinol (Zyloprim) 100 mg DAILY PO Last administered on 05/04/18 08:27; A dmin Dose 100 MG; Start 04/26/18 at 09:00 Aspirin (Halfprin) 81 mg DAILY PO Last administered on 05/04/18 08:27; Admin Dose 81 MG; Start 04/26/18 at 09:00 Duloxetine HCl (Cymbalta) 30 mg BID PO Last administered on 05/04/18 08:27; Admin Dose 30 MG; Start 04/25/18 at 21:00 Vitamin B Complex/ Vitamin C (Berocca) 1 cap DAILY PO Last administered on 05/04/18 10:16; Admin Dose 1 CAP; Start 04/26/18 at 09:00 Hydralazine HCl (Apresoline) 10 mg Q4H PRN IV SBP more than 150 mm Hg Last administered on 05/04/18 04:16; Admin Dose 10 MG; Start 04/25/18 at 20:30 Ferrous Sulfate (Ferrous Sulfate (Ec)) 325 mg BID PO Last administered on 05/04/18 08:27; Admin Dose 325 MG; Start 04/25/18 at 21:00 Gabapentin (Neurontin) 300 mg HS PO Last administered on 05/03/18 20:35; Admin Dose 300 MG; Start 04/25/18 at 21:00 Sertraline HCl (Zoloft) 200 mg HS PO Last administered on 05/03/18 20:35; Admin Dose 200 MG; Start 04/25/18 at 21:00 Sevelamer Carbonate (Renvela) 1.6 gm WITH MEALS PO Last administered on 05/04/18 11:55; Admin Dose 1.6 GM; Start 04/26/18 at 17:55 Atorvastatin Calcium (Lipitor) 80 mg DAILY@21 PO Last administered on 05/03/18 20:35; Admin Dose 80 MG; Start 04/27/18 at 00:00 Loratadine (Claritin) 10 mg DAILY PO Last administered on 05/04/18 08:27; Admin Dose 10 MG; Start 04/27/18 at 14:00 Albuterol (Proventil 0.083% (Neb)) 1.25 mg Q4H RESP THERAPY HHN Last administered on 05/04/18 13:22; Admin Dose 1.25 MG; Start 04/28/18 at 21:00 Guaifenesin/ Dextromethorphan (Robitussin Dm Liquid Cup) 10 ml Q4H PRN PO cough Last administered on 04/28/18 21:22; Admin Dose 10 ML; Start 04/28/18 at 19:00 Famotidine (Pepcid) 20 mg DAILY PO Last administered on 05/04/18 08:28; Admin Dose 20 MG; Start 04/28/18 at 21:00 Hydralazine HCl (Apresoline) 75 mg TID PO Last administered on 05/04/18 08:28; Admin Dose 75 MG; Start 04/29/18 at 06:30 Prednisone (Prednisone) 10 mg DAILY PO Last administered on 05/04/18 08:27; Admin Dose 10 MG; Start 05/04/18 at 09:00 Epoetin Bautista (Epogen (Esrd)) 3,000 units [facility]@1700 IV Last administered on 05/03/18 18:37; Admin Dose 3,000 UNITS; Start 05/03/18 at 17:00 BRETT BLUM May 04, 2018 15:53
[2018-05-04] MEDS: ACETAMINOPHEN 500 MG TAB PO PRN (21:36)
[2018-05-04] MEDS: GABAPENTIN 300 MG CAP PO SCH (21:38)
[2018-05-04] MEDS: ATORVASTATIN 40 MG TAB PO SCH (21:45)
[2018-05-04] MEDS: SERTRALINE 100 MG TAB PO SCH (21:45)
--- NOTE | 2018-05-04 21:53 | CONS ---
Consultation Date/Type/Reason Admit Date/Time Apr 25, 2018 at 16:28 Initial Consult Date 04/25/18 Type of Consult Renal Requesting Provider: ADARSH OSEI MD Date/Time of Note DATE: 05/04/18 TIME: 21:53 Exam/Review of Systems Exam Vitals Vital Signs Date Temp Pulse Resp B/P (MAP) Pulse Ox O2 O2 Flow FiO2 Time Delivery Rate 05/04/18 2.0 20:06 05/04/18 88 18 89 Nasal 21 20:06 Cannula 05/04/18 98.4 158/69 19:22 (98) Intake and Output 05/03/18 05/03/18 05/04/18 1515:00 23:00 07:00 IntakeIntake Total 580 ml 400 ml OutputOutput Total 200 ml 5800 ml BalanceBalance -200 ml -5220 ml 400 ml Results Result Diagram: 05/02/18 0609 05/02/18 0609 Medications Medication Current Medications Heparin Sodium (Porcine) (Heparin (1000 Units/ml)) 4,000 unit AFTER DIALYSIS CATHETER ; Start 04/25/18 at 20:30 Acetaminophen (Tylenol Tab) 500 mg Q6 PRN PO MILD PAIN(1-3)OR ELEVATED TEMP Last administered on 05/04/18at 21:36; Admin Dose 500 MG; Start 04/25/18 at 20:30 Allopurinol (Zyloprim) 100 mg DAILY PO Last administered on 05/04/18 08:27; Admin Dose 100 MG; Start 04/26/18 at 09:00 Aspirin (Halfprin) 81 mg DAILY PO Last administered on 05/04/18 08:27; Admin Dose 81 MG; Start 04/26/18 at 09:00 Duloxetine HCl (Cymbalta) 30 mg BID PO Last administered on 05/04/18 21:37; Admin Dose 30 MG; Start 04/25/18 at 21:00 Vitamin B Complex/ Vitamin C (Berocca) 1 cap DAILY PO Last administered on 05/04/18at 10:16; Admin Dose 1 CAP; Start 04/26/18 at 09:00 Ferrous Sulfate (Ferrous Sulfate (Ec)) 325 mg BID PO Last administered on 05/04/18 21:38; Admin Dose 325 MG; Start 04/25/18 at 21:00 Gabapentin (Neurontin) 300 mg HS PO Last administered on 05/04/18 21:38; Admin Dose 300 MG; Start 04/25/18 at 21:00 Sertraline HCl (Zoloft) 200 mg HS PO Last administered on 05/04/18 21:45; Admin Dose 200 MG; Start 04/25/18 at 21:00 Sevelamer Carbonate (Renvela) 1.6 gm WITH MEALS PO Last administered on 18:06; Admin Dose 1.6 GM; Start 04/26/18 at 17:55 Atorvastatin Calcium (Lipitor) 80 mg DAILY@21 PO Last administered on 05/04/18 21:45; Admin Dose 80 MG; Start 04/27/18 at 00:00 Loratadine (Claritin) 10 mg DAILY PO Last administered on 05/04/18 08:27; Admin Dose 10 MG; Start 04/27/18 at 14:00 Albuterol (Proventil 0.083% (Neb)) 1.25 mg Q4H RESP THERAPY HHN Last administered on 05/04/18 20:06; Admin Dose 1.25 MG; Start 04/28/18 at 21:00 Guaifenesin/ Dextromethorphan (Robitussin Dm Liquid Cup) 10 ml Q4H PRN PO cough Last administered on 04/28/18 21:22; Admin Dose 10 ML; Start 04/28/18 at 19:00 Famotidine (Pepcid) 20 mg DAILY PO Last administered on 05/04/18 08:28; Admin Dose 20 MG; Start 04/28/18 at 21:00 Prednisone (Prednisone) 10 mg DAILY PO Last administered on 05/04/18 08:27; Admin Dose 10 MG; Start 05/04/18 at 09:00 Epoetin Bautista (Epogen (Esrd)) 3,000 units [facility]@1700 IV Last administered on 05/03/18 18:37; Admin Dose 3,000 UNITS; Start 05/03/18 at 17:00 Hydralazine HCl (Apresoline) 25 mg TID PO Last administered on 05/04/18 21:37; Admin Dose 25 MG; Start 05/04/18 at 21:00 FE DANG MD May 04, 2018 21:53
[2018-05-05] VITALS (26 sets, daily range): BP systolic 152–198; BP diastolic 69–96; PULSE 71–104; RESP 18–20
[2018-05-05] MEDS: ALBUTEROL 0.083% (NEB) 2.5 MG/3 ML AMP HHN SCH ×5 (00:12→17:16)
[2018-05-05] MEDS ORDERED: hydrALAzine 20 MG INJ IV PRN (08:00)
[2018-05-05] MEDS: DULOXETINE 30 MG CAP DR PO SCH (08:18)
[2018-05-05] MEDS: SEVELAMER CARBONATE 0.8 GM PKT PO SCH ×3 (08:18→17:26)
[2018-05-05] MEDS: predniSONE 20 MG TAB PO SCH (08:19)
[2018-05-05] MEDS: VITAMIN B COMPLEX/VIT C CAP PO SCH (08:19)
[2018-05-05] MEDS: LORATADINE 10 MG TAB PO SCH (08:19)
[2018-05-05] MEDS: ALLOPURINOL 100 MG TAB PO SCH (08:19)
[2018-05-05] MEDS: ASPIRIN (EC) 81 MG TAB PO SCH (08:19)
[2018-05-05] MEDS: FERROUS SULFATE (EC) 325 MG TAB PO SCH (08:19)
[2018-05-05] MEDS: FAMOTIDINE 20 MG TAB PO SCH (08:20)
--- NOTE | 2018-05-05 11:57 | PN ---
Date/Time of Note Date/Time of Note DATE: 05/05/18 TIME: 11:55 Assessment/Plan VTE Prophylaxis Risk score (from Ns)>0 risk: 4 SCD applied (from Ns): No SCD contraindicated: other Pharmacological prophylaxis: other Lines/Catheters IV Catheter Type (from Nrs): Saline Lock Assessment/Plan Assessment/Plan esrd post permacth change on hd tolerating well sc dnf Result Diagram: 05/02/18 0609 05/02/18 0609 Subjective 24 Hr Interval Summary Constitutional: no complaints Eyes: no complaints ENT: no complaints Respiratory: no complaints Cardiovascular: no complaints Gastrointestinal: no complaints Genitourinary: no complaints Musculoskeletal: no complaints Skin: no complaints Exam/Review of Systems Exam Vitals Vital Signs Date Temp Pulse Resp B/P (MAP) Pulse Ox O2 O2 Flow FiO2 Time Delivery Rate 05/05/18 98.8 88 18 186/85 95 Room Air 11:40 (118) 05/05/18 21 07:58 05/05/18 2.0 04:13 Intake and Output 05/04/18 05/04/18 05/05/18 1414:59 22:59 06:59 IntakeIntake Total 760 ml BalanceBalance 760 ml Constitutional: alert, oriented, well developed Psych: no complaints, nl mood/affect Head: normocephalic, atraumatic Eyes: nl conjunctiva Neck: supple, non-tender Respiratory: clear to auscultation, normal air movement Cardiovascular: regular rate and rhythm, nl pulses Gastrointestinal: soft, nl liver, spleen, non-tender Genitourinary - Female: nl adnexae Musculoskeletal: nl extremities to inspection Extremities: normal pulses Medications Medication Current Medications Heparin Sodium (Porcine) (Heparin (1000 Units/ml)) 4,000 unit AFTER DIALYSIS CATHETER ; Start 04/25/18 at 20:30 Acetaminophen (Tylenol Tab) 500 mg Q6 PRN PO MILD PAIN(1-3)OR ELEVATED TEMP Last administered on 05/04/18at 21:36; Admin Dose 500 MG; Start 04/25/18 at 20:30 Allopurinol (Zyloprim) 100 mg DAILY PO Last administered on 05/05/18at 08:19; Admin Dose 100 MG; Start 04/26/18 at 09:00 Aspirin (Halfprin) 81 mg DAILY PO Last administered on 3/23/19at 08:19; Admin Dose 81 MG; Start 04/26/18 at 09:00 Duloxetine HCl (Cymbalta) 30 mg BID PO Last administered on 05/05/18 08:18; Admin Dose 30 MG; Start 04/25/18 at 21:00 Vitamin B Complex/ Vitamin C (Berocca) 1 cap DAILY PO Last administered on 05/05/18 08:19; Admin Dose 1 CAP; Start 04/26/18 at 09:00 Ferrous Sulfate (Ferrous Sulfate (Ec)) 325 mg BID PO Last administered on 05/05/18 08:19; Admin Dose 325 MG; Start 04/25/18 at 21:00 Gabapentin (Neurontin) 300 mg HS PO Last administered on 05/04/18 21:38; Admin Dose 300 MG; Start 04/25/18 at 21:00 Sertraline HCl (Zoloft) 200 mg HS PO Last administered on 05/04/18 21:45; Admin Dose 200 MG; Start 04/25/18 at 21:00 Sevelamer Carbonate (Renvela) 1.6 gm WITH MEALS PO Last administered on 05/05/18 08:18; Admin Dose 1.6 GM; Start 04/26/18 at 17:55 Atorvastatin Calcium (Lipitor) 80 mg DAILY@21 PO Last administered on 05/04/18 21:45; Admin Dose 80 MG; Start 04/27/18 at 00:00 Loratadine (Claritin) 10 mg DAILY PO Last administered on 05/05/18 08:19; Admin Dose 10 MG; Start 04/27/18 at 14:00 Albuterol (Proventil 0.083% (Neb)) 1.25 mg Q4H RESP THERAPY HHN Last administered on 05/05/18 07:58; Admin Dose 1.25 MG; Start 04/28/18 at 21:00 Guaifenesin/ Dextromethorphan (Robitussin Dm Liquid Cup) 10 ml Q4H PRN PO cough Last administered on 04/28/18 21:22; Admin Dose 10 ML; Start 04/28/18 at 19:00 Famotidine (Pepcid) 20 mg DAILY PO Last administered on 05/05/18 08:20; Admin Dose 20 MG; Start 04/28/18 at 21:00 Prednisone (Prednisone) 10 mg DAILY PO Last administered on 05/05/18at 08:19; Admin Dose 10 MG; Start 05/04/18 at 09:00 Epoetin Bautista (Epogen (Esrd)) 3,000 units [facility]@1700 IV Last administered on 05/03/18at 18:37; Admin Dose 3,000 UNITS; Start 05/03/18 at 17:00 Hydralazine HCl (Apresoline) 25 mg TID PO Last administered on 05/05/18at 08:20; Admin Dose 25 MG; Start 05/04/18 at 21:00 Hydralazine HCl (Apresoline) 10 mg Q4H PRN IV ELEVATED BLOOD PRESSURE; Start 05/05/18 at 08:00 FLORINA RYAN MD May 05, 2018 11:57
--- NOTE | 2018-05-05 12:45 | PN ---
Date/Time of Note Date/Time of Note DATE: 05/05/18 TIME: 12:43 Assessment/Plan VTE Prophylaxis Risk score (from Ns)>0 risk: 4 SCD applied (from [facility] [place] No SCD contraindicated: other Pharmacological prophylaxis: LMWH Lines/Catheters IV Catheter Type (from [facility] Saline Lock Assessment/Plan Hospital Course -Acute fluid overload. Continue to remove fluid with hemodialysis. Dr. Borja is following in nephrology consultation. -Hemodialysis dependent end-stage renal disease -Stage I diastolic dysfunction CHF with preserved ejection fraction of 55-60% per echo. Dr. Lantigua is asked to see patient in cardiology consultation. -Uncontrolled hypertension. Status post IV labetalol and hydralazine. Continue hydralazine. -Diabetes mellitus with hemoglobin A1c 5.3 -Dyslipidemia, continue Lipitor -Depression, continue Cymbalta and Zoloft. -Anemia of chronic disease, continue Epogen -History of lacunar infarct. Continue aspirin. -Obesity with BMI of 36.1. Result Diagram: 05/02/18 0609 05/02/18 0609 Subjective 24 Hr Interval Summary Free Text/Dictation Patient getting hemodialysis, to be discharged today Exam/Review of Systems Exam Vitals Vital Signs Date Temp Pulse Resp B/P (MAP) Pulse Ox O2 O2 Flow FiO2 Time Delivery Rate 05/05/18 87 12:01 05/05/18 18 88 21 12:01 05/05/18 2.0 12:01 05/05/18 98.8 186/85 Room Air 11:40 (118) Intake and Output 05/04/18 05/04/18 05/05/18 1414:59 22:59 06:59 IntakeIntake Total 760 ml BalanceBalance 760 ml Constitutional: well developed Head: normocephalic, atraumatic Neck: supple Respiratory: clear to auscultation Cardiovascular: regular rate and rhythm Gastrointestinal: soft, non-tender Extremities: normal pulses Medications Medication Current Medications Heparin Sodium (Porcine) (Heparin (1000 Units/ml)) 4,000 unit AFTER DIALYSIS CATHETER ; Start 04/25/18 at 20:30 Acetaminophen (Tylenol Tab) 500 mg Q6 PRN PO MILD PAIN(1-3)OR ELEVATED TEMP Last administered on 05/04/18at 21:36; Admin Dose 500 MG; Start 04/25/18 at 20:30 Allopurinol (Zyloprim) 100 mg DAILY PO Last administered on 05/05/18 08:19; Admin Dose 100 MG; Start 04/26/18 at 09:00 Aspirin (Halfprin) 81 mg DAILY PO Last administered on 05/05/18 08:19; Admin Dose 81 MG; Start 04/26/18 at 09:00 Duloxetine HCl (Cymbalta) 30 mg BID PO Last administered on 05/05/18 08:18; Admin Dose 30 MG; Start 04/25/18 at 21:00 Vitamin B Complex/ Vitamin C (Berocca) 1 cap DAILY PO Last administered on 05/05/18 08:19; Admin Dose 1 CAP; Start 04/26/18 at 09:00 Ferrous Sulfate (Ferrous Sulfate (Ec)) 325 mg BID PO Last administered on 05/05/18 08:19; Admin Dose 325 MG; Start 04/25/18 at 21:00 Gabapentin (Neurontin) 300 mg HS PO Last administered on 05/04/18 21:38; Admin Dose 300 MG; Start 04/25/18 at 21:00 Sertraline HCl (Zoloft) 200 mg HS PO Last administered on 05/04/18 21:45; Adm in Dose 200 MG; Start 04/25/18 at 21:00 Sevelamer Carbonate (Renvela) 1.6 gm WITH MEALS PO Last administered on 05/05/18 12:28; Admin Dose 1.6 GM; Start 04/26/18 at 17:55 Atorvastatin Calcium (Lipitor) 80 mg DAILY@21 PO Last administered on 05/04/18 21:45; Admin Dose 80 MG; Start 04/27/18 at 00:00 Loratadine (Claritin) 10 mg DAILY PO Last administered on 05/05/18 08:19; Admin Dose 10 MG; Start 04/27/18 at 14:00 Albuterol (Proventil 0.083% (Neb)) 1.25 mg Q4H RESP THERAPY HHN Last adminis tered on 05/05/18 12:00; Admin Dose 1.25 MG; Start 04/28/18 at 21:00 Guaifenesin/ Dextromethorphan (Robitussin Dm Liquid Cup) 10 ml Q4H PRN PO cough Last administered on 3/16/19at 21:22; Admin Dose 10 ML; Start 04/28/18 at 19:00 Famotidine (Pepcid) 20 mg DAILY PO Last administered on 05/05/18 08:20; Admin Dose 20 MG; Start 04/28/18 at 21:00 Prednisone (Prednisone) 10 mg DAILY PO Last administered on 05/05/18 08:19; Admin Dose 10 MG; Start 05/04/18 at 09:00 Epoetin Bautista (Epogen (Esrd)) 3,000 units [facility]@1700 IV Last administered on 05/03/18at 18:37; Admin Dose 3,000 UNITS; Start 05/03/18 at 17:00 Hydralazine HCl (Apresoline) 25 mg TID PO Last administered on 05/05/18 08:20; Admin Dose 25 MG; Start 05/04/18 at 21:00 Hydralazine HCl (Apresoline) 10 mg Q4H PRN IV ELEVATED BLOOD PRESSURE; Start 05/05/18 at 08:00 DUC CHAVARRIA May 05, 2018 12:45
[2018-05-05] MEDS: ACETAMINOPHEN 500 MG TAB PO PRN (15:22)
--- NOTE | 2018-05-05 15:28 | CONS ---
Assessment/Plan Assessment/Plan Hospital Course (Demo Recall) IMPRESSION: 1. Congestive heart failure exacerbation, diastolic, acute on chronic in the setting of renal failure.-neg trop x 3 2. Hypertension, uncontrolled. The patient is refusing baseline antihypertensives. 3. Dyslipidemia. 4. End-stage renal disease, on hemodialysis. 5. Psychiatric disorder with depression. 6. History of cerebrovascular accident. 7. Anemia. 8. dyslipidemia recc: -tele -continue asa/statin -Patient now taking hydralazine at reduced dose will uptitrate to improve BP as tolerated and necessary -Hd for volume removal s/p today Consultation Date/Type/Reason Admit Date/Time Apr 25, 2018 at 16:28 Initial Consult Date 04/25/18 Type of Consult Cardiology Reason for Consultation CHF Requesting Provider: ADARSH OSEI MD Date/Time of Note DATE: 05/05/18 TIME: 15:26 Exam/Review of Systems Vital Signs Vitals Vital Signs Date Temp Pulse Resp B/P (MAP) Pulse Ox O2 O2 Flow FiO2 Time Delivery Rate 05/05/18 97.7 104 18 191/87 96 Room Air 15:24 (121) 05/05/18 21 12:01 05/05/18 2.0 12:01 Intake and Output 05/04/18 05/04/18 05/05/18 1515:00 23:00 07:00 IntakeIntake Total 760 ml 250 ml BalanceBalance 760 ml 250 ml Exam Exam Review of Systems: CONSTITUTIONAL: No fevers, chills. PULMONARY: No sob CARDIOVASCULAR: No chest pain/palpitations GASTROINTESTINAL: No nausea/vomiting. GENITOURINARY: No hematuria/dysuria. MUSCULOSKELETAL: No myagias/arthalgias. PSYCHIATRIC: The patient denies depression. NEUROLOGIC: No weakness Constitutional: alert Psych: no complaints Head: normocephalic ENMT: mucosa pink and moist Neck: supple, jvd (9 cm water) Respiratory: diminished breath sounds Cardiovascular: regular rate and rhythm Gastrointestinal: soft, non-tender Musculoskeletal: muscle tone (normal) Extremities: edema (none) Labs Result Diagram: 05/02/18 0609 05/02/18 0609 Medications Medications Current Medications Heparin Sodium (Porcine) (Heparin (1000 Units/ml)) 4,000 unit AFTER DIALYSIS CATHETER ; Start 04/25/18 at 20:30 Acetaminophen (Tylenol Tab) 500 mg Q6 PRN PO MILD PAIN(1-3)OR ELEVATED TEMP Last administered on 05/05/18 15:22; Admin Dose 500 MG; Start 04/25/18 at 20:30 Allopurinol (Zyloprim) 100 mg DAILY PO Last administered on 05/05/18 08:19; Admin Dose 100 MG; Start 04/26/18 at 09:00 Aspirin (Halfprin) 81 mg DAILY PO Last administered on 05/05/18 08:19; Admin Dose 81 MG; Start 04/26/18 at 09:00 Duloxetine HCl (Cymbalta) 30 mg BID PO Last administered on 05/05/18 08:18; Admin Dose 30 MG; Start 04/25/18 at 21:00 Vitamin B Complex/ Vitamin C (Berocca) 1 cap DAILY PO Last administered on 05/05/18 08:19; Admin Dose 1 CAP; Start 04/26/18 at 09:00 Ferrous Sulfate (Ferrous Sulfate (Ec)) 325 mg BID PO Last administered on 05/05/18 08:19; Admin Dose 325 MG; Start 04/25/18 at 21:00 Gabapentin (Neurontin) 300 mg HS PO Last administered on 05/04/18 21:38; Admin Dose 300 MG; Start 04/25/18 at 21:00 Sertraline HCl (Zoloft) 200 mg HS PO Last administered on 05/04/18 21:45; Admin Dose 200 MG; Start 04/25/18 at 21:00 Sevelamer Carbonate (Renvela) 1.6 gm WITH MEALS PO Last administered on 05/05/18 12:28; Admin Dose 1.6 GM; Start 04/26/18 at 17:55 Atorvastatin Calcium (Lipitor) 80 mg DAILY@21 PO Last administered on 05/04/18 21:45; Admin Dose 80 MG; Start 04/27/18 at 00:00 Loratadine (Claritin) 10 mg DAILY PO Last administered on 05/05/18 08:19; Admin Dose 10 MG; Start 04/27/18 at 14:00 Albuterol (Proventil 0.083% (Neb)) 1.25 mg Q4H RESP THERAPY HHN Last administered on 05/05/18 12:00; Admin Dose 1.25 MG; Start 04/28/18 at 21:00 Guaifenesin/ Dextromethorphan (Robitussin Dm Liquid Cup) 10 ml Q4H PRN PO cough Last administered on 04/28/18at 21:22; Admin Dose 10 ML; Start 04/28/18 at 19:00 Famotidine (Pepcid) 20 mg DAILY PO Last administered on 05/05/18 08:20; Admin Dose 20 MG; Start 04/28/18 at 21:00 Prednisone (Prednisone) 10 mg DAILY PO Last administered on 05/05/18at 08:19; Admin Dose 10 MG; Start 05/04/18 at 09:00 Epoetin Bautista (Epogen (Esrd)) 3,000 units [facility]@1700 IV Last administered on 05/03/18at 18:37; Admin Dose 3,000 UNITS; Start 05/03/18 at 17:00 Hydralazine HCl (Apresoline) 25 mg TID PO Last administered on 05/05/18at 14:00; Admin Dose 25 MG; Start 05/04/18 at 21:00 Hydralazine HCl (Apresoline) 10 mg Q4H PRN IV ELEVATED BLOOD PRESSURE Last administered on 05/05/18 15:22; Admin Dose 10 MG; Start 05/05/18 at 08:00 BRETT BLUM May 05, 2018 15:28
[2018-05-05] MEDS: EPOETIN 3000 UNITS/1 ML INJ (ESRD) IV SCH (16:21)
--- NOTE | 2018-05-06 16:54 | DS ---
Date/Time of Note Date/Time of Note DATE: 05/06/18 TIME: 16:53 Discharge Summary Admission/Discharge Info Admit Date/Time Apr 25, 2018 at 16:28 Discharge Date/Time May 05, 2018 at 18:11 Discharge Diagnosis -Acute fluid overload. Continue to remove fluid with hemodialysis. Dr. Borja is following in nephrology consultation. -Hemodialysis dependent end-stage renal disease -Stage I diastolic dysfunction CHF with preserved ejection fraction of 55-60% per echo. Dr. Lantigua is asked to see patient in cardiology consultation. -Uncontrolled hypertension. Status post IV labetalol and hydralazine. Continue hydralazine. -Diabetes mellitus with hemoglobin A1c 5.3 -Dyslipidemia, continue Lipitor -Depression, continue Cymbalta and Zoloft. -Anemia of chronic disease, continue Epogen -History of lacunar infarct. Continue aspirin. -Obesity with BMI of 36.1. Patient Condition: Fair Consults nephrology Procedures hemodialysis Hx of Present Illness Patient with renal failure comes in with evidence of fluid overload. Hospital Course Patient with renal failure comes in with evidence of fluid overload. Patient was treated with hemodialysis which resolved her symptoms and when she was felt to be stable, she was discharged. -Acute fluid overload. Continue to remove fluid with hemodialysis. Dr. Borja is following in nephrology consultation. -Hemodialysis dependent end-stage renal disease -Stage I diastolic dysfunction CHF with preserved ejection fraction of 55-60% per echo. Dr. Lantigua is asked to see patient in cardiology consultation. -Uncontrolled hypertension. Status post IV labetalol and hydralazine. Continue hydralazine. -Diabetes mellitus with hemoglobin A1c 5.3 -Dyslipidemia, continue Lipitor -Depression, continue Cymbalta and Zoloft. -Anemia of chronic disease, continue Epogen -History of lacunar infarct. Continue aspirin. -Obesity with BMI of 36.1. Home Meds Reported Medications Sertraline Hcl* (Sertraline Hcl*) 100 Mg Tablet, 100 MG PO BID, #30 TAB 04/25/18 Allopurinol* (Allopurinol*) 100 Mg Tablet, 100 MG PO DAILY, TAB 04/25/18 Duloxetine Hcl* (Duloxetine Hcl*) 30 Mg Capsule.dr 30 MG PO BID, #30 CAP 04/25/18 Dulaglutide (Trulicity) 0.75 Mg/0.5 Ml Pen.injctr, 0.75 MG SQ Q THURS 04/25/18 Sevelamer Carbonate* (Renvela*) 800 Mg Tablet, 1600 GM PO WITH MEALS, TAB 04/25/18 Atorvastatin* (Atorvastatin*) 80 Mg Tablet, 80 MG PO QHS, #30 TAB 04/25/18 Gabapentin* (Gabapentin*) 300 Mg Capsule, 300 MG PO TID, #90 CAP 04/25/18 Turmeric Root Extract (Turmeric) Unknown Strength Capsule, 1 CAP PO DAILY, CAP 04/25/18 Vitamin B Complex* (Vitamin B Complex*) 1 Each Tablet, 1 TAB PO DAILY, TAB 04/25/18 Ferrous Sulfate* (Ferrous Sulfate*) 325 Mg Tabec, 650 MG PO TID, TAB 04/25/18 Cholecalciferol (Vitamin D3) (Vitamin D-3) 2,000 Unit Tablet, 4000 UNIT PO BID, TAB 04/25/18 Acetaminophen* (Acetaminophen*) 500 MG Extra Strength Tablet, 500 MG PO NEEDED PRN for PAIN AND OR ELEVATED TEMP, TAB 04/25/18 Aspirin* (Aspirin* EC) 81 Mg Tablet., 81 MG PO DAILY, TAB 04/25/18 Primary Care Provider Not On Staff Doctor DUC CHAVARRIA May 06, 2018 16:54
== END 2018-05-05 18:11 | DRG 291 ==
LOC: E/R 12:59 → TEL 16:28
PROVIDERS: ADMIT Internal Medicine; ATTEND Internal Medicine
PROC: 5A1D70Z Performance of Urinary Filtration, Intermittent, Less than 6 Hours Per Day (ICD-10-PCS; principal; 2018-04-26)
DX: I13.2 Hypertensive heart and chronic kidney disease with heart failure and with stage 5 chronic kidney disease, or end stage renal disease (principal); N18.6 End stage renal disease; I50.33 Acute on chronic diastolic (congestive) heart failure; D63.1 Anemia in chronic kidney disease; E11.22 Type 2 diabetes mellitus with diabetic chronic kidney disease; E87.70 Fluid overload, unspecified; E66.9 Obesity, unspecified; E78.5 Hyperlipidemia, unspecified; F41.9 Anxiety disorder, unspecified; F32.9 Major depressive disorder, single episode, unspecified; I16.0 Hypertensive urgency; I25.10 Atherosclerotic heart disease of native coronary artery without angina pectoris; J20.9 Acute bronchitis, unspecified; Z20.1 Contact with and (suspected) exposure to tuberculosis; Z68.36 Body mass index [BMI] 36.0-36.9, adult; Z99.2 Dependence on renal dialysis; Z87.891 Personal history of nicotine dependence; Z86.73 Personal history of transient ischemic attack (TIA), and cerebral infarction without residual deficits; Z79.84 Long term (current) use of oral hypoglycemic drugs; Z79.82 Long term (current) use of aspirin
CPT/HCPCS: 36415; 36600; 70220; 71045; 71046; 71250; 80048; 80053; 80061; 81001; 82550; 82553; 82803; 82962; 83036; 83605; 83735; 84100; 84484; 85025; 85610; 85730; 86580; 86706; 87040; 87086; 87340; 90935; 93005; 93306; 94060; 94640; 94664; 97116; 97162; J0360; J0886; J1644; J2930; J7512; Q4081